=== PATIENT | female | born 1935 | race Caucasian/White ===

== ENCOUNTER → 2016-11-28 | Outpatient (CLI) | payer OTHER ==
[~2016-11-28] MED LIST: AMOX875T PO; ASCO10003 PO; ATOR10TA82 PO; CARB25TA16 PO; CHOL100027 PO; LETR2TAB PO; LEVO88TA PO; LORA-741 PO; LOSA50TA6 PO; MULTCAP42; OXYC1TAB3 PO; OYST500T47 PO; SERT25TA PO; calcium
[2016-11-28 14:03] LABS: BLOOD UREA NITROGEN 16 mg/dl (7-18); BUN/CREATININE RATIO 22.2 (10-20); CARBON DIOXIDE 28 mmol/L (21-32); CHLORIDE 104 mmol/L (98-107); CREATININE 0.71 mg/dl (0.60-1.20); GLUCOSE 88 mg/dl (70-99); SODIUM 139 mmol/L (136-145)
[2016-11-28 14:14] LABS: THYROID STIMULATING HORMONE 0.841 uIu/ml (0.300-4.500)
== END | disposition home or self-care (01) ==
LOC: C.LABPBG 10:04
PROVIDERS: ATTEND Internal Medicine Geriatric Medicine
DX: E05.00 Thyrotoxicosis with diffuse goiter without thyrotoxic crisis or storm (principal); E89.0 Postprocedural hypothyroidism; I10 Essential (primary) hypertension

== ENCOUNTER → 2016-12-01 | Outpatient (CLI) | payer OTHER ==
--- NOTE | 2016-12-01 10:32 | DIAGNOSTIC IMAGING REPORT ---
ULTRASOUND OF THE ABDOMINAL AORTA CLINICAL HISTORY: Abdominal aneurysm. COMPARISON STUDY: Ultrasound of the abdominal aorta dated 05/05/2016. TECHNIQUE: Multiple gonsalves scale, color Doppler, and spectral Doppler sonograms of the abdominal aorta and iliac arteries are performed. Images are reviewed in the transverse and longitudinal planes. FINDINGS: There is moderate to advanced atherosclerotic calcification and irregularity noted throughout the abdominal aorta. The proximal abdominal aorta measures 2.2 x 2.5 cm (AP times transverse) and the mid abdominal aorta measures 2.2 x 2.3 cm. 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 This measures 3.9 cm in AP diameter and 4.5 cm in transverse diameter. Abdominal aorta is widely patent. The right common iliac artery measures up to 1.4 cm and the left common iliac artery measures up to 1.5 cm. 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 Electronically signed by: Daren Arellano M.D. 12/01/2016 10:30 AM Dictated Date/Time: 12/01/2016 10:20 AM
== END | disposition home or self-care (01) ==
LOC: C.ULTR 10:01
PROVIDERS: ATTEND Internal Medicine Geriatric Medicine
DX: I71.4 Abdominal aortic aneurysm, without rupture (principal)

== ENCOUNTER 2017-02-17 13:54 | Observation (INO) | payer OTHER ==
[~2017-02-17] VITALS: Ht 160 cm; Wt 91.1 kg
[~2017-02-17 13:54] MED LIST changes: -AMOX875T PO; -ATOR10TA82 PO; -CARB25TA16 PO; -LOSA50TA6 PO; -OXYC1TAB3 PO; -OYST500T47 PO; -SERT25TA PO
[2017-02-17] MEDS ORDERED: MoRPHine SULFATE 4 MG/ML 1 ML CARP\\VIAL IM STA (14:10)
[2017-02-17] MEDS ORDERED: OYST500T47 PO (14:58)
--- NOTE | 2017-02-17 15:01 | DIAGNOSTIC IMAGING REPORT ---
PELVIS 1 OR 2 VIEW ROUTINE CLINICAL HISTORY: Left leg pain following fall. COMPARISON STUDY: PET/CT April 01, 2014. FINDINGS: No acute fracture within the pelvis or hips is identified. The sacroiliac joints and symphysis pubis are intact. Calcific density along the greater trochanter of the left femur is chronic and due to muscular insertion. IMPRESSION: No acute fracture within the pelvis or hips. Electronically signed by: Josh Figueroa M.D. 02/17/2017 2:59 PM Dictated Date/Time: 02/17/2017 2:58 PM
--- NOTE | 2017-02-17 15:04 | DIAGNOSTIC IMAGING REPORT ---
LEFT FEMUR 2 VIEWS ROUTINE CLINICAL HISTORY: Distal left femoral pain following fall. COMPARISON: None FINDINGS: No acute fracture of the left femur is identified. Mild smooth cortical thickening of the mid to distal shaft of the left femur is chronic and of doubtful significance. Note is made of a large left knee joint effusion with lipohemarthrosis. There is an acute vertical nondisplaced fracture through the tibial spines. IMPRESSION: 1. No acute fracture of the left femur. 2. Acute vertical nondisplaced fracture of the proximal tibia extending through the tibial spines with large left knee joint effusion and lipohemarthrosis. Electronically signed by: Josh Figueroa M.D. 02/17/2017 3:02 PM Dictated Date/Time: 02/17/2017 2:59 PM
--- NOTE | 2017-02-17 15:06 | DIAGNOSTIC IMAGING REPORT ---
LEFT TIBIA/FIBULA 2 VIEWS ROUTINE CLINICAL HISTORY: Left knee and proximal tibial pain. Fall. COMPARISON: None FINDINGS: There is an acute vertical nondisplaced fracture of the proximal left tibia that extends through the tibial spines. No acute fracture of the left fibula is identified. There is moderate plantar calcaneal spurring. A left knee joint effusion is better depicted on the left femur radiographs. IMPRESSION: 1. Acute nondisplaced vertical fracture of the proximal left tibia that extends through the tibial spines. 2. Large left knee joint effusion with lipohemarthrosis which is better depicted on the left femur radiographs. Electronically signed by: Josh Figueroa M.D. 02/17/2017 3:04 PM Dictated Date/Time: 02/17/2017 3:02 PM
--- NOTE | 2017-02-17 15:13 | DIAGNOSTIC IMAGING REPORT ---
CT OF THE HEAD WITHOUT CONTRAST CLINICAL HISTORY: Fall with head injury. COMPARISON STUDY: MRI of the brain January 27, 2016. TECHNIQUE: Helical axial images of the head were obtained without IV contrast. Automated exposure control was utilized for the study. A dose lowering technique was utilized adhering to the principles of ALARA. FINDINGS: No acute intracranial hemorrhage, midline shift or mass effect is present. Ventricular system is normal for age. Basilar cisterns are patent. There are no extra-axial collections. White matter hypodensities suggest moderate small vessel disease. There is no calvarial fracture. There is a small amount of hemorrhage within the right maxillary sinus with an air-fluid level. The right ethmoid air cells are partially opacified. There is a comminuted, displaced fracture of the right lamina papyracea. Right orbital floor fracture is also noted. IMPRESSION: 1. No acute intracranial findings. 2. No calvarial fracture. 3. Fractures of the right orbital floor and right lamina papyracea which are better depicted on the maxillofacial CT. Electronically signed by: Josh Figueroa M.D. 02/17/2017 3:11 PM Dictated Date/Time: 02/17/2017 3:04 PM
--- NOTE | 2017-02-17 15:17 | DIAGNOSTIC IMAGING REPORT ---
MAXILLOFACIAL CT WITHOUT CONTRAST CLINICAL HISTORY: Fall with facial injury. COMPARISON STUDY: Sinus CT April 17, 2014. TECHNIQUE: A maxillofacial CT was performed without IV contrast. Coronal and sagittal reformats were viewed. A dose lowering technique was utilized adhering to the principles of ALARA. FINDINGS: There is a small air-fluid level within the right maxillary sinus which contains hemorrhage. The globes are intact. There is no retrobulbar hematoma. Note is made of an acute displaced right orbital floor fracture. A small amount of orbital fat extends through the defect. This fracture involves the majority of the right orbital floor which is depressed 4 mm. In addition, there is an acute displaced fracture of the right lamina papyracea. There is an age indeterminate anterior right nasal bone fracture. Alignment of the temporomandibular joints is anatomic. IMPRESSION: 1. Acute depressed mildly displaced right orbital floor fracture. Small amount of orbital fat extends through the defect. Trace gas within the right orbit due to the fracture. 2. Acute displaced fracture of the right lamina papyracea. 3. Age indeterminate nondisplaced right nasal bone fracture. Electronically signed by: Josh Figueroa M.D. 02/17/2017 3:16 PM Dictated Date/Time: 02/17/2017 3:11 PM
[2017-02-17] MEDS ORDERED: ATOR10TA88 PO (15:18)
[2017-02-17] MEDS ORDERED: SERT25TA PO (15:18)
[2017-02-17] MEDS ORDERED: LOSA50TA6 PO (15:18)
[2017-02-17] MEDS ORDERED: CARB25TA16 PO (15:18)
--- NOTE | 2017-02-17 15:21 | DIAGNOSTIC IMAGING REPORT ---
CT OF THE CERVICAL SPINE WITHOUT CONTRAST CLINICAL HISTORY: Fall. COMPARISON STUDY: No previous studies for comparison. TECHNIQUE: Helical axial images of the cervical spine were obtained without IV contrast. Sagittal and coronal reconstructions were viewed. A dose lowering technique was utilized adhering to the principles of ALARA. FINDINGS: Reversal of the normal cervical lordosis is noted. There is slight anterolisthesis of C3 on C4 which is likely chronic. No acute fracture is identified. Craniocervical junction is intact. There is moderate to marked multilevel degenerative disc disease and facet arthrosis of the cervical spine. There is no prevertebral edema. IMPRESSION: No acute cervical spine fracture or subluxation. Electronically signed by: Josh Figueroa M.D. 02/17/2017 3:20 PM Dictated Date/Time: 02/17/2017 3:16 PM
[2017-02-17] MEDS ORDERED: MoRPHine SULFATE 10 MG/ML CARP/VIAL IM STA (15:28)
[2017-02-17] MEDS ORDERED: OXYC1TAB3 PO (16:33)
[2017-02-17] MEDS ORDERED: AMOX875T PO (16:35)
[2017-02-17 17:28] LABS: BASO % 0.3 %; BASO ABS # 0.04 K/uL (0-0.2); COMPLETE YES; EOS % 1.5 %; HEMATOCRIT 35.8 % (37-47); IG% 0.2 %; LYMPH % 19.1 %; LYMPH ABS # 2.62 K/uL (1.2-3.4); MEAN CELL VOLUME 88.8 fL (80-100); MEAN CORPUSCULAR HEMOGLOBIN 29.3 pg (25-34); MONO % 8.7 %; NEUT % 70.2 %; PLATELET COUNT 266 K/uL (130-400); RED BLOOD COUNT 4.03 M/uL (4.2-5.4); WHITE BLOOD COUNT 13.75 K/uL (4.8-10.8)
[2017-02-17 17:35] LABS: BLOOD UREA NITROGEN 15 mg/dl (7-18); CALCIUM 9.4 mg/dl (8.5-10.1); CARBON DIOXIDE 28 mmol/L (21-32); CHLORIDE 105 mmol/L (98-107); CREATININE 0.67 mg/dl (0.60-1.20); GLUCOSE 105 mg/dl (70-99); POTASSIUM 3.9 mmol/L (3.5-5.1); SODIUM 138 mmol/L (136-145)
[2017-02-17] MEDS ORDERED: AMOXICILLIN/CLAVULANATE TAB 875 MG TAB PO ONE (17:45)
[2017-02-17 18:25] VITALS: O2SAT 92; BMI 35.6
[2017-02-17 18:26] VITALS: Ht 160 cm; Wt 91.1 kg
[2017-02-17] MEDS ORDERED: ONDANSETRON INJ 2 MG/ML 2 ML VIAL IV STA (18:37)
--- NOTE | 2017-02-17 18:50 | EMERGENCY ROOM VISIT NOTE ---
History Report prepared by Andrea: Ibis Tejada Under the Supervision of: Viktoriya CarrollO. First contact with patient: 14:01 Chief Complaint: FALL Stated Complaint: TRIPPED ON CURB, FELL, HIT HEAD/FACE, LT LEG PAIN History of Present Illness The patient is a 81 year old female who presents to the Emergency Room with complaints of an episode of a fall occurring at 8:30am today. She tripped over the curb and fell on the sidewalk. She was able to get her arms out in front of her to catch herself. The patient landed on her right side. She scraped her face and her right knee on the side walk. She is currently complaining of left knee pain. She rates her pain as an 8/10 in severity. Movement exacerbates her pain. She denies hitting her head, LOC, headache, changes in vision, neck pain, chest pain, and abdominal pain. The patient takes aspirin and denies other blood thinners. Source of History: patient Onset: today Position: other (global) Symptom Intensity: 8/10 Timing: other (episode) Modifying Factors (Worsening): movement Associated Symptoms: No LOC, No headache, No neck pain, No chest pain, No abdominal pain Note: Pt notes left knee pain Review of Systems See HPI for pertinent positives & negatives. A total of 10 systems reviewed and were otherwise negative. Past Medical & Surgical Medical Problems: (1) Breast cancer Family History FH: heart disease Social History Smoking Status: Never Smoker Smokeless Tobacco Use: No Alcohol Use: none Housing Status: lives alone Occupation Status: unemployed Current/Historical Medications Scheduled Amoxicillin & Pot Clavulanate (Augmentin 875-125 mg), 1 TAB PO BID Ascorbic Acid (Vitamin C), 2,000 MG PO DAILY Atorvastatin (Lipitor), 10 MG PO DAILY Cholecalciferol (Vitamin D 1000 Unit), 2,000 INTER.UNIT PO DAILY Letrozole (Femara), 2.5 MG PO DAILY Levodopa/Carbidopa (Carbidopa/Levodopa Sr 25-100 mg), 1 TAB PO TID Levothyroxine Sodium (Synthroid), 88 MCG PO DAILY Lorazepam (Ativan), 0.5 MG PO DAILY Losartan Potassium (Cozaar), 50 MG PO DAILY Multiple Vitamin (Multivitamins), DAILY Oyster Shell (Calcium), 1 TAB PO DAILY Sertraline Hcl (Zoloft), 25 MG PO DAILY Scheduled PRN Oxycodone Ir (Roxicodone Ir), 1 TAB PO Q6H PRN for Pain Allergies Coded Allergies: No Known Allergies (Verified , 02/17/17) Physical Exam Vital Signs Date Time Temp Pulse Resp B/P (MAP) Pulse Ox O2 Delivery O2 Flow Rate FiO2 02/17/17 17:51 75 18 130/73 92 Room Air 02/17/17 15:32 74 18 135/74 94 Room Air 02/17/17 13:58 36.6 93 20 128/80 93 Room Air Physical Exam GENERAL: alert, well appearing, well nourished, no distress, non-toxic HEAD: normal cephalic, abrasion to the right side of the face EYE EXAM: normal conjunctiva, PERRL and EOM's grossly intact OROPHARYNX: no exudate, no erythema, lips, buccal mucosa, and tongue normal and mucous membranes are moist EARS: TMs clear b/l NECK: supple, no nuchal rigidity, no adenopathy, non-tender CHEST: stable to compression anteriorly and posteriorly LUNGS: clear to auscultation. Normal chest wall mechanics HEART: no murmurs, S1 normal and S2 normal ABDOMEN: abdomen soft, non-tender, normo-active bowel sounds, no masses, no rebound or guarding. PELVIS: stable to compression anteriorly and posteriorly BACK: Back is symmetrical on inspection and there is no deformity, no midline tenderness, no CVA tenderness. UPPER EXTREMITIES: full active and passive range of motion of all joints without tenderness to palpation LOWER EXTREMITIES: Abrasions to the right knee, Tenderness to palpation of the left distal femur, knee, proximal tib/fib with bruising. Minimal ROM. NEURO EXAM: Normal sensorium, cranial nerves II-XII grossly intact, normal speech, no gross weakness of arms. GCS: 15. Medical Decision & Procedures ER Provider Diagnostic Interpretation: Radiology results as stated below per my review and the radiologist's interpretation: LEFT TIBIA/FIBULA 2 VIEWS ROUTINE CLINICAL HISTORY: Left knee and proximal tibial pain. Fall. COMPARISON: None FINDINGS: There is an acute vertical nondisplaced fracture of the proximal left tibia that extends through the tibial spines. No acute fracture of the left fibula is identified. There is moderate plantar calcaneal spurring. A left knee joint effusion is better depicted on the left femur radiographs. IMPRESSION: 1. Acute nondisplaced vertical fracture of the proximal left tibia that extends through the tibial spines. 2. Large left knee joint effusion with lipohemarthrosis which is better depicted on the left femur radiographs. Electronically signed by: Josh Figueroa M.D. 02/17/2017 3:04 PM Dictated Date/Time: 02/17/2017 3:02 PM PELVIS 1 OR 2 VIEW ROUTINE CLINICAL HISTORY: Left leg pain following fall. COMPARISON STUDY: PET/CT April 01, 2014. FINDINGS: No acute fracture within the pelvis or hips is identified. The sacroiliac joints and symphysis pubis are intact. Calcific density along the greater trochanter of the left femur is chronic and due to muscular insertion. IMPRESSION: No acute fracture within the pelvis or hips. Electronically signed by: Josh Figueroa M.D. 02/17/2017 2:59 PM Dictated Date/Time: 02/17/2017 2:[address] WITHOUT CONTRAST CLINICAL HISTORY: Fall with facial injury. COMPARISON STUDY: Sinus CT April 17, 2014. TECHNIQUE: A maxillofacial CT was performed without IV contrast. Coronal and sagittal reformats were viewed. A dose lowering technique was utilized adhering to the principles of ALARA. FINDINGS: There is a small air-fluid level within the right maxillary sinus which contains hemorrhage. The globes are intact. There is no retrobulbar hematoma. Note is made of an acute displaced right orbital floor fracture. A small amount of orbital fat extends through the defect. This fracture involves the majority of the right orbital floor which is depressed 4 mm. In addition, there is an acute displaced fracture of the right lamina papyracea. There is an age indeterminate anterior right nasal bone fracture. Alignment of the temporomandibular joints is anatomic. IMPRESSION: 1. Acute depressed mildly displaced right orbital floor fracture. Small amount of orbital fat extends through the defect. Trace gas within the right orbit due to the fracture. 2. Acute displaced fracture of the right lamina papyracea. 3. Age indeterminate nondisplaced right nasal bone fracture. Electronically signed by: Josh Figueroa M.D. 02/17/2017 3:16 PM Dictated Date/Time: 02/17/2017 3:[address] OF THE HEAD WITHOUT CONTRAST CLINICAL HISTORY: Fall with head injury. COMPARISON STUDY: MRI of the brain January 27, 2016. TECHNIQUE: Helical axial images of the head were obtained without IV contrast. Automated exposure control was utilized for the study. A dose lowering technique was utilized adhering to the principles of ALARA. FINDINGS: No acute intracranial hemorrhage, midline shift or mass effect is present. Ventricular system is normal for age. Basilar cisterns are patent. There are no extra-axial collections. White matter hypodensities suggest moderate small vessel disease. There is no calvarial fracture. There is a small amount of hemorrhage within the right maxillary sinus with an air-fluid level. The right ethmoid air cells are partially opacified. There is a comminuted, displaced fracture of the right lamina papyracea. Right orbital floor fracture is also noted. IMPRESSION: 1. No acute intracranial findings. 2. No calvarial fracture. 3. Fractures of the right orbital floor and right lamina papyracea which are better depicted on the maxillofacial CT. Electronically signed by: Josh Figueroa M.D. 02/17/2017 3:11 PM Dictated Date/Time: 02/17/2017 3:04 PM LEFT FEMUR 2 VIEWS ROUTINE CLINICAL HISTORY: Distal left femoral pain following fall. COMPARISON: None FINDINGS: No acute fracture of the left femur is identified. Mild smooth cortical thickening of the mid to distal shaft of the left femur is chronic and of doubtful significance. Note is made of a large left knee joint effusion with lipohemarthrosis. There is an acute vertical nondisplaced fracture through the tibial spines. IMPRESSION: 1. No acute fracture of the left femur. 2. Acute vertical nondisplaced fracture of the proximal tibia extending through the tibial spines with large left knee joint effusion and lipohemarthrosis. Electronically signed by: Josh Figueroa M.D. 02/17/2017 3:02 PM Dictated Date/Time: 02/17/2017 2:[address] OF THE CERVICAL SPINE WITHOUT CONTRAST CLINICAL HISTORY: Fall. COMPARISON STUDY: No previous studies for comparison. TECHNIQUE: Helical axial images of the cervical spine were obtained without IV contrast. Sagittal and coronal reconstructions were viewed. A dose lowering technique was utilized adhering to the principles of ALARA. FINDINGS: Reversal of the normal cervical lordosis is noted. There is slight anterolisthesis of C3 on C4 which is likely chronic. No acute fracture is identified. Craniocervical junction is intact. There is moderate to marked multilevel degenerative disc disease and facet arthrosis of the cervical spine. There is no prevertebral edema. IMPRESSION: No acute cervical spine fracture or subluxation. Electronically signed by: Josh Figueroa M.D. 02/17/2017 3:20 PM Dictated Date/Time: 02/17/2017 3:16 PM Laboratory Results 02/17/17 17:10 Red Blood Count 4.03, Mean Corpuscular Volume 88.8, Mean Corpuscular Hemoglobin 29.3, Mean Corpuscular Hemoglobin Concent 33.0, Mean Platelet Volume 10.0, Neutrophils (%) (Auto) 70.2, Lymphocytes (%) (Auto) 19.1, Monocytes (%) (Auto) 8.7, Eosinophils (%) (Auto) 1.5, Basophils (%) (Auto) 0.3, Neutrophils # (Auto) 9.66, Lymphocytes # (Auto) 2.62, Monocytes # (Auto) 1.20, Eosinophils # (Auto) 0.20, Basophils # (Auto) 0.04 02/17/17 17:10 Test 02/17/17 17:10 White Blood Count 13.75 K/uL (4.8-10.8) Red Blood Count 4.03 M/uL (4.2-5.4) Hemoglobin 11.8 g/dL (12.0-16.0) Hematocrit 35.8 % (37-47) Mean Corpuscular Volume 88.8 fL (80-100) Mean Corpuscular Hemoglobin 29.3 pg (25-34) Mean Corpuscular Hemoglobin Concent 33.0 g/dl (32-36) Platelet Count 266 K/uL (130-400) Mean Platelet Volume 10.0 fL (7.4-10.4) Neutrophils (%) (Auto) 70.2 % Lymphocytes (%) (Auto) 19.1 % Monocytes (%) (Auto) 8.7 % Eosinophils (%) (Auto) 1.5 % Basophils (%) (Auto) 0.3 % Neutrophils # (Auto) 9.66 K/uL (1.4-6.5) Lymphocytes # (Auto) 2.62 K/uL (1.2-3.4) Monocytes # (Auto) 1.20 K/uL (0.11-0.59) Eosinophils # (Auto) 0.20 K/uL (0-0.5) Basophils # (Auto) 0.04 K/uL (0-0.2) RDW Standard Deviation 44.0 fL (36.4-46.3) RDW Coefficient of Variation 13.5 % (11.5-14.5) Immature Granulocyte % (Auto) 0.2 % Immature Granulocyte # (Auto) 0.03 K/uL (0.00-0.02) Anion Gap 5.0 mmol/L (3-11) Estimated GFR () 94.2 Estimated GFR (Non- 81.3 BUN/Creatinine Ratio 23.0 (10-20) Calcium Level 9.4 mg/dl (8.5-10.1) Laboratory results per my review. Medications Administered Medications (Trade) Dose Ordered Sig/Susan Route Start Time Stop Time Status Last Admin Dose Admin Morphine Sulfate (MoRPHine SULFATE INJ) 4 mg NOW STAT IM 02/17/17 14:10 02/17/17 14:11 DC 02/17/17 14:16 4 MG Morphine Sulfate (MoRPHine SULFATE INJ) 6 mg NOW STAT IM 02/17/17 15:28 02/17/17 15:31 DC 02/17/17 15:51 6 MG Amoxicillin/ Clavulanate Potassium (Augmentin Tab) 875 mg ONE ONCE PO 02/17/17 17:45 02/17/17 17:46 DC 02/17/17 17:50 875 MG ED Course ED COURSE: Vital signs were reviewed and showed hypertensive. The patients medical record was reviewed The above diagnostic studies were performed and reviewed. ED treatments and interventions as stated above. 1401: The patient was evaluated in room C4. A complete history and physical examination was performed. 1410: Morphine sulfate 4 mg IM 1527: I updated the patient and her family. The patient is complaining of pain. 1528: Morphine sulfate 6 mg IM 1530: I spoke with Dr. Campos of orthopedics. We discussed the patient's case. He recommended a knee immobilizer and crutches. 1616: I discussed the patient's case with Dr. [facility]. He states that her fracture typically heals on its own. He recommended antibiotics and will follow-up with the patient in the office. 1621: I had a long conversation with the patient regarding her treatment plan. She would prefer to go home and would like to try crutches. 1646: The patient has been unsuccessful with crutches. 1659: Upon reevaluation, the patient is resting comfortably. I discussed my findings with the patient and she understands and agrees with the treatment plan. Based on the patients age, coexisting illnesses, exam and lab findings the decision to treat as an inpatient was made. The patient remained stable while under my care. The patient will be evaluated for further management. 1714: I spoke with Dr. Walton at this time. We discussed the patient's case. The patient will be evaluated by the [facility] for further management. 1745: Augmentin 875 mg PO Medical Decision Differential diagnoses include major intracranial, cervical, spinal, thoracic, abdominal, pelvic and neurologic injury. Fracture, contusion, sprain, strain, laceration, abrasions included as well. Patient is an 81-year-old female who presents the ER following a mechanical fall. She is abrasions on the right side of her face and severe left knee pain. X-rays show proximal tibial fracture along with right orbital floor fracture. She has full active range of motion of her eyes. No double vision. No pain with range of motion. Discussed with Dr. Brooks who recommended antibiotics and not blowing nose. He will see in office. Discussed case with orthopedics as well. Patient was updated but was unable to and weight with crutches. Care management and evaluated her. Unsuccessful placing. Patient was discussed with internal medicine for observation overnight prior to placement. Medication Reconcilliation Current Medication List: was personally reviewed by me Blood Pressure Screening Patient's blood pressure: Elevated blood pressure Blood pressure disposition: Elevated BP felt to be situational Consults Time Called: 1528 Consulting Physician: Dr. Campos Returned Call: [address] Campos of orthopedics. We discussed the patient's case. He recommended a knee immobilizer and crutches. Additional Consults: Time Called: 1610 Consulted Physician: Dr. Brooks Returned Call: [phone] Additional Comments: I discussed the patient's case with Dr. [facility] of [facility]. He states that her fracture typically heals on its own. He recommended antibiotics and will follow-up with the patient in the office. Time Called: 1709 Consulted Physician: Dr. Walton Returned Call: [phone] Additional Comments: I spoke with Dr. Walton at this time. We discussed the patient's case. The patient will be evaluated by the [facility] for further management. Impression Primary Impression: Orbital floor fracture Additional Impressions: Tibia fracture Ambulatory dysfunction Scribe Attestation The scribe's documentation has been prepared under my direction and personally reviewed by me in its entirety. I confirm that the note above accurately reflects all work, treatment, procedures, and medical decision making performed by me. Departure Information Dispostion Being Evaluated By Hospitalist Prescriptions Amoxicillin & Pot Clavulanate (Augmentin 875-125 mg) 1 Tab Tab 1 TAB PO BID, #20 TAB Prov: Carlitos Ag, DO 02/17/17 Oxycodone Ir (Roxicodone Ir) 5 Mg Tab 1 TAB PO Q6H Y for Pain, #20 TAB Prov: Carlitos Ag, DO 02/17/17 Referrals Roberto Henderson M.D. (PCP) Patient Instructions My [facility] Problem Qualifiers Primary Impression: Orbital floor fracture Encounter type: initial encounter Fracture type: closed Laterality: right Qualified Codes: S02.31XA - Fracture of orbital floor, right side, initial encounter for closed fracture Additional Impressions: Tibia fracture Encounter type: initial encounter Tibia location: spine Fracture type: closed Fracture alignment: nondisplaced Laterality: left Qualified Codes: S82.115A - Nondisplaced fracture of left tibial spine, initial encounter for closed fracture
[2017-02-17] MEDS ORDERED: ACETAMINOPHEN 325 MG TAB PO PRN (19:15)
[2017-02-17] MEDS ORDERED: ONDANSETRON INJ 2 MG/ML 2 ML VIAL IV PRN (19:15)
[2017-02-17] MEDS ORDERED: IV FLUIDS COMPLETED PRN (20:00)
[2017-02-17] MEDS: HYDROmorphone INJ 0.5 MG/0.5 ML SYR IV PRN ×2 (20:03→22:07)
[2017-02-17 20:15] VITALS: BP 145/81; PULSE 66; TEMP 36.8; O2SAT 96
[2017-02-17 21:20] LABS: PARTIAL THROMBOPLASTIN RATIO 0.9; PROTHROMBIN TIME (PATIENT) 10.7 SECONDS (9.0-12.0)
[2017-02-17] MEDS: HEPARIN SOD 5000 UNIT/0.5 ML CARP SQ SCH (22:03)
[2017-02-17] MEDS: CARBIDOPA/LEVODOPA 25/100MG EXT REL TAB PO SCH (22:04)
--- NOTE | 2017-02-17 22:29 | History and Physical ---
History & Physical Date & Time of Service: Feb 17, 2017 at 19:31 Chief Complaint: Tripped On Curb, Fell, Hit Head/Face, Lt Leg Pain Primary Care Physician: Roberto Henderson M.D. History of Present Illness Source: patient, family This patient is an 81-year-old female with history of Parkinson's disease, hypertension, hyperlipidemia, hypothyroidism, breast cancer, anxiety disorder, and AAA, who presents with a mechanical fall resulting in a left tibial plateau fracture as well as right orbital floor fracture. She reports she walked out of the [employer]on and was walking to the parking lot when she tripped on a curb and fell onto the right side of her face with hands outstretched and somehow also on to her left knee. In the ER, she had multiple x-rays and CT scans with the above findings. [facility] [place] by the ER physician who recommended Augmentin for prophylaxis for the orbital fracture with maxillary sinus hemorrhage and outpatient follow-up if needed. Orthopedics was consulted also who recommended nonweightbearing and outpatient follow-up, however the patient was unable to ambulate with crutches. She will be admitted on an observation status in order to get physical therapy and occupational therapy evaluations with goal to get her to a rehabilitation facility on Sunday. Past Medical/Surgical History PMH: History of Breast cancer Parkinson's disease Hypertension Hyperlipidemia Hypothyroidism AAA Anxiety disorder PSH: Bilateral mastectomy Family History FH: heart disease Mother with diabetes, breast cancer, hypertension, AAA Father with hypertension and CAD Social History Smoking Status: Former Smoker (smoked a 5-10 year pack year history and quit in 1998) Smokeless Tobacco Use: No Alcohol Use: none Drug Use: none Immunizations History of Influenza Vaccine: Yes History of Tetanus Vaccine?: Yes History of Pneumococcal: No History of Hepatitis B Vaccine: No Multi-Drug Resistant Organisms History of MDRO: No Allergies Coded Allergies: No Known Allergies (Verified , 02/17/17) Home Medications Scheduled Amoxicillin & Pot Clavulanate (Augmentin 875-125 mg), 1 TAB PO BID Ascorbic Acid (Vitamin C), 2,000 MG PO DAILY Atorvastatin (Lipitor), 10 MG PO DAILY Cholecalciferol (Vitamin D 1000 Unit), 2,000 INTER.UNIT PO DAILY Letrozole (Femara), 2.5 MG PO DAILY Levodopa/Carbidopa (Carbidopa/Levodopa Sr 25-100 mg), 1 TAB PO TID Levothyroxine Sodium (Synthroid), 88 MCG PO DAILY Lorazepam (Ativan), 0.5 MG PO DAILY Losartan Potassium (Cozaar), 50 MG PO DAILY Multiple Vitamin (Multivitamins), DAILY Oyster Shell (Calcium), 1 TAB PO DAILY Sertraline Hcl (Zoloft), 25 MG PO DAILY Scheduled PRN Oxycodone Ir (Roxicodone Ir), 1 TAB PO Q6H PRN for Pain Review of Systems Constitutional: No fever, No chills Eyes: No worsening of vision, No eye pain ENT: No problem reported Respiratory: No shortness of breath Cardiovascular: No chest pain Abdomen: + nausea, + vomiting (after receiving morphine), No pain Musculoskeletal: + joint pain (left knee) Genitourinary - Female: No problem reported Neurologic: No problem reported Psychiatric: No problem reported Endocrine: No problem reported Hematologic / Lymphatic: No problem reported Integumentary: No problem reported Allergic / Immunologic: No problem reported Physical Exam Vital Signs Date Time Temp Pulse Resp B/P (MAP) Pulse Ox O2 Delivery O2 Flow Rate FiO2 02/17/17 18:25 92 Room Air 02/17/17 17:51 75 18 130/73 92 Room Air 02/17/17 15:32 74 18 135/74 94 Room Air 02/17/17 13:58 36.6 93 20 128/80 93 Room Air General Appearance: WD/WN, no apparent distress Head: normocephalic, + pertinent finding (right periorbital area with edema and a few superficial abrasions with significant ecchymosis) Eyes: normal inspection, PERRL, EOMI (without pain in any direction), sclerae normal ENT: normal ENT inspection, hearing grossly normal, TMs normal, pharynx normal Neck: supple, no adenopathy, thyroid normal, no JVD, trachea midline Respiratory/Chest: lungs clear, normal breath sounds, no respiratory distress, no accessory muscle use Cardiovascular: regular rate, rhythm, no edema, no gallop, no murmur, normal peripheral pulses Abdomen/GI: normal bowel sounds, non tender, soft, no organomegaly Back: normal inspection, no muscle spasm Extremities/Musculoskelatal: no pedal edema, + pertinent finding (left knee with mild effusion and tenderness to palpation anteriorly) Neurologic/Psych: no motor/sensory deficits, alert, normal mood/affect, oriented x 3 Skin: normal color, warm/dry, no rash, + pertinent finding (some ecchymoses and superficial abrasions on the palms of the hands bilaterally) Diagnostics Laboratory Results Results Past 24 Hours Test 02/17/17 17:10 Range/Units White Blood Count 13.75 4.8-10.8 K/uL Red Blood Count 4.03 4.2-5.4 M/uL Hemoglobin 11.8 12.0-16.0 g/dL Hematocrit 35.8 37-47 % Mean Corpuscular Volume 88.8 80-100 fL Mean Corpuscular Hemoglobin 29.3 25-34 pg Mean Corpuscular Hemoglobin Concent 33.0 32-36 g/dl Platelet Count 266 130-400 K/uL Mean Platelet Volume 10.0 7.4-10.4 fL Neutrophils (%) (Auto) 70.2 % Lymphocytes (%) (Auto) 19.1 % Monocytes (%) (Auto) 8.7 % Eosinophils (%) (Auto) 1.5 % Basophils (%) (Auto) 0.3 % Neutrophils # (Auto) 9.66 1.4-6.5 K/uL Lymphocytes # (Auto) 2.62 1.2-3.4 K/uL Monocytes # (Auto) 1.20 0.11-0.59 K/uL Eosinophils # (Auto) 0.20 0-0.5 K/uL Basophils # (Auto) 0.04 0-0.2 K/uL RDW Standard Deviation 44.0 36.4-46.3 fL RDW Coefficient of Variation 13.5 11.5-14.5 % Immature Granulocyte % (Auto) 0.2 % Immature Granulocyte # (Auto) 0.03 0.00-0.02 K/uL Sodium Level 138 136-145 mmol/L Potassium Level 3.9 3.5-5.1 mmol/L Chloride Level 105 98-107 mmol/L Carbon Dioxide Level 28 21-32 mmol/L Anion Gap 5.0 3-11 mmol/L Blood Urea Nitrogen 15 7-18 mg/dl Creatinine 0.67 0.60-1.20 mg/dl Estimated GFR () 94.2 Estimated GFR (Non- 81.3 BUN/Creatinine Ratio 23.0 10-20 Random Glucose 105 70-99 mg/dl Calcium Level 9.4 8.5-10.1 mg/dl Diagnostic Radiology Left tibia/fibula x-ray: 1. Acute nondisplaced vertical fracture of the proximal left tibia that extends through the tibial spines. 2. Large left knee joint effusion with lipohemarthrosis which is better depicted on the left femur radiographs. Maxillofacial CT: 1. Acute depressed mildly displaced right orbital floor fracture. Small amount of orbital fat extends through the defect. Trace gas within the right orbit due to the fracture. 2. Acute displaced fracture of the right lamina papyracea. 3. Age indeterminate nondisplaced right nasal bone fracture. Head CT: 1. No acute intracranial findings. 2. No calvarial fracture. 3. Fractures of the right orbital floor and right lamina papyracea which are better depicted on the maxillofacial CT. Cervical spine CT: No acute changes Impression Assessment and Plan This patient is an 81-year-old female with history of Parkinson's disease, hypertension, hyperlipidemia, hypothyroidism, breast cancer, anxiety disorder, and AAA, who presents with a mechanical fall resulting in a left tibial plateau fracture as well as right orbital floor fracture. She reports she walked out of the [employer] salon and was walking to the parking lot when she tripped on a curb and fell onto the right side of her face with hands outstretched and somehow also on to her left knee. In the ER, she had multiple x-rays and CT scans with the above findings. [facility] [place] by the ER physician who recommended Augmentin for prophylaxis for the orbital fracture with maxillary sinus hemorrhage and outpatient follow-up if needed. Orthopedics was consulted also who recommended nonweightbearing and outpatient follow-up, however the patient was unable to ambulate with crutches. She will be admitted on an observation status in order to get physical therapy and occupational therapy evaluations with goal to get her to a rehabilitation facility on Sunday. Left tibia fracture/right orbital floor fracture-status post mechanical fall -Consult orthopedic surgery for management of tibia fracture -Keep left knee in immobilizer for now -Pain control with Dilaudid when necessary as well as by mouth oxycodone when necessary -Consult OM for management of right orbital floor fracture -Continue Augmentin 1 tab twice a day for 10 days for prophylaxis -Antiemetics Hypertension/hyperlipidemia/AAA-all stable -Continue home meds of atorvastatin and losartan -Continue routine surveillance of AAA Parkinson's disease-sees Dr. Hinojosa of neurology routinely and was recently started on Sinemet -Continue Sinemet Hypothyroidism-clinically stable -Continue home dose of levothyroxine History of breast cancer-stable -Continue home Femara Anxiety disorder-stable -Continue home lorazepam and sertraline Prophylaxis-heparin SQ The scope-full code PT/OT evaluations and hopeful for discharge to [facility] on Sunday after authorization approved Level of Care Med/Surg Advanced Directives Existing Living Will: Yes Existing Power of Instant Print Operator: Yes Resuscitation Status FULL RESUSCITATION VTE Prophylaxis VTE Risk Assessment Done? Y/N: Yes Risk Level: Moderate Given or contraindicated: Unfractionated heparin SQ Additional Copies To Roberto Henderson M.D.
[2017-02-17 23:01] VITALS: BP 120/70; PULSE 62; TEMP 36.7; O2SAT 98
[2017-02-17] MEDS: OXYCODONE HCL IR 5 MG TAB (IMMEDIATE RELEASE) PO PRN (23:50)
[2017-02-18] MEDS: LEVOTHYROXINE 88 MCG TAB PO SCH (05:38)
[2017-02-18 06:34] LABS: BASO % 0.3 %; BASO ABS # 0.02 K/uL (0-0.2); COMPLETE YES; EOS % 2.5 %; HEMATOCRIT 33.4 % (37-47); IG% 0.3 %; LYMPH % 22.9 %; LYMPH ABS # 1.72 K/uL (1.2-3.4); MEAN CELL VOLUME 89.8 fL (80-100); MEAN CORPUSCULAR HEMOGLOBIN 29.3 pg (25-34); MEAN CORPUSCULAR HGB CONC 32.6 g/dl (32-36); MONO % 12.9 %; NEUT % 61.1 %; PLATELET COUNT 220 K/uL (130-400); RED BLOOD COUNT 3.72 M/uL (4.2-5.4); WHITE BLOOD COUNT 7.52 K/uL (4.8-10.8)
[2017-02-18 07:05] LABS: BUN/CREATININE RATIO 26.4 (10-20); CREATININE 0.51 mg/dl (0.60-1.20); MAGNESIUM 1.9 mg/dl (1.8-2.4)
[2017-02-18] MEDS: OXYCODONE HCL IR 5 MG TAB (IMMEDIATE RELEASE) PO PRN ×3 (07:18→21:08)
[2017-02-18 07:19] VITALS: BP 139/80; PULSE 71; TEMP 36.7; O2SAT 96
--- NOTE | 2017-02-18 09:41 | Consultant Recommendations ---
Business Administrator Recommendations Date of Service Feb 18, 2017. Business Administrator Recommendations NWRodney L LE x 6 weeks. Ice to left knee May remove knee immobilizer while in bed. F/U with Dr Campos for reassessment and X-rays in 6 weeks.
[2017-02-18] MEDS: ATORVASTATIN 10 MG TAB PO SCH (10:06)
[2017-02-18] MEDS: SERTRALINE HCL 50 MG TAB PO SCH (10:06)
[2017-02-18] MEDS: LORAZEPAM 0.5 MG TAB PO SCH (10:07)
[2017-02-18] MEDS: CHOLECALCIFEROL 1000 INTER.UNIT TAB PO SCH (10:07)
[2017-02-18] MEDS: CALCIUM CARBONATE 1250MG TAB PO SCH (10:07)
[2017-02-18] MEDS: CARBIDOPA/LEVODOPA 25/100MG EXT REL TAB PO SCH ×3 (10:08→21:09)
[2017-02-18] MEDS: AMOXICILLIN/CLAVULANATE TAB 875 MG TAB PO SCH ×2 (10:08→18:04)
[2017-02-18] MEDS: LOSARTAN POTASSIUM 50 MG TAB PO SCH (10:08)
[2017-02-18] MEDS: LETROZOLE 2.5 MG TAB PO SCH (10:08)
[2017-02-18] MEDS: HYDROmorphone INJ 0.5 MG/0.5 ML SYR IV PRN (10:10)
[2017-02-18] MEDS: HEPARIN SOD 5000 UNIT/0.5 ML CARP SQ SCH ×2 (10:12→21:11)
--- NOTE | 2017-02-18 12:45 | ORTHOPEDIC CONSULTATION ---
DATE OF CONSULTATION: 02/18/2017 HISTORY OF PRESENT ILLNESS: This is an 81-year-old female who was walking from the [employer] yesterday in [place], she tripped over the curb and she struck her left knee on the pavement as well as the right side of her face. She had difficulty ambulating. She presented to [facility] where she was triaged and evaluated. She had radiographs of the left knee noting a nondisplaced proximal tibia fracture extending into the proximal tibial spine with a consideration for lipohemarthrosis on the plain films. The patient also sustained a right orbital floor fracture. She was planning on being discharged home; however, she was unable to ambulate and she was admitted to the hospital for further care and management. Orthopedics was consulted. PAST MEDICAL HISTORY: Parkinson disease, hypertension, hyperlipidemia, hypothyroidism, breast cancer, anxiety disorder, and AAA. PAST SURGICAL HISTORY: Bilateral mastectomy. ALLERGIES: No known drug allergies. MEDICATIONS: Augmentin 875/125 mg 1 tab p.o. b.i.d., vitamin C 2000 mg daily, Lipitor 10 mg daily, vitamin D 1000 units 2 p.o. daily, letrozole 2.5 mg p.o. daily, carbidopa/levodopa SR 25/100 mg 1 tab p.o. b.i.d., Synthroid 88 mcg p.o. daily, Ativan 0.5 mg p.o. daily, Cozaar 50 mg p.o. daily, multivitamin daily, oyster shell calcium 1 tab p.o. daily, Zoloft 25 mg p.o. daily, Roxicodone IR 1 tab p.o. q. 6 p.r.n. pain. SOCIAL HISTORY: Former smoker with a 5- to 24-[id number] history, quit in 1998. Denies alcohol or drug use. 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 PHYSICAL EXAMINATION: GENERAL: This is an 81-year-old female who is lying supine in her hospital room bed. HEENT: She has obvious facial trauma with bruising and ecchymosis and bilateral echinus eyes. She has [id number] swelling on the right side of her face and cheek. She has no difficulty with speech. Trachea is midline. No JVD. She has dentures upper and lower. EXTREMITIES: Examination of the left knee demonstrates a knee immobilizer which was then removed for examination. Skin is warm, dry and intact. No abrasions, rashes or ulcers. There is slight ecchymosis, proximal medial aspect of the left knee with moderate effusion, tenderness to palpation is diffuse, limited range of motion due to pain and guarding. She has point tenderness over the proximal tibia and medial joint line of the knee. Limited active and passive range of motion due to pain and guarding. Dorsalis pedis and posterior pulses 2/4, bilateral lower extremities. The knee immobilizer was then replaced after examination. IMAGING DATA: Radiographs demonstrate a nondisplaced fracture of the proximal tibia with extension into the tibial spine. Osteopenia is evident. Overall, gross alignment is anatomic. IMPRESSION: 1. Left nondisplaced tibial plateau fracture with extension into the tibial spine. 2. Effusion secondary to above. 3. Local swelling secondary to above. RECOMMENDATIONS: Knee immobilizer for comfort, may remove while in bed. Nonweightbearing, left lower extremity for a period of approximately 6 weeks, ice to the left knee and follow up with Dr. Campos in clinic for reassessment and further evaluation with radiographs. Thank you for the opportunity to consult in care of this patient. TED
[2017-02-18 15:20] VITALS: BP 126/75; PULSE 76; TEMP 37; O2SAT 94
--- NOTE | 2017-02-18 18:48 | Hospitalist Progress Note ---
Hospitalist Progress Note Date of Service Feb 18, 2017. Subjective Patient in immobilizer moving around without assistance discussed the importance of informing nursing staff for help discussed in front of the patient 's daughter and grandson. All Other Systems: Reviewed and Negative Medications Medications (Trade) Dose Ordered Sig/Susan Route Start Time Stop Time Status Last Admin Dose Admin Heparin Sodium (Porcine) (Heparin Sq 5000 Unit/0.5ml) 5,000 unit Q12 SQ 02/17/17 21:00 03/19/17 20:59 02/18/17 10:12 5,000 UNIT Amoxicillin/ Clavulanate Potassium (Augmentin Tab) 875 mg BIDM PO 02/18/17 08:30 02/28/17 08:29 02/18/17 18:04 875 MG Atorvastatin Calcium (Lipitor Tab) 10 mg DAILY PO 02/18/17 09:00 03/20/17 08:59 02/18/17 10:06 10 MG Cholecalciferol (Vitamin D Tab) 2,000 inter.unit DAILY PO 02/18/17 09:00 03/20/17 08:59 02/18/17 10:07 2,000 INTER.UNIT Carbidopa/Levodopa (Sinemet Cr 25/ 100MG Tab) 1 tab TID PO 02/17/17 21:00 03/19/17 20:59 02/18/17 13:45 1 TAB Levothyroxine Sodium (Synthroid Tab) 88 mcg DAILYBB PO 02/18/17 06:00 03/20/17 05:59 02/18/17 05:38 88 MCG Lorazepam (Ativan Tab) 0.5 mg DAILY PO 02/18/17 09:00 03/20/17 08:59 02/18/17 10:07 0.5 MG Losartan Potassium (coZAAR TAB) 50 mg DAILY PO 02/18/17 09:00 03/20/17 08:59 02/18/17 10:08 50 MG Oxycodone HCl (Roxicodone Immediate Rel Tab) 5 mg Q6H PRN PO 02/17/17 19:15 03/03/17 19:14 02/18/17 13:45 5 MG Calcium Carbonate (oS-Victor Manuel 500 TAB) 1,250 mg DAILY PO 02/18/17 09:00 03/20/17 08:59 02/18/17 10:07 1,250 MG Sertraline HCl (Zoloft Tab) 25 mg DAILY PO 02/18/17 09:00 03/20/17 08:59 02/18/17 10:06 25 MG Letrozole (Femara Tab) 2.5 mg DAILY PO 02/18/17 09:00 03/20/17 08:59 02/18/17 10:08 2.5 MG Hydromorphone HCl (Dilaudid Inj) 0.5 mg Q2H PRN IV 02/17/17 19:30 03/03/17 19:29 02/18/17 10:10 0.5 MG Objective Vital Signs Date Time Temp Pulse Resp B/P (MAP) Pulse Ox O2 Delivery O2 Flow Rate FiO2 02/18/17 15:30 Nasal Cannula 2.0 02/18/17 15:20 37.0 76 18 126/75 (92) 94 Room Air 02/18/17 07:19 36.7 71 16 139/80 (99) 96 Nasal Cannula 2.0 02/18/17 07:15 Room Air 02/17/17 23:45 Nasal Cannula 2.0 02/17/17 23:01 36.7 62 18 120/70 (87) 98 Nasal Cannula 2.0 02/17/17 20:15 36.8 66 20 145/81 (102) 96 Nasal Cannula 2.0 02/17/17 20:15 Nasal Cannula 2.0 02/17/17 20:07 62 20 106/59 94 02/17/17 19:50 94 Nasal Cannula 2.0 02/17/17 19:48 62 20 106/59 89 Room Air Physical Exam General Appearance: no apparent distress Eyes: normal inspection Neck: supple, trachea midline Respiratory/Chest: lungs clear Cardiovascular: regular rate, rhythm Abdomen: normal bowel sounds Extremities: + pertinent finding (leg in immobilizer) Neurologic/Psychiatric: alert Laboratory Results Last 24 Hours Test 02/17/17 20:52 02/18/17 05:37 Prothrombin Time 10.7 SECONDS Prothromb Time International Ratio 1.0 Activated Partial Thromboplast Time 24.5 SECONDS Partial Thromboplastin Ratio 0.9 White Blood Count 7.52 K/uL Red Blood Count 3.72 M/uL Hemoglobin 10.9 g/dL Hematocrit 33.4 % Mean Corpuscular Volume 89.8 fL Mean Corpuscular Hemoglobin 29.3 pg Mean Corpuscular Hemoglobin Concent 32.6 g/dl Platelet Count 220 K/uL Mean Platelet Volume 10.0 fL Neutrophils (%) (Auto) 61.1 % Lymphocytes (%) (Auto) 22.9 % Monocytes (%) (Auto) 12.9 % Eosinophils (%) (Auto) 2.5 % Basophils (%) (Auto) 0.3 % Neutrophils # (Auto) 4.60 K/uL Lymphocytes # (Auto) 1.72 K/uL Monocytes # (Auto) 0.97 K/uL Eosinophils # (Auto) 0.19 K/uL Basophils # (Auto) 0.02 K/uL RDW Standard Deviation 44.6 fL RDW Coefficient of Variation 13.6 % Immature Granulocyte % (Auto) 0.3 % Immature Granulocyte # (Auto) 0.02 K/uL Sodium Level 140 mmol/L Potassium Level 4.0 mmol/L Chloride Level 106 mmol/L Carbon Dioxide Level 28 mmol/L Anion Gap 6.0 mmol/L Blood Urea Nitrogen 13 mg/dl Creatinine 0.51 mg/dl Est Creatinine Clear Calc Drug Dose 89.5 ml/min Estimated GFR () 103.1 Estimated GFR (Non- 88.9 BUN/Creatinine Ratio 26.4 Random Glucose 91 mg/dl Calcium Level 9.0 mg/dl Magnesium Level 1.9 mg/dl Assessment and Plan This patient is an 81-year-old female with history of Parkinson's disease, hypertension, hyperlipidemia, hypothyroidism, breast cancer, anxiety disorder, and AAA, who presents with a mechanical fall resulting in a left tibial plateau fracture as well as right orbital floor fracture. She reports she walked out of the [employer] salon and was walking to the parking lot when she tripped on a curb and fell onto the right side of her face with hands outstretched and somehow also on to her left knee. In the ER, she had multiple x-rays and CT scans with the above findings. [facility] was contacted by the ER physician who recommended Augmentin for prophylaxis for the orbital fracture with maxillary sinus hemorrhage and outpatient follow-up if needed. Orthopedics was consulted also who recommended nonweightbearing and outpatient follow-up, however the patient was unable to ambulate with crutches. She will be admitted on an observation status in order to get physical therapy and occupational therapy evaluations with goal to get her to a rehabilitation facility on Sunday. 1. Left tibia fracture/right orbital floor fracture-status post mechanical fall -Case discussed with orthopedic surgeon input appreciated -Keep left knee in immobilizer for now -Pain control with Dilaudid when necessary as well as by mouth oxycodone when necessary -Consult OMFS for management of right orbital floor fracture -Continue Augmentin 1 tab twice a day for 10 days for prophylaxis -Antiemetics 2. Hypertension/hyperlipidemia/AAA-all stable -Continue home meds of atorvastatin and losartan -Continue routine surveillance of AAA 3. Parkinson's disease-sees Dr. Hinojosa of neurology routinely and was recently started on Sinemet -Continue Sinemet 4. Hypothyroidism-clinically stable -Continue home dose of levothyroxine 5. History of breast cancer-stable -Continue home Femara 6. Anxiety disorder-stable -Continue home lorazepam and sertraline 7. Prophylaxis-heparin SQ 8. The scope-full code PT/OT evaluations and hopeful for discharge to [facility] on Sunday after authorization approved Level of Care Med/Surg Advanced Directives Existing Living Will: Yes Existing Power of Regional Education Coordinator: Yes Resuscitation Status FULL RESUSCITATION VTE Prophylaxis VTE Risk Assessment Done? Y/N: Yes Risk Level: Moderate Given or contraindicated: Unfractionated heparin SQ Additional Copies To Roberto Henderson M.D.
[2017-02-18 22:51] VITALS: BP 117/71; PULSE 72; TEMP 37.1; O2SAT 97
[2017-02-19] MEDS: LEVOTHYROXINE 88 MCG TAB PO SCH (06:08)
[2017-02-19 07:27] VITALS: BP 122/77; PULSE 66; TEMP 36.8; O2SAT 99
[2017-02-19] MEDS: OXYCODONE HCL IR 5 MG TAB (IMMEDIATE RELEASE) PO PRN ×2 (07:51→17:39)
[2017-02-19] MEDS: LOSARTAN POTASSIUM 50 MG TAB PO SCH (09:19)
[2017-02-19] MEDS: LETROZOLE 2.5 MG TAB PO SCH (09:19)
[2017-02-19] MEDS: AMOXICILLIN/CLAVULANATE TAB 875 MG TAB PO SCH ×2 (09:19→17:40)
[2017-02-19] MEDS: CHOLECALCIFEROL 1000 INTER.UNIT TAB PO SCH (09:20)
[2017-02-19] MEDS: CALCIUM CARBONATE 1250MG TAB PO SCH (09:20)
[2017-02-19] MEDS: CARBIDOPA/LEVODOPA 25/100MG EXT REL TAB PO SCH ×3 (09:20→20:41)
[2017-02-19] MEDS: ATORVASTATIN 10 MG TAB PO SCH (09:20)
[2017-02-19] MEDS: SERTRALINE HCL 50 MG TAB PO SCH (09:21)
[2017-02-19] MEDS: LORAZEPAM 0.5 MG TAB PO SCH (09:24)
[2017-02-19] MEDS: HEPARIN SOD 5000 UNIT/0.5 ML CARP SQ SCH ×2 (09:29→20:44)
--- NOTE | 2017-02-19 14:17 | Progress Note ---
Subjective Date of Service: Feb 19, 2017. Subjective Pt evaluation today including: conversation w/ patient, physical exam, chart review, lab review, review of studies, review of inpatient medication list No concerns or complaints at this time Pain controlled No acute events overnight Problem List Medical Problems: (1) Ambulatory dysfunction Status: Acute (2) Knee fracture, right Status: Acute (3) Orbital floor fracture Status: Acute (4) Tibia fracture Status: Acute Review of Systems Constitutional: No fever, No chills, No sweats, No weakness ENT: No hearing loss, No unusual epistaxis, No nasal symptoms, No sore throat Respiratory: No cough, No sputum, No wheezing, No shortness of breath Cardiac: No chest pain, No orthopnea, No PND, No edema Abdomen: No pain, No nausea, No vomiting, No diarrhea Musculoskeletal: No joint pain, No muscle pain, No swelling, No calf pain Female : No dysuria, No urinary frequency, No hematuria, No incontinence Neurologic: No memory loss, No paralysis, No weakness, No numbness/tingling Psychiatric: No depression symptoms, No anhedonism, No anxiety, No insomnia Endo: No fatigue, No excessive thirst Skin: No rash, No itch, No new/changing skin lesions, No color change Objective Vital Signs Date Time Temp Pulse Resp B/P (MAP) Pulse Ox O2 Delivery O2 Flow Rate FiO2 02/19/17 07:40 Nasal Cannula 2.0 02/19/17 07:27 36.8 66 16 122/77 (92) 99 Nasal Cannula 2.0 02/18/17 23:45 Room Air 02/18/17 22:51 37.1 72 16 117/71 (86) 97 Nasal Cannula 2.0 02/18/17 15:30 Nasal Cannula 2.0 02/18/17 15:20 37.0 76 18 126/75 (92) 94 Room Air Physical Exam General Appearance: WD/WN, no apparent distress Eyes: normal inspection, PERRL, EOMI, sclerae normal Neck: supple, no adenopathy, thyroid normal, no JVD Respiratory/Chest: chest non-tender, lungs clear, normal breath sounds, no respiratory distress Cardiovascular: regular rate, rhythm, no edema, no gallop, no JVD Abdomen: normal bowel sounds, non tender, soft, no organomegaly Extremities: normal range of motion, non-tender, normal inspection, no pedal edema Neurologic/Psychiatric: no motor/sensory deficits, alert, normal mood/affect, oriented x 3 Skin: normal color, warm/dry Lymphatic: no adenopathy Assessment and Plan This patient is an 81 yo female with hx of Parkinson's disease, hypertension, hyperlipidemia, hypothyroidism, breast cancer, anxiety disorder, and AAA, who presents with a mechanical fall resulting in a left tibial plateau fracture as well as right orbital floor fracture. She reports she walked out of the [employer] salon and was walking to the parking lot when she tripped on a curb and fell onto the right side of her face with hands outstretched and somehow also on to her left knee. In the ER, she had multiple x-rays and CT scans with the above findings. [facility] was contacted by the ER physician who recommended Augmentin for prophylaxis for the orbital fracture with maxillary sinus hemorrhage and outpatient follow-up if needed. Orthopedics was consulted also who recommended nonweightbearing and outpatient follow-up, however the patient was unable to ambulate with crutches. She will be admitted on an observation status in order to get physical therapy and occupational therapy evaluations with goal to get her to a rehabilitation facility on Sunday. Left tibia fracture/right orbital floor fracture-status post mechanical fall -Case discussed with orthopedic surgeon input appreciated, no surgical intervention at this time -Cont left knee in immobilizer -Pain controlled with Dilaudid when necessary as well as by mouth oxycodone when necessary -Continue Augmentin 1 tab twice a day for 10 days for prophylaxis Hypertension/hyperlipidemia/AAA-all stable -Continue home meds of atorvastatin and losartan -Continue routine surveillance of AAA Parkinson's disease-sees Dr. Hinojosa of neurology routinely and was recently started on Sinemet -Continue Sinemet Hypothyroidism-clinically stable -Continue home dose of levothyroxine History of breast cancer-stable -Continue home Femara Anxiety disorder-stable -Continue home lorazepam and sertraline Prophylaxis-heparin SQ Dispo likely [place] pending PT eval
[2017-02-19 15:17] VITALS: BP 115/72; PULSE 66; TEMP 36.5; O2SAT 99
[2017-02-19 22:50] VITALS: BP 119/70; PULSE 83; TEMP 36.7; O2SAT 94
[2017-02-19] MEDS: HYDROmorphone INJ 0.5 MG/0.5 ML SYR IV PRN (23:49)
[2017-02-20] MEDS: LEVOTHYROXINE 88 MCG TAB PO SCH (05:30)
[2017-02-20 07:03] LABS: HEMATOCRIT 33.7 % (37-47); MEAN CELL VOLUME 89.2 fL (80-100); MEAN CORPUSCULAR HEMOGLOBIN 29.4 pg (25-34); MEAN CORPUSCULAR HGB CONC 32.9 g/dl (32-36); MEAN PLATELET VOLUME 9.9 fL (7.4-10.4); PLATELET COUNT 226 K/uL (130-400); RED BLOOD COUNT 3.78 M/uL (4.2-5.4); WHITE BLOOD COUNT 7.01 K/uL (4.8-10.8)
[2017-02-20 08:00] VITALS: O2SAT 94
[2017-02-20 08:08] VITALS: BP 138/88; PULSE 72; TEMP 36.7; O2SAT 94
[2017-02-20] MEDS: LOSARTAN POTASSIUM 50 MG TAB PO SCH (08:50)
[2017-02-20] MEDS: SERTRALINE HCL 50 MG TAB PO SCH (08:50)
[2017-02-20] MEDS: OXYCODONE HCL IR 5 MG TAB (IMMEDIATE RELEASE) PO PRN (08:50)
[2017-02-20] MEDS: ATORVASTATIN 10 MG TAB PO SCH (08:51)
[2017-02-20] MEDS: CARBIDOPA/LEVODOPA 25/100MG EXT REL TAB PO SCH ×2 (08:51→13:44)
[2017-02-20] MEDS: AMOXICILLIN/CLAVULANATE TAB 875 MG TAB PO SCH (08:52)
[2017-02-20] MEDS: CALCIUM CARBONATE 1250MG TAB PO SCH (08:52)
[2017-02-20] MEDS: LETROZOLE 2.5 MG TAB PO SCH (08:52)
[2017-02-20] MEDS: CHOLECALCIFEROL 1000 INTER.UNIT TAB PO SCH (08:52)
[2017-02-20 08:54] VITALS: O2SAT 94
[2017-02-20] MEDS: HEPARIN SOD 5000 UNIT/0.5 ML CARP SQ SCH (08:55)
[2017-02-20] MEDS: LORAZEPAM 0.5 MG TAB PO SCH (08:55)
[2017-02-20] MEDS ORDERED: OXYC1TAB3 PO (12:28)
[2017-02-20] MEDS ORDERED: LORA-741 PO (12:28)
--- NOTE | 2017-02-20 12:33 | Discharge Instructions ---
Discharge Instructions Date of Service Feb 20, 2017. Admission Reason for Admission: Orbital Floor Fx, Tibia Fx Discharge Discharge Diagnosis / Problem: tibia fracture, orbital floor fracture Discharge Goals Goal(s): Decrease discomfort, Improve function, Learn about illness, Diagnostic testing, Therapeutic intervention, Prevent Disease Progression Activity Recommendations Activity Limitations: per Instructions/Follow-up section . Instructions / Follow-Up Instructions / Follow-Up Patient to be discharged to [facility] Please continue knee immobilizer for comfort, may remove while in bed. Nonweightbearing, left lower extremity for a period of approximately 6 weeks, Ice to the left knee and follow up with Dr. Campos in clinic for reassessment in 1-2 weeks Please continue antibiotic augmentin twice a day for orbital floor fracture If worsening pain, numbness, fevers, chills, please report to ER Current Hospital Diet Patient's current hospital diet: Regular Diet Discharge Diet Recommended Diet: Regular Diet Pending Studies Studies pending at discharge: no Medical Emergencies . Who to Call and When: Medical Emergencies: If at any time you feel your situation is an emergency, please call 911 immediately. . Non-Emergent Contact Non-Emergency issues call your: Primary Care Provider Call Non-Emergent contact if: you have a fever, your pain is worsening . . "Provider Documentation" section prepared by Maxime Jones. . [employer] Recommendations [employer] Recommendations: NWB L LE x 6 weeks. Ice to left knee May remove knee immobilizer while in bed. F/U with Dr Campos for reassessment and X-rays in 6 weeks. VTE Core Measure Inpt VTE Proph given/why not?: Unfractionated heparin SQ
[2017-02-20 13:25] VITALS: BP 138/88; PULSE 72; TEMP 36.7; O2SAT 94
--- NOTE | 2017-02-20 16:40 | Discharge Summary ---
Discharge Summary Date of Service Feb 20, 2017. Discharge Summary Admission Date: Feb 17, 2017 at 19:14 Discharge Date: Feb 20, 2017 Discharge Disposition: [facility] facility ([facility]) Principal Diagnosis: Tibia fracture Immunizations: Have You Had Influenza Vaccine: Yes History of Tetanus Vaccine?: Yes History of Pneumococcal: No History of Hepatitis B Vaccine: No Consultations: Orthopedic surgery Discharge Exam Review of Systems: Constitutional: No fever, No chills ENT: No hearing loss, No unusual epistaxis, No nasal symptoms Respiratory: No cough, No sputum, No wheezing, No shortness of breath, No dyspnea on exertion Cardiovascular: No chest pain, No orthopnea, No PND, No edema Abdomen: No pain, No nausea, No vomiting, No diarrhea Musculoskeletal: + joint pain, No muscle pain, No swelling, No calf pain Genitourinary - Female: No dysuria, No urinary frequency, No urinary urgency , No urinary incontinence Neurologic: No memory loss, No paralysis, No weakness, No numbness/tingling Psychiatric: No depression symptoms, No anhedonism, No anxiety, No insomnia Hematologic / Lymphatic: No abnormal bleeding/bruising, No clotting problems Integumentary: No rash, No itch Physical Exam: General Appearance: WD/WN, + mild distress Eyes: normal inspection, PERRL, EOMI, sclerae normal ENT: normal ENT inspection, hearing grossly normal, TMs normal Neck: supple, no adenopathy, thyroid normal, no JVD Respiratory/Chest: chest non-tender, lungs clear, normal breath sounds, no respiratory distress Cardiovascular: regular rate, rhythm, no edema, no gallop, no JVD Abdomen / GI: normal bowel sounds, non tender, soft, no organomegaly Neurologic/Psychiatric: alert, normal mood/affect, normal reflexes, oriented x 3 Skin: normal color, warm/dry, no rash Lymphatic: no adenopathy Hospital Course This patient is an 81 yo female with hx of Parkinson's disease, hypertension, hyperlipidemia, hypothyroidism, breast cancer, anxiety disorder, and AAA, who presents with a mechanical fall resulting in a left tibial plateau fracture as well as right orbital floor fracture. She reports she walked out of the [employer] and was walking to the parking lot when she tripped on a curb and fell onto the right side of her face with hands outstretched and somehow also on to her left knee. In the ER, she had multiple x-rays and CT scans with the above findings. OMFS was contacted by the ER physician who recommended Augmentin for prophylaxis for the orbital fracture with maxillary sinus hemorrhage and outpatient follow-up if needed. Orthopedics was consulted also who recommended nonweightbearing and outpatient follow-up, however the patient was unable to ambulate with crutches. She will be admitted on an observation status in order to get physical therapy and occupational therapy evaluations with goal to get her to a rehabilitation facility on Sunday. Left tibia fracture/right orbital floor fracture-status post mechanical fall -Case discussed with orthopedic surgeon input appreciated, no surgical intervention at this time -Cont left knee in immobilizer, NWB L LE x 6 weeks, Ice to left knee, may remove knee immobilizer while in bed. - F/U with Dr Campos for reassessment and X-rays in 6 weeks -Continue Augmentin 1 tab twice a day for 10 days for prophylaxis for right orbital floor fx Hypertension/hyperlipidemia/AAA-all stable -Continue home meds of atorvastatin and losartan -Continue routine surveillance of AAA Parkinson's disease-sees Dr. Hinojosa of neurology routinely and was recently started on Sinemet -Continue Sinemet Hypothyroidism-clinically stable -Continue home dose of levothyroxine History of breast cancer-stable -Continue home Femara Anxiety disorder-stable -Continue home lorazepam and sertraline Prophylaxis-heparin SQ Dispo [facility] Total Time Spent: Greater than 30 minutes This includes examination of the patient, discharge planning, medication reconciliation, and communication with other providers. Discharge Instructions Please refer to the electronic Patient Visit Report (Discharge Instructions) for additional information. Additional Copies To Roberto Henderson M.D.
== END 2017-02-20 14:03 ==
LOC: C.EDB 13:55 → C.MSW 19:14 → ENRESERV 19:51
PROVIDERS: ADMIT Family Medicine; ATTEND Hospitalist
DX: S82.102A Unspecified fracture of upper end of left tibia, initial encounter for closed fracture (principal); S82.115A Nondisplaced fracture of left tibial spine, initial encounter for closed fracture; S02.31XA Fracture of orbital floor, right side, initial encounter for closed fracture; W01.0XXA Fall on same level from slipping, tripping and stumbling without subsequent striking against object, initial encounter; Z85.3 Personal history of malignant neoplasm of breast; Z82.49 Family history of ischemic heart disease and other diseases of the circulatory system; G20 Parkinson's disease; I10 Essential (primary) hypertension; E78.5 Hyperlipidemia, unspecified; E03.9 Hypothyroidism, unspecified; F41.9 Anxiety disorder, unspecified; Z90.13 Acquired absence of bilateral breasts and nipples; Z83.3 Family history of diabetes mellitus; Z80.3 Family history of malignant neoplasm of breast; I25.10 Atherosclerotic heart disease of native coronary artery without angina pectoris; I71.4 Abdominal aortic aneurysm, without rupture; M85.861 Other specified disorders of bone density and structure, right lower leg

== ENCOUNTER → 2017-06-04 | Outpatient (CLI) | payer OTHER ==
[~2017-06-04] MED LIST changes: +ATOR10TA82 PO; +CARB25TA16 PO; +LOSA50TA6 PO; +OXYC1TAB3 PO; +OYST500T47 PO; +SERT25TA PO; -calcium
--- NOTE | 2017-06-04 11:08 | DIAGNOSTIC IMAGING REPORT ---
AORTIC ANEURYSM RETROPERI CLINICAL HISTORY: 82 years-old Female presenting with ANEURSYM OF ABDOMINAL AORTA. TECHNIQUE: Real-time grayscale and color and spectral Doppler ultrasound imaging of the abdominal aorta and iliac arteries was performed. COMPARISON: 12/01/2016. FINDINGS: Proximal aorta: Patent. Transverse dimension 1.8 x 1.8 cm, previously 2.2 x 2.5 cm. Mid aorta: Patent. Transverse dimension 1.7 x 1.7 cm, previously 2.2 x 2.3 cm. Distal aorta: Atherosclerosis with aneurysmal dilatation. Transverse dimension 3.8 x 3.9 cm, previously 3.9 x 4.5 cm. Right iliac artery: Patent. Transverse dimension 1.2 cm. Left iliac artery: Patent. Transverse dimension 1.2 cm. IMPRESSION: 1. Aneurysmal dilatation of the distal abdominal aorta measuring 3.8 x 3.9 cm, previously 3.9 x 4.5 cm. If there is clinical concern, this could be further evaluated with CTA. Electronically signed by: Dudley Harper M.D. 06/04/2017 11:07 AM Dictated Date/Time: 06/04/2017 10:34 AM
== END | disposition home or self-care (01) ==
LOC: C.ULTR 09:23
PROVIDERS: ATTEND Internal Medicine Geriatric Medicine
DX: I71.4 Abdominal aortic aneurysm, without rupture (principal)

== ENCOUNTER → 2017-07-17 | Outpatient (CLI) | payer OTHER | END | disposition home or self-care (01) | LOC: C.MAMM 10:25 | PROVIDERS: ATTEND Internal Medicine Geriatric Medicine | DX: Z00.00 Encounter for general adult medical examination without abnormal findings (principal); M85.851 Other specified disorders of bone density and structure, right thigh; M85.852 Other specified disorders of bone density and structure, left thigh; M85.88 Other specified disorders of bone density and structure, other site ==

== ENCOUNTER → 2017-12-04 | Outpatient (CLI) | payer OTHER ==
[2017-12-04 17:15] LABS: BASO % 0.6 %; BASO ABS # 0.04 K/uL (0-0.2); EOS % 3.9 %; EOS ABS # 0.27 K/uL (0-0.5); HEMATOCRIT 36.4 % (37-47); HEMOGLOBIN 11.7 g/dL (12.0-16.0); LYMPH % 29.2 %; LYMPH ABS # 2.02 K/uL (1.2-3.4); MEAN CELL VOLUME 87.1 fL (80-100); MEAN CORPUSCULAR HGB CONC 32.1 g/dl (32-36); MONO % 9.8 %; MONO ABS # 0.68 K/uL (0.11-0.59); NEUT % 56.5 %; PLATELET COUNT 289 K/uL (130-400); RED CELL DISTRIBUTION WIDTH CV 13.7 % (11.5-14.5); RED CELL DISTRIBUTION WIDTH SD 43.8 fL (36.4-46.3); WHITE BLOOD COUNT 6.91 K/uL (4.8-10.8)
[2017-12-04 17:24] LABS: ALBUMIN 3.8 gm/dl (3.4-5.0); ALT/SGPT 27 U/L (12-78); AST/SGOT 21 U/L (15-37); BLOOD UREA NITROGEN 10 mg/dl (7-18); CALCIUM 9.5 mg/dl (8.5-10.1); CARBON DIOXIDE 29 mmol/L (21-32); CHOLESTEROL 134 mg/dl (0-200); CREATININE 0.63 mg/dl (0.60-1.20); GLUCOSE 84 mg/dl (70-99); POTASSIUM 4.1 mmol/L (3.5-5.1); SODIUM 139 mmol/L (136-145)
[2017-12-04 17:34] LABS: ALKALINE PHOSPHATASE 101 U/L (45-117); LDL CHOLESTEROL CALCULATED 50 mg/dl; TOTAL PROTEIN 7.7 gm/dl (6.4-8.2)
== END | disposition home or self-care (01) ==
LOC: C.LABPBG 14:38
PROVIDERS: ATTEND Internal Medicine Geriatric Medicine
DX: E89.0 Postprocedural hypothyroidism (principal); K50.90 Crohn's disease, unspecified, without complications; E78.5 Hyperlipidemia, unspecified; F41.9 Anxiety disorder, unspecified; I10 Essential (primary) hypertension; G20 Parkinson's disease

== ENCOUNTER 2020-06-11 12:14 | Inpatient (IN) ==
--- NOTE | 2020-06-11 12:53 | Emergency Department Note ---
History of Present Illness General Chief complaint: Urinary Symptoms Stated complaint: blood in urine, cath replacement Time Seen by Provider: 06/11/20 12:41 Source: patient and family History of Present Illness Provider complaint: Unable to urinate Location: genitals Severity: severe Pain Consistency: + constant Quality: + other (No urinary output) Relieved By: + none Associated symptoms: + other (Blood and clots in her urine for the past 3 days); no chest pain, no cough, no fever/chills, no headaches, no nausea/vomiting and no shortness of breath This is an 85-year-old female who presents with inability urinate since 5 PM yesterday. The patient states she has never had a problem like this before. She states for approximately 3 days she has had some blood-tinged urine as well as small blood clots in her urine. She had some slight burning as well. She states that since 5 PM yesterday she has had no urinary output. She denies having any abdominal pain. She does not feel like her bladder is full or have any urge to urinate. She denies abdominal distention. She denies fever, nausea or vomiting, chest pain, shortness of breath, cough or cold symptoms, known e xposure to COVID-19 or decreasing p.o. intake. She does state that she has a history of sciatica and has had chronic pain in her right lower back down to her right ankle. This is unchanged from previous and she denies any injury. She normally walks with a cane. Home Medications Home Medications Medication Instructions Recorded Confirmed Type multivitamin 1 tab PO DAILY 03/24/19 06/11/20 History acetaminophen 500 mg tablet 1,000 mg PO TID PRN #90 tab 06/15/19 06/11/20 History ascorbic acid (vitamin C) 1,000 mg 1 gm PO DAILY tab 06/15/19 06/11/20 History tablet aspirin 81 mg tablet,delayed 81 mg PO DAILY #30 tab 06/15/19 06/11/20 History release cholecalciferol (vitamin D3) 25 2,000 units PO DAILY cap 06/15/19 06/11/20 History mcg (1,000 unit) capsule levothyroxine 88 mcg tablet 88 mcg PO DAILY #90 tab 12/23/19 06/11/20 Rx atorvastatin 10 mg tablet 10 mg PO DAILY #90 tab 05/10/20 06/11/20 Rx sertraline 25 mg tablet 25 mg PO DAILY #90 tab 05/10/20 06/11/20 Rx calcium carbonate [Calcium 600] 600 mg PO DAILY 06/11/20 06/11/20 History Allergies Allergy/AdvReac Type Severity Reaction Status Date / Time Asacol TBEC AdvReac Unknown Unknown Uncoded 06/11/20 13:44 Lisinopril TABS AdvReac Unknown Cough Uncoded 06/11/20 13:44 sulfaSALAzine TABS AdvReac Unknown Unknown Uncoded 06/11/20 13:44 Past Med/Surg History Medical History (Updated 06/11/20 @ 17:14 by Casa Fox MD) History of breast cancer Surgical History History of mastectomy Family History Father Myocardial infarction acute Brother Lung cancer Mother Aorta aneurysm Social History Smoking Status: Former smoker Hx Alcohol Use: No Hx Substance Use: No Current Living Situation: Alone 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 and A total of 10 systems reviewed and were otherwise negative Physical Exam Vital Signs Vital Signs - 24 hr 06/11/20 12:23 06/11/20 13:43 06/11/20 14:14 Temperature 36.7 C Temperature Source Oral Pulse Rate 93 H 73 Pulse Rate [Left] 69 Respiratory Rate 18 18 18 Respiratory Effort / Characteristics Non-Labored Non-Labored Spontaneous Respiratory Depth Normal Blood Pressure 105/67 Blood Pressure [Left Arm] 130/70 Blood Pressure Mean 79 Blood Pressure Mean [Left Arm] 90 Blood Pressure Position [Left Arm] Lying Pulse Oximetry 99 95 94 Oxygen Delivery Method Room Air Room Air Room Air Sepsis Recent Fever Within 48 Hours No Sepsis New/Unexplained Change in Mental Status No Sepsis Action Taken by Nursing No Action Required 06/11/20 15:13 06/11/20 17:16 06/11/20 18:19 Temperature Temperature Source Pulse Rate Pulse Rate [Left] 65 63 66 Respiratory Rate 18 20 22 Respiratory Effort / Characteristics Non-Labored Spontaneous Non-Labored Spontaneous Respiratory Depth Blood Pressure Blood Pressure [Left Arm] 133/76 126/69 130/76 Blood Pressure Mean Blood Pressure Mean [Left Arm] 95 88 94 Blood Pressure Position [Left Arm] Lying Lying Lying Pulse Oximetry 92 93 94 Oxygen Delivery Method Room Air Room Air Room Air Sepsis Recent Fever Within 48 Hours Sepsis New/Unexplained Change in Mental Status Sepsis Action Taken by Nursing 06/11/20 19:01 06/11/20 19:19 Temperature Temperature Source Pulse Rate Pulse Rate [Left] 61 61 Respiratory Rate 24 22 Respiratory Effort / Characteristics Non-Labored Spontaneous Respiratory Depth Blood Pressure Blood Pressure [Left Arm] 117/70 104/61 Blood Pressure Mean Blood Pressure Mean [Left Arm] 85 75 Blood Pressure Position [Left Arm] Lying Pulse Oximetry 94 93 Oxygen Delivery Method Room Air Room Air Sepsis Recent Fever Within 48 Hours Sepsis New/Unexplained Change in Mental Status Sepsis Action Taken by Nursing Constitutional: Vital signs reviewed. Eyes: Pupils are equal round reactive to light. Conjunctiva are noninjected. ENT: Pharynx is clear without erythema or exudate. Mucous membranes are moist. Neck supple without meningeal signs. Respiratory: Clear to auscultation bilaterally. Breath sounds are equal bilaterally. Cardiovascular: Regular rate and rhythm. No rubs or gallops. GI: Soft, nondistended and nontender. Bowel sounds are present. Musculoskeletal: No peripheral edema. No lower extremity tenderness. Integumentary: No cyanosis. or jaundice. Neurological: The patient is awake and alert. No focal deficits. Motor and sensation are intact throughout the lower extremities. Psychiatric: Normal affect. Not anxious appearing. Course Administered Medications Discontinued Medications Ceftriaxone Sodium (Rocephin) 2,000 mg in 70 mls @ 140 mls/hr IV NOW STA Stop: 06/11/20 17:10 Last Infusion: 06/11/20 18:23 Dose: 0 mls/hr Documented by: [id number] Admin: 06/11/20 17:18 Dose: 140 mls/hr Documented by: [id number] Ioversol (Optiray 320 125ml) 120 ml IV ONCE ONE Stop: 06/11/20 13:59 Last Admin: 06/11/20 14:02 Dose: 120 ml Documented by: [id number] Medical Decision Making Differential Diagnosis Urinary retention, bladder mass, UTI, obstructive uropathy, YING Medical Records Attestation: I reviewed the patient's medical records. I did perform a limited focused review of portions of the patient's old chart on the electronic medical record. The patient has had no recent pertinent visits to this hospital. She was seen for a wellness visit a few months ago and had a abdominal aortic ultrasound which showed a stable AAA in December of this year Home Medications Current Medication List: was personally reviewed by me Laboratory Data Attestation: I reviewed the patient's lab results. Result diagrams: 06/11/20 13:15 06/11/20 13:15 Lab Results 06/11/20 06/11/20 06/11/20 Range/Units 13:15 13:15 13:15 WBC 8.70 (4.8-10.8) K/uL RBC 2.50 L (4.2-5.4) M/uL Hgb 7.6 L (12.0-16.0) g/dL Hct 23.7 L (37-47) % MCV 94.8 (80-100) fL MCH 30.4 (25-34) pg MCHC 32.1 (32-36) g/dL RDW Std Deviation 57.8 H (36.4-46.3) fL RDW Coeff of Janel 16.7 H (11.5-14.5) % Plt Count 215 (130-400) K/uL MPV 9.9 (7.4-10.4) fL Immature Gran % (Auto) 0.3 % Neut % (Auto) 70.3 % Lymph % (Auto) 20.5 % Bonner % (Auto) 7.8 % Eos % (Auto) 0.6 % Baso % (Auto) 0.5 % Neut # (Auto) 6.12 (1.4-6.5) K/uL Lymph # (Auto) 1.78 (1.2-3.4) K/uL Bonner # (Auto) 0.68 H (0.11-0.59) K/uL Eos # (Auto) 0.05 (0-0.5) K/uL Baso # (Auto) 0.04 (0-0.2) K/uL Immature Gran # (Auto) 0.03 H (0.00-0.02) K/uL Schistocytes 1+ PT 11.4 (9.0-12.0) Seconds INR 1.1 (0.9-1.1) APTT 22.8 (21.0-31.0) Seconds PTT Ratio 0.8 Sodium 140 (136-145) mmol/L Potassium 3.6 (3.5-5.1) mmol/L Chloride 107 (98-107) mmol/L Carbon Dioxide 29 (21-32) mmol/L Anion Gap 4.0 (3-11) BUN 20 H (7-18) mg/dl Creatinine 1.16 (0.6-1.2) mg/dl Est Cr Clr Drug Dosing 35.6 ml/min Est GFR ( Amer) 49.0 Est GFR (Non-Af Amer) 42.3 BUN/Creatinine Ratio 17.4 (10-20) Glucose 73 (70-99) mg/dl Calcium 9.5 (8.5-10.1) mg/dl Total Bilirubin 0.8 (0.2-1) mg/dl AST 47 H (15-37) U/L ALT 43 (12-78) U/L Alkaline Phosphatase 76 (45-117) U/L Total Protein 7.0 (6.4-8.2) gm/dl Albumin 3.8 (3.4-5.0) gm/dl Globulin 3.2 (2.5-4.0) gm/dl Albumin/Globulin Ratio 1.2 (0.9-2) Urine Color Urine Appearance (Clear) Urine pH (4.5-7.5) Ur Specific Ranson (1.000-1.030) Urine Protein (Negative) Urine Glucose (UA) (Negative) Urine Ketones (Negative) Urine Blood (Negative) Urine Nitrite (Negative) Urine Bilirubin (Negative) Urine Urobilinogen (Negative) Ur Leukocyte Esterase (Negative) Urine RBC (0-4) /hpf Urine WBC (0-5) /hpf Ur Epithelial Cells (0-5) /lpf Urine Bacteria (Negative) COVID-19 Eval Order SARS-CoV-2, RNA, NAAT (NEGATIVE) Blood Type Antibody Screen 06/11/20 06/11/20 06/11/20 Range/Units 13:47 14:10 18:50 WBC (4.8-10.8) K/uL RBC (4.2-5.4) M/uL Hgb (12.0-16.0) g/dL Hct (37-47) % MCV (80-100) fL MCH (25-34) pg MCHC (32-36) g/dL RDW Std Deviation (36.4-46.3) fL RDW Coeff of Janel (11.5-14.5) % Plt Count (130-400) K/uL MPV (7.4-10.4) fL Immature Gran % (Auto) % Neut % (Auto) % Lymph % (Auto) % Bonner % (Auto) % Eos % (Auto) % Baso % (Auto) % Neut # (Auto) (1.4-6.5) K/uL Lymph # (Auto) (1.2-3.4) K/uL Bonner # (Auto) (0.11-0.59) K/uL Eos # (Auto) (0-0.5) K/uL Baso # (Auto) (0-0.2) K/uL Immature Gran # (Auto) (0.00-0.02) K/uL Schistocytes PT (9.0-12.0) Seconds INR (0.9-1.1) APTT (21.0-31.0) Seconds PTT Ratio Sodium (136-145) mmol/L Potassium (3.5-5.1) mmol/L Chloride (98-107) mmol/L Carbon Dioxide (21-32) mmol/L Anion Gap (3-11) BUN (7-18) mg/dl Creatinine (0.6-1.2) mg/dl Est Cr Clr Drug Dosing ml/min Est GFR ( Amer) Est GFR (Non-Af Amer) BUN/Creatinine Ratio (10-20) Glucose (70-99) mg/dl Calcium (8.5-10.1) mg/dl Total Bilirubin (0.2-1) mg/dl AST (15-37) U/L ALT (12-78) U/L Alkaline Phosphatase (45-117) U/L Total Protein (6.4-8.2) gm/dl Albumin (3.4-5.0) gm/dl Globulin (2.5-4.0) gm/dl Albumin/Globulin Ratio (0.9-2) Urine Color Brown Urine Appearance Cloudy A (Clear) Urine pH (4.5-7.5) Ur Specific Ranson 1.026 (1.000-1.030) Urine Protein (Negative) Urine Glucose (UA) (Negative) Urine Ketones (Negative) Urine Blood (Negative) Urine Nitrite (Negative) Urine Bilirubin (Negative) Urine Urobilinogen (Negative) Ur Leukocyte Esterase (Negative) Urine RBC >30 H (0-4) /hpf Urine WBC >30 H (0-5) /hpf Ur Epithelial Cells 10-20 H (0-5) /lpf Urine Bacteria 4+ H (Negative) COVID-19 Eval Order Covid19 [facility]Now [facility] SARS-CoV-2, RNA, NAAT (NEGATIVE) Blood Type A Positive Antibody Screen NEGATIVE 06/11/20 Range/Units 18:50 WBC (4.8-10.8) K/uL RBC (4.2-5.4) M/uL Hgb (12.0-16.0) g/dL Hct (37-47) % MCV (80-100) fL MCH (25-34) pg MCHC (32-36) g/dL RDW Std Deviation (36.4-46.3) fL RDW Coeff of Janel (11.5-14.5) % Plt Count (130-400) K/uL MPV (7.4-10.4) fL Immature Gran % (Auto) % Neut % (Auto) % Lymph % (Auto) % Bonner % (Auto) % Eos % (Auto) % Baso % (Auto) % Neut # (Auto) (1.4-6.5) K/uL Lymph # (Auto) (1.2-3.4) K/uL Bonner # (Auto) (0.11-0.59) K/uL Eos # (Auto) (0-0.5) K/uL Baso # (Auto) (0-0.2) K/uL Immature Gran # (Auto) (0.00-0.02) K/uL Schistocytes PT (9.0-12.0) Seconds INR (0.9-1.1) APTT (21.0-31.0) Seconds PTT Ratio Sodium (136-145) mmol/L Potassium (3.5-5.1) mmol/L Chloride (98-107) mmol/L Carbon Dioxide (21-32) mmol/L Anion Gap (3-11) BUN (7-18) mg/dl Creatinine (0.6-1.2) mg/dl Est Cr Clr Drug Dosing ml/min Est GFR ( Amer) Est GFR (Non-Af Amer) BUN/Creatinine Ratio (10-20) Glucose (70-99) mg/dl Calcium (8.5-10.1) mg/dl Total Bilirubin (0.2-1) mg/dl AST (15-37) U/L ALT (12-78) U/L Alkaline Phosphatase (45-117) U/L Total Protein (6.4-8.2) gm/dl Albumin (3.4-5.0) gm/dl Globulin (2.5-4.0) gm/dl Albumin/Globulin Ratio (0.9-2) Urine Color Urine Appearance (Clear) Urine pH (4.5-7.5) Ur Specific Ranson (1.000-1.030) Urine Protein (Negative) Urine Glucose (UA) (Negative) Urine Ketones (Negative) Urine Blood (Negative) Urine Nitrite (Negative) Urine Bilirubin (Negative) Urine Urobilinogen (Negative) Ur Leukocyte Esterase (Negative) Urine RBC (0-4) /hpf Urine WBC (0-5) /hpf Ur Epithelial Cells (0-5) /lpf Urine Bacteria (Negative) COVID-19 Eval Order SARS-CoV-2, RNA, NAAT NEGATIVE (NEGATIVE) Blood Type Antibody Screen Imaging Data Radiologist's Impression: CT ANGIO ABDOMEN PELVIS W CON CLINICAL HISTORY: 85-year-old Female with AAA, hematuria/retention eval for dissection/fistula, follow up study in a patient with abdominal aortic aneurysm. COMPARISON STUDY: Abdominal ultrasound 01/16/2020, PET CT 04/01/2014 TECHNIQUE: Following the IV administration of 120 cc of Optiray 320, CT angiogram of the abdomen and pelvis was performed from the lung bases the proximal femora. Images are reviewed in the axial, sagittal, and coronal planes. 3-D MIPS images are created and assessed. All measurements were obtained according to NASCET criteria. IV contrast was administered without complication. A dose lowering technique was utilized adhering to the principles of ALARA. CT DOSE: 998.33 mGycm FINDINGS: CTA: Mild cardiomegaly. Mild tortuosity of the descending thoracic aorta. Moderate to extensive mixed plaque of the abdominal aorta and branch vessels. There is fusiform aneurysmal dilation of the infrarenal abdominal aorta which measures 5.3 x 4.4 cm, on 04/01/2014 measured approximately 3.9 x 3.7 cm. There is no evidence of aneurysm rupture or dissection. No retroperitoneal hematoma. The common, internal and external iliac arteries, common femoral and imaged superficial and profunda femoris arteries appear patent. The celiac trunk, supe rior and inferior mesenteric arteries are also patent. Duplicated right renal arteries. There is mixed plaque at the origin of the bilateral renal arteries resulting in less than 50% luminal narrowing. No dissection, high-grade stenosis or proximal branch occlusion. CT ABDOMEN/PELVIS: There is mild dependent subsegmental bibasilar atelectasis. There is no pneumatosis or pneumoperitoneum. The spleen, pancreas and gallbladder are unremarkable. Mild thickening of the adrenal glands suggests hyperplasia. Hepatic cysts with additional indeterminate scattered hepatic hypodensities are redemonstrated which are incompletely characterized on this exam. There are a few bilateral renal cysts measuring up to 1.4 cm on the left. Mild nonspecific bilateral perinephric stranding. No ureteral calculi or obstructive uropathy. Nonspecific mild urinary bladder wall thickening. Hysterectomy. Pelvic floor relaxation. No adenopathy. Tiny hiatal hernia. There is no bowel obstruction or bowel wall thickening. Colonic diverticulosis without acute diverticulitis. Normal appendix. There is no ascites or mesenteric inflammation. 1.2 cm subcutaneous nodule at the left paracentral lower chest is indeterminate and may reflect a sebaceous cyst. Soft tissues are otherwise unremarkable. Degenerative changes of the spine, pelvis and hips. Dextroscoliosis of the thoracolumbar junction. There is no acute fracture or suspicious bone lesion identified. IMPRESSION: 1. 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 No dissection or aneurysm rupture. 2. Moderate to extensive atherosclerotic vascular disease without high-grade stenosis or proximal branch occlusion. 3. No bowel obstruction or bowel wall thickening. 4. Colonic diverticulosis without acute diverticulitis. 5. Additional findings as above. ACT 112: Positive. There are findings on this exam that require communication between the performing entity and the patient following Patient Test Result Information Act ([place] Act 112) guidelines. The above report was generated using voice recognition software. It may contain grammatical, syntax or spelling errors. Dictated: 06/11/2020 2:05 PM Transcribed: 06/11/2020 2:49 PM Kay [id number] [facility] Electronically signed by: Shady Coronado M.D. 06/11/2020 3:41 PM MDM Narrative I did evaluate the patient as noted above. She is presenting with urinary retention since 5 PM yesterday but denies any bladder distention or the urge to urinate. I did order a bladder scan. She had nearly 400 cc of urine in her bladder. IV access was established. I did order and review the patient's blood work as noted in the electronic medical record. Her hemoglobin is 7.6 down from 11.3 several months ago. Creatinine is nearly doubled at 1.1 from 0.6. Elec trolytes are unremarkable. I did attempt to do a bedside ultrasound to evaluate for aortic dissection but the scan was nondiagnostic due to bowel gas interference. After discussion of the risks and benefits with the patient and her daughter, I did order a stat CT angiogram of the abdomen and pelvis. I did review the images myself as well as the radiology report as described above. There is no evidence of fistula or aneurysm dissection. I did place an order for continuous cardiac monitoring. The monitor showed normal sinus rhythm at a rate of 66 bpm. I did order a urine analysis. She does have significant hematuria. Velásquez catheter has drained about 500 cc of bloody urine. She will be hospitalized for further evaluation. She remains hemodynamically intact. A type and screen was sent. I did discuss the case with the hospitalist and case making machine operator. Impression & Plan Acute blood loss anemia, Hematuria, Acute urinary retention, YING (acute kidney injury) Discharge Plan Visit Data Chief Complaint: Urinary Symptoms Stated Complaint: blood in urine, cath replacement ED Provider: [place] Discharge Problem: Acute blood loss anemia, Hematuria, Acute urinary retention, YING (acute kidney injury) Forms Stand Alone Forms: My [facility] Prescriptions Prescriptions: No Action levothyroxine 88 mcg tablet 88 mcg PO DAILY Qty: 90 RF: 1 sertraline 25 mg tablet 25 mg PO DAILY Qty: 90 RF: 1 atorvastatin 10 mg tablet 10 mg PO DAILY Qty: 90 RF: 1 multivitamin [Multiple Vitamins] tablet 1 tab PO DAILY RF: 0 aspirin 81 mg tablet,delayed release (DR/EC) 81 mg PO DAILY Qty: 30 RF: 0 cholecalciferol (vitamin D3) 1,000 unit capsule 2,000 units PO DAILY RF: 0 ascorbic acid (vitamin C) 1,000 mg tablet 1 gm PO DAILY RF: 0 acetaminophen 500 mg tablet 1,000 mg PO TID PRN (Reason: fever or pain) Qty: 90 RF: 0 calcium carbonate [Calcium 600] 600 mg calcium (1,500 mg) Tablet 600 mg PO DAILY RF: 0 Referrals Referrals: Мария Gomes DO [Primary Care Provider] - Discharge Problem: Hematuria Qualifiers: Hematuria type: gross Qualified Code(s): R31.0 - Gross hematuria
[2020-06-11 13:29] LABS: Basophils # (auto) 0.04 K/uL (0-0.2); Basophils % (auto) 0.5 %; Eosinophils # (auto) 0.05 K/uL (0-0.5); Eosinophils % (auto) 0.6 %; Hematocrit (blood only) 23.7 % (37-47); Hemoglobin 7.6 g/dL (12.0-16.0); Immature Granulocytes # (auto) 0.03 K/uL (0.00-0.02); Immature Granulocytes % (auto) 0.3 %; Lymphocytes # (auto) 1.78 K/uL (1.2-3.4); Lymphocytes % (auto) 20.5 %; Mean Corpuscular Hemoglobin 30.4 pg (25-34); Mean Corpuscular Hgb Conc 32.1 g/dL (32-36); Mean Corpuscular Volume 94.8 fL (80-100); Mean Platelet Volume 9.9 fL (7.4-10.4); Monocytes # (auto) 0.68 K/uL (0.11-0.59); Monocytes % (auto) 7.8 %; Neutrophils # (auto) 6.12 K/uL (1.4-6.5); Neutrophils % (auto) 70.3 %; Platelet Count 215 K/uL (130-400); RDW Coefficient of Variation 16.7 % (11.5-14.5); RDW Standard Deviation 57.8 fL (36.4-46.3)
[2020-06-11 13:41] LABS: INR 1.1 (0.9-1.1); Partial Thromboplastin Ratio 0.8; Partial Thromboplastin Time 22.8 Seconds (21.0-31.0); Prothrombin Time 11.4 Seconds (9.0-12.0)
[2020-06-11 13:44] LABS: Albumin Level 3.8 gm/dl (3.4-5.0); BUN Creatinine Ratio 17.4 (10-20); Calcium 9.5 mg/dl (8.5-10.1); Creatinine Clr Calc Pharmacy 35.6 ml/min; Est GFR (Non-African American) 42.3; Potassium 3.6 mmol/L (3.5-5.1)
[2020-06-11 13:46] LABS: Albumin Globulin Ratio 1.2 (0.9-2); Bilirubin,Total 0.8 mg/dl (0.2-1); Globulin 3.2 gm/dl (2.5-4.0)
[2020-06-11 13:58] LABS: Schistocytes 1+
[2020-06-11] MEDS ORDERED: OPTIRAY 320 125ml IV ONE (13:58)
[2020-06-11 15:15] LABS: Appearance Urine Cloudy (Clear); Color Urine Brown; Specific Gravity Urine 1.026 (1.000-1.030); Sulfosalicylic Acid Urine Positive (Negative)
[2020-06-11 15:18] LABS: RBC Urine >30 /hpf (0-4)
[2020-06-11 15:19] LABS: Bacteria Urine 4+ (Negative); WBC Urine >30 /hpf (0-5)
--- NOTE | 2020-06-11 15:43 | CT Scan Report ---
CT ANGIO ABDOMEN PELVIS W CON CLINICAL HISTORY: 85-year-old Female with AAA, hematuria/retention eval for dissection/fistula, fol low up study in a patient with abdominal aortic aneurysm. COMPARISON STUDY: Abdominal ultrasound 01/16/2020, PET CT 04/01/2014 TECHNIQUE: Following the IV administration of 120 cc of Optiray 320, CT angiogram of the abdomen and pelvis was performed from the lung bases the proximal femora. Images are reviewed in the axial, sagit renita, and coronal planes. 3-D MIPS images are created and assessed. All measurements were obtained acc ording to NASCET criteria. IV contrast was administered without complication. A dose lowering techni que was utilized adhering to the principles of ALARA. CT DOSE: 998.33 mGycm FINDINGS: CTA: Mild cardiomegaly. Mild tortuosity of the descending thoracic aorta. Moderate to extensive mixed plaq ue of the abdominal aorta and branch vessels. There is fusiform aneurysmal dilation of the infrarenal abdominal aorta which measures 5.3 x 4.4 cm, on 04/01/2014 measured approximately 3.9 x 3.7 cm. There is no evidence of aneurysm rupture or dissection. No retroperitoneal hematoma. The common, internal a nd external iliac arteries, common femoral and imaged superficial and profunda femoris arteries appea r patent. The celiac trunk, superior and inferior mesenteric arteries are also patent. Duplicated rig ht renal arteries. There is mixed plaque at the origin of the bilateral renal arteries resulting in l ess than 50% luminal narrowing. No dissection, high-grade stenosis or proximal branch occlusion. CT ABDOMEN/PELVIS: There is mild dependent subsegmental bibasilar atelectasis. There is no pneumatosis or pneumoperitone um. The spleen, pancreas and gallbladder are unremarkable. Mild thickening of the adrenal glands sugg ests hyperplasia. Hepatic cysts with additional indeterminate scattered hepatic hypodensities are red emonstrated which are incompletely characterized on this exam. There are a few bilateral renal cysts measuring up to 1.4 cm on the left. Mild nonspecific bilateral perinephric stranding. No ureteral calculi or obstructive uropathy. Nonspecific mild urinary bladder wall thickening. Hysterectomy. Pelvic floor relaxation. No adenopathy. Tiny hiatal hernia. There is n o bowel obstruction or bowel wall thickening. Colonic diverticulosis without acute diverticulitis. No rmal appendix. There is no ascites or mesenteric inflammation. 1.2 cm subcutaneous nodule at the left paracentral lower chest is indeterminate and may reflect a sebaceous cyst. Soft tissues are otherwis e unremarkable. Degenerative changes of the spine, pelvis and hips. Dextroscoliosis of the thoracolum bar junction. There is no acute fracture or suspicious bone lesion identified. IMPRESSION: 1. Fusiform aneurysm dilation of the inferior abdominal aorta measures 5.3 x 4.4 cm, previously measu red at 3.9 x 3.7 cm on 04/01/2014. No dissection or aneurysm rupture. 2. Moderate to extensive atherosclerotic vascular disease without high-grade stenosis or proximal bra nch occlusion. 3. No bowel obstruction or bowel wall thickening. 4. Colonic diverticulosis without acute diverticulitis. 5. Additional findings as above. ACT 112: Positive. There are findings on this exam that require communication between the performing entity and the patient following Patient Test Result Information Act ([place] Act 112) guidelines. The above report was generated using voice recognition software. It may contain grammatical, syntax o r spelling errors. Dictated: 06/11/2020 2:05 PM Transcribed: 06/11/2020 2:49 PM Kay [id number] [facility] Electronically signed by: Shady Coronado M.D. 06/11/2020 3:41 PM
[2020-06-11] MEDS ORDERED: cefTRIAXone SODIUM 2,000 MG/70 ML BAG IV STA (16:41)
--- NOTE | 2020-06-11 17:16 | History & Physical Report ---
Date of Service June 11, 2020 Assessment & Plan (1) Acute blood loss anemia: Hemoglobin 7.6. Previously 11.8. Serial H&H. Transfuse if Hgb < 7 or symptomatic. Source from urine causing urine retention as below. Consult urology (2) Macroscopic hematuria: Consult urology (3) Acute urinary retention: Relieved with salgado catheter. Consult urology (4) YING (acute kidney injury): Increase in Cr > 1.5x. Suspected obstructive and should improve with salgado catheter insertion. Monitor with AM labs. (5) UTI (urinary tract infection): Bacteria noted on UA. Suprapubic pain on exam. Dysuria Ceftriaxone 2g IV daily Follow up urine culture. 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 Continue levothyroxine 88 mcg OP daily (7) DVT prophylaxis: SCDs Admission and Anticipated Discharge Date Admission Date: 06/11/2020 History of Present Illness Chief Complaint: Macroscopic hematuria, urinary retention Primary Care Provider: Мария Gomes DO Natali Zazueta is an 85-year-old female who presents to the ER with inability to urinate. Initial symptoms 3 days ago with dysuria and blood streaking in her urine. She denies recurrent urine tract infections or blood in her urine previously. She went to She last passed urine yesterday at 5pm, prior to this she reports passing clots of blood. She went to an outpatient urgent care clinic today and they recommended she comes to the ER for evaluation. No fever, chills or flank or suprapubic pain. She has chronic sciatica on her right side down to her ankle but not related to her current issues. No family history of bladder or renal cancers. She has not had a hysterectomy. In the ER patient was noted to be in urine retention and Salgado catheter inserted. CT showed mild urinary bladder wall thickening. Allergies Allergy/AdvReac Type Severity Reaction Status Date / Time Asacol TBEC AdvReac Unknown Unknown Uncoded 06/11/20 13:44 Lisinopril TABS AdvReac Unknown Cough Uncoded 06/11/20 13:44 sulfaSALAzine TABS AdvReac Unknown Unknown Uncoded 06/11/20 13:44 Home Medications Home Medications Medication Instructions Recorded Confirmed Type multivitamin 1 tab PO DAILY 03/24/19 06/11/20 History acetaminophen 500 mg tablet 1,000 mg PO TID PRN #90 tab 06/15/19 06/11/20 History ascorbic acid (vitamin C) 1,000 mg 1 gm PO DAILY tab 06/15/19 06/11/20 History tablet aspirin 81 mg tablet,delayed 81 mg PO DAILY #30 tab 06/15/19 06/11/20 History release cholecalciferol (vitamin D3) 25 2,000 units PO DAILY cap 06/15/19 06/11/20 History mcg (1,000 unit) capsule levothyroxine 88 mcg tablet 88 mcg PO DAILY #90 tab 12/23/19 06/11/20 Rx atorvastatin 10 mg tablet 10 mg PO DAILY #90 tab 05/10/20 06/11/20 Rx sertraline 25 mg tablet 25 mg PO DAILY #90 tab 05/10/20 06/11/20 Rx calcium carbonate [Calcium 600] 600 mg PO DAILY 06/11/20 06/11/20 History Past Med/Surg History Medical History (Updated 06/12/20 @ 10:15 by Nathaly Cardona MD) History of breast cancer Surgical History History of mastectomy Family History Father Myocardial infarction acute Brother Lung cancer Mother Aorta aneurysm Social History Smoking Status: Former smoker Second Hand Exposure: No; Do You Dip or Chew Tobacco: No; Tobacco Cessation Education Requested by Patient: No Hx Alcohol Use: No Hx Substance Use: No Preferred Language: Bulgarian Communication Ability: Effective 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 Required: No Beliefs That Will Affect Care: Mandaen Current Living Situation: Alone current occupational status: retired Other Information That Helps Us Care for You: No Feels Safe at Home: Yes Safety Concerns: Feels Safe At This Time Dental Care, Regularly: No Physical Activity Frequency: Daily Physical Activity Frequency Comment: chores Seatbelt Use: always Sunscreen Use: No Assistive Devices: Denture - Upper and Denture - Lower Review of Systems Review of Systems: All systems reviewed & are unremarkable except as noted in HPI & below Physical Exam Constitutional: well developed; + not well nourished and no acute distress Eyes: + anicteric sclerae; normal pupil size Respiratory: normal respiratory effort, lungs clear to auscultation Cardiovascular: Rate/Rhythm: regular rate and regular rhythm Heart Sounds: no murmur Extremities: normal capillary refill and + pedal edema (trace ankle equal bilaterally); no calf tenderness Gastrointestinal (Abdomen): Percussion/Palpation: + abdomen tender (Mild suprapubic tenderness) Skin: no rashes, warm and dry Neurologic: moves all extremities and awake; not confused Psychiatric: Orientation: alert, oriented to person and oriented to place; + not oriented to time Genitourinary: Speculum/Bimanual Exam: + abnormal bimanual exam (Rectal prolapse noted. No blood from the vagina vault. Suprapubic tendern) Results & Data Results & Data ([facility]) Vital Signs (Past 12 Hours) Vital Signs Temp Pulse Pulse Resp BP BP Pulse Ox 06/11/20 15:13 65 18 133/76 92 06/11/20 14:14 69 18 130/70 94 06/11/20 13:43 73 18 95 06/11/20 12:23 36.7 C 93 H 18 105/[address] ANGIO ABDOMEN PELVIS W CON IMPRESSION: 1. 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 No dissection or aneurysm rupture. 2. Moderate to extensive atherosclerotic vascular disease without high-grade stenosis or proximal branch occlusion. 3. No bowel obstruction or bowel wall thickening. 4. Colonic diverticulosis without acute diverticulitis. 5. Additional findings as above. Code Status & VTE Plan Code Status Full as discussed with the patient VTE Prophylaxis Plan VTE Prophylaxis will be ordered: Yes PG Care Time/CCT Total # of Minutes Spent Total Time Spent with Patient: Total time spent is greater than 50% in coordination of care (as documented) at patient's floor/unit and/or counseling patient: Coding Level of Care Code 13231 Initial Inpt Care Lvl 2 Diagnoses Acute blood loss anemia D62 Macroscopic hematuria R31.0 Acute urinary retention R33.8 YING (acute kidney injury) N17.9 UTI (urinary tract infection) N39.0 Hypothyroidism, postablative E89.0 DVT prophylaxis Z29.9
[2020-06-11 21:15] LABS: Hematocrit (blood only) 21.9 % (37-47)
[2020-06-11] MEDS ORDERED: SODIUM CHLORIDE 0.9% 250 ML IV PRN (22:09)
[2020-06-12] MEDS: ACETAMINOPHEN 500 MG TAB PO PRN ×2 (00:14→14:37)
[2020-06-12 04:31] LABS: Basophils # (auto) 0.05 K/uL (0-0.2); Basophils % (auto) 0.9 %; Eosinophils # (auto) 0.23 K/uL (0-0.5); Hemoglobin 7.9 g/dL (12.0-16.0); Immature Granulocytes # (auto) 0.03 K/uL (0.00-0.02); Immature Granulocytes % (auto) 0.5 %; Lymphocytes # (auto) 2.16 K/uL (1.2-3.4); Lymphocytes % (auto) 37.1 %; Mean Corpuscular Hemoglobin 29.8 pg (25-34); Mean Corpuscular Hgb Conc 31.6 g/dL (32-36); Mean Corpuscular Volume 94.3 fL (80-100); Mean Platelet Volume 10.4 fL (7.4-10.4); Monocytes # (auto) 0.32 K/uL (0.11-0.59); Monocytes % (auto) 5.5 %; Neutrophils # (auto) 3.03 K/uL (1.4-6.5); Platelet Count 192 K/uL (130-400); RDW Coefficient of Variation 16.4 % (11.5-14.5); RDW Standard Deviation 55.9 fL (36.4-46.3); Red Blood Count 2.65 M/uL (4.2-5.4); White Blood Count 5.82 K/uL (4.8-10.8)
[2020-06-12 04:56] LABS: Calcium 8.5 mg/dl (8.5-10.1); Creatinine Clr Calc Pharmacy 52.5 ml/min; Est GFR (African American) 73.5; Est GFR (Non-African American) 63.4; Potassium 3.7 mmol/L (3.5-5.1)
[2020-06-12] MEDS: LEVOTHYROXINE SODIUM 88 MCG TABLET PO SCH (05:32)
[2020-06-12 05:37] LABS: Polychromasia 1+
[2020-06-12] MEDS: MULTIVITAMIN TAB PO SCH (08:57)
[2020-06-12] MEDS: SERTRALINE HCL 50 MG TABLET PO SCH (08:58)
[2020-06-12] MEDS: ASCORBIC ACID 500 MG TAB PO SCH (08:58)
[2020-06-12] MEDS: ATORVASTATIN 10 MG TAB PO SCH (08:59)
[2020-06-12] MEDS: CALCIUM 600MG + VIT D 400 IU TAB PO SCH (08:59)
[2020-06-12] MEDS: CHOLECALCIFEROL 1,000 UNITS 25 MCG TAB PO SCH (08:59)
[2020-06-12] MEDS: DICLOFENAC SOD 1% GEL 100 GM TUBE EXT SCH ×4 (09:00→20:33)
--- NOTE | 2020-06-12 09:30 | Hospitalist Progress Note ---
Date of Service June 12, 2020 Assessment & Plan (1) Acute blood loss anemia: Etiology of blood loss is hematuria 6-15-20 baseline Hg 11.8 06-11 Hg 7.6 --> 7 06-12 received 1 unit PRBC, repeat Hg 7.9 I will give a second unit PRBC Continue serial CBC (2) Macroscopic hematuria: CT with bilateral renal cysts, bilateral perinephric stranding, no ureteral calculi. Nonspecific bladder wall thickening. Diff would include bleeding from renal cyst vs bladder hemorrhage Consulted urology Nathaly Aleman who will do outpatient cystoscopy (3) Acute urinary retention: Relieved with salgado catheter. Urology Dr. Cardona says discharge patient with salgado She will see patient in clinic in 7-10 days for voiding trial (4) YING (acute kidney injury): Increase in Cr > 1.5x. Suspected obstructive and should improve with salgado catheter insertion. 06-11 Cr 1.16 06-12 Cr 0.83 (5) Complicated UTI (urinary tract infection): Bacteria noted on UA. Suprapubic pain on exam. 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 Continue levothyroxine 88 mcg OP daily (7) Abdominal aortic aneurysm: 04-01-2014 measuring 3.9 x 3.7 cm 06-12-2020 has increased to 5.3 x 4.4 cm described as fusiform follow up with PCP as outpatient for vascular referral (8) DVT prophylaxis: SCDs, no lovenox 2' to active bleeding NPO for cystoscopy CODE full Admission and Anticipated Discharge Date Admission Date: June 11, 2020 Subjective 85yo lady presented 06-11 to ER with urinary retention in setting of hematuria and passing blood clots. Salgado was placed in ER. Urology saw patient, requested the salgado to stay in place for 7-10 days. Patient tells me she tolerated lunch, but is not feeling well. States that she is nauseated. Complaining of right leg sciatica pain, for which she uses voltaren gel prn. Feeling fatigued and generalized weakness. Denies SOB. Agreeable to another unit of blood. Patients daughter will pick her up tomorrow to transport her back home. Review of Systems Constitutional: no fever, no chills, no fatigue, no weakness, no anorexia, no weight loss and no weight gain Ear, Nose, Mouth, Throat: no nasal congestion, no sore throat and no dysphagia Respiratory: no cough and no dyspnea Cardiovascular: no chest pain, no dyspnea on exertion, no orthopnea and no palpitations Gastrointestinal: + nausea; no abdominal pain, no vomiting, no hematemesis, no dysphagia, no constipation, no diarrhea/loose stools, no blood in stools and no melena Genitourinary: no dysuria, no urinary frequency, no hematuria and no flank pain Musculoskeletal: no back pain, no joint pain, no myalgia and no muscle weakness Integumentary: no rash, no lesions, no skin ulcer, no erythema, no dry skin and no pruritus Neurologic: no falls, no localized weakness, no generalized weakness, no numbness, no paresthesia, no tremor(s) and no headache(s) Psychiatric: no depression, no suicidal ideation, no homicidal ideation and no anxiety Endocrine: no cold intolerance and no heat intolerance Hematologic / Lymphatic: no easy bleeding and no easy bruising Physical Exam Constitutional: well developed and well nourished; no acute distress Eyes: PERRL, conjunctivae normal, anicteric sclerae ENMT: Mouth: + dentures; oral mucous membranes not dry Respiratory: normal respiratory effort; no respiratory distress and no labored breathing Auscultation: lungs clear to auscultation bilaterally; no crackles, no rales, no rhonchi and no wheezes Cardiovascular: Rate/Rhythm: regular rate and regular rhythm Heart Sounds: no murmur and no cardiac rub Vessels: normal peripheral pulses and radial pulses present; no JVD Extremities: no edema Gastrointestinal (Abdomen): Inspection/Auscultation: abdomen normal to inspection and normal bowel sounds; abdomen not distended Percussion/Palpation: abdomen soft; abdomen nontender, no guarding, abdomen not rigid and no hepatosplenomegaly Musculoskeletal: Head/Neck/Chest: normocephalic and head atraumatic Spine: no cervical spinal tenderness, no cervical muscular tenderness, no thoracic spinal tenderness and no lumbar spinal tenderness Skin: no rashes, warm and dry Neurologic: CN's II-XI intact bilaterally and moves all extremities Motor/Sensory: no tremor and no sensory deficit Psychiatric: Orientation: alert, oriented to person, oriented to place and oriented to time Apperance: appropriately groomed; not disheveled Affect: euthymic affect; no anxious affect and no tearful affect Genitourinary: no CVA tenderness Salgado catheter with yellow urine Results & Data Results & Data ([facility]) Vital Signs (Past 12 Hours) Vital Signs Temp Pulse Pulse Resp BP BP Pulse Ox 06/12/20 08:01 36.7 C 61 19 142/75 H 95 06/12/20 07:20 60 06/12/20 04:00 36.6 C 67 18 136/76 96 06/12/20 01:00 36.8 C 58 L 18 131/78 97 06/12/20 00:30 36.5 C 58 L 16 126/82 96 06/12/20 00:24 68 06/12/20 00:15 36.4 C L 59 L 16 125/80 96 06/11/20 23:54 37.3 C 60 16 125/80 96 06/11/20 23:31 36.5 C 68 18 117/74 93 Laboratory Results Abnormal lab results 06/11/20 06/11/20 06/11/20 Range/Units 13:15 13:15 13:47 RBC 2.50 L (4.2-5.4) M/uL Hgb 7.6 L (12.0-16.0) g/dL Hct 23.7 L (37-47) % MCHC (32-36) g/dL RDW Std Deviation 57.8 H (36.4-46.3) fL RDW Coeff of Janel 16.7 H (11.5-14.5) % [place] # (Auto) 0.68 H (0.11-0.59) K/uL Immature Gran # (Auto) 0.03 H (0.00-0.02) K/uL BUN 20 H (7-18) mg/dl AST 47 H (15-37) U/L Urine Appearance (Clear) Urine RBC (0-4) /hpf Urine WBC (0-5) /hpf Ur Epithelial Cells (0-5) /lpf Urine Bacteria (Negative) Crossmatch See Detail 06/11/20 06/11/20 06/12/20 Range/Units 14:10 20:30 04:04 RBC 2.65 L (4.2-5.4) M/uL Hgb 7.0 L 7.9 L (12.0-16.0) g/dL Hct 21.9 L 25.0 L (37-47) % MCHC 31.6 L (32-36) g/dL RDW Std Deviation 55.9 H (36.4-46.3) fL RDW Coeff of Janel 16.4 H (11.5-14.5) % [place] # (Auto) (0.11-0.59) K/uL Immature Gran # (Auto) 0.03 H (0.00-0.02) K/uL BUN (7-18) mg/dl AST (15-37) U/L Urine Appearance Cloudy A (Clear) Urine RBC >30 H (0-4) /hpf Urine WBC >30 H (0-5) /hpf Ur Epithelial Cells 10-20 H (0-5) /lpf Urine Bacteria 4+ H (Negative) Crossmatch Medications Administered Current Inpatient Medications Acetaminophen (Acetaminophen 500 Mg Tab) 1,000 mg PO Q8 PRN PRN Reason: As Needed for Fever or Pain Stop: 07/11/20 22:38 Last Admin: 06/12/20 00:14 Dose: 1,000 mg Documented by: Ascorbic Acid (Ascorbic Acid 500 Mg Tab) 1,000 mg PO DAILY [place] Stop: 07/12/20 08:59 Last Admin: 06/12/20 08:58 Dose: 1,000 mg Documented by: Atorvastatin Calcium (Atorvastatin 10 Mg Tab) 10 mg PO DAILY [facility] Stop: 07/12/20 08:59 Last Admin: 06/12/20 08:59 Dose: 10 mg Documented by: Diclofenac Sodium (Diclofenac Sod 1% Gel 100 Gm Tube) 2 gm EXT QID [facility] Stop: 07/12/20 08:59 Last Admin: 06/12/20 09:00 Dose: Not Given Documented by: Ceftriaxone Sodium 2,000 mg/ (Dextrose) 70 mls @ 100 mls/hr IV Q24H [facility]; Protocol Stop: 06/20/20 17:41 Levothyroxine Sodium (Levothyroxine Sodium 88 Mcg Tablet) 88 mcg PO DAILYBB [facility] Stop: 07/12/20 06:29 Last Admin: 06/12/20 05:32 Dose: 88 mcg Documented by: Multivitamins (Multivitamin Tab) 1 tab PO DAILY [facility] Stop: 07/12/20 08:59 Last Admin: 06/12/20 08:57 Dose: 1 tab Documented by: Multivitamins/Minerals (Calcium 600mg + Vit D 400 Iu Tab) 1 tab PO DAILY [place] Stop: 07/12/20 08:59 Last Admin: 06/12/20 08:59 Dose: 1 tab Documented by: Sertraline HCl (Sertraline Hcl 50 Mg Tablet) 25 mg PO DAILY [place] Stop: 07/12/20 08:59 Last Admin: 06/12/20 08:58 Dose: 25 mg Documented by: Vitamin D (Cholecalciferol 1,000 Units 25 Mcg Tab) 2,000 units PO DAILY [place] Stop: 07/12/20 08:59 Last Admin: 06/12/20 08:59 Dose: 2,000 units Documented by: PG Care Time/CCT Total # of Minutes Spent Total Time Spent with Patient: Total time spent is greater than 50% in coordination of care (as documented) at patient's floor/unit and/or counseling patient: Coding Level of Care Code 56736 Subseq Hosp Care Lvl 3 Diagnoses Acute blood loss anemia D62 Macroscopic hematuria R31.0 Acute urinary retention R33.8 YING (acute kidney injury) N17.9 Complicated UTI (urinary tract infection) N39.0 Hypothyroidism, postablative E89.0 Abdominal aortic aneurysm I71.4 Presence of rupture: without rupture DVT prophylaxis Z29.9 (1) Abdominal aortic aneurysm Presence of rupture: without rupture Qualified Code(s): I71.4 - Abdominal aortic aneurysm, without rupture
--- NOTE | 2020-06-12 10:18 | Urology Consultation ---
Date of Consultation June 12, 2020 Assessment & Plan (1) Hematuria: At this time, the urine is almost clear. I would observe the urine at this time. She will need an outpatient cystoscopy upon discharge. Follow Hgb which has been stable overnight Present on Admission?: Yes (2) Urinary retention: Patient had a grossly distended bladder at the time of admission. Leave salgado catheter for 7-10 days. Will need to follow up in the urology clinic for a voiding trial. Present on Admission?: Yes History of Present Illness Reason for Consultation: Hematuria Patient presents to the ER with issues with hematuria and retention on 06/11/20. She reports that she hadn't voided at home for at least 12 hours before coming to the hospital. She had 3 days of small clots in the urine and then one episode of very dark urine. She states that she never had this before. She denies recurrent UTIs or bladder issues. No hysterectomy, No POP, No bladder surgeries in the past. + 3 vaginal deliveries. + smoking history - quit 20 years ago. She denies kidney stones in the past. She has never seen a urologist. Of note the patient is complaining of new LUQ pain this AM - no flank pain CT scan in the ER shows a very distended bladder. No hydronephrosis. Not a lot of clot or debris in the bladder. Hgb went from 11 range in December to 7 range. It's been stable since admission last night. Urine with > 30 RBC's. Culture is pending. Attending Physician: Sally Zamora MD Allergies Allergy/AdvReac Type Severity Reaction Status Date / Time Asacol TBEC AdvReac Unknown Unknown Uncoded 06/11/20 13:44 Lisinopril TABS AdvReac Unknown Cough Uncoded 06/11/20 13:44 sulfaSALAzine TABS AdvReac Unknown Unknown Uncoded 06/11/20 13:44 Home Medications Home Medications Medication Instructions Recorded Confirmed Type multivitamin 1 tab PO DAILY 03/24/19 06/11/20 History acetaminophen 500 mg tablet 1,000 mg PO TID PRN #90 tab 06/15/19 06/11/20 History ascorbic acid (vitamin C) 1,000 mg 1 gm PO DAILY tab 06/15/19 06/11/20 History tablet aspirin 81 mg tablet,delayed 81 mg PO DAILY #30 tab 06/15/19 06/11/20 History release cholecalciferol (vitamin D3) 25 2,000 units PO DAILY cap 06/15/19 06/11/20 History mcg (1,000 unit) capsule levothyroxine 88 mcg tablet 88 mcg PO DAILY #90 tab 12/23/19 06/11/20 Rx atorvastatin 10 mg tablet 10 mg PO DAILY #90 tab 05/10/20 06/11/20 Rx sertraline 25 mg tablet 25 mg PO DAILY #90 tab 05/10/20 06/11/20 Rx calcium carbonate [Calcium 600] 600 mg PO DAILY 06/11/20 06/11/20 History Patient History Medical History (Updated 06/12/20 @ 10:15 by Nathaly Cardona MD) History of breast cancer Surgical History History of mastectomy Family History Father Myocardial infarction acute Brother Lung cancer Mother Aorta aneurysm Social History Smoking Status: Former smoker Second Hand Exposure: No; Do You Dip or Chew Tobacco: No; Tobacco Cessation Education Requested by Patient: No Hx Alcohol Use: No Hx Substance Use: No Preferred Language: Polish Communication Ability: Effective Ingredient Handler Required: No Beliefs That Will Affect Care: Evangelical Current Living Situation: Alone current occupational status: retired Other Information That Helps Us Care for You: No Feels Safe at Home: Yes Safety Concerns: Feels Safe At This Time Dental Care, Regularly: No Physical Activity Frequency: Daily Physical Activity Frequency Comment: chores Seatbelt Use: always Sunscreen Use: No Assistive Devices: Denture - Upper and Denture - Lower Review of Systems Review of Systems: All systems reviewed & are unremarkable except as noted in HPI & below Physical Exam Physical Exam: NAD unlabored breathing regular rate soft, ND, + tenderness left UQ No CVA tenderness Urine is yellow with a slight tinge of pink Ext with mild edema Skin warm and dry. Results & Data ([facility]) Vital Signs (Past 12 Hours) Vital Signs Temp Pulse Pulse Resp BP BP Pulse Ox 06/12/20 08:01 36.7 C 61 19 142/75 H 95 06/12/20 07:20 60 06/12/20 04:00 36.6 C 67 18 136/76 96 06/12/20 01:00 36.8 C 58 L 18 131/78 97 06/12/20 00:30 36.5 C 58 L 16 126/82 96 06/12/20 00:24 68 06/12/20 00:15 36.4 C L 59 L 16 125/80 96 06/11/20 23:54 37.3 C 60 16 125/80 96 06/11/20 23:31 36.5 C 68 18 117/74 93 PG Care Time/CCT Total # of Minutes Spent Total Time Spent with Patient: Total time spent is greater than 50% in coordination of care (as documented) at patient's floor/unit and/or counseling patient: [place] [address] Initial Inpt Care Lvl 3 Patient Type New Medical Decision Making Moderate Complexity Diagnoses Hematuria R31.0 Hematuria type: gross Urinary retention R33.9 Time Spent (min) 30 (1) Hematuria Hematuria type: gross Qualified Code(s): R31.0 - Gross hematuria
[2020-06-12] MEDS ORDERED: SODIUM CHLORIDE 0.9% 250 ML IV PRN (15:34)
[2020-06-12] MEDS ORDERED: FUROSEMIDE 20 MG in SYRINGE 0 ML IV ONE (15:45)
[2020-06-12] MEDS ORDERED: cefTRIAXone SODIUM 2,000 MG in DEXTROSE 5% 50 ML IV SCH (17:00)
[2020-06-12] MEDS ORDERED: DICLOFENAC SOD 1% GEL 100 GM TUBE EXT SCH (21:00)
[2020-06-13] MEDS: LEVOTHYROXINE SODIUM 88 MCG TABLET PO SCH (06:06)
[2020-06-13 06:35] LABS: Hematocrit (blood only) 30.7 % (37-47); Hemoglobin 9.9 g/dL (12.0-16.0); Mean Corpuscular Hgb Conc 32.2 g/dL (32-36); Platelet Count 216 K/uL (130-400); RDW Coefficient of Variation 16.9 % (11.5-14.5); RDW Standard Deviation 57.2 fL (36.4-46.3); White Blood Count 5.66 K/uL (4.8-10.8)
[2020-06-13 07:12] LABS: BUN Creatinine Ratio 14.4 (10-20); Calcium 8.5 mg/dl (8.5-10.1); Creatinine Clr Calc Pharmacy 47.7 ml/min; Est GFR (African American) 65.7; Est GFR (Non-African American) 56.7; Magnesium 2.4 mg/dl (1.8-2.4); Potassium 3.6 mmol/L (3.5-5.1)
[2020-06-13 07:13] LABS: Phosphorus 2.9 mg/dl (2.5-4.9)
[2020-06-13] MEDS: CHOLECALCIFEROL 1,000 UNITS 25 MCG TAB PO SCH (07:45)
[2020-06-13] MEDS: MULTIVITAMIN TAB PO SCH (07:46)
[2020-06-13] MEDS: ATORVASTATIN 10 MG TAB PO SCH (07:46)
[2020-06-13] MEDS: SERTRALINE HCL 50 MG TABLET PO SCH (07:46)
[2020-06-13] MEDS: DICLOFENAC SOD 1% GEL 100 GM TUBE EXT SCH ×4 (07:47→20:11)
[2020-06-13] MEDS: ASCORBIC ACID 500 MG TAB PO SCH (07:47)
[2020-06-13] MEDS: CALCIUM 600MG + VIT D 400 IU TAB PO SCH (07:48)
--- NOTE | 2020-06-13 07:57 | Hospitalist Progress Note ---
Date of Service June 13, 2020 Assessment & Plan (1) Acute respiratory failure with hypoxia: 06-12 presumed pulm edema related to PRBC, gave lasix 11-15 requiring 2L oxygen, check CXR, give another lasix 20mg IV once CXR with lung mass, Chest CT confirms lung mass Unclear why she continues to be hypoxic, no pulm edema, no pneumonia. 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 Mariscal to see (3) Acute blood loss anemia: Etiology of blood loss is hematuria 6-15-20 baseline Hg 11.8 - Hg 7.6 --> 7 06-12 received 1 unit PRBC, repeat Hg 7.9 give a second unit PRBC - Hg 9.9, stable (4) Complicated UTI (urinary tract infection): Bacteria noted on UA. Suprapubic pain on exam. Dysuria Ceftriaxone 2g IV daily Follow up urine culture 06-13 urine cx > 100,000 organisms susceptible to cipro stop rocephin. start cipro 500mg PO BID 7 day course (5) Acute urinary retention: Alleviated by salgado catheter. Urology Dr. Cardona says discharge patient with salgado She will see patient in clinic in 7-10 days for voiding trial (6) YING (acute kidney injury): Increase in Cr > 1.5x. Suspected obstructive and should improve with salgado catheter insertion. 06-11 Cr 1.16 06-12 Cr 0.83, resolved (7) Macroscopic hematuria: resolved holding aspirin CT with bilateral renal cysts, bilateral perinephric stranding, no ureteral calculi. Nonspecific bladder wall thickening. Diff would include bleeding from renal cyst vs bladder hemorrhage Consulted urology Nathaly Aleman who will do outpatient cystoscopy (8) Hypothyroidism, postablative: TSH 2.12. Continue levothyroxine 88 mcg OP daily (9) Abdominal aortic aneurysm: 04-01-2014 measuring 3.9 x 3.7 cm 06-12-2020 has increased to 5.3 x 4.4 cm described as fusiform follow up with PCP as outpatient for vascular referral (10) DVT prophylaxis: SCDs, no lovenox 2' to active bleeding NPO for cystoscopy CODE full Admission and Anticipated Discharge Date Admission Date: June 11, 2020 Subjective Received another unit of blood yesterday along with lasix 20mg IV once. Requiring 2L oxygen overnight. CXR this am with lung mass. Discussed with patient and no prior knowledge of the mass. No weight loss, no chest pain, no hemoptysis. She prefers I discuss the mass with her daughter. Patient still has salgado catheter, which is not causing her any pain. She does not have abdominal pain, no nausea, no vomiting. Tolerating diet. Review of Systems Constitutional: no fever, no chills, no fatigue, no weakness, no anorexia, no weight loss and no weight gain Ear, Nose, Mouth, Throat: no nasal congestion, no sore throat and no dysphagia Respiratory: no cough and no dyspnea Cardiovascular: no chest pain, no dyspnea on exertion, no orthopnea and no palpitations Gastrointestinal: no abdominal pain, no nausea, no vomiting, no hematemesis, no dysphagia, no constipation, no diarrhea/loose stools, no blood in stools and no melena Genitourinary: no dysuria, no urinary frequency, no hematuria and no flank pain Musculoskeletal: no back pain, no joint pain, no myalgia and no muscle weakness Integumentary: no rash, no lesions, no skin ulcer, no erythema, no dry skin and no pruritus Neurologic: no falls, no localized weakness, no generalized weakness, no numbness, no paresthesia, no tremor(s) and no headache(s) Psychiatric: no depression, no suicidal ideation, no homicidal ideation and no anxiety Endocrine: no cold intolerance and no heat intolerance Hematologic / Lymphatic: no easy bleeding and no easy bruising Physical Exam Constitutional: well developed and well nourished; no acute distress Eyes: PERRL, conjunctivae normal, anicteric sclerae ENMT: Mouth: + dentures; oral mucous membranes not dry Respiratory: normal respiratory effort; no respiratory distress and no labored breathing Auscultation: lungs clear to auscultation bilaterally; no crackles, no rales, no rhonchi and no wheezes Cardiovascular: Rate/Rhythm: regular rate and regular rhythm Heart Sounds: no murmur and no cardiac rub Vessels: normal peripheral pulses and radial pulses present; no JVD Extremities: no edema Gastrointestinal (Abdomen): Inspection/Auscultation: abdomen normal to inspection and normal bowel sounds; abdomen not distended Percussion/Palpation: abdomen soft; abdomen nontender, no guarding, abdomen not rigid and no hepatosplenomegaly Musculoskeletal: Head/Neck/Chest: normocephalic and head atraumatic Spine: no cervical spinal tenderness, no cervical muscular tenderness, no thoracic spinal tenderness and no lumbar spinal tenderness Skin: no rashes, warm and dry Neurologic: CN's II-XI intact bilaterally and moves all extremities Motor/Sensory: no tremor and no sensory deficit Psychiatric: Orientation: alert, oriented to person, oriented to place and oriented to time Apperance: appropriately groomed; not disheveled Affect: euthymic affect; no anxious affect and no tearful affect Genitourinary: no CVA tenderness (Salgado catheter in place draining yellow urine) Results & Data Results & Data ([facility]) Vital Signs (Past 12 Hours) Vital Signs Temp Pulse Pulse Resp BP BP Pulse Ox 06/13/20 07:06 36.8 C 60 18 156/80 H 96 06/13/20 04:00 36.6 C 64 18 144/79 H 95 06/13/20 01:14 60 06/12/20 23:45 36.8 C 63 16 123/73 90 06/12/20 20:01 36.8 C 60 18 121/73 92 Laboratory Results Abnormal lab results 06/11/20 06/13/20 06/13/20 Range/Units 13:47 06:24 06:24 RBC 3.30 L (4.2-5.4) M/uL Hgb 9.9 L (12.0-16.0) g/dL Hct 30.7 L (37-47) % RDW Std Deviation 57.2 H (36.4-46.3) fL RDW Coeff of Janel 16.9 H (11.5-14.5) % Anion Gap 2.0 L (3-11) Crossmatch See Detail Medications Administered Current Inpatient Medications Acetaminophen (Acetaminophen 500 Mg Tab) 1,000 mg PO Q8 PRN PRN Reason: As Needed for Fever or Pain Stop: 07/11/20 22:38 Last Admin: 06/12/20 14:37 Dose: 1,000 mg Documented by: Ascorbic Acid (Ascorbic Acid 500 Mg Tab) 1,000 mg PO DAILY [facility] Stop: 07/12/20 08:59 Last Admin: 06/13/20 07:47 Dose: 1,000 mg Documented by: Atorvastatin Calcium (Atorvastatin 10 Mg Tab) 10 mg PO DAILY [facility] Stop: 07/12/20 08:59 Last Admin: 06/13/20 07:46 Dose: 10 mg Documented by: Ciprofloxacin (Ciprofloxacin 500 Mg Tab) 500 mg PO BID [facility]; Protocol Stop: 06/20/20 01:00 Last Admin: 06/13/20 08:42 Dose: 500 mg Documented by: Diclofenac Sodium (Diclofenac Sod 1% Gel 100 Gm Tube) 2 gm EXT QID [facility] Stop: 07/12/20 08:59 Last Admin: 06/13/20 12:25 Dose: Not Given Documented by: Levothyroxine Sodium (Levothyroxine Sodium 88 Mcg Tablet) 88 mcg PO DAILYBB [facility] Stop: 07/12/20 06:29 Last Admin: 06/13/20 06:06 Dose: 88 mcg Documented by: Multivitamins (Multivitamin Tab) 1 tab PO DAILY [facility] Stop: 07/12/20 08:59 Last Admin: 06/13/20 07:46 Dose: 1 tab Documented by: Multivitamins/Minerals (Calcium 600mg + Vit D 400 Iu Tab) 1 tab PO DAILY [facility] Stop: 07/12/20 08:59 Last Admin: 06/13/20 07:48 Dose: 1 tab Documented by: Sertraline HCl (Sertraline Hcl 50 Mg Tablet) 25 mg PO DAILY [facility] Stop: 07/12/20 08:59 Last Admin: 06/13/20 07:46 Dose: 25 mg Documented by: Vitamin D (Cholecalciferol 1,000 Units 25 Mcg Tab) 2,000 units PO DAILY [facility] Stop: 07/12/20 08:59 Last Admin: 06/13/20 07:45 Dose: 2,000 units Documented by: PG Care Time/CCT Total # of Minutes Spent Total Time Spent with Patient: Total time spent is greater than 50% in coordination of care (as documented) at patient's floor/unit and/or counseling patient: Coding Level of Care Code 25045 Subseq Hosp Care Lvl 3 Diagnoses Acute respiratory failure with hypoxia J96.01 Mass of upper lobe of right lung R91.8 Acute blood loss anemia D62 Complicated UTI (urinary tract infection) N39.0 Acute urinary retention R33.8 YING (acute kidney injury) N17.9 Macroscopic hematuria R31.0 Hypothyroidism, postablative E89.0 Abdominal aortic aneurysm I71.4 Presence of rupture: without rupture DVT prophylaxis Z29.9 (1) Abdominal aortic aneurysm Presence of rupture: without rupture Qualified Code(s): I71.4 - Abdominal aortic aneurysm, without rupture
[2020-06-13] MEDS ORDERED: FUROSEMIDE 20 MG in SYRINGE 0 ML IV ONE (08:15)
[2020-06-13] MEDS: CIPROFLOXACIN 500 MG TAB PO SCH ×2 (08:42→20:11)
--- NOTE | 2020-06-13 09:03 | XRay Report ---
XR chest 1V portable HISTORY: hypoxia COMPARISON: Chest 01/16/2018. FINDINGS: There is a new 3.5 cm mass within the right upper lobe. There are low lung volumes. Mild in terstitial thickening is likely chronic. The heart is normal in size. No pleural effusions. No pneumo thorax. Stable calcified granuloma within the left infrahilar location. Surgical clips within the lef t axilla. Degenerative changes within the shoulders. Calcified plaque within the aortic knob. IMPRESSION: There is a new 3.5 cm mass within the right upper lobe. Dedicated chest CT recommended for further ev aluation if not already known. These findings were called/faxed to the referring physician following dictation. ACT 112: Negative or not required by law. Electronically signed by: Linwood Silverman M.D. 06/13/2020 9:02 AM
[2020-06-13] MEDS ORDERED: IOVERSOL 100ml IV ONE (10:07)
--- NOTE | 2020-06-13 10:40 | CT Scan Report ---
CHEST CT WITH CONTRAST CT DOSE: 314.06 mGy.cm HISTORY: Right upper lobe mass lung mass TECHNIQUE: Multiaxial CT images of the chest were performed following the IV administration of 94 cc of Optiray 320. A dose lowering technique was utilized adhering to the principles of ALARA. COMPARISON: Chest radiograph 06/13/2020, 01/24/2018 FINDINGS: Thyroid is not imaged. No adenopathy. 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 Heart is normal in size. There is no pericardial effusion. Muscular hypertrophy of the l eft ventricle. Moderate to extensive coronary artery calcifications. Mixed plaque of the thoracic aor ta without aneurysm. The imaged great vessels appear patent. Tortuosity descending thoracic aorta. Th e opacified pulmonary artery is unremarkable. Trace right pleural effusion. Minimal subsegmental dependent bibasilar atelectasis. No pneumothorax. Circumscribed lobular solid soft tissue attenuating mass of the right upper lobe, 3.6 x 2.9 x 3.0 cm. This demonstrates central coursing bronchial vessels with a right upper lobe bronchus. 3 mm solid no dule of the apical segment right upper lobe. There are least 3 groundglass ill-defined nodular opacit ies of the apical segment right upper lobe, largest which measures 1.3 cm. 9 mm semisolid nodule of t he lateral segment right middle lobe with 3 mm solid component, image 117 series 4. 3 mm groundglass nodule of the lateral segment right middle lobe. 5 mm fissural nodule of the left midlung suggests pr obable lymph node. Bilateral subpleural reticulation suggest areas of mild fibrosis. Calcified granul paulino of the basal left lower lobe. Central airways are patent. Mild nonspecific distal esophageal wall thickening. Mild thickening and adrenal glands suggests hyper plasia. There are a few hypodensities noted throughout the liver which again are incompletely charact erized on this study. Probable sebaceous cyst of the inferior left chest wall, 11 mm. Degenerative ch anges of the shoulders and spine. There are no suspicious bone lesions identified. No acute fracture. IMPRESSION: 1. Soft tissue attenuating solid mass of the right upper lobe measures 3.6 x 2.9 x 3.0 cm and demonst rates a central coursing right upper lobe bronchus. Primary bronchogenic carcinoma is the diagnosis o f exclusion. Correlation with bronchoscopy and tissue sampling is recommended 2. No evidence of pathologic adenopathy. 3. Right apical groundglass nodules measuring up to 1.3 cm with semisolid 9 mm right middle lobe nodu le are concerning for adenomatous lesions. Follow-up recommended. 4. Additional findings as above. Please refer to below summary of Fleischner criteria recommendations for follow-up of incidental CT n odules (Dacia Woodard, Guidelines for management of small pulmonary nodules detected on CT scans: A sta tement from the Fleischner Society, Radiology 237: [phone].) Note: newly detected indeterminate nodule in persons 35 years of age or older. * Low risk patients: minimal or absent history of smoking and/or other known risk factors * high risk patients: history of smoking or of other known risk factors (e.g. first degree relative with lung cancer, or exposure to asbestos, radon, uranium) * if a nodule up to 8 mm is partly solid or is ground glass further follow-up is required after 24 m onths to exclude possible slow growing adenocarcinoma ([place]) SUBSOLID NODULES Solitary pure ground-glass nodule * nodule size <6 mm - no CT follow-up required * nodule size >=6 mm - follow-up CT at 6-12 months, then every 2 years until 5 years Solitary part-solid nodule * nodule size <6 mm - no CT follow-up required * nodule size >=6 mm - follow-up CT at 3-6 months. If unchanged, and solid component remains <6 mm, then annual follow-up for 5 years Multiple subsolid nodules * nodule size <6 mm - follow-up CT at 3-6 months, consider further follow-up at 2 and 4 years if sta ble * nodule size >=6 mm - follow-up CT at 3-6 months, subsequent management based on the most suspiciou s nodule(s) The above report was generated using voice recognition software. It may contain grammatical, syntax o r spelling errors. ACT 112: Negative or not required by law. Electronically signed by: Shady Coronado M.D. 06/13/2020 10:38 AM
--- NOTE | 2020-06-13 12:08 | Urology Progress Note ---
Date of Service June 13, 2020 Assessment & Plan (1) Hematuria: At this time, the urine is clear. Bleeding was likely secondary to infectious hemorrhagic cystitis but with her smoking history she still needs an outpatient cystoscopy upon discharge. (2) Urinary retention: Patient had a grossly distended bladder at the time of admission. Leave salgado catheter for 7-10 days. Will need to follow up in the urology clinic for a voiding trial. Admission and Anticipated Discharge Date Admission Date: June 11, 2020 Subjective Patient is doing well. She was transfused 2 units of pRBCs - responded appropriately Her urine is completely clear. Urine came back positive to E Coli - pansensitive. She has no complaints of pain today. Catheter is in place. Review of Systems Review of Systems: All systems reviewed & are unremarkable except as noted in HPI & below Physical Exam Physical Exam: NAD unlabored breathing, NC in place regular rate soft, ND No CVA tenderness Urine is yellow Ext with mild edema Skin warm and dry. Results & Data ([facility]) Vital Signs (Past 12 Hours) Vital Signs Temp Pulse Pulse Resp BP Pulse Ox 06/13/20 11:31 36.8 C 75 18 119/71 93 06/13/20 07:06 36.8 C 60 18 156/80 H 96 06/13/20 04:00 36.6 C 64 18 144/79 H 95 06/13/20 01:14 60 PG Care Time/CCT Total # of Minutes Spent Total Time Spent with Patient: Total time spent is greater than 50% in coordination of care (as documented) at patient's floor/unit and/or counseling patient: Coding [place] [address] Subseq Hosp Care Lvl 2 Patient Type Established History Expanded Problem Focused Exam Expanded Problem Focused Medical Decision Making Moderate Complexity Diagnoses Hematuria R31.0 Hematuria type: gross Urinary retention R33.9 Time Spent (min) 25 (1) Hematuria Hematuria type: gross Qualified Code(s): R31.0 - Gross hematuria
--- NOTE | 2020-06-13 14:30 | Pulmonary Consultation ---
Date of Consultation June 13, 2020 Assessment & Plan (1) Mass of upper lobe of right lung: Patient will need a biopsy of the right upper lobe lung lesion. She also appears to have satellite lesions which may be metastatic disease. This lesion is amenable to navigational bronchoscopy which will need to be completed in the OR. Staging will also be crucial which will include a PET scan and MRI of the brain. This can be done as an outpatient. Dr. Bowen is on for tomorrow and can discuss with the patient and decide whether he would like to do the procedure bronchoscopy as an inpatient versus outpatient. She may have underlying interstitial lung disease as she has some subpleural re ticular findings on CT chest. She does have Parkinson's disease. She is at risk for chronic aspiration. Maintain oxygenation above 88%. Albuterol inhaler can be used as needed. PFTs may be helpful as an outpatient. (2) Acute respiratory failure with hypoxia: (3) Parkinsons disease: History of Present Illness Reason for Consultation: Right lung mass Requesting Physician: Hospitalist service Attending Physician: Sally Zamora MD History of Present Illness 85-year-old female with a past medical history of Parkinson's disease, abdominal aortic aneurysm and hypothyroidism who recently presented to the hospital on 06/11/2020 due to the inability to urinate. She is found to have a likely urinary tract infection and started on Rocephin. Urology consultation was placed for hematuria. The recommendation was a cystoscopy as an outpatient. She received 3 units of blood during the hospitalization. She also had a mild YING. She was apparently hypoxemic earlier today and a chest x-ray was obtained. Chest x-ray demonstrated new mass in the right upper lobe and a CT was recommended. CT of the chest demonstrated trace right pleural effusion and a circumscribed lobulated solid soft tissue attenuating mass in the right upper lobe measuring 3.6 x 2.9 x 3 cm. There is also a 3 mm solid nodule in the apical segment in the right upper lobe noted and 3 groundglass densities in the apical segment of the right upper lobe measuring 1.3 cm. Several other nodules were noted as well. Bilateral subpleural reticulation was noted. No significant mediastinal adenopathy seen. Patient notes some mild chronic shortness of breath and cough. She denies any hemoptysis. Weight has been stable. She does note decreased appetite. She smoked roughly 20 years ago roughly half a pack a day. She denies any chest pain currently. She does not have any pets. She is pretty independent and able to drive a car on her own. She lives in [place]. She does note a history of breast cancer roughly 30 years ago and received bilateral mastectomy with chemotherapy. Allergies Allergy/AdvReac Type Severity Reaction Status Date / Time Asacol TBEC AdvReac Unknown Unknown Uncoded 06/11/20 13:44 Lisinopril TABS AdvReac Unknown Cough Uncoded 06/11/20 13:44 sulfaSALAzine TABS AdvReac Unknown Unknown Uncoded 06/11/20 13:44 Home Medications Home Medications Medication Instructions Recorded Confirmed Type multivitamin 1 tab PO DAILY 03/24/19 06/11/20 History acetaminophen 500 mg tablet 1,000 mg PO TID PRN #90 tab 06/15/19 06/11/20 History ascorbic acid (vitamin C) 1,000 mg 1 gm PO DAILY tab 06/15/19 06/11/20 History tablet aspirin 81 mg tablet,delayed 81 mg PO DAILY #30 tab 06/15/19 06/11/20 History release cholecalciferol (vitamin D3) 25 2,000 units PO DAILY cap 06/15/19 06/11/20 History mcg (1,000 unit) capsule levothyroxine 88 mcg tablet 88 mcg PO DAILY #90 tab 12/23/19 06/11/20 Rx atorvastatin 10 mg tablet 10 mg PO DAILY #90 tab 05/10/20 06/11/20 Rx sertraline 25 mg tablet 25 mg PO DAILY #90 tab 05/10/20 06/11/20 Rx calcium carbonate [Calcium 600] 600 mg PO DAILY 06/11/20 06/11/20 History diclofenac sodium [Voltaren] 2 g EXT QID #100 g 06/12/20 Rx Patient History Medical History History of breast cancer Surgical History History of mastectomy Family History Father Myocardial infarction acute Brother Lung cancer Mother Aorta aneurysm Social History Smoking Status: Former smoker Second Hand Exposure: No; Do You Dip or Chew Tobacco: No; Tobacco Cessation Education Requested by Patient: No Hx Alcohol Use: No Hx Substance Use: No Preferred Language: Iranian Communication Ability: Effective Alloy Weigher Required: No Beliefs That Will Affect Care: Restorationist Current Living Situation: Alone current occupational status: retired Other Information That Helps Us Care for You: No Feels Safe at Home: Yes Safety Concerns: Feels Safe At This Time Dental Care, Regularly: No Physical Activity Frequency: Daily Physical Activity Frequency Comment: chores Seatbelt Use: always Sunscreen Use: No Assistive Devices: Cane Review of Systems Review of Systems: All systems reviewed & are unremarkable except as noted in HPI & below Results & Data Results & Data ([facility]) Vital Signs (Past 12 Hours) Vital Signs Temp Pulse Resp BP Pulse Ox 06/13/20 11:31 98.2 F 75 18 119/71 93 06/13/20 07:06 98.2 F 60 18 156/80 H 96 06/13/20 04:00 97.9 F 64 18 144/79 H 95 I reviewed the vital signs, labs and imaging PG Care Time/CCT Total # of Minutes Spent Total Time Spent with Patient: Total time spent is greater than 50% in coordination of care (as documented) at patient's floor/unit and/or counseling patient: Coding Level of Care Code 10641 Inpt Consult Level 4 Diagnoses Mass of upper lobe of right lung R91.8 Acute respiratory failure with hypoxia J96.01 Parkinsons disease G20
[2020-06-14] MEDS: LEVOTHYROXINE SODIUM 88 MCG TABLET PO SCH (05:12)
[2020-06-14 07:16] LABS: Hematocrit (blood only) 31.7 % (37-47); Hemoglobin 10.2 g/dL (12.0-16.0); Mean Corpuscular Hemoglobin 30.2 pg (25-34); Mean Corpuscular Hgb Conc 32.2 g/dL (32-36); Mean Corpuscular Volume 93.8 fL (80-100); Platelet Count 232 K/uL (130-400); RDW Coefficient of Variation 16.9 % (11.5-14.5); RDW Standard Deviation 57.2 fL (36.4-46.3); Red Blood Count 3.38 M/uL (4.2-5.4); White Blood Count 7.68 K/uL (4.8-10.8)
[2020-06-14 07:52] LABS: BUN Creatinine Ratio 13.3 (10-20); Calcium 8.9 mg/dl (8.5-10.1); Creatinine Clr Calc Pharmacy 44.8 ml/min; Est GFR (African American) 61.6; Est GFR (Non-African American) 53.2; Magnesium 2.1 mg/dl (1.8-2.4); Phosphorus 3.3 mg/dl (2.5-4.9); Potassium 3.5 mmol/L (3.5-5.1)
[2020-06-14] MEDS: CHOLECALCIFEROL 1,000 UNITS 25 MCG TAB PO SCH (08:04)
[2020-06-14] MEDS: ATORVASTATIN 10 MG TAB PO SCH (08:04)
[2020-06-14] MEDS: ASCORBIC ACID 500 MG TAB PO SCH (08:04)
[2020-06-14] MEDS: SERTRALINE HCL 50 MG TABLET PO SCH (08:04)
[2020-06-14] MEDS: CALCIUM 600MG + VIT D 400 IU TAB PO SCH (08:05)
[2020-06-14] MEDS: CIPROFLOXACIN 500 MG TAB PO SCH ×2 (08:05→19:59)
[2020-06-14] MEDS: MULTIVITAMIN TAB PO SCH (08:05)
[2020-06-14] MEDS: DICLOFENAC SOD 1% GEL 100 GM TUBE EXT SCH ×4 (08:06→19:59)
--- NOTE | 2020-06-14 08:32 | Hospitalist Progress Note ---
Date of Service June 14, 2020 Assessment & Plan (1) Acute respiratory failure with hypoxia: 06-12 presumed pulm edema related to PRBC, ZNEA, gave lasix 11-15 requiring 2L oxygen, check CXR, give another lasix 20mg IV once CXR with lung mass, Chest CT confirms lung mass Unclear why she continues to be hypoxic, no pulm edema, no pneumonia. 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 Suprapubic pain on exam. Dysuria Ceftriaxone 2g IV daily Follow up urine culture 06-13 urine cx > 100,000 E coli mcgill sensitibve susceptible to cipro( also alpha strep not enterococcus) cipro 500mg PO BID 7 day course (5) Acute urinary retention: Alleviated by salgado catheter. Urology Dr. Cardona says discharge patient with salgado She will see patient in clinic in 7-10 days for voiding trial (6) YING (acute kidney injury): resolved, secondary to obstructive uropathy, will see urology as outpt (7) Macroscopic hematuria: resolved holding aspirin CT with bilateral renal cysts, bilateral perinephric stranding, no ureteral calculi. Nonspecific bladder wall thickening. Diff would include bleeding from renal cyst vs bladder hemorrhage Consulted urology will plan on outpatient cystoscopy (8) Hypothyroidism, postablative: TSH 2.12. Continue levothyroxine 88 mcg OP daily (9) Abdominal aortic aneurysm: 04-01-2014 measuring 3.9 x 3.7 cm 06-12-2020 has increased to 5.3 x 4.4 cm described as fusiform follow up with PCP as outpatient for vascular referral (10) DVT prophylaxis: SCDs, no lovenox 2' to active bleeding NPO for cystoscopy CODE full Admission and Anticipated Discharge Date Admission Date: June 11, 2020 Subjective this pt is doing well, awaiting navagational bronchoscopy for lung mass on 06/15. she has not been able to ambulate significantly while inpt will ask PT/OT to see as she plans on returning home she has occasional cough that is non productive Review of Systems Review of Systems: Mild distress and fatigue no headache, blurry or double vision no speech or swallowing issues no chest pain, pressure or palpitations no shortness of breath, mild nonproductive cough no abdominal pain, nausea or vomiting, diarrhea or constipation no dysuria, hematuria or frequency no focal joint pain or swelling no back pain, CVA tenderness or radicular pain no bruising, bleeding or rashes no focal signs of weakness or numbness or altered sensation no complaints of anxiety or depression. Physical Exam Physical Exam: The patient appeared well nourished and normally developed. Vital signs as documented. Head exam is normocephalic atraumatic no scleral icterus Neck is without JVD, thyromegaly, or carotid bruits. Lungs are clear to auscultation, no focal loss of breath sounds Cardiac exam, Rhythm is regular.. No murmurs, rubs or gallops. Abdominal exam reveals normal bowel sounds, soft non tender, no masses no abdominal bruits are heard Salgado catheter is in place Extremities are nonedematous and both pedal pulses are present Neurologic exam is alert and oriented, no focal loss of strength or sensation Skin is without bruises or rashes Psychologically is without concerns for anxiety or depression. Results & Data Results & Data ([facility]) Vital Signs (Past 12 Hours) Vital Signs Temp Pulse Pulse Resp BP Pulse Ox 06/14/20 07:22 97.5 F L 63 16 144/70 H 93 06/14/20 03:13 97.9 F 62 16 127/68 91 06/14/20 00:08 69 06/13/20 23:23 98.1 F 68 18 129/71 90 PG Care Time/CCT Total # of Minutes Spent Total Time Spent with Patient: Total time spent is greater than 50% in coordination of care (as documented) at patient's floor/unit and/or counseling patient: Coding Level of Care Code 40450 Subseq Hosp Care Lvl 2 Diagnoses Acute respiratory failure with hypoxia J96.01 Mass of upper lobe of right lung R91.8 Acute blood loss anemia D62 Complicated UTI (urinary tract infection) N39.0 Acute urinary retention R33.8 YING (acute kidney injury) N17.9 Macroscopic hematuria R31.0 Hypothyroidism, postablative E89.0 Abdominal aortic aneurysm I71.4 Presence of rupture: without rupture DVT prophylaxis Z29.9 (1) Abdominal aortic aneurysm Presence of rupture: without rupture Qualified Code(s): I71.4 - Abdominal aortic aneurysm, without rupture
--- NOTE | 2020-06-14 08:53 | Urology Progress Note ---
Date of Service June 14, 2020 Assessment & Plan (1) Urinary retention: (2) Hematuria: 85yo F admitted with acute urinary retention and gross hematuria -Reviewed plan of care with Dr. Barrett -Patient remains afebrile -Labs reviewed, wbc and creatinine are stable -Urine has cleared -Continue antibiotics for E.coli UTI -Recommend keeping Velásquez catheter for 7-10 days -Discussed hematuria work-up in detail with patient. -Will plan for outpatient follow-up with urology for voiding trial and cystoscopy -She is agreeable to above plan, all questions were answered. Thank you for allowing us to participate in the acute care of Mrs. Zazueta. Please reconsult us with additional questions, concerns or changes in patient status. Admission and Anticipated Discharge Date Admission Date: June 11, 2020 Subjective Patient examined at bedside this AM Awake, resting in bed on arrival Velásquez catheter intact/patent, draining clear, yellow urine Denies any pain/discomfort Denies dysuria Denies fevers or chills Tolerating diet, no nausea or vomiting Chart review: Afebrile Wbc 7.68 Hgb 10.2 Cr 0.96 No additional concerns today Review of Systems Constitutional: as per Subjective / HPI Gastrointestinal: as per Subjective / HPI Genitourinary: as per Subjective / HPI Physical Exam Constitutional: no acute distress and not ill appearing Respiratory: normal respiratory effort and able to speak in complete sentences Cardiovascular: Extremities: no calf tenderness Gastrointestinal (Abdomen): Percussion/Palpation: abdomen soft; abdomen nontender and no guarding Musculoskeletal: Head/Neck/Chest: normocephalic Skin: Warm and dry Neurologic: moves all extremities and awake Psychiatric: Orientation: alert and oriented x 3 Genitourinary: Velásquez catheter intact/patent, draining clear, yellow urine Results & Data ([facility]) Vital Signs (Past 12 Hours) Vital Signs Temp Pulse Pulse Resp BP Pulse Ox 06/14/20 07:22 36.4 C L 63 16 144/70 H 93 06/14/20 03:13 36.6 C 62 16 127/68 91 06/14/20 00:08 69 06/13/20 23:23 36.7 C 68 18 129/71 90 PG Care Time/CCT Total # of Minutes Spent Total Time Spent with Patient: Total time spent is greater than 50% in coordination of care (as documented) at patient's floor/unit and/or counseling patient: Coding Level of Care Code 29292 Subseq Hosp Care Lvl 2 Diagnoses Urinary retention R33.9 Hematuria R31.0 Hematuria type: gross (1) Hematuria Hematuria type: gross Qualified Code(s): R31.0 - Gross hematuria
--- NOTE | 2020-06-14 15:41 | Pulmonology Progress Note ---
Date of Service June 14, 2020 Assessment & Plan (1) Mass of upper lobe of right lung: CT chest 06/13/2020 personally reviewed: Multiple groundglass pulmonary opacity appreciated especially in the right upper lobe (seems to be apical segment), there is right upper lobe mass 3.6 x 2.9 cm with an area going through it. No significant mediastinal lymphadenopathy. --Right upper lobe mass Was not appreciated on the chest x-ray done in 2018 In a patient who has history of bilateral breast cancer as well as hematuria Likelihood of cancer is high. Plan would be to have a navigational bronchoscopy along with EBUS. Risk and benefits of the procedure explained to the patient in depth. Patient agrees and wants to go ahead with the procedure. Consent signed, witnessed and put in the chart. --Multiple groundglass opacities Affecting mostly the right upper lobe Could be satellite lesions of cancer --Ex-smoker Approximately [id number] smoking history Quit more than 30 years ago --History of breast cancer S/p bilateral mastectomy in the S/p chemo denies any radiation Plan: Navigational bronchoscopy with EBUS tomorrow Consent in the chart. Daughter was called and voice message was left. All questions inquiries of the patient as well as the daughter were answered in depth Please note the above document was generated using voice recognition software. It may contain grammatical, syntax or spelling errors.Any formal questions or concerns about the content, text or information contained within the body of this dictation should be directly addressed to the provider for clarification. (2) Acute respiratory failure with hypoxia: (3) Multiple pulmonary nodules: Admission and Anticipated Discharge Date Admission Date: June 11, 2020 Subjective Patient seen and examined at bedside. No acute distress, no adverse events ov ernight. Denies any chest pain, no shortness of breath, no headache, no blurry vision. Good appetite. Afebrile. Denies any cough. Review of Systems Review of Systems: All systems reviewed & are unremarkable except as noted in Subjective Physical Exam Physical Exam: Constitutional: No acute distress HEENT: EOMI, PERRLA Respiratory system: Decreased air entry bilaterally, no wheeze, no rhonchi, no crackles CVS: S1-S2 positive, no murmurs or gallops Abdomen: Soft, nontender, nondistended, positive bowel sounds x4 Extremities: +2 pulses bilaterally radialis/ dorsalis pedis, no cyanosis, +1 edema Neuro: Awake alert oriented x3 Psych: Normal mood and affect G/U: Positive Velásquez Skin: no rashes, warm and dry Lymphatic: no cervical or axillary lymphadenopathy Results & Data Results & Data ([facility]) Vital Signs (Past 12 Hours) Vital Signs Temp Pulse Resp BP Pulse Ox 06/14/20 11:07 36.7 C 57 L 18 124/72 95 06/14/20 07:22 36.4 C L 63 16 144/70 H 93 06/14/20 03:13 36.6 C 62 16 127/68 91 06/14/20 06:49 06/14/20 06:49 PG Care Time/CCT Total # of Minutes Spent Total Time Spent with Patient: Total time spent is greater than 50% in coordination of care (as documented) at patient's floor/unit and/or counseling patient: Coding Level of Care Code 06517 Subseq Hosp Care Lvl 3 Diagnoses Mass of upper lobe of right lung R91.8 Acute respiratory failure with hypoxia J96.01 Multiple pulmonary nodules R91.8
[2020-06-14] MEDS: ACETAMINOPHEN 500 MG TAB PO PRN (19:59)
[2020-06-15] MEDS: LEVOTHYROXINE SODIUM 88 MCG TABLET PO SCH (06:09)
[2020-06-15] MEDS: SERTRALINE HCL 50 MG TABLET PO SCH (08:33)
[2020-06-15] MEDS: CALCIUM 600MG + VIT D 400 IU TAB PO SCH (08:33)
[2020-06-15] MEDS: MULTIVITAMIN TAB PO SCH (08:34)
[2020-06-15] MEDS: CHOLECALCIFEROL 1,000 UNITS 25 MCG TAB PO SCH (08:34)
[2020-06-15] MEDS: ATORVASTATIN 10 MG TAB PO SCH (08:34)
[2020-06-15] MEDS: ASCORBIC ACID 500 MG TAB PO SCH (08:34)
[2020-06-15] MEDS: CIPROFLOXACIN 500 MG TAB PO SCH ×2 (08:35→20:28)
[2020-06-15] MEDS: DICLOFENAC SOD 1% GEL 100 GM TUBE EXT SCH ×2 (08:35→12:23)
[2020-06-15] MEDS ORDERED: ONDANSETRON INJ 2 MG/ML 2 ML VIAL ONE (09:48)
[2020-06-15] MEDS ORDERED: ROCURONIUM BROMIDE 10 MG/ML 5 ML VIAL IV ONE (09:48)
[2020-06-15] MEDS ORDERED: PROPOFOL IV EMULSION 10 MG/ML 20 ML VIAL IV ONE (09:48)
[2020-06-15] MEDS ORDERED: LIDOCAINE HCL 2% 2 ML VIAL/AMP(20MG/ML) INFIL ONE (09:48)
[2020-06-15] MEDS ORDERED: fentaNYL citrate 100 MCG/2 ML VIAL ONE (09:48)
--- NOTE | 2020-06-15 10:35 | Anesthesiology Consultation ---
Date of Service June 15, 2020 Assessment & Plan Chart Review Chart Review: Acceptable Risk for Surgery and Patient NOT seen in Pre Admission Testing Consults Requested none ASA ASA4 Proposed Anesthesia Anesthesia Type: General History Surgery Operation Date: 06/15/20 10:30 Proposed Procedures p Bronchoscopy Navigational w/CT Scan Pre, - Maru Bowen MD s Endobronchial Ultrasound - Maru Bowen MD Height/Weight Height: 5 ft 4 in Weight: 91.8 kg Allergies Allergy/AdvReac Type Severity Reaction Status Date / Time Asacol TBEC AdvReac Unknown Unknown Uncoded 06/11/20 13:44 Lisinopril TABS AdvReac Unknown Cough Uncoded 06/11/20 13:44 sulfaSALAzine TABS AdvReac Unknown Unknown Uncoded 06/11/20 13:44 Medications Home Medications Medication Instructions Recorded Confirmed Last Taken multivitamin 1 tab PO DAILY 03/24/19 06/11/20 06/11/20 acetaminophen 500 mg tablet 1,000 mg PO TID PRN #90 tab 06/15/19 06/11/20 06/11/20 ascorbic acid (vitamin C) 1,000 mg 1 gm PO DAILY tab 06/15/19 06/11/20 06/11/20 tablet aspirin 81 mg tablet,delayed 81 mg PO DAILY #30 tab 06/15/19 06/11/20 06/11/20 release cholecalciferol (vitamin D3) 25 2,000 units PO DAILY cap 06/15/19 06/11/20 06/11/20 mcg (1,000 unit) capsule levothyroxine 88 mcg tablet 88 mcg PO DAILY #90 tab 12/23/19 06/11/20 06/11/20 atorvastatin 10 mg tablet 10 mg PO DAILY #90 tab 05/10/20 06/11/20 06/11/20 sertraline 25 mg tablet 25 mg PO DAILY #90 tab 05/10/20 06/11/20 06/11/20 calcium carbonate [Calcium 600] 600 mg PO DAILY 06/11/20 06/11/20 06/11/20 diclofenac sodium [Voltaren] 2 g EXT QID #100 g 06/12/20 Unknown Active Medications Generic Name Dose Route Start Last Admin Trade Name Freq PRN Reason Stop Dose Admin Acetaminophen 1,000 mg 06/11/20 22:39 06/14/20 19:59 Acetaminophen 500 Mg Tab PO 07/11/20 22:38 1,000 mg Q8 PRN Administration As Needed for Fever or Pain Ascorbic Acid 1,000 mg 06/12/20 09:00 06/15/20 08:34 Ascorbic Acid 500 Mg Tab PO 07/12/20 08:59 1,000 mg DAILY AUSTEN Administration Atorvastatin Calcium 10 mg 06/12/20 09:00 06/15/20 08:34 Atorvastatin 10 Mg Tab PO 07/12/20 08:59 10 mg DAILY AUSTEN Administration Ciprofloxacin 500 mg 06/13/20 09:00 06/15/20 08:35 Ciprofloxacin 500 Mg Tab PO 06/20/20 01:00 500 mg BID AUSTEN Administration Protocol Diclofenac Sodium 2 gm 06/12/20 09:00 06/15/20 08:35 Diclofenac Sod 1% Gel 100 Gm Tube EXT 07/12/20 08:59 Not Given QID AUSTEN Levothyroxine Sodium 88 mcg 06/12/20 06:30 06/15/20 06:09 Levothyroxine Sodium 88 Mcg Tablet PO 07/12/20 06:29 88 mcg DAILYBB AUSTEN Administration Multivitamins 1 tab 06/12/20 09:00 06/15/20 08:34 Multivitamin Tab PO 07/12/20 08:59 1 tab DAILY AUSTEN Administration Multivitamins/Minerals 1 tab 06/12/20 09:00 06/15/20 08:33 Calcium 600mg + Vit D 400 Iu Tab PO 07/12/20 08:59 1 tab DAILY AUSTEN Administration Sertraline HCl 25 mg 06/12/20 09:00 06/15/20 08:33 Sertraline Hcl 50 Mg Tablet PO 07/12/20 08:59 25 mg DAILY AUSTEN Administration Vitamin D 2,000 units 06/12/20 09:00 06/15/20 08:34 Cholecalciferol 1,000 Units 25 Mcg Tab PO 07/12/20 08:59 2,000 units DAILY AUSTEN Administration NPO Date Last Intake of Fluids: 06/15/20 Time Last Intake of Fluids: 06:00 Last Intake of Fluids Comment: sip Date Last Intake of Solids: 06/14/20 Time Last Intake of Solids: 18:00 Past Medical History Medical History History of breast cancer Exercise / Class Metabolic Activity III < 4 Walking/Shop/Light housework Past Family History Family History Father Myocardial infarction acute Brother Lung cancer Mother Aorta aneurysm Past Surgical History Surgical History History of mastectomy Past Anesthesia History No Hx of Anesthesia Complications and No Family Hx of Anesthesia Complications History of PONV No Hx of PONV and No Hx of Motion Sickness Social History Smoking Status: Former smoker Do You Dip or Chew Tobacco: No Hx Alcohol Use: No Hx Substance Use: No Physical Exam Vital Signs Last Vital Signs Temp 37 C 06/15/20 10:18 Pulse 61 06/15/20 10:18 Resp 18 06/15/20 10:18 BP 149/76 H 06/15/20 10:18 Pulse Ox 99 06/15/20 10:18 Testing Laboratory Results 06/14/20 06:49 06/14/20 06:49 PT 11.4 Seconds (9.0-12.0) 06/11/20 13:15 INR 1.1 (0.9-1.1) 06/11/20 13:15 APTT 22.8 Seconds (21.0-31.0) 06/11/20 13:15 Urine Color Brown 06/11/20 14:10 Urine Appearance Cloudy (Clear) A 06/11/20 14:10 Urine pH (4.5-7.5) 06/11/20 14:10 Ur Specific Kinta 1.026 (1.000-1.030) 06/11/20 14:10 Urine Protein (Negative) 06/11/20 14:10 Urine Glucose (UA) (Negative) 06/11/20 14:10 Urine Ketones (Negative) 06/11/20 14:10 Urine Nitrite (Negative) 06/11/20 14:10 Ur Leukocyte Esterase (Negative) 06/11/20 14:10 Urine RBC >30 /hpf (0-4) H 06/11/20 14:10 Urine WBC >30 /hpf (0-5) H 06/11/20 14:10 Ur Epithelial Cells 10-20 /lpf (0-5) H 06/11/20 14:10 Blood Type A Positive 06/11/20 13:47 Antibody Screen NEGATIVE 06/11/20 13:47 06/11/20 14:10 Urine Culture - Final Urine,Straight Cath Escherichia coli Alpha strep. not enterococcus Chest X-Ray Date: 06/13/20 Findings: + mass (right upper lobe) and + atherosclerosis of thoracic aorta Echocardiogram Date: 01/25/18 EF: 55% LV Function: normal RWMA: + none Other Findings: + LVH and + diastolic dysfunction (grade 1) Valvular Disease: + MR (mild)
--- NOTE | 2020-06-15 10:52 | Communication Note ---
Date of Service: June 15, 2020 06/15/2020: EKG-NSR @ 60;NS intraventricular block
--- NOTE | 2020-06-15 10:56 | Pulmonology Progress Note ---
Date of Service June 15, 2020 Assessment & Plan (1) Mass of upper lobe of right lung: CT chest 06/13/2020 personally reviewed: Multiple groundglass pulmonary opacity appreciated especially in the right upper lobe (seems to be apical segment), there is right upper lobe mass 3.6 x 2.9 cm with an area going through it. No significant mediastinal lymphadenopathy. --Right upper lobe mass Was not appreciated on the chest x-ray done in 2018 In a patient who has history of bilateral breast cancer as well as hematuria Likelihood of cancer is high. Plan is to have a navigational bronchoscopy along with EBUS. Risk and benefits of the procedure explained to the patient in depth. Patient agrees and wants to go ahead with the procedure. Consent signed, witnessed and put in the chart. --Multiple groundglass opacities Affecting mostly the right upper lobe Could be satellite lesions of cancer --Ex-smoker Approximately [id number] smoking history Quit more than 30 years ago --History of breast cancer S/p bilateral mastectomy in the S/p chemo denies any radiation Plan: Navigational bronchoscopy with EBUS today Consent in the chart. Patient daughter will call yesterday and also updated regarding the procedure. Please note the above document was generated using voice recognition software. It may contain grammatical, syntax or spelling errors.Any formal questions or concerns about the content, text or information contained within the body of this dictation should be directly addressed to the provider for clarification. (2) Acute respiratory failure with hypoxia: (3) Multiple pulmonary nodules: Admission and Anticipated Discharge Date Admission Date: June 11, 2020 Subjective Patient seen and examined in ASU. No acute distress, no adverse events overnight. Patient denies any chest pain, no shortness of breath, no headache, no nausea, no vomiting. Has been afebrile. Review of Systems Review of Systems: All systems reviewed & are unremarkable except as noted in Subjective Physical Exam Physical Exam: Constitutional: No acute distress HEENT: EOMI, PERRLA Respiratory system: Decreased air entry bilaterally, no wheeze, no rhonchi, no crackles CVS: S1-S2 positive, no murmurs or gallops Abdomen: Soft, nontender, nondistended, positive bowel sounds x4 Extremities: +2 pulses bilaterally radialis/ dorsalis pedis, no cyanosis, +1 edema Neuro: Awake alert oriented x3 Psych: Normal mood and affect G/U: Positive Velásquez Skin: no rashes, warm and dry Lymphatic: no cervical or axillary lymphadenopathy Results & Data Results & Data ([facility]) Vital Signs (Past 12 Hours) Vital Signs Temp Pulse Pulse Pulse Resp BP Pulse Ox 06/15/20 10:18 37 C 61 18 149/76 H 99 06/15/20 07:56 36.5 C 68 18 124/75 93 06/15/20 07:30 61 06/15/20 03:25 36.5 C 56 L 20 138/79 95 06/15/20 01:23 56 L 06/14/20 23:59 36.6 C 59 L 20 145/90 H 96 06/14/20 06:49 06/14/20 06:49 PG Care Time/CCT Total # of Minutes Spent Total Time Spent with Patient: Total time spent is greater than 50% in coordination of care (as documented) at patient's floor/unit and/or counseling patient: Coding Level of Care Code 62814 Subseq Hosp Care Lvl 3 Diagnoses Mass of upper lobe of right lung R91.8 Acute respiratory failure with hypoxia J96.01 Multiple pulmonary nodules R91.8
[2020-06-15] MEDS ORDERED: ePHEDrine sulfate 50 MG/ML AMP IV PRN (11:38)
[2020-06-15] MEDS ORDERED: ATROPINE SULFATE 0.1 MG/ML 10ML SYR IV PRN (11:38)
[2020-06-15] MEDS ORDERED: ONDANSETRON INJ 2 MG/ML 2 ML VIAL IV PRN (11:38)
[2020-06-15] MEDS ORDERED: fentaNYL citrate 100 MCG/2 ML VIAL IV PRN (11:38)
[2020-06-15] MEDS ORDERED: LABETALOL HCL IV 5 MG/ML 20ML IV PRN (11:38)
[2020-06-15] MEDS ORDERED: NALOXONE HCL 0.4 MG/1 ML VIAL/CARP IV PRN (11:38)
[2020-06-15] MEDS ORDERED: FLUMAZENIL 0.1 MG/1 ML 10 ML VIAL IV PRN (11:38)
[2020-06-15] MEDS ORDERED: PROMETHAZINE HCL 12.5 MG in SODIUM CHLORIDE 0.9% 50 ML IV PRN (11:38)
[2020-06-15] MEDS ORDERED: SUGAMMADEX SODIUM 200 MG/2 ML VIAL IV ONE (12:11)
--- NOTE | 2020-06-15 12:48 | XRay Report ---
XR chest 1V portable CLINICAL HISTORY: Post bronch COMPARISON STUDY: Chest CT June 15, 2020. FINDINGS: The right upper lobe mass shown on prior chest CT is obscured by adjacent airspace opacity. There is no pneumothorax or pleural effusion. Cardiomegaly is unchanged. There is no evidence for pu lmonary edema. Left chest/axillary surgical clips are noted. IMPRESSION: 1. No pneumothorax. 2. Right upper lobe mass shown on prior chest CT obscured by adjacent airspace opacity. ACT 112: Negative or not required by law. Electronically signed by: Josh Figueroa M.D. 06/15/2020 12:46 PM
--- NOTE | 2020-06-15 13:03 | Anesthesiology Progress Note ---
Date of Service June 15, 2020 Anesthesia Post Procedure Vital Signs Vital Signs: Temp Pulse Pulse Pulse Resp BP BP 06/15/20 12:55 36.4 C L 72 17 103/64 06/15/20 12:45 70 12 121/69 06/15/20 12:35 68 21 132/73 06/15/20 12:26 36.3 C L 74 16 169/80 H 06/15/20 12:05 36.6 C 92 H 18 155/75 H 06/15/20 10:18 37 C 61 18 149/76 H 06/15/20 07:56 36.5 C 68 18 124/75 06/15/20 07:30 61 06/15/20 03:25 36.5 C 56 L 20 138/79 06/15/20 01:23 56 L 06/14/20 23:59 36.6 C 59 L 20 145/90 H 06/14/20 19:43 36.8 C 65 20 126/75 06/14/20 15:15 36.6 C 66 18 125/70 06/14/20 15:11 64 Pulse Ox 06/15/20 12:55 100 06/15/20 12:45 98 06/15/20 12:35 98 06/15/20 12:26 96 06/15/20 12:05 95 06/15/20 10:18 99 06/15/20 07:56 93 06/15/20 07:30 06/15/20 03:25 95 06/15/20 01:23 06/14/20 23:59 96 06/14/20 19:43 96 06/14/20 15:15 93 06/14/20 15:11 Transfer of Care Handoff Completed per policy Notes Mental Status: alert / awake / arousable Patient Amnestic to Procedure: Yes Nausea / Vomiting: adequately controlled Pain: adequately controlled Airway Patency, RR, SpO2: stable & adequate BP & HR: stable & adequate Hydration State: stable & adequate Anesthetic Complications: no major complications apparent
--- NOTE | 2020-06-15 13:04 | Procedure Note ---
Procedure Note: Bronchoscopy Procedure PREOPERATIVE DIAGNOSIS: Right upper lobe mass POSTOPERATIVE DIAGNOSIS: Right upper lobe mass PROCEDURE PERFORMED: Navigational bronchoscopy with flexible fiberoptic bronchoscopy and bronchoalveolar lavage, transbronchial biopsies, brushings along with EBUS. COMPLICATIONS: None. INDICATION: Rule out malignancy PROCEDURE: After obtaining an informed consent, the patient was brought to the Bronchoscopy Suite. The patient had appropriate oxygen, blood pressure, heart rate, and respiratory rate monitoring applied and monitored continuously throughout the procedure. Sedation was managed by anesthesia Flexible bronchoscope was introduced through the ETT. The trachea appeared normal.The bronchoscope was then advanced through the miranda, which was sharp. The scope was then advanced into the right main stem and each segment, subsegement in the right upper lobe, right middle lobe and right lower lobe were visualized. There was minimal amount of clear white secretion which were suctioned out.. There were no other findings including evidence of mass, anatomic distortions, or hemorrhage. The bronchoscope was subsequently withdrawn and advanced into the left mainstem. Again, each segment and subsegment was well visualized. No specific masses or other lesions were identified throughout the tracheobronchial tree on the left. There was minimal amount of clear secretion which is suctioned out. Navigational bronchoscopy with Veran was initiated. After mapping, we went into the right upper lobe anterior segment. As per the navigational software I was at the correct position. 1 forceps biopsy was taken. Patient did have bleeding following that after which cold saline was used. There was still bleeding appreciated even after 100 mL of cold saline. Final epi was first to stop the bleeding. Because of the high propensity of bleeding from the forceps biopsy. Number forceps biopsy was done. [place] was introduced into the same segment and multiple brushings were done. Minimal bleeding was appreciated post brushing which stopped with cold saline. The bronchoscope was then wedged in the right upper lobe anterior segment and bronchoalveolar lavage samples were obtained. 120 ml of saline was instilled and 50 ml of fluid was aspirated back.The bronchoscope was withdrawn and the area was suctioned clear. Flexible bronchoscope was withdrawn and EBUS was introduced. Station 7 and station 4R were visualized. Station 7, 4 passes were made with multiple sweeps and all were adequate. Station 4R, 2 passes were made which were not adequate. It was very difficult to visualize station 4R especially with the needle in. EBUS was withdrawn and flexible bronchoscope was reintroduced. No evidence of bleeding was appreciated from the right upper lobe. The bronchoscope was then withdrawn to the mainstem. The area was suctioned clear. The bronchoscope was then withdrawn. The patient tolerated the procedure well without evidence of desaturation or complications. Bronchoalveolar lavage samples were sent for cell count, Gram stain and bacterial culture, AFB culture and smear, fungal culture and smear and cytology. Transbronchial biopsies were sent for pathology. Recommendations: MAYI showed atypical tumor-like cells inclining towards non-small cell lung can cer. Follow-up chest x-ray. Follow-up cytology and pathology.
[2020-06-15] MEDS ORDERED: ACETAMINOPHEN 500 MG TAB PO PRN (13:18)
[2020-06-15 14:13] LABS: Eosinophil Body Fluid Man 0 %; Fluid Mono/Macrophage 34 %; Lymphocyte Body Fluid Man 10 %; Neutrophil Body Fluid Man 56 %
--- NOTE | 2020-06-15 15:54 | Hospitalist Progress Note ---
Date of Service June 15, 2020 Assessment & Plan (1) Acute respiratory failure with hypoxia: 06-12 presumed pulm edema related to PRBC, ZENA, gave lasix 11-15 requiring 2L oxygen, check CXR, give another lasix 20mg IV once CXR with lung mass, Chest CT confirms lung mass Unclear why she continues to be hypoxic, no pulm edema, no pneumonia. She will need to go home on oxygen -- will have two step oxygen testing prior to discharge (2) Mass of upper lobe of right lung: Chest CT with 3.6cm x 3cm solid mass in right upper lobe from bronchus, likely primary bronchogenic carcinoma possible satelite lesions pulmonary medicine now S/p navigational bronchoscopy, inital concoern for cancer probably non small cell, will eventually need outpt PET and Brain MRI (3) Acute blood loss anemia: Etiology of blood loss is hematuria 01-11- baseline Hg 11.8 11-13 Hg 7.6 --> 7 -14 received 1 unit PRBC, repeat Hg 7.9 give a second unit PRBC -15 Hg 9.9, stable (4) Complicated UTI (urinary tract infection): Bacteria noted on UA. Suprapubic pain on exam. Dysuria Ceftriaxone 2g IV daily Follow up urine culture 06-13 urine cx > 100,000 E coli mcgill sensitibve susceptible to cipro( also alpha strep not enterococcus) cipro 500mg PO BID 7 day course (5) Acute urinary retention: Alleviated by salgado catheter. Urology Dr. Cardona says discharge patient with salgado She will see patient in clinic in 7-10 days for voiding trial (6) YING (acute kidney injury): resolved, secondary to obstructive uropathy, will see urology as outpt (7) Macroscopic hematuria: resolved holding aspirin CT with bilateral renal cysts, bilateral perinephric stranding, no ureteral calculi. Nonspecific bladder wall thickening. Diff would include bleeding from renal cyst vs bladder hemorrhage Consulted urology will plan on outpatient cystoscopy (8) Hypothyroidism, postablative: TSH 2.12. Continue levothyroxine 88 mcg OP daily (9) Abdominal aortic aneurysm: 04-01-2014 measuring 3.9 x 3.7 cm 06-12-2020 has increased to 5.3 x 4.4 cm described as fusiform follow up with PCP as outpatient for vascular referral (10) DVT prophylaxis: SCDs, no lovenox 2' to active bleeding NPO for cystoscopy CODE full Admission and Anticipated Discharge Date Admission Date: June 11, 2020 Subjective this pt is doing well, now status posts navagational bronchoscopy for lung mass on 06/15. PT/OT to see as she plans on returning home post procedure cxr only with expected changes Review of Systems Review of Systems: Mild distress and fatigue no headache, blurry or double vision no speech or swallowing issues no chest pain, pressure or palpitations no shortness of breath, mild nonproductive cough no abdominal pain, nausea or vomiting, diarrhea or constipation no dysuria, hematuria or frequency no focal joint pain or swelling no back pain, CVA tenderness or radicular pain no bruising, bleeding or rashes no focal signs of weakness or numbness or altered sensation no complaints of anxiety or depression. Physical Exam Physical Exam: The patient appeared well nourished and normally developed. Vital signs as documented. Head exam is normocephalic atraumatic no scleral icterus Neck is without JVD, thyromegaly, or carotid bruits. Lungs are clear to auscultation, no focal loss of breath sounds Cardiac exam, Rhythm is regular.. No murmurs, rubs or gallops. Abdominal exam reveals normal bowel sounds, soft non tender, no masses no abdominal bruits are heard Salgado catheter is in place Extremities are nonedematous and both pedal pulses are present Neurologic exam is alert and oriented, no focal loss of strength or sensation Skin is without bruises or rashes Psychologically is without concerns for anxiety or depression. Results & Data Results & Data ([facility]) Vital Signs (Past 12 Hours) Vital Signs Temp Pulse Pulse Resp BP BP Pulse Ox 06/15/20 15:44 77 06/15/20 15:38 98.2 F 68 18 116/73 91 06/15/20 14:25 97.5 F L 66 18 118/64 91 06/15/20 13:50 98.2 F 79 18 114/78 91 06/15/20 13:22 97.9 F 67 18 109/67 92 06/15/20 13:05 97.5 F L 68 15 112/64 97 06/15/20 12:55 97.5 F L 72 17 103/64 100 06/15/20 12:45 70 12 121/69 98 06/15/20 12:35 68 21 132/73 98 06/15/20 12:26 97.3 F L 74 16 169/80 H 96 06/15/20 12:05 97.9 F 92 H 18 155/75 H 95 06/15/20 10:18 98.6 F 61 18 149/76 H 99 06/15/20 07:56 97.7 F 68 18 124/75 93 06/15/20 07:30 61 PG Care Time/CCT Total # of Minutes Spent Total Time Spent with Patient: Total time spent is greater than 50% in coordination of care (as documented) at patient's floor/unit and/or counseling patient: Coding Level of Care Code 53346 Subseq Hosp Care Lvl 3 Diagnoses Acute respiratory failure with hypoxia J96.01 Mass of upper lobe of right lung R91.8 Acute blood loss anemia D62 Complicated UTI (urinary tract infection) N39.0 Acute urinary retention R33.8 YING (acute kidney injury) N17.9 Macroscopic hematuria R31.0 Hypothyroidism, postablative E89.0 Abdominal aortic aneurysm I71.4 Presence of rupture: without rupture DVT prophylaxis Z29.9 (1) Abdominal aortic aneurysm Presence of rupture: without rupture Qualified Code(s): I71.4 - Abdominal aortic aneurysm, without rupture
--- NOTE | 2020-06-15 16:56 | Electrocardiogram Report ---
Test Reason : Blood Pressure : / mmHG Vent. Rate : 060 BPM Atrial Rate : 060 BPM P-R Int : 150 ms QRS Dur : 144 ms QT Int : 480 ms P-R-T Axes : 048 009 009 degrees QTc Int : 480 ms Normal sinus rhythm Right bundle branch block Abnormal ECG When compared with ECG of 25-JAN-2018 07:26, No significant change Confirmed by Jonathan Smith ([id number]) on 06/15/2020 4:56:38 PM Referred By: REFERRED SELF Confirmed By:Jonathan Smith
[2020-06-16] MEDS: LEVOTHYROXINE SODIUM 88 MCG TABLET PO SCH (05:23)
[2020-06-16] MEDS: CHOLECALCIFEROL 1,000 UNITS 25 MCG TAB PO SCH (07:52)
[2020-06-16] MEDS: ATORVASTATIN 10 MG TAB PO SCH (07:52)
[2020-06-16] MEDS: SERTRALINE HCL 50 MG TABLET PO SCH (07:53)
[2020-06-16] MEDS: ASPIRIN 81 MG ECTAB PO SCH (07:54)
[2020-06-16] MEDS: CIPROFLOXACIN 500 MG TAB PO SCH ×2 (07:54→20:46)
[2020-06-16] MEDS: CALCIUM 600MG + VIT D 400 IU TAB PO SCH (07:54)
[2020-06-16] MEDS: ASCORBIC ACID 500 MG TAB PO SCH (07:54)
[2020-06-16] MEDS: MULTIVITAMIN TAB PO SCH (07:55)
--- NOTE | 2020-06-16 08:38 | XRay Report ---
XR chest 1V portable HISTORY: 85 years-old Female f/u follow-up study in a patient with right upper lobe consolidation COMPARISON: Chest radiograph 06/15/2020, chest CT 06/13/2020 TECHNIQUE: AP view of the chest FINDINGS: Right upper lobe mass redemonstrated, 3.6 cm. There is improved aeration of the right upper lung with near complete resolution of the previously noted airspace opacities. No pneumothorax, pleural effusi on or overt pulmonary edema. Cardiomediastinal and hilar silhouettes are within normal limits. Degene rative changes of the shoulders and spine. Surgical clips project over the left axilla. IMPRESSION: 1. Moderately improved aeration of the right upper lobe. 2. 3.6 cm right upper lobe mass redemonstrated. ACT 112: Negative or not required by law. The above report was generated using voice recognition software. It may contain grammatical, syntax o r spelling errors. Electronically signed by: Shady Coronado M.D. 06/16/2020 8:37 AM
--- NOTE | 2020-06-16 16:27 | Pulmonology Progress Note ---
Date of Service June 16, 2020 Assessment & Plan (1) Mass of upper lobe of right lung: CT chest 06/13/2020 personally reviewed: Multiple groundglass pulmonary opacity appreciated especially in the right upper lobe (seems to be apical segment), there is right upper lobe mass 3.6 x 2.9 cm with an area going through it. No significant mediastinal lymphadenopathy. --Right upper lobe mass Was not appreciated on the chest x-ray done in 2018 In a patient who has history of bilateral breast cancer as well as hematuria Likelihood of cancer is high. Patient had navigational bronchoscopy with EBUS 06/15/2020, unfortunately only one forceps biopsy was able to be taken from the mass as there was bleeding appreciated which needed epi to stop. The forceps biopsy is negative for malignancy. Station 7 TBNA is negative for malignancy Bronchial brush pathology is still pending Given the possibility of cancer is high. On discharge the next up would be to do a PET/CT and pulmonary function test. --Multiple groundglass opacities Affecting mostly the right upper lobe Could be satellite lesions of cancer --Ex-smoker Approximately [id number] smoking history Quit more than 30 years ago --History of breast cancer S/p bilateral mastectomy in the S/p chemo denies any radiation Plan: Follow-up bronchial brush pathology. Follow-up bronchial culture. Patient will need PET CT as well as pulmonary function test as an outpatient as soon as possible. No further recommendations from pulmonary perspective. Please note the above document was generated using voice recognition software. It may contain grammatical, syntax or spelling errors.Any formal questions or concerns about the content, text or information contained within the body of this dictation should be directly addressed to the provider for clarification. (2) Acute respiratory failure with hypoxia: (3) Multiple pulmonary nodules: Admission and Anticipated Discharge Date Admission Date: June 11, 2020 Subjective Patient seen and examined at bedside. No acute distress, no adverse events overnight. Patient had navigational bronchoscopy with EBUS done 06/15/2020 Patient denies any chest pain, no shortness of breath, no hemoptysis. Good appetite. No diarrhea. Review of Systems Review of Systems: All systems reviewed & are unremarkable except as noted in Subjective Physical Exam Physical Exam: Constitutional: No acute distress HEENT: EOMI, PERRLA Respiratory system: Decreased air entry bilaterally, no wheeze, no rhonchi, no crackles CVS: S1-S2 positive, no murmurs or gallops Abdomen: Soft, nontender, nondistended, positive bowel sounds x4 Extremities: +2 pulses bilaterally radialis/ dorsalis pedis, no cyanosis, +1 edema Neuro: Awake alert oriented x3 Psych: Normal mood and affect G/U: Positive Velásquez Skin: no rashes, warm and dry Lymphatic: no cervical or axillary lymphadenopathy Results & Data Results & Data ([facility]) Vital Signs (Past 12 Hours) Vital Signs Temp Pulse Pulse Resp BP Pulse Ox 06/16/20 15:29 36.7 C 73 18 117/67 97 06/16/20 11:47 36.5 C 88 22 97/65 L 97 06/16/20 07:30 64 06/16/20 07:27 36.5 C 68 20 114/71 97 06/16/20 05:36 70 06/16/20 05:00 112/68 06/14/20 06:49 06/14/20 06:49 PG Care Time/CCT Total # of Minutes Spent Total Time Spent with Patient: Total time spent is greater than 50% in coordination of care (as documented) at patient's floor/unit and/or counseling patient: Coding Level of Care Code 57252 Subseq Hosp Care Lvl 3 Diagnoses Mass of upper lobe of right lung R91.8 Acute respiratory failure with hypoxia J96.01 Multiple pulmonary nodules R91.8
--- NOTE | 2020-06-16 17:26 | Hospitalist Progress Note ---
Date of Service June 16, 2020 Assessment & Plan (1) Acute respiratory failure with hypoxia: 06-12 presumed pulm edema related to PRBC, ZENA, gave lasix 11-15 requiring 2L oxygen, check CXR, give another lasix 20mg IV once CXR with lung mass, Chest CT confirms lung mass She may need to go home on oxygen -- will have two step oxygen testing prior to discharge (2) Mass of upper lobe of right lung: Chest CT with 3.6cm x 3cm solid mass in right upper lobe from bronchus, likely primary bronchogenic carcinoma possible satelite lesions pulmonary medicine now S/p navigational bronchoscopy, inital concern for cancer probably non small cell, will eventually need outpt PET and Brain MRI, initial biospy results are not revealing (3) Acute blood loss anemia: Etiology of blood loss is hematuria 01-11- baseline Hg 11.8 11-13 Hg 7.6 --> 7 06-12 received 1 unit PRBC, repeat Hg 7.9 give a second unit PRBC - Hg 9.9, stable (4) Complicated UTI (urinary tract infection): Bacteria noted on UA. Suprapubic pain on exam. Dysuria Ceftriaxone 2g IV daily Follow up urine culture 06-13 urine cx > 100,000 E coli mcgill sensitibve susceptible to cipro( also alpha strep not enterococcus) cipro 500mg PO BID 7 day course (5) Acute urinary retention: Alleviated by salgado catheter. Urology Dr. Cardona says discharge patient with salgado She will see patient in clinic in 7-10 days for voiding trial (6) YING (acute kidney injury): resolved, secondary to obstructive uropathy, will see urology as outpt (7) Macroscopic hematuria: resolved holding aspirin CT with bilateral renal cysts, bilateral perinephric stranding, no ureteral c alculi. Nonspecific bladder wall thickening. Diff would include bleeding from renal cyst vs bladder hemorrhage Consulted urology will plan on outpatient cystoscopy (8) Hypothyroidism, postablative: TSH 2.12. Continue levothyroxine 88 mcg OP daily (9) Abdominal aortic aneurysm: 04-01-2014 measuring 3.9 x 3.7 cm 06-12-2020 has increased to 5.3 x 4.4 cm described as fusiform follow up with PCP as outpatient for vascular referral (10) DVT prophylaxis: SCDs, no lovenox 2' to active bleeding NPO for cystoscopy CODE full Admission and Anticipated Discharge Date Admission Date: June 11, 2020 Subjective this pt is doing well, now status posts navagational bronchoscopy for lung mass on 06/15. , pt has not had additional shortness of breath of cough or hemoptysis post procedure cxr only with persistent mass Review of Systems Review of Systems: Mild distress and fatigue no headache, blurry or double vision no speech or swallowing issues no chest pain, pressure or palpitations no shortness of breath, mild nonproductive cough no abdominal pain, nausea or vomiting, diarrhea or constipation no dysuria, hematuria or frequency no focal joint pain or swelling no back pain, CVA tenderness or radicular pain no bruising, bleeding or rashes no focal signs of weakness or numbness or altered sensation no complaints of anxiety or depression. Physical Exam Physical Exam: The patient appeared well nourished and normally developed. Vital signs as documented. Head exam is normocephalic atraumatic no scleral icterus Neck is without JVD, thyromegaly, or carotid bruits. Lungs are clear to auscultation, no focal loss of breath sounds Cardiac exam, Rhythm is regular.. No murmurs, rubs or gallops. Abdominal exam reveals normal bowel sounds, soft non tender, no masses no abdominal bruits are heard Salgado catheter is in place Extremities are nonedematous and both pedal pulses are present Neurologic exam is alert and oriented, no focal loss of strength or sensation Skin is without bruises or rashes Psychologically is without concerns for anxiety or depression. Results & Data Results & Data ([facility]) Vital Signs (Past 12 Hours) Vital Signs Temp Pulse Pulse Resp BP Pulse Ox 06/16/20 16:34 79 06/16/20 15:29 98.1 F 73 18 117/67 97 06/16/20 11:47 97.7 F 88 22 97/65 L 97 06/16/20 07:30 64 06/16/20 07:27 97.7 F 68 20 114/71 97 06/16/20 05:36 70 PG Care Time/CCT Total # of Minutes Spent Total Time Spent with Patient: Total time spent is greater than 50% in coordination of care (as documented) at patient's floor/unit and/or counseling patient: Coding Level of Care Code 39456 Subseq Hosp Care Lvl 2 Diagnoses Acute respiratory failure with hypoxia J96.01 Mass of upper lobe of right lung R91.8 Acute blood loss anemia D62 Complicated UTI (urinary tract infection) N39.0 Acute urinary retention R33.8 YING (acute kidney injury) N17.9 Macroscopic hematuria R31.0 Hypothyroidism, postablative E89.0 Abdominal aortic aneurysm I71.4 Presence of rupture: without rupture DVT prophylaxis Z29.9 (1) Abdominal aortic aneurysm Presence of rupture: without rupture Qualified Code(s): I71.4 - Abdominal aortic aneurysm, without rupture
[2020-06-17] MEDS: LEVOTHYROXINE SODIUM 88 MCG TABLET PO SCH (06:08)
[2020-06-17 08:35] LABS: Basophils # (auto) 0.05 K/uL (0-0.2); Basophils % (auto) 0.6 %; Eosinophils # (auto) 0.37 K/uL (0-0.5); Eosinophils % (auto) 4.1 %; Hemoglobin 9.8 g/dL (12.0-16.0); Immature Granulocytes # (auto) 0.06 K/uL (0.00-0.02); Immature Granulocytes % (auto) 0.7 %; Lymphocytes # (auto) 1.77 K/uL (1.2-3.4); Lymphocytes % (auto) 19.8 %; Mean Corpuscular Hemoglobin 30.9 pg (25-34); Mean Corpuscular Hgb Conc 31.6 g/dL (32-36); Mean Corpuscular Volume 97.8 fL (80-100); Mean Platelet Volume 9.8 fL (7.4-10.4); Monocytes # (auto) 0.87 K/uL (0.11-0.59); Monocytes % (auto) 9.7 %; Neutrophils # (auto) 5.84 K/uL (1.4-6.5); Neutrophils % (auto) 65.1 %; Platelet Count 246 K/uL (130-400); RDW Coefficient of Variation 16.5 % (11.5-14.5); RDW Standard Deviation 58.8 fL (36.4-46.3); Red Blood Count 3.17 M/uL (4.2-5.4); White Blood Count 8.96 K/uL (4.8-10.8)
[2020-06-17] MEDS: CHOLECALCIFEROL 1,000 UNITS 25 MCG TAB PO SCH (08:56)
[2020-06-17] MEDS: CIPROFLOXACIN 500 MG TAB PO SCH (08:56)
[2020-06-17] MEDS: CALCIUM 600MG + VIT D 400 IU TAB PO SCH (08:56)
[2020-06-17] MEDS: SERTRALINE HCL 50 MG TABLET PO SCH (08:56)
[2020-06-17] MEDS: ASCORBIC ACID 500 MG TAB PO SCH (08:57)
[2020-06-17] MEDS: MULTIVITAMIN TAB PO SCH (08:57)
[2020-06-17] MEDS: ATORVASTATIN 10 MG TAB PO SCH (08:57)
[2020-06-17] MEDS: ASPIRIN 81 MG ECTAB PO SCH (08:57)
--- NOTE | 2020-06-17 10:26 | Pulmonology Progress Note ---
Date of Service June 17, 2020 Assessment & Plan (1) Mass of upper lobe of right lung: CT chest 06/13/2020 personally reviewed: Multiple groundglass pulmonary opacity appreciated especially in the right upper lobe (seems to be apical segment), there is right upper lobe mass 3.6 x 2.9 cm with an area going through it. No significant mediastinal lymphadenopathy. --Right upper lobe mass --> adenocarcinoma Was not appreciated on the chest x-ray done in 2018 In a patient who has history of bilateral breast cancer as well as hematuria Likelihood of cancer is high. Patient had navigational bronchoscopy with EBUS 06/15/2020, unfortunately only one forceps biopsy was able to be taken from the mass as there was bleeding appreciated which needed epi to stop. The forceps biopsy is negative for malignancy. Station 7 TBNA is negative for malignancy Bronchial brush pathology: Adenocarcinoma, TTF-1 positive, lung primary MRI brain 06/17/2020 - for any metastatic disease. Recommend PET/CT as an outpatient --Multiple groundglass opacities Affecting mostly the right upper lobe Could be satellite lesions of cancer --Ex-smoker Approximately [id number] smoking history Quit more than 30 years ago --History of breast cancer S/p bilateral mastectomy in the S/p chemo denies any radiation Plan: Adenocarcinoma of the right upper lobe. Patient needs pulmonary follow-up as an outpatient to have pulmonary function test done. He needs oncology follow-up. PET/CT to be done as soon as possible. Please note the above document was generated using voice recognition software. It may contain grammatical, syntax or spelling errors.Any formal questions or concerns about the content, text or information contained within the body of this dictation should be directly addressed to the provider for clarification. (2) Acute respiratory failure with hypoxia: (3) Multiple pulmonary nodules: (4) Adenocarcinoma: Admission and Anticipated Discharge Date Admission Date: June 11, 2020 Subjective Patient seen and examined at bedside. No acute distress, no adverse events overnight. Denies any chest pain, no shortness of breath, no headache, no nausea, no vomiting. No hemoptysis. Saturating well. Sitting comfortably on the chair. Review of Systems Review of Systems: All systems reviewed & are unremarkable except as noted in Subjective Physical Exam Physical Exam: Constitutional: No acute distress HEENT: EOMI, PERRLA Respiratory system: Decreased air entry bilaterally, no wheeze, no rhonchi, no crackles CVS: S1-S2 positive, no murmurs or gallops Abdomen: Soft, nontender, nondistended, positive bowel sounds x4 Extremities: +2 pulses bilaterally radialis/ dorsalis pedis, no cyanosis, +1 edema Neuro: Awake alert oriented x3 Psych: Normal mood and affect G/U: Positive Velásquez Skin: no rashes, warm and dry Lymphatic: no cervical or axillary lymphadenopathy Results & Data Results & Data ([facility]) Vital Signs (Past 12 Hours) Vital Signs Temp Pulse Pulse Resp BP BP Pulse Ox 06/17/20 09:00 69 06/17/20 07:22 36.9 C 61 18 115/64 96 06/17/20 03:08 36.9 C 68 18 114/65 94 06/16/20 23:54 72 06/16/20 23:29 36.8 C 72 19 108/64 93 06/17/20 08:11 06/14/20 06:49 PG Care Time/CCT Total # of Minutes Spent Total Time Spent with Patient: Total time spent is greater than 50% in coordination of care (as documented) at patient's floor/unit and/or counseling patient: Coding Level of Care Code 81122 Subseq Hosp Care Lvl 3 Diagnoses Mass of upper lobe of right lung R91.8 Acute respiratory failure with hypoxia J96.01 Multiple pulmonary nodules R91.8 Adenocarcinoma C80.1
[2020-06-17] MEDS ORDERED: GADOBUTROL 65ML VIAL IV ONE (13:08)
--- NOTE | 2020-06-17 13:27 | Magnetic Resonance Report ---
MRI OF THE BRAIN WITHOUT AND WITH IV CONTRAST CLINICAL HISTORY: Evaluate for metastatic disease. COMPARISON STUDY: MRI of the brain January 27, 2016. Head CT February 17, 2017. TECHNIQUE: Utilizing a 1.5 Radha magnet and dedicated coil, multiplanar, multiecho imaging of the br ain was performed pre and postcontrast administration. IV administration of 9.5 mL of Gadavist contr ast was uneventful. Thin cut T1 post contrast imaging was performed with multiplanar reformats. FINDINGS: There are no foci of restricted diffusion to suggest acute infarct. Exam is mildly compromi sed by susceptibility artifact from dental hardware. Ventricular system is stable. Basal cisterns are patent. There are no extra axial collections. Flow-voids for the major intracranial vessels are pres ent. There is a possible tiny 4 mm aneurysm arising from the right supraclinoid ICA CCA shown on axia l image 48 of 132 of the thin cut postcontrast images. Note is made of a 4 mm enhancing extra-axial f ocus overlying the right frontal lobe. This favors a tiny meningioma. Less likely, this could reflect a vessel. No suspicious intracranial masses are present. White matter T2 hyperintense foci reflect s mall vessel disease. There is moderate atrophy. Right frontal sinus is opacified. There is an old def ect of the medial wall of the right orbit. No suspicious calvarial lesions are identified. IMPRESSION: 1. No evidence of metastatic disease. 2. Moderate atrophy and white matter T2 hyperintense foci consistent with small vessel disease. 3. 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 4. Opacified right frontal sinus. ACT 112: Negative or not required by law. Electronically signed by: Josh Figueroa M.D. 06/17/2020 1:25 PM
--- NOTE | 2020-06-17 19:09 | Discharge Summary ---
Date of Service June 17, 2020 Admission HPI Per Admitting Provider Natali Zazueta is an 85-year-old female who presents to the ER with inability to urinate. Initial symptoms 3 days ago with dysuria and blood streaking in her urine. She denies recurrent urine tract infections or blood in her urine previously. She went to She last passed urine yesterday at 5pm, prior to this she reports passing clots of blood. She went to an outpatient urgent care clinic today and they recommended she comes to the ER for evaluation. No fever, chills or flank or suprapubic pain. She has chronic sciatica on her right side down to her ankle but not related to her current issues. No family history of bladder or renal cancers. She has not had a hysterectomy. In the ER patient was noted to be in urine retention and Salgado catheter inserted. CT showed mild urinary bladder wall thickening. Discharge Data Consultations 06/11/20 15:51 ED Decision to Admit Stat 06/11/20 16:46 Consult Urology Routine 06/13/20 13:44 Consult Pulmonology Routine Procedures Performed Operation Date: 06/15/20 10:30 Actual Procedures p Bronchoscopy Navigational w/CT Scan Pre-Op(Not Applicable) - Maru Bowen MD s Endobronchial Ultrasound(Not Applicable) - Maru Bowen MD Hospital Course (1) Acute respiratory failure with hypoxia: 06-12 presumed pulm edema related to PRBC, TROLI, gave lasix 11-15 requiring 2L oxygen, check CXR, give another lasix 20mg IV once CXR with lung mass, Chest CT confirms lung mass, bronchial washing did diagnose adenocarcinoma, family and pt aware MRi of brain without metastasis, will need outpt follow up with oncology She may need to go home on oxygen -- will have two step oxygen testing prior to discharge (2) Mass of upper lobe of right lung: Chest CT with 3.6cm x 3cm solid mass in right upper lobe from bronchus, likely primary bronchogenic carcinoma possible satelite lesions pulmonary medicine now S/p navigational bronchoscopy, cells resembling adenocarcinoma seen on bronchial brushing, need outpt PET and Brain MRI done here is negative for metastatic disease. (3) Acute blood loss anemia: Etiology of blood loss is hematuria 6-15-20 baseline Hg 11.8 11-13 Hg 7.6 --> 7 11-14 received 1 unit PRBC, repeat Hg 7.9 give a second unit PRBC 06-13 Hg 9.9, stable (4) Complicated UTI (urinary tract infection): Bacteria noted on UA. Suprapubic pain on exam. Dysuria Ceftriaxone 2g IV daily Follow up urine culture 06-13 urine cx > 100,000 E coli mcgill sensitibve susceptible to cipro( also alpha strep not enterococcus) cipro 500mg PO BID 7 day course (5) Acute urinary retention: Alleviated by salgado catheter. Urology Dr. Cardona says discharge patient with salgado She will see patient in clinic in 7-10 days for voiding trial (6) YING (acute kidney injury): resolved, secondary to obstructive uropathy, will see urology as outpt (7) Macroscopic hematuria: resolved holding aspirin CT with bilateral renal cysts, bilateral perinephric stranding, no ureteral calculi. Nonspecific bladder wall thickening. Diff would include bleeding from renal cyst vs bladder hemorrhage Consulted urology will plan on outpatient cystoscopy (8) Hypothyroidism, postablative: TSH 2.12. Continue levothyroxine 88 mcg OP daily (9) Abdominal aortic aneurysm: 04-01-2014 measuring 3.9 x 3.7 cm 06-12-2020 has increased to 5.3 x 4.4 cm described as fusiform follow up with PCP as outpatient for vascular referral Coding Level of Care Code D/C Day Management >30 mins Diagnoses Acute respiratory failure with hypoxia J96.01 Mass of upper lobe of right lung R91.8 Acute blood loss anemia D62 Complicated UTI (urinary tract infection) N39.0 Acute urinary retention R33.8 YING (acute kidney injury) N17.9 Macroscopic hematuria R31.0 Hypothyroidism, postablative E89.0 Abdominal aortic aneurysm I71.4 Presence of rupture: without rupture
== END 2020-06-17 15:56 | disposition home or self-care (01) | DRG 166 ==
LOC: ED 12:14 → 2N 18:20 → SUATTDRO 18:20 → 2N 19:41

== ENCOUNTER 2021-04-18 05:24 | Inpatient (IN) ==
--- NOTE | 2021-04-07 12:31 | PAT Medication Instructions ---
Medication Instructions Date of Service April 07, 2021 Home Medications Medication Instructions Recorded sertraline 50 mg tablet 50 mg PO DAILY #90 tab 12/09/20 multivitamin (Multiple Vitamins) 1 tab PO QAM acetaminophen 500 mg tablet 1,000 mg PO TID PRN ascorbic acid (vitamin C) 1,000 mg tablet 1 gm PO QAM cholecalciferol (vitamin D3) 25 mcg (1,000 unit) capsule 2,000 units PO QAM calcium carbonate 600 mg calcium (1,500 mg) tablet (Calcium) 600 mg PO QAM diclofenac sodium 1 % topical gel (Voltaren) 2 g EXT QID PRN sertraline 50 mg tablet 50 mg PO DAILY atorvastatin 10 mg tablet 10 mg PO QAM levothyroxine 88 mcg tablet 88 mcg PO QAM STOP taking 24 hours before surgery diclofenac sodium 1 % topical gel (Voltaren) 2 g EXT QID PRN DO NOT take the morning of surgery multivitamin (Multiple Vitamins) 1 tab PO QAM ascorbic acid (vitamin C) 1,000 mg tablet 1 gm PO QAM cholecalciferol (vitamin D3) 25 mcg (1,000 unit) capsule 2,000 units PO QAM calcium carbonate 600 mg calcium (1,500 mg) tablet (Calcium) 600 mg PO QAM Take morning of surgery With a small sip of water, OTHERWISE NOTHING TO EAT OR DRINK AFTER MIDNIGHT: acetaminophen 500 mg tablet 1,000 mg PO TID PRN (okay to take up to 4 hours prior to surgery if needed) sertraline 50 mg tablet 50 mg PO DAILY atorvastatin 10 mg tablet 10 mg PO QAM levothyroxine 88 mcg tablet 88 mcg PO QAM Take evening before surgery acetaminophen 500 mg tablet 1,000 mg PO TID PRN (if needed) Other Notes If you have any questions please call us at [phone] or [phone] or [phone] or [phone]
--- NOTE | 2021-04-14 12:06 | Anesthesiology Consultation ---
Date of Service April 14, 2021 Assessment & Plan (1) Encounter for pre-operative examination: Chart Review Chart Review: Acceptable Risk for Surgery and Patient seen in Pre Admission Testing Patient poor historian Per [facility] appt on 04/14/21, patient denies any recent travel or large group activities. No known Covid positive contacts or Covid related symptoms. No known Covid infection in the past 90 days. Pt is vaccinated for Covid.. Preop Covid testing done at [facility] appt on 04/14/21 = negative. Educated on importance of self quarantining, social distancing and wearing mask in public for the patient one week prior to surgery and after Covid testing done Patient seen by pulmonology 12/15/2020 = adenocarcinoma right upper lobenavigational bronchoscopy with EBUS done 06/15/2020. Continue with radiation as per radiation oncology. Navigational bronchoscopy\\endobronchial ultrasound 06/15/2020 = done under [place]. No anesthesia issues noted per anesthesia record. Consults Requested none Pre-Anesthesia Teaching/Discussion Notes: Instructed NPO after midnight before surgery,except medications with 15 cc of water. Medication instructions provided according to the [facility] guidelines. ASA ASA4 Proposed Anesthesia Anesthesia Type: General Anesthesia Line Insertion: Arterial line Risk / Benefits Reviewed With: PT / POA / Parent / Guardian, Accepts Plan and Informed Consent Obtained Additional Comments: covid test neg. History Surgery Operation Date: 04/12/21 08:00 Proposed Procedures p Percutaneous Endovascular Aneurysm Repair - Felipe Alva MD Operation Date: 04/18/21 07:30 Proposed Procedures p Percutaneous Endovascular Aneurysm Repair - Felipe Alva MD Height/Weight Height: 5 ft 4 in Weight: 83.1 kg Allergies Allergy/AdvReac Type Severity Reaction Status Date / Time Asacol TBEC AdvReac Unknown Unknown Uncoded 04/18/21 05:50 Lisinopril TABS AdvReac Unknown Cough Uncoded 04/18/21 05:50 sulfaSALAzine TABS AdvReac Unknown Unknown Uncoded 04/18/21 05:50 Medications Home Medications Medication Instructions Recorded Confirmed Last Taken multivitamin (Multiple Vitamins) 1 tab PO QAM 03/24/19 04/18/21 04/17/21 08:30 acetaminophen 500 mg tablet 1,000 mg PO TID PRN #90 tab 06/15/19 04/18/21 04/17/21 19:15 ascorbic acid (vitamin C) 1,000 mg 1 gm PO QAM tab 06/15/19 04/18/21 04/17/21 08:30 tablet cholecalciferol (vitamin D3) 25 2,000 units PO QAM cap 06/15/19 04/18/21 04/17/21 08:30 mcg (1,000 unit) capsule calcium carbonate 600 mg calcium 600 mg PO QAM 06/11/20 04/18/21 04/17/21 08:30 (1,500 mg) tablet (Calcium) diclofenac sodium 1 % topical gel 2 g EXT QID PRN g 07/27/20 04/18/21 04/17/21 08:30 (Voltaren) sertraline 50 mg tablet 50 mg PO DAILY #90 tab 12/09/20 04/18/21 04/18/21 04:30 atorvastatin 10 mg tablet 10 mg PO QAM 04/07/21 04/18/21 04/17/21 08:30 levothyroxine 88 mcg tablet 88 mcg PO QAM 04/07/21 04/18/21 04/18/21 04:30 Active Medications Generic Name Dose Route Start Last Admin Trade Name Freq PRN Reason Stop Dose Admin Lactated Ringer's 1,000 mls @ 80 mls/hr 04/18/21 06:00 04/18/21 06:15 Lr IV 04/18/21 18:29 80 mls/hr .[id number] AUSTEN Administration NPO Date Last Intake of Fluids: 04/17/21 Time Last Intake of Fluids: 19:00 Date Last Intake of Solids: 04/17/21 Time Last Intake of Solids: 13:00 Past Medical History Medical History Abdominal aortic aneurysm (~10/29/13) 5.5cm saccular aneurysm of infrarenal abdominal aorta pe rvascular records Anxiety Crohn's disease Stable per patient Depression Dyslipidemia History of breast cancer Age 61 s/p Left Mastectomy, Radiation & Chemo Age 78 s/p Right Mastectomy - s/p chemo/XRT No known arm restriction History of Graves' disease Hypertension Hypothyroidism, postablative Lung cancer Dx 05/2020 (Adenocarcinoma) s/p radiation Osteoarthritis Osteopenia Parkinsons disease Stable per patient Per PCP note 06/20/19= "Parkinson's disease: Variable control. She is currently off medication, is not established with Neurology. She will notify office if symptoms worsen, consider neurology " Parkinson stable at 12/24/19 PCP office visit - follows with neurology PRN Poor historian Small vessel disease, cerebrovascular Exercise / Class Metabolic Activity III < 4 Walking/Shop/Light housework (one flight of stairs - no chest pain, mild SOB) Past Family History Family History Father , Passed unknown age of [place] Myocardial infarction acute Mother , Passed in 80's of heart failure Aorta aneurysm Breast cancer Brother , Passed in 70's of Lung Cancer (Smoker) No problems noted. Brother , Passed in 60's of Lung Cancer (Smoker) No problems noted. Brother , Passed in late 70's of Lung Cancer (Smoker) No problems noted. Sister , Passed in 80's of natural causes/unknown No problems noted. Daughter Breast cancer Son No problems noted. Past Surgical History Surgical History History of breast biopsy History of bronchoscopy Navigational bronch, EBUS (06/15/20) History of cataract extraction R/L History of colonoscopy History of cystoscopy History of mastectomy x2 (Age 61 and Age 78) History of tooth extraction History of wisdom tooth extraction Past Anesthesia History No Hx of Anesthesia Complications and No Family Hx of Anesthesia Complications History of PONV No Hx of PONV and No Hx of Motion Sickness Social History Smoking Status: Former smoker Smoking cigarettes per day: 1 pack cigs every 4-5days Do You Dip or Chew Tobacco: No Smoking End Date: 20 years ago Hx Alcohol Use: No Hx Substance Use: No substance use type: does not use Review of Systems Chronic mild nonproductive cough- stable per patient Patient denies chest pain, shortness of breath at rest, reflux, wheezing, palpitations. No hx of seizures, stroke, [place], apnea/snoring. No hx of blood clots or blood transfusions Pt with mild leg pain- intermittent to left and right side the past several days Physical Exam Vital Signs Last Vital Signs Temp 36.5 C 04/18/21 05:55 Pulse 89 04/18/21 05:55 Resp 20 04/18/21 05:55 BP 143/91 H 04/18/21 05:55 Pulse Ox 92 04/18/21 05:55 VITALS BP 119/76 P 88 TEMP 97.9 SP02 94% RESP 16 Constitutional + obese; no acute distress ENMT Mouth: + dentures and + edentulous; no TMJ clicking Thyromental Distance: < 3.5 Finger Breadths (3.5) Mallampati Class: II Full dentures on top and bottom Neck normal visual inspection and trachea midline; neck extension not limited (minimal) Respiratory no respiratory distress Auscultation: lungs clear to auscultation bilaterally and + diminished lung sounds; no wheezes Cardiovascular Rate/Rhythm: regular rate and regular rhythm Heart Sounds: no murmur Vessels: no carotid bruit Musculoskeletal Spine: normal cervical ROM Extremities: extremities normal to inspection No significant edema, redness or warmth noted to bilateral LEs. Negative homans sign- no significant pain with calf squeeze (Pt educated on signs and symptoms of DVT - instructed to go to ER if DVT signs occurs or pain gets worse) Neurologic moves all extremities Motor/Sensory: no sensory deficit Psychiatric Orientation: alert and oriented x 3 Lab Results Anesthesia Preop Results Results Anesthesia Widget: WBC 7.20 K/uL (4.8-10.8) 04/14/21 Hgb 12.8 g/dL (12.0-16.0) 04/14/21 Hct 40.0 % (37-47) 04/14/21 Plt 302 K/uL (130-400) 04/14/21 Na 141 mmol/L (136-145) 04/14/21 K 4.3 mmol/L (3.5-5.1) 04/14/21 Cl 108 mmol/L (98-107) H 04/14/21 CO2 29 mmol/L (21-32) 04/14/21 BUN 17 mg/dl (7-18) 04/14/21 Creat 0.95 mg/dl (0.6-1.2) 04/14/21 Glucose Level 100 mg/dl (70-99) H 04/14/21 PT 10.4 Seconds (9.0-12.0) 04/14/21 PTT 23.5 Seconds (21.0-31.0) 04/14/21 INR 1.0 (0.9-1.1) 04/14/21 SARS-CoV-2, RNA, NAAT NEGATIVE (NEGATIVE) 04/18/21 Blood Type A Positive 04/14/21 Antibody Screen NEGATIVE 04/14/21 Testing Electrocardiogram Date: 04/14/21 Findings: + NSR @ (71bpm) and + no change from (June 15, 2020 per cardio ) RBBB. Chest X-Ray Date: 04/14/21 Findings: + NAD Dominant nodule of the right upper lobe redemonstrated. Additional bilateral pulmonary nodules are better characterized on the chest CT from 03/24/2021. Echocardiogram Date: 01/25/18 EF: 55% LV Function: normal RWMA: + none Other Findings: + LVH and + diastolic dysfunction (grade 1) Valvular Disease: + MR (mild) Other Testing Chest CT 03/24/21= No significant change in the dominant right upper lobe spiculated mass measuring 2.5 x 2.2 cm. Additional scattered groundglass lesions are also stable. These likely represent multifocal low-grade adenocarcinomas. Mild emphysema. No lymphadenopathy. Healing right lateral eighth and ninth rib fractures. No pneumothorax. Brain MRI 06/17/20= No evidence of metastatic disease. Moderate atrophy and white matter T2 hyperintense foci consistent with small vessel disease. 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 Opacified right frontal sinus.
[2021-04-18] MEDS ORDERED: ceFAZolin 2000MG 2,000 MG/15 ML SYR IV SCH (06:00)
[2021-04-18] MEDS ORDERED: LACTATED RINGER'S 1,000 ML IV SCH (06:00)
--- NOTE | 2021-04-18 07:37 | History & Physical Report ---
Date of Service April 18, 2021 Assessment & Plan (1) Abdominal aortic aneurysm: Plan: Patient admitted for PEVAR of her AAA. I have discussed the risks options and benefits of the procedure with the patient. The patient understands the risks options and benefits and agrees to the procedure. Presence of rupture: without rupture Qualified Code(s): I71.4 - Abdominal aortic aneurysm, without rupture History of Present Illness Chief Complaint: AAA Primary Care Provider: Мария Gomes DO Ms Zazueta is an 85-year-old female who was found to have a 5-1/2 cm saccular aneurysm of her infrarenal abdominal aorta. She was also diagnosed with lung cancer and has undergone radiation treatments. Repair of the AAA was recommended. She denies any claudicaiton or symptoms of cerebrovascular disease. Allergies Allergy/AdvReac Type Severity Reaction Status Date / Time Asacol TBEC AdvReac Unknown Unknown Uncoded 04/18/21 05:50 Lisinopril TABS AdvReac Unknown Cough Uncoded 04/18/21 05:50 sulfaSALAzine TABS AdvReac Unknown Unknown Uncoded 04/18/21 05:50 Home Medications Medication Instructions Recorded Confirmed Type multivitamin (Multiple Vitamins) 1 tab PO QAM 03/24/19 04/18/21 History acetaminophen 500 mg tablet 1,000 mg PO TID PRN #90 tab 06/15/19 04/18/21 History ascorbic acid (vitamin C) 1,000 mg 1 gm PO QAM tab 06/15/19 04/18/21 History tablet cholecalciferol (vitamin D3) 25 2,000 units PO QAM cap 06/15/19 04/18/21 History mcg (1,000 unit) capsule calcium carbonate 600 mg calcium 600 mg PO QAM 06/11/20 04/18/21 History (1,500 mg) tablet (Calcium) diclofenac sodium 1 % topical gel 2 g EXT QID PRN g 07/27/20 04/18/21 History (Voltaren) sertraline 50 mg tablet 50 mg PO DAILY #90 tab 12/09/20 04/18/21 Rx atorvastatin 10 mg tablet 10 mg PO QAM 04/07/21 04/18/21 History levothyroxine 88 mcg tablet 88 mcg PO QAM 04/07/21 04/18/21 History Past Med/Surg History Medical History Abdominal aortic aneurysm (~10/29/13) 5.5cm saccular aneurysm of infrarenal abdominal aorta pe rvascular records Anxiety Crohn's disease Stable per patient Depression Dyslipidemia History of breast cancer Age 61 s/p Left Mastectomy, Radiation & Chemo Age 78 s/p Right Mastectomy - s/p chemo/XRT No known arm restriction History of Graves' disease Hypertension Hypothyroidism, postablative Lung cancer Dx 05/2020 (Adenocarcinoma) s/p radiation Osteoarthritis Osteopenia Parkinsons disease Stable per patient Per PCP note 06/20/19= "Parkinson's disease: Variable control. She is currently off medication, is not established with Neurology. She will notify office if symptoms worsen, consider neurology " Parkinson stable at 12/24/19 PCP office visit - follows with neurology PRN Poor historian Small vessel disease, cerebrovascular Surgical History History of breast biopsy History of bronchoscopy Navigational bronch, EBUS (06/15/20) History of cataract extraction R/L History of colonoscopy History of cystoscopy History of mastectomy x2 (Age 61 and Age 78) History of tooth extraction History of wisdom tooth extraction Family History Father , Passed unknown age of [place] Myocardial infarction acute Mother , Passed in 80's of heart failure Aorta aneurysm Breast cancer Brother , Passed in 70's of Lung Cancer (Smoker) No problems noted. Brother , Passed in 60's of Lung Cancer (Smoker) No problems noted. Brother , Passed in late 70's of Lung Cancer (Smoker) No problems noted. Sister , Passed in 80's of natural causes/unknown No problems noted. Daughter Breast cancer Son No problems noted. Social History Smoking Status: Former smoker Tobacco Type: Cigarettes Years Smoked: 40; Cigarettes Per Day: 1 pack cigs every 4-5days; Smoking End Date: 20 years ago; Second Hand Exposure: No; Do You Dip or Chew Tobacco: No; Tobacco Cessation Education Requested by Patient: No Hx Alcohol Use: No Hx Substance Use: No Preferred Language: Sudanese Communication Ability: Effective Visual Impairment: Limited Hearing Ability: Normal Residential Direct Support Professional Required: No Beliefs That Will Affect Care: None Current Living Situation: Alone current occupational status: retired current occupation: Retired from [employer] Feels Safe at Home: Yes Safety Concerns: Feels Safe At This Time Childhood Exposure to Second-Hand Smoke: Yes caffeine: Yes ("once in a while") during the past year weight has: remained stable Dental Care, Regularly: No Physical Activity Frequency: Daily Physical Activity Frequency Comment: chores Seatbelt Use: always Sunscreen Use: No Assistive Devices: Cane, Denture - Upper, Denture - Lower and Glasses Review of Systems All systems reviewed & are unremarkable except as noted in HPI & below Physical Exam Constitutional: WD/WN, vitals as above Respiratory: normal respiratory effort, lungs clear to auscultation Cardiovascular: RRR, no murmur, no edema Vessels: femoral pulses present Extremities: normal capillary refill Gastrointestinal (Abdomen): normal bowel sounds, soft, nontender, no hepatosplenomegaly Percussion/Palpation: + pulsatile mass; abdomen nontender Musculoskeletal: no cyanosis or clubbing, extremities motor strength 5/5 Neurologic: CN's II-XI intact bilaterally and moves all extremities Psychiatric: Orientation: alert and oriented x 3 Results & Data ([facility]) Vital Signs (Past 12 Hours) Vital Signs Temp Pulse Resp BP BP Pulse Ox 04/18/21 05:55 36.5 C 89 20 143/91 H 144/79 H 92
[2021-04-18] MEDS ORDERED: VISIPAQUE IV PRN (09:44)
[2021-04-18] MEDS ORDERED: ARISTA ABSORBABLE HEMOSTAT 3GM TOP ONE (09:56)
--- NOTE | 2021-04-18 10:08 | Post Operative Brief Note ---
Immediate Post Op Note v1 Date of Surgery April 18, 2021 Pre & Post Diagnosis Operation Date: 04/12/21 08:00 <No data on this case meets the specified criteria> Operation Date: 04/18/21 07:30 Pre-Op Diagnosis: Abdominal Aortic Aneurysm Post-Op Diagnosis: Abdominal Aortic Aneurysm I identified the patient and participated in the time-out.: Yes Procedure Operation Date: 04/12/21 08:00 <No data on this case meets the specified criteria> Operation Date: 04/18/21 07:30 Actual Procedures p Percutaneous Endovascular Aortic Aneurysm Repair, Ultrasound Localization of Bilateral Femoral Arteries, Mechanical Closure of Bilateral Femoral Arteries(Bilateral) - Felipe Alva MD Surgeon Felipe Alva MD Medical Accounts Receivable Specialist MD Jessica Estimated Blood Loss 60 Findings Consistent with Post-Op Diagnosis Drains Velásquez Catheter Anesthesia Type General Complications none Disposition Accompanied Patient To Recovery: No Disposition: Recovery Room
[2021-04-18] MEDS ORDERED: ePHEDrine sulfate 50 MG/ML AMP IV PRN (10:14)
[2021-04-18] MEDS ORDERED: PROMETHAZINE HCL 12.5 MG in SODIUM CHLORIDE 0.9% 50 ML IV PRN (10:14)
[2021-04-18] MEDS ORDERED: ONDANSETRON INJ 2 MG/ML 2 ML VIAL IV PRN (10:14)
[2021-04-18] MEDS ORDERED: NALOXONE HCL 0.4 MG/1 ML VIAL/CARP IV PRN (10:14)
[2021-04-18] MEDS ORDERED: ATROPINE SULFATE 0.1 MG/ML 10ML SYR IV PRN (10:14)
[2021-04-18] MEDS ORDERED: fentaNYL citrate 100 MCG/2 ML VIAL IV PRN (10:14)
[2021-04-18] MEDS ORDERED: FLUMAZENIL 0.1 MG/1 ML 10 ML VIAL IV PRN (10:14)
--- NOTE | 2021-04-18 10:25 | Operative Report ---
Post Operative Report Pre & Post Diagnosis Operation Date: 04/12/21 08:00 <No data on this case meets the specified criteria> Operation Date: 04/18/21 07:30 Pre-Op Diagnosis: Abdominal Aortic Aneurysm Post-Op Diagnosis: Abdominal Aortic Aneurysm I identified the patient and participated in the time-out.: Yes Procedure Operation Date: 04/12/21 08:00 <No data on this case meets the specified criteria> Operation Date: 04/18/21 07:30 Actual Procedures p Percutaneous Endovascular Aortic Aneurysm Repair, Ultrasound Localization of Bilateral Femoral Arteries, Mechanical Closure of Bilateral Femoral Arteries(Bilateral) - Felipe Alva MD Surgeon Felipe Alva MD Pigment And Lacquer Mixer Ekta Han DO Estimated Blood Loss 60 Findings Consistent with Post-Op Diagnosis Specimens none Anesthesia Type General Disposition Accompanied Patient To Recovery: No Disposition: Recovery Room Indications This is an 86 year old female with a saccular infrarenal abdominal aortic aneurysm. Description of Procedure Patient was brought to the operating room placed supine on operating room table. General anesthesia was induced. A surgical timeout was performed confirming the correct patient and procedure. The abdomen and bilateral groins were prepped and draped in a sterile fashion. Ultrasound was used to identify the right common femoral artery, which was patent, and the needle was inserted under direct visualization with pulsatile blood return. A guidewire was introduced through the needle and a 5 Mexican sheath was placed. Angiography was performed and confirmed placement, however the more proximal entry point was desired. Therefore a second, more proximal location was selected and using the same technique, a 5 Mexican sheath was placed. Attention was then turned to the contralateral side where again the needle was placed into the common femoral artery under ultrasound guidance. Again the guidewire was introduced through the needle followed by a 5 Mexican sheath and angiogram confirmed appropriate placement. A proglide was utilized with sutures placed at 10:00 and 2:00 on the left and on the right. The right side was selected for placement of the main body endoprosthesis. A 0.035 inch guidewire was then placed through the sheath which was exchanged through a Kumpe to a Hutton wire. A 12 Mexican dilator was used prior to upsizing the sheath to 16 Mexican 33cm Dryseal sheath to allow entry of the device. On the left, again the Kumpe catheter and Howard wire was used and a 12 Mexican 33cm Dryseal sheath was then placed over the Howard wire. A Gilberts excluder 26 x 14.5 x 12 cm endoprosthesis was then inserted through the 16 Mexican sheath on the right side under fluoroscopic guidance, taking care that the proximal portion did not cover the renal arteries. A pigtail was inserted throught the left sheath. Aortography was performed that showed the location of the renal arteries. The main body was deployed. Digital subtraction angiography demonstrated appropriate placement. We turned our attention to the contralateral limb, and with use of a Kumpe wire, cannulated the gate. A pigtail was reinserted and arteriography was done after pulilng the sheath into the external iliac. It was then decided to use a [id number] cm contralateral limb. The pigtail was removed and using the dilator the sheath was advanced into the gate. We then inserted the contalateral limb and it was then deployed without difficulty. We then did an angio of the right iliac and decided to extend the ipsilateral limb. In the ipsilateral limb, a 14.5 x 10 administrative support associate was deployed. A Q 50 balloon dilator was used at the proximal gate followed by the left, then right limbs. A pigtail catheter was placed proximal to the graft and an angiog david was performed to assess for endoleak. A type two endoleak was observed. No type I endoleaks werer seen. Finally, attention was turned to vascular closure. The proglide was used to close the 16Fr and 12Fr cannulation sites on the left and right, respectively. The additional 5Fr site on the right was closed with a Star close device. Windy was applied to the bilateral sites and Steri-Strips were used for dressing. Additional direct pressure was held for several minutes. Patient was allowed to awaken from general anesthesia having tolerated the procedure well without any apparent complications. Dr. Alva was present and scrubbed for the entire procedure. I attest to the content of the Intraoperative Record and any orders documented therein. Any exceptions are noted below.
[2021-04-18 10:30] LABS: Hematocrit (blood only) 35.5 % (37-47); Hemoglobin 11.3 g/dL (12.0-16.0)
--- NOTE | 2021-04-18 11:13 | Anesthesiology Progress Note ---
Date of Service April 18, 2021 Anesthesia Post Procedure Vital Signs Vital Signs: Temp Pulse Pulse Resp BP BP Pulse Ox 04/18/21 10:55 73 22 114/58 L 98 04/18/21 10:45 68 22 129/67 95 04/18/21 10:35 74 24 115/65 94 04/18/21 10:25 81 81 19 135/60 98 04/18/21 10:17 36.4 C L 75 75 12 141/54 H 96 04/18/21 05:55 36.5 C 89 20 143/91 H 144/79 H 92 Pain Intensity Right Calf: Pain Intensity: 10 Transfer of Care Handoff Completed per policy Notes Mental Status: alert / awake / arousable Patient Amnestic to Procedure: Yes Nausea / Vomiting: adequately controlled Pain: adequately controlled Airway Patency, RR, SpO2: stable & adequate BP & HR: stable & adequate Hydration State: stable & adequate Anesthetic Complications: no major complications apparent
[2021-04-18] MEDS ORDERED: MoRPHine SULFATE 4 MG/ML 1 ML CARP\\VIAL IV PRN (11:51)
[2021-04-18] MEDS ORDERED: oxyCODONE/ACETAMINOPHEN 5mg/325mg TAB PO PRN (11:51)
[2021-04-18] MEDS ORDERED: DICLOFENAC SOD 1% GEL 100 GM TUBE EXT PRN (11:51)
[2021-04-18] MEDS ORDERED: ACETAMINOPHEN 500 MG TAB PO PRN (12:11)
[2021-04-18] MEDS: LACTATED RINGER'S 1,000 ML IV SCH ×2 (12:25→21:33)
--- NOTE | 2021-04-18 14:40 | Critical Care Consultation ---
Date of Consultation April 18, 2021 Assessment & Plan (1) Abdominal aortic aneurysm: Continue home medications (2) Acute blood loss anemia: Routine monitoring (3) Headache: Normally takes Tylenol -1000 mg Tylenol p.o. x1 History of Present Illness Reason for Consultation: Postprocedural management Requesting Physician: Felipe Alva MD Attending Physician: Felipe Alva MD Allergies Allergy/AdvReac Type Severity Reaction Status Date / Time Asacol TBEC AdvReac Unknown Unknown Uncoded 04/18/21 05:50 Lisinopril TABS AdvReac Unknown Cough Uncoded 04/18/21 05:50 sulfaSALAzine TABS AdvReac Unknown Unknown Uncoded 04/18/21 05:50 Home Medications Medication Instructions Recorded Confirmed Type multivitamin (Multiple Vitamins) 1 tab PO QAM 03/24/19 04/18/21 History acetaminophen 500 mg tablet 1,000 mg PO TID PRN #90 tab 06/15/19 04/18/21 History ascorbic acid (vitamin C) 1,000 mg 1 gm PO QAM tab 06/15/19 04/18/21 History tablet cholecalciferol (vitamin D3) 25 2,000 units PO QAM cap 06/15/19 04/18/21 History mcg (1,000 unit) capsule calcium carbonate 600 mg calcium 600 mg PO QAM 06/11/20 04/18/21 History (1,500 mg) tablet (Calcium) diclofenac sodium 1 % topical gel 2 g EXT QID PRN g 07/27/20 04/18/21 History (Voltaren) sertraline 50 mg tablet 50 mg PO DAILY #90 tab 12/09/20 04/18/21 Rx atorvastatin 10 mg tablet 10 mg PO QAM 04/07/21 04/18/21 History levothyroxine 88 mcg tablet 88 mcg PO QAM 04/07/21 04/18/21 History Patient History Medical History Abdominal aortic aneurysm (~10/29/13) 5.5cm saccular aneurysm of infrarenal abdominal aorta pe rvascular records Anxiety Crohn's disease Stable per patient Depression Dyslipidemia History of breast cancer Age 61 s/p Left Mastectomy, Radiation & Chemo Age 78 s/p Right Mastectomy - s/p chemo/XRT No known arm restriction History of Graves' disease Hypertension Hypothyroidism, postablative Lung cancer Dx 05/2020 (Adenocarcinoma) s/p radiation Osteoarthritis Osteopenia Parkinsons disease Stable per patient Per PCP note 06/20/19= "Parkinson's disease: Variable control. She is currently off medication, is not established with Neurology. She will notify office if symptoms worsen, consider neurology " Parkinson stable at 12/24/19 PCP office visit - follows with neurology PRN Poor historian Small vessel disease, cerebrovascular Surgical History History of breast biopsy History of bronchoscopy Navigational bronch, EBUS (06/15/20) History of cataract extraction R/L History of colonoscopy History of cystoscopy History of mastectomy x2 (Age 61 and Age 78) History of tooth extraction History of wisdom tooth extraction Family History Father , Passed unknown age of [place] Myocardial infarction acute Mother , Passed in 80's of heart failure Aorta aneurysm Breast cancer Brother , Passed in 70's of Lung Cancer (Smoker) No problems noted. Brother , Passed in 60's of Lung Cancer (Smoker) No problems noted. Brother , Passed in late 70's of Lung Cancer (Smoker) No problems noted. Sister , Passed in 80's of natural causes/unknown No problems noted. Daughter Breast cancer Son No problems noted. 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: No Beliefs That Will Affect Care: None Current Living Situation: Alone current occupational status: retired current occupation: Retired from [employer] Feels Safe at Home: Yes Safety Concerns: Feels Safe At This Time Childhood Exposure to Second-Hand Smoke: Yes caffeine: Yes ("once in a while") during the past year weight has: remained stable Dental Care, Regularly: No Physical Activity Frequency: Daily Physical Activity Frequency Comment: chores Seatbelt Use: always Sunscreen Use: No Assistive Devices: Cane, Denture - Upper, Denture - Lower and Glasses Review of Systems Review of Systems: Mild headache, no chest pain or shortness of breath Physical Exam Physical Exam: General: Alert. nontoxic. Skin: Warm, dry, Head: Atraumatic Ears, nose, mouth and throat: airway patent Cardiovascular: Normal peripheral perfusion Respiratory: no respiratory distress Gastrointestinal: Non distended Musculoskeletal: No deformity left wrist has dressing which is clean dry and intact Results & Data Results & Data ([facility]) Vital Signs (Past 12 Hours) Vital Signs Temp Pulse Pulse Pulse Resp BP BP 04/18/21 12:30 68 24 04/18/21 12:22 69 14 04/18/21 12:06 75 12 148/91 H 04/18/21 12:02 36.6 C 60 16 04/18/21 11:52 63 12 145/74 H 04/18/21 11:41 61 12 04/18/21 11:15 67 16 04/18/21 11:05 36.6 C 74 14 04/18/21 10:55 73 22 04/18/21 10:45 68 22 04/18/21 10:35 74 24 04/18/21 10:25 81 81 19 04/18/21 10:17 36.4 C L 75 75 12 04/18/21 05:55 36.5 C 89 20 143/91 H BP Pulse Ox 04/18/21 12:30 94 04/18/21 12:22 94 04/18/21 12:06 93 04/18/21 12:02 145/74 H 93 04/18/21 11:52 90 04/18/21 11:41 90 04/18/21 11:15 126/66 96 04/18/21 11:05 108/61 98 04/18/21 10:55 114/58 L 98 04/18/21 10:45 129/67 95 04/18/21 10:35 115/65 94 04/18/21 10:25 135/60 98 04/18/21 10:17 141/54 H 96 04/18/21 05:55 144/79 H 92 Laboratory Results 04/18/21 04/18/21 04/18/21 Range/Units 13:04 12:20 10:21 Hgb 11.3 L (12.0-16.0) g/dL Hct 35.5 L (37-47) % POC Glucose 84 (70-99) mg/dl Nasal Screen MRSA (PCR) Negative (Negative) COVID-19 Eval Order SARS-CoV-2, RNA, NAAT (NEGATIVE) Blood Type Antibody Screen Crossmatch 04/18/21 04/18/21 04/18/21 Range/Units 06:26 06:05 06:05 Hgb (12.0-16.0) g/dL Hct (37-47) % POC Glucose (70-99) mg/dl Nasal Screen MRSA (PCR) (Negative) COVID-19 Eval Order Covid19 IDNow atMWAC SARS-CoV-2, RNA, NAAT NEGATIVE (NEGATIVE) Blood Type A Positive Antibody Screen NEGATIVE Crossmatch See Detail Coding Level of Care Code 63383 Inpt Consult Level 3 Diagnoses Acute blood loss anemia D62 Abdominal aortic aneurysm I71.4 Presence of rupture: without rupture Headache R51.9 (1) Abdominal aortic aneurysm Presence of rupture: without rupture Qualified Code(s): I71.4 - Abdominal aortic aneurysm, without rupture
[2021-04-18] MEDS: ceFAZolin 2000MG 2,000 MG/15 ML SYR IV SCH ×2 (16:08→23:03)
[2021-04-19 05:25] LABS: Basophils # (auto) 0.02 K/uL (0-0.2); Basophils % (auto) 0.3 %; Eosinophils # (auto) 0.25 K/uL (0-0.5); Eosinophils % (auto) 3.4 %; Hematocrit (blood only) 33.4 % (37-47); Hemoglobin 10.5 g/dL (12.0-16.0); Immature Granulocytes # (auto) 0.02 K/uL (0.00-0.02); Immature Granulocytes % (auto) 0.3 %; Lymphocytes # (auto) 0.98 K/uL (1.2-3.4); Lymphocytes % (auto) 13.2 %; Mean Corpuscular Hgb Conc 31.4 g/dL (32-36); Mean Corpuscular Volume 95.4 fL (80-100); Mean Platelet Volume 9.8 fL (7.4-10.4); Monocytes # (auto) 0.89 K/uL (0.11-0.59); Neutrophils # (auto) 5.27 K/uL (1.4-6.5); Neutrophils % (auto) 70.8 %; Platelet Count 197 K/uL (130-400); RDW Coefficient of Variation 14.5 % (11.5-14.5); RDW Standard Deviation 50.7 fL (36.4-46.3); White Blood Count 7.43 K/uL (4.8-10.8)
[2021-04-19 05:53] LABS: BUN Creatinine Ratio 21.4 (10-20); Calcium 8.6 mg/dl (8.5-10.1); Creatinine Clr Calc Pharmacy 64.1 ml/min; Est GFR (African American) 92.8 ml/min; Est GFR (Non-African American) 80.1 ml/min; Magnesium 1.9 mg/dl (1.8-2.4); Phosphorus 3.1 mg/dl (2.5-4.9); Potassium 4.5 mmol/L (3.5-5.1)
[2021-04-19] MEDS ORDERED: LEVOTHYROXINE SODIUM 88 MCG TABLET PO SCH (06:30)
--- NOTE | 2021-04-19 08:34 | Surgery Progress Note ---
Date of Service April 19, 2021 Assessment & Plan (1) S/P percutaneous abdominal aortic aneurysm repair: Plan: Pt is doing well s/p PEVAR. Will d/c home today, but pt unable to have a ride home until this afternoon. Transfer to floor in the meantime. (2) Abdominal aortic aneurysm: Plan: See above Admission and Anticipated Discharge Date Admission Date: April 18, 2021 Subjective 86 yo f POD #1 after PEVAR, seen in f/u today. ADmits mild nausea, but states was able to eat breakfast. Pt admits discomfort in Bl groins, but states no other complaints. Denies MALCOLM, chest pain, SOB, abd pain, V, rest pain. Review of Systems Review of Systems: negative aside from HPI Physical Exam Constitutional: WD/WN, vitals as above Respiratory: Auscultation: lungs clear to auscultation bilaterally and + diminished lung sounds Gastrointestinal (Abdomen): Inspection/Auscultation: abdomen normal to inspection and normal bowel sounds Percussion/Palpation: abdomen soft; abdomen nontender Musculoskeletal: no cyanosis or clubbing, extremities motor strength 5/5 Neurologic: moves all extremities and awake; no focal motor deficits and not confused Psychiatric: A+Ox3, euthymic affect Results & Data ([facility]) Vital Signs (Past 12 Hours) Vital Signs Temp Pulse Resp BP Pulse Ox 04/19/21 06:07 66 23 158/91 H 94 04/19/21 05:37 64 23 161/78 H 93 04/19/21 05:07 70 20 147/69 H 93 04/19/21 04:37 61 22 153/66 H 96 04/19/21 04:07 36.9 C 65 23 143/74 H 97 04/19/21 03:37 70 23 115/75 96 04/19/21 03:07 59 L 20 121/63 99 04/19/21 02:37 59 L 21 114/60 98 04/19/21 02:07 58 L 20 130/59 L 97 04/19/21 01:37 68 22 127/62 95 04/19/21 01:07 67 24 144/69 H 96 04/19/21 00:37 70 22 126/70 95 04/19/21 00:07 37 C 67 22 128/67 96 04/18/21 23:37 59 L 21 135/61 96 04/18/21 23:07 74 22 151/76 H 96 04/18/21 22:37 62 21 143/67 H 99 04/18/21 22:07 62 20 134/62 99 04/18/21 21:37 70 19 144/70 H 99 04/18/21 21:07 70 21 133/63 98 04/18/21 20:37 72 22 119/70 98 (1) Abdominal aortic aneurysm Presence of rupture: without rupture Qualified Code(s): I71.4 - Abdominal aortic aneurysm, without rupture
--- NOTE | 2021-04-19 08:35 | Discharge Summary ---
Date of Service April 19, 2021 Admission HPI Per Admitting Provider Ms Zazueta is an 85-year-old female who was found to have a 5-1/2 cm saccular aneurysm of her infrarenal abdominal aorta. She was also diagnosed with lung cancer and has undergone radiation treatments. Repair of the AAA was recommended. She denies any claudicaiton or symptoms of cerebrovascular disease. Admission Exam Per Admitting Provider Constitutional: WD/WN, vitals as above Respiratory: normal respiratory effort, lungs clear to auscultation Cardiovascular: RRR, no murmur, no edema Vessels: femoral pulses present Extremities: normal capillary refill Gastrointestinal (Abdomen): normal bowel sounds, soft, nontender, no hepatosplenomegaly Percussion/Palpation: + pulsatile mass; abdomen nontender Musculoskeletal: no cyanosis or clubbing, extremities motor strength 5/5 Neurologic: CN's II-XI intact bilaterally and moves all extremities Psychiatric: Orientation: alert and oriented x 3 Principal Diagnosis 1. s/p PEVAR 2. AAA Discharge Exam Constitutional WD/WN, vitals as above Respiratory Auscultation: lungs clear to auscultation bilaterally and + diminished lung sounds Gastrointestinal (Abdomen) Inspection/Auscultation: abdomen normal to inspection and normal bowel sounds Percussion/Palpation: abdomen soft; abdomen nontender Musculoskeletal no cyanosis or clubbing, extremities motor strength 5/5 Neurologic moves all extremities and awake; no focal motor deficits and not confused Psychiatric A+Ox3, euthymic affect Discharge Data Allergies Allergy/AdvReac Type Severity Reaction Status Date / Time Asacol TBEC AdvReac Unknown Unknown Uncoded 04/18/21 05:50 Lisinopril TABS AdvReac Unknown Cough Uncoded 04/18/21 05:50 sulfaSALAzine TABS AdvReac Unknown Unknown Uncoded 04/18/21 05:50 Consultations 04/18/21 07:37 Consult Pickling Operator Routine Procedures Performed Operation Date: 04/12/21 08:00 <No data on this case meets the specified criteria> Operation Date: 04/18/21 07:30 Actual Procedures p Percutaneous Endovascular Aortic Aneurysm Repair, Ultrasound Localization of Bilateral Femoral Arteries, Mechanical Closure of Bilateral Femoral Arteries(Bilateral) - Felipe Alva MD Ordered Studies 04/18/21 07:20 EV AAA repair aorta only Routine US EV guide vascular access Routine Hospital Course (1) S/P percutaneous abdominal aortic aneurysm repair: Pt is doing well s/p PEVAR. Will d/c home today, but pt unable to have a ride home until this afternoon. Transfer to floor in the meantime. (2) Abdominal aortic aneurysm: See above Total Time Total Time Spent Total Time Spent (In Minutes): 0 Discharge Plan Discharge Items Patient Disposition: Home - Self-Care Reason For Visit: AAA Discharge Diagnosis: Abdominal aortic aneurysm. Endovascular repair of abdominal aortic aneurysm Activity: Per Instructions section Bathing Comment: May shower starting tomorrow Non-emergency contact: Surgeon Call non-emergency contact if: your temperature is above 101.5, your wound has increased redness, your wound has increased drainage and your wound pain has increased Follow-up/Referrals: Мария Gomes DO [Primary Care Provider] - Diet: Heart Healthy Addtl Attending Provider Instructions: SPECIAL CARE INSTRUCTIONS: Medications: * Continue to take your medications as directed. Incision/Puncture Site Care: * You will have an incision or puncture in each of your groins. Liquid glue will be used to seal your incisions/puncture site. This will lift off as the incisions/puncture sites heal. * If Liquid glue is not used, there will be small dressings covering your incisions. After you get home, you may remove the dressings and shower - allowing the warm soapy water to run over it. * Be sure to dry the sites well and keep them dry. * DO NOT SOAK IN A TUB/POOL/etc. UNTIL ALL SURGICAL SITES ARE HEALED. DO NOT REMOVE THE GLUE UNTIL THE INCISIONS HEAL. Restrictions: * Limit yourself to traveling operator activity for the first week. * You may walk and go up and down steps. * Avoid excessive bending or movement at the level of the incisions or punctures. Risks and Possible Complications: * Infection/Drainage/Bleeding - Drainage or bleeding from the incisions/puncture site should be minimal. If you have excessive bleeding or drainage, call our office ([phone]) right away. * Pain/Numbness - You may experience some mild pain or soreness at your incision sites. You may also have some numbness around the incisions or into the insides of your thighs. Bruising is normal and should resolve within 2 weeks. * Changes in Appetite or Bowel Habits - Mostly related to anesthesia and pain medication, some patients have reported decreased appetite and/or problems with constipation. These symptoms usually improve over a few weeks. Remembering to take an [id number] stool softener, as directed, will help you to avoid constipation. Call our office and seek emergent treatment if you develop: * Fever or chills * Have a temperature greater than 101 degrees F * Any redness or purulent drainage from your incisions or punctures * Severe abdominal, chest or back pain SKIN IRRITATION: * You may experience some redness and/or swelling in the area where radiation was administered. If any skin irritation occurs, please contact your family physician. You will be receiving a call from the Vascular Surgery Nurse after you are discharged. FOLLOW UP VISIT: It is important for you to keep your follow up appointments with your medical provider. Keep any scheduled doctor appointments. Call [phone] to schedule a follow up appointment if one not already scheduled. Pending Studies at Discharge: No Stand-Alone Forms: [facility], Smoking Cessation Medications and DC Order Prescriptions: New oxycodone-acetaminophen [Percocet] 5-325 mg tablet 1 tab PO Q8H PRN (Reason: pain) Qty: 7 RF: 0 Continued diclofenac sodium [Voltaren] 1 % gel 2 g EXT QID PRN (Reason: Pain) RF: 0 sertraline 50 mg tablet 50 mg PO DAILY Qty: 90 RF: 1 multivitamin [Multiple Vitamins] tablet 1 tab PO QAM RF: 0 cholecalciferol (vitamin D3) 1,000 unit capsule 2,000 units PO QAM RF: 0 ascorbic acid (vitamin C) 1,000 mg tablet 1 gm PO QAM RF: 0 acetaminophen 500 mg tablet 1,000 mg PO TID PRN (Reason: fever or pain) Qty: 90 RF: 0 calcium carbonate [Calcium 600] 600 mg calcium (1,500 mg) Tablet 600 mg PO QAM RF: 0 atorvastatin 10 mg tablet 10 mg PO QAM RF: 0 levothyroxine 88 mcg tablet 88 mcg PO QAM RF: 0 Discharge Orders: Discharge Order (Routine); Ordered 04/19/21 Ordered By: Felipe Alva Admission Data Admit Date/Time: 04/18/21 07:37 Attending Provider: Felipe Alva Admit Provider: Felipe Alva Primary Care Provider: Мария Gomes Other Providers: Daren Khan ; Javier Navarro ; Melvin Green ; Casey Mariscal ; Jonas Abbott ; Caleb Gustafson ; Maru Bowen
[2021-04-19] MEDS ORDERED: CHOLECALCIFEROL 1,000 UNITS 25 MCG TAB PO SCH (09:00)
[2021-04-19] MEDS ORDERED: MULTIVITAMIN TAB PO SCH (09:00)
[2021-04-19] MEDS ORDERED: ATORVASTATIN 10 MG TAB PO SCH (09:00)
[2021-04-19] MEDS ORDERED: CALCIUM CARBONATE 1250MG TAB PO SCH (09:00)
[2021-04-19] MEDS ORDERED: SERTRALINE HCL 50 MG TABLET PO SCH (09:00)
[2021-04-19] MEDS ORDERED: ASCORBIC ACID 500 MG TAB PO SCH (09:00)
[2021-04-19 15:06] VITALS: BP 136/60; TEMP 98.6; O2SAT 92
[2021-04-19 15:29] VITALS: PULSE 70
== END 2021-04-19 18:24 | disposition home health service (06) | DRG 269 ==
LOC: ASU 05:24 → 1E 07:37 → 3N 04-19 08:25

== ENCOUNTER 2022-05-31 13:33 | Observation (INO) ==
--- NOTE | 2022-05-31 14:24 | XRay Report ---
XR chest 2V PA/lateral HISTORY: 87 years-old Female hypotension acute hypotension COMPARISON: Chest CT 03/17/2022 TECHNIQUE: PA and lateral views of the chest FINDINGS: Cardiomediastinal and hilar silhouettes are unchanged. Large area of linear consolidation within the right upper lobe redemonstrated measuring approximately 9 cm in transverse dimension, previously wilfredo uring up to 12 cm in AP dimension. No pneumothorax, pleural effusion, new airspace consolidation or o vert pulmonary edema. Degenerative changes of the shoulders and spine. Dextroscoliosis of the lumbar spine with aortobiiliac stent graft. Surgical clips of the left axilla. IMPRESSION: 1. No acute processes of the chest. 2. Right perihilar/right upper lobe large area of linear consolidation appears stable from the [address] ACT 112: Negative or not required by law. The above report was generated using voice recognition software. It may contain grammatical, syntax o r spelling errors. Electronically signed by: Eliseo Coronado M.D. 05/31/2022 2:23 PM
[2022-05-31 15:03] LABS: Basophils # (auto) 0.07 K/uL (0-0.2); Basophils % (auto) 0.7 %; Eosinophils # (auto) 0.38 K/uL (0-0.50); Eosinophils % (auto) 3.6 %; Hematocrit (blood only) 37.1 % (34.1-44.9); Hemoglobin 11.7 g/dl (12.0-16.0); Immature Granulocytes # (auto) 0.05 K/uL (0.00-0.02); Immature Granulocytes % (auto) 0.5 %; Lymphocytes # (auto) 2.01 K/uL (1.2-3.4); Lymphocytes % (auto) 18.9 %; Mean Corpuscular Hemoglobin 27.2 pg (25.0-34.0); Mean Corpuscular Hgb Conc 31.5 g/dL (32.0-36.0); Mean Corpuscular Volume 86.3 fL (80.0-100.0); Mean Platelet Volume 9.8 fL (9.4-12.3); Monocytes # (auto) 0.75 K/uL (0.24-0.82); Monocytes % (auto) 7.1 %; Neutrophils # (auto) 7.35 K/uL (1.4-6.5); Neutrophils % (auto) 69.2 %; Platelet Count 276 K/uL (130-400); RDW Coefficient of Variation 16.7 % (11.5-14.5); RDW Standard Deviation 52.3 fL (36.4-46.3); White Blood Count 10.61 K/ul (4.8-10.8)
[2022-05-31 15:39] LABS: Alanine Aminotransferase 32 U/L (7-52); Albumin Globulin Ratio 1.2 (0.9-2); Albumin Level 3.8 gm/dl (3.4-5.0); Alkaline Phosphatase 93 U/L (34-104); Anion Gap 6 (3-11); Aspartate Aminotransferase 40 U/L (13-39); BUN Creatinine Ratio 17.5 (10-20); Bilirubin,Total 0.7 mg/dl (0.2-1.0); Blood Urea Nitrogen 14 mg/dl (6-23); Calcium 9.9 mg/dl (8.5-10.1); Carbon Dioxide 30 mmol/L (21-32); Chloride 103 mmol/L (98-107); Est GFR (African American) 75.8 ml/min; Est GFR (Non-African American) 65.4 ml/min; Globulin 3.2 gm/dl (2.5-4.0); Glucose 81 mg/dl (70-99(Fasting)); Potassium 3.5 mmol/L (3.5-5.1); Sodium 139 mmol/L (136-145)
[2022-05-31] MEDS ORDERED: SODIUM CHLORIDE 0.9% 500 ML IV ONE (16:50)
--- NOTE | 2022-05-31 17:20 | Electrocardiogram Report ---
Test Reason : Blood Pressure : / mmHG Vent. Rate : 072 BPM Atrial Rate : 072 BPM P-R Int : 124 ms QRS Dur : 132 ms QT Int : 456 ms P-R-T Axes : 028 052 021 degrees QTc Int : 499 ms Sinus rhythm with occasional Premature ventricular complexes Right bundle branch block Abnormal ECG When compared with ECG of 14-APR-2021 11:50, Premature ventricular complexes are now Present T wave inversion now evident in Anterior leads Confirmed by Jay Colindres ([id number]) on 05/31/2022 5:20:14 PM Referred By: Confirmed By:Franklin Colindres
[2022-05-31] MEDS ORDERED: OPTIRAY 350 100ml IV ONE (17:48)
--- NOTE | 2022-05-31 18:00 | CT Scan Report ---
CT head/brain wo con CLINICAL HISTORY: 87 years-old Female with weakness, uti, fall, confusion. Acute head trauma status post fall. Acutely altered mental status TECHNIQUE: Multiple axial CT images of the head were obtained without contrast. A dose lowering tech nique was utilized adhering to the principles of ALARA. COMPARISON: PET CT March 19, 2020, brain MRI 06/17/2020 FINDINGS: No acute intracranial hemorrhage, midline shift, intracranial mass, hydrocephalus, territorial ischem ia or abnormal extra-axial collection. Involutional changes with extensive chronic microvascular isch emic disease redemonstrated. Cerebral vascular calcifications. The calvarium is intact. Mastoid air cells and middle ear cavities are clear. Complete opacification of the right frontal sinus redemonstrated along with mucosal thickening of the anterior right ethmoi d air cells. Prior bilateral lens repair. Unremarkable soft tissues. IMPRESSION: No acute intracranial abnormality or calvarial fracture. ACT 112: Negative or not required by law. The above report was generated using voice recognition software. It may contain grammatical, syntax o r spelling errors. Electronically signed by: Eliseo Coronado M.D. 05/31/2022 5:59 PM
--- NOTE | 2022-05-31 18:25 | CT Scan Report ---
CHEST CT WITH CONTRAST; CT ABDOMEN AND PELVIS WITH IV CONTRAST ONLY CT DOSE: 1557.64 mGy.cm HISTORY: Acute chest and abdominal pain with urinary tract infection. weakness, uti, fall TECHNIQUE: Multiaxial CT images of the chest were performed following the IV administration of 85 cc of Optiray. A dose lowering technique was utilized adhering to the principles of ALARA. COMPARISON: Chest radiograph of same day, CTA abdomen and pelvis 04/24/2022, chest CT 03/17/2022, 09/15. FINDINGS: CT CHEST: No thyroid nodule or new lymphadenopathy. Prior left axillary brittani dissection. Mild cardiomegaly wit h extensive coronary artery calcifications. Atherosclerosis of the thoracic aorta with mild approxima tely 50% stenosis involving the proximal left subclavian artery. Additional 50% luminal narrowing of the distal left subclavian artery on image 30 series 8. No central pulmonary emboli are identified. T here is a subsegmental pulmonary embolus within the right lower lobe, image 182 series 8. No pneumothorax, pleural effusion or overt pulmonary edema. There is a large linear area of consolida tion measuring 1.5 cm within the right midlung obscuring the spiculated nodule seen on the 09/15/2021 exam suggestive of post treatment-related change. Numerous subsolid nodules of the right lung are red emonstrated which include a stable 1.5 cm groundglass nodule of the right lung apex, image 52. 1.2 cm groundglass nodule of the right lung apex on image 58 previously measured 10 mm. There is an adjacen t 3 mm solid nodule. 1.9 cm groundglass nodule of the super segment right lower lobe on image 100 pre viously measured 1.6 cm. 10 mm nodule with 4 mm solid component within the right lung on image 95 pre viously measured 9 mm. There is overall improved aeration of the right lung compared to the prior laurie dy. 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 Additional smaller groundglass nodular densities of the lungs appear stable. Central airways are patent. Unremarkable soft tissues. Degenerative changes of the shoulders and spine. No acute displaced rib fr acture identified. CT ABDOMEN/PELVIS: No pneumatosis or pneumoperitoneum. The spleen, pancreas and adrenal glands are unremarkable. Gallbla dder is within normal limits. Mild hepatic steatosis. Unchanged hepatic cysts. Ill-defined decreased attenuation of the inferior right hepatic lobe similar to prior. Patency of the hepatic and portal ve ins. Left-sided renal cysts are redemonstrated. Mild nonspecific bilateral perinephric stranding. There is mild right greater than left urothelial thickening of the collecting systems. Moderate wall thickeni ng of the urinary bladder with mucosal hyperemia and perivesicular stranding. Partial distention of t he bladder. No adnexal mass lesions. Extensive atherosclerotic plaque of the abdominal aorta with pat ent aortobiiliac stent graft. Chronic large type II endoleak. Fusiform dilation of the [place] infrare nal abdominal aorta redemonstrated measuring 6.6 x 6.8 cm, stable from prior. No aneurysm rupture. No lymphadenopathy. Tiny hiatal hernia. No bowel obstruction or bowel wall thickening. Colonic diverticulosis without acu te diverticulitis. Normal appendix. Unremarkable soft tissues. Degenerative changes of the spine, pel vis and hips. Surgical clips within the right retroperitoneum again noted. No acute fracture identifi ed. IMPRESSION: 1. Subsegmental pulmonary embolus of the right lower lobe. 2. Large area of linear consolidation within the right midlung redemonstrated, likely posttreatment r elated. 3. 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 Some of the nodules have slightly increased in size from 03/17/2022. 4. Findings suggestive of cystitis. Enhancement of the collecting systems suggests associated ascendi ng infection. Correlate with urinalysis. 5. Patent aortobiiliac stent graft with stable size of the large infrarenal abdominal aortic aneurysm with associated endoleak. 6. Additional findings as above. ACT 112: Negative or not required by law. Electronically signed by: Eliseo Coronado M.D. 05/31/2022 6:22 PM
[2022-05-31 18:36] LABS: Thyroid Stimulating Hormone 14.206 uIu/ml (0.300-4.500)
[2022-05-31 19:10] LABS: T4 Free Thyroxine 0.68 ng/dl (0.61-1.60)
[2022-05-31 19:18] LABS: Magnesium 1.8 mg/dl (1.7-2.4); Phosphorus 2.9 mg/dl (2.5-4.9)
[2022-05-31 19:25] LABS: Troponin I High Sensitivity 15.4 pg/ml (0-14)
[2022-05-31] MEDS ORDERED: cefTRIAXone SODIUM 2,000 MG/70 ML BAG IV STA (20:02)
--- NOTE | 2022-05-31 20:03 | Emergency Department Note ---
Impression & Plan Urinary tract infection, Elevated troponin, Confusion ED Provider Note NAME: CHELLY BOYKIN AGE: 87 SEX: F ARRIVES VIA: Walk-In INFORMANT: Patient, Daughter ED PROVIDER(S): Srinivasan Puckett MD CHIEF COMPLAINT: Confusion, referred. PLAN: Disposition: Admit MEDICAL DECISION MAKING: The patient is a pleasant 87-year-old woman with a past medical history of hypertension, hyperlipidemia, hypothyroidism, small vessel cerebrovascular disease, osteopenia, history of AAA repair with chronic endoleak who presents to the emergency department referred from her PCPs office for evaluation of confusion and suspected UTI in setting of developing confusion over the past several days. Additionally, the patient had been found stuck between her wall and the bed on Sunday where it was unclear how long she may have been stuck there. She denied hitting her head or losing consciousness. She has some recollection of this but is unclear of any details. She presented to her PCP office today for evaluation and was noted to be a poor historian and additional history was obtained via phone to the daughter. She denies any fevers, chills, cough, congestion, vomiting or diarrhea. On arrival the patient is in no distress, afebrile, blood pressure 90-170/60-80s and vital signs otherwise stable. She appears clinically dry. She has no focal neurologic deficits. She does exhibit some confusion to situation but is alert to self, place. EKG without overt acute ischemia. CXR negative for acute cardiopulmonary process. WBC and platelets within normal limits. H/H approximate 2 prior values. Chemistry without metabolic acidosis. LFTs without significant abnormality. High-sensitivity troponin 15.4, nonspecific. TSH 14 however free T4 within normal limits. UA had been sent but sample appears to have been misplaced. Repeat sample is being obtained. COVID-19 RNA, NEHAL test was negative. CT head negative. CT of the chest and abdomen pelvis were performed. Incidental note is made of a subsegmental pulmonary embolus of the right lower lobe. Additional note is made of large area of linear consolidation in the right midlung that is redemonstrated suspected to be posttreatment related. Additional incidental note is made of lung nodules that have increased in size since February 2022. There is evidence of cystitis with enhancement of collecting system suggesting ascending infection. The patient's AAA repair with chronic endoleak is stable and again seen. Patient's daughter did arrive to the bedside and findings were reviewed. Given the patient's confusion from her baseline with her ascending urinary infection they did agree with plan for admission. Of note, the daughter does report that she had been told that the patient had a blood clot in her lung within the past year and had completed 6 months of Eliquis and was taken off of this. Thus unclear if what is seen today reflects this previously identified PE. Patient has no shortness of breath and her O2 saturation is 95% on room air. Patient's urinalysis did result and is consistent with infection with 4+ bacteria and WBC is greater than 30. Blood cultures were drawn and treatment initiated with ceftriaxone. Case was discussed with PAT Valentin hospitalist, who will evaluate the patient for admission. Triage Nursing notes reviewed and agree them. Prior medical records reviewed Differential diagnosis: Infection, dehydration, metabolic abnormality, hypo/hyperglycemia, electrolyte disturbance, anemia, hypoxia, cardiac sources, intracerebral event, toxicologic, neurologic, as well as other pathologies. ER treatment provided: See below. Diagnostics interpreted by me: ECG: Sinus rhythm with occasional PVCs, 72 bpm, no overt ST elevation or depression, QTC 499, QRS 132. Cardiac Monitoring: An order for continuous cardiac monitoring was placed and demonstrated Sinus rhythm with occasional PVCs, 72 bpm. Laboratory studies: See below Imaging studies: See below Consultation(s): Case was discussed with PAT Valentin hospitalist, who will evaluate the patient for admission. HPI: The patient is a pleasant 87-year-old woman with a past medical history of hypertension, hyperlipidemia, hypothyroidism, small vessel cerebrovascular disease, osteopenia, history of AAA repair with chronic endoleak who presents to the emergency department referred from her PCPs office for evaluation of confusion and suspected UTI in setting of developing confusion over the past several days. Additionally, the patient had been found stuck between her wall and the bed on Sunday where it was unclear how long she may have been stuck there. She denied hitting her head or losing consciousness. She has some recollection of this but is unclear of any details. She presented to her PCP office today for evaluation and was noted to be a poor historian and additional history was obtained via phone to the daughter. She denies any fevers, chills, cough, congestion, vomiting or diarrhea. ROS: See above HPI for pertinent positives & negatives. A total of 10 systems reviewed and were otherwise negative. VITALS:See Below PHYSICAL EXAMINATION: GENERAL: Awake, alert, fatigued-appearing, in no distress HENT: Normocephalic, atraumatic. Oropharynx with dry mucous membranes and otherwise unremarkable. EYES: Normal conjunctiva. Sclera non-icteric. EOMI. No nystamgus. PEARRL. NECK: Supple. No nuchal rigidity. FROM. No JVD. RESPIRATORY: Clear to auscultation. CARDIAC: Regular rate, normal rhythm. Extremities warm and well perfused. Pulses equal. ABDOMEN: Soft, non-distended. No tenderness to palpation. No rebound or guarding. No masses. RECTAL: Deferred. MUSCULOSKELETAL: Chest examination reveals no tenderness. The back is symmetrical on inspection without obvious abnormality. There is no CVA tenderness to palpation. No joint edema. LOWER EXTREMITIES: Calves are equal size bilaterally and non-tender. No edema. No discoloration. NEURO: Mild confusion to situation. No focal sensory or motor deficits noted. Cranial nerves II-XII grossly intact. 5/5 strength and SILT x 4 extremities. Intact finger to nose. SKIN: No rash or jaundice noted. Srinivasan Puckett MD Past Med/Surg History Medical History Anxiety and depression Colovesical fistula Dyslipidemia History of abdominal aortic aneurysm (AAA) (~2013) s/p repair History of breast cancer Age 61 s/p Left Mastectomy, Radiation & Chemo Age 78 s/p Right Mastectomy - s/p chemo/XRT No known arm restriction History of Graves' disease Hypothyroidism, postablative Lymphedema left arm Osteoarthritis Osteopenia Parkinsons disease pt denies having parkinsons Poor historian Small vessel disease, cerebrovascular Surgical History H/O colonoscopy (03/31/22) History of breast biopsy History of bronchoscopy Navigational bronch, EBUS (06/15/20) History of cataract extraction R/L History of colonoscopy History of cystoscopy History of mastectomy x2 (Age 61 and Age 78) History of tooth extraction History of wisdom tooth extraction S/P percutaneous abdominal aortic aneurysm repair (03/2021) 04/18/21- Dr. Felipe Alva at [facility] S/P skin biopsy (04/21/22) Left hand lesion shave biopsy Juliann Rubin/Dr. Crowley Family History Father , Passed unknown age of CA Myocardial infarction acute Heart disease Hypertension Mother , Passed in 80's of heart failure Aorta aneurysm Breast cancer Cancer Diabetes Hypertension Brother , Passed in 70's of Lung Cancer (Smoker) No problems noted. Brother , Passed in 60's of Lung Cancer (Smoker) No problems noted. Brother , Passed in late 70's of Lung Cancer (Smoker) No problems noted. Sister , Passed in 80's of natural causes/unknown No problems noted. Daughter Breast cancer Son No problems noted. Other No family history of adverse response to anesthesia Social History Smoking Status: Former smoker Tobacco Type: Cigarettes Age Started Using Tobacco: 13; Age Quit Using Tobacco: 38; packs per day: 0.5; Years Smoked: 40; Cigarettes Per Day: 1 pack cigs every 4-5days; Second Hand Exposure: Yes (IN THE PAST); Hx Alcohol Use: No Hx Substance Use: No Preferred Language: [place] Communication Ability: Effective Visual Impairment: No Limitations Hearing Ability: Normal Naturalist Required: No Beliefs That Will Affect Care: None marital status: / Current Living Situation: Alone current occupational status: retired current occupation: Retired from [employer] How many Children do You have: 2 How many Children do You have Comment: 1 Feels Safe at Home: Yes Childhood Exposure to Second-Hand Smoke: Yes Diet Comment: regular caffeine: Yes ("once in a while") during the past year weight has: decreased > 10 lbs Dental Care, Regularly: No Physical Activity Frequency: Daily Physical Activity Frequency Comment: chores Seatbelt Use: always Sunscreen Use: No Assistive Devices: Cane, Denture - Upper, Denture - Lower, Glasses and Walker Allergies Allergies Allergy/AdvReac Type Severity Reaction Status Date / Time lisinopril AdvReac Intermediate Cough Verified 05/31/22 17:49 mesalamine [From Asacol] AdvReac Unknown CAN'T Verified 05/31/22 17:49 REMEMBER sulfasalazine AdvReac Unknown CAN'T Verified 05/31/22 17:49 REMEMBER Home Meds Home Medications Medication Instructions Recorded Confirmed multivitamin (Multiple Vitamins 1 tab PO QAM 03/24/19 05/31/22 tablet) acetaminophen 500 mg tablet 1,000 mg PO TID PRN fever or pain 06/15/19 05/31/22 #90 tabs ascorbic acid (vitamin C) 1,000 mg 1 gm PO QAM 06/15/19 05/31/22 tablet cholecalciferol (vitamin D3) 25 2,000 units PO QAM 06/15/19 05/31/22 mcg (1,000 unit) capsule calcium carbonate 600 mg calcium 600 mg PO QAM 06/11/20 05/31/22 (1,500 mg) tablet (Calcium) mupirocin 2 % topical ointment 1 applic topical TID PRN Skin 05/31/22 05/31/22 Irritation Previous Rx's Medication Instructions Recorded Bedside Commode #1 ea 04/26/21 albuterol sulfate 90 mcg/actuation 2 puff inhalation Q6H PRN 03/16/22 aerosol inhaler Shortness Of Breath Or Wheezing #18 grams ferrous sulfate 325 mg (65 mg 325 mg PO DAILY #30 tabs 03/24/22 iron) tablet atorvastatin 10 mg tablet 10 mg PO QAM #90 tabs 05/23/22 sertraline 50 mg tablet (Zoloft) 50 mg PO DAILY #90 tabs 05/23/22 levothyroxine 112 mcg tablet 112 mcg PO DAILY #30 tabs 05/29/22 Results & Data (ED) Vital Signs Vital Signs - 24 hr 05/31/22 13:52 05/31/22 16:44 05/31/22 18:25 Temperature 36.6 C Temperature Source Temporal Artery Scan Pulse Rate 77 Pulse Rate [Right Finger] 64 65 Pulse Rhythm [Right Finger] Pulse Strength [Right Finger] Respiratory Rate 18 16 16 Respiratory Effort / Characteristics Non-Labored Respiratory Depth Normal Respiratory Pattern Regular Blood Pressure 131/80 Blood Pressure [Right Arm] 153/80 H 176/64 H Blood Pressure Mean 97 Blood Pressure Mean [Right Arm] 104 101 Blood Pressure Position Sitting Blood Pressure Position [Right Arm] Pulse Oximetry 92 99 97 Oxygen Delivery Method Room Air Room Air Sepsis Recent Fever Within 48 Hours No Sepsis New/Unexplained Change in Mental Status No Sepsis Action Taken by Nursing No Action Required 05/31/22 19:15 05/31/22 20:29 05/31/22 20:57 Temperature Temperature Source Pulse Rate Pulse Rate [Right Finger] 76 56 L Pulse Rhythm [Right Finger] Regular Regular Pulse Strength [Right Finger] Normal Normal Respiratory Rate 18 18 Respiratory Effort / Characteristics Non-Labored Non-Labored Respiratory Depth Normal Normal Respiratory Pattern Regular Regular Blood Pressure Blood Pressure [Right Arm] 130/76 171/99 H Blood Pressure Mean Blood Pressure Mean [Right Arm] 94 123 Blood Pressure Position Blood Pressure Position [Right Arm] Lying Lying Pulse Oximetry 97 98 95 Oxygen Delivery Method Room Air Room Air Room Air Sepsis Recent Fever Within 48 Hours Sepsis New/Unexplained Change in Mental Status Sepsis Action Taken by Nursing 05/31/22 22:00 Temperature Temperature Source Pulse Rate Pulse Rate [Right Finger] 78 Pulse Rhythm [Right Finger] Regular Pulse Strength [Right Finger] Normal Respiratory Rate 18 Respiratory Effort / Characteristics Non-Labored Respiratory Depth Normal Respiratory Pattern Regular Blood Pressure Blood Pressure [Right Arm] 172/82 H Blood Pressure Mean Blood Pressure Mean [Right Arm] 112 Blood Pressure Position Blood Pressure Position [Right Arm] Lying Pulse Oximetry 93 Oxygen Delivery Method Room Air Sepsis Recent Fever Within 48 Hours Sepsis New/Unexplained Change in Mental Status Sepsis Action Taken by Nursing Laboratory Data Attestation: I reviewed the patient's lab results. Result diagrams: 05/31/22 14:44 05/31/22 14:44 Lab Results 05/31/22 05/31/22 05/31/22 Range/Units 14:44 14:44 14:44 WBC 10.61 (4.8-10.8) K/ul RBC 4.30 (3.93-5.22) M/uL Hgb 11.7 L (12.0-16.0) g/dl Hct 37.1 (34.1-44.9) % MCV 86.3 (80.0-100.0) fL MCH 27.2 (25.0-34.0) pg MCHC 31.5 L (32.0-36.0) g/dL RDW Std Deviation 52.3 H (36.4-46.3) fL RDW Coeff of Janel 16.7 H (11.5-14.5) % Plt Count 276 (130-400) K/uL MPV 9.8 (9.4-12.3) fL Immature Gran % (Auto) 0.5 % Neut % (Auto) 69.2 % Lymph % (Auto) 18.9 % Miner % (Auto) 7.1 % Eos % (Auto) 3.6 % Baso % (Auto) 0.7 % Neut # (Auto) 7.35 H (1.4-6.5) K/uL Lymph # (Auto) 2.01 (1.2-3.4) K/uL Miner # (Auto) 0.75 (0.24-0.82) K/uL Eos # (Auto) 0.38 (0-0.50) K/uL Baso # (Auto) 0.07 (0-0.2) K/uL Immature Gran # (Auto) 0.05 H (0.00-0.02) K/uL Sodium 139 (136-145) mmol/L Potassium 3.5 (3.5-5.1) mmol/L Chloride 103 (98-107) mmol/L Carbon Dioxide 30 (21-32) mmol/L Anion Gap 6 (3-11) BUN 14 (6-23) mg/dl Creatinine 0.80 (0.6-1.2) mg/dl Est Cr Clr Drug Dosing Not Reportable Est GFR ( Amer) 75.8 ml/min Est GFR (Non-Af Amer) 65.4 ml/min BUN/Creatinine Ratio 17.5 (10-20) Glucose 81 (70-99(Fasting)) mg/dl Calcium 9.9 (8.5-10.1) mg/dl Phosphorus 2.9 (2.5-4.9) mg/dl Magnesium 1.8 (1.7-2.4) mg/dl Total Bilirubin 0.7 (0.2-1.0) mg/dl AST 40 H (13-39) U/L ALT 32 (7-52) U/L Alkaline Phosphatase 93 (34-104) U/L Troponin I High Sens 15.4 H (0-14) pg/ml Total Protein 7.0 (6.0-8.3) gm/dl Albumin 3.8 (3.4-5.0) gm/dl Globulin 3.2 (2.5-4.0) gm/dl Albumin/Globulin Ratio 1.2 (0.9-2) TSH (0.300-4.500) uIu/ml Free T4 (0.61-1.60) ng/dl Urine Color Urine Appearance (Clear) Urine pH (4.5-7.5) Ur Specific [place] (1.000-1.030) Urine Protein (Negative) Urine Glucose (UA) (Negative) Urine Ketones (Negative) Urine Blood (Negative) Urine Nitrite (Negative) Urine Bilirubin (Negative) Urine Urobilinogen (Negative) Ur Leukocyte Esterase (Negative) Urine WBC (Auto) (0-5) /hpf Urine RBC (Auto) (0-4) /hpf U Hyaline Cast (Auto) U Epithel Cells (Auto) (0-5) /lpf Urine Bacteria (Auto) (Negative) Urine Crystals SARS-CoV-2, RNA, NAAT (NEGATIVE) 05/31/22 05/31/22 05/31/22 Range/Units 14:44 17:38 19:59 WBC (4.8-10.8) K/ul RBC (3.93-5.22) M/uL Hgb (12.0-16.0) g/dl Hct (34.1-44.9) % MCV (80.0-100.0) fL MCH (25.0-34.0) pg MCHC (32.0-36.0) g/dL RDW Std Deviation (36.4-46.3) fL RDW Coeff of Janel (11.5-14.5) % Plt Count (130-400) K/uL MPV (9.4-12.3) fL Immature Gran % (Auto) % Neut % (Auto) % Lymph % (Auto) % Miner % (Auto) % Eos % (Auto) % Baso % (Auto) % Neut # (Auto) (1.4-6.5) K/uL Lymph # (Auto) (1.2-3.4) K/uL Miner # (Auto) (0.24-0.82) K/uL Eos # (Auto) (0-0.50) K/uL Baso # (Auto) (0-0.2) K/uL Immature Gran # (Auto) (0.00-0.02) K/uL Sodium (136-145) mmol/L Potassium (3.5-5.1) mmol/L Chloride (98-107) mmol/L Carbon Dioxide (21-32) mmol/L Anion Gap (3-11) BUN (6-23) mg/dl Creatinine (0.6-1.2) mg/dl Est Cr Clr Drug Dosing Est GFR ( Amer) ml/min Est GFR (Non-Af Amer) ml/min BUN/Creatinine Ratio (10-20) Glucose (70-99(Fasting)) mg/dl Calcium (8.5-10.1) mg/dl Phosphorus (2.5-4.9) mg/dl Magnesium (1.7-2.4) mg/dl Total Bilirubin (0.2-1.0) mg/dl AST (13-39) U/L ALT (7-52) U/L Alkaline Phosphatase (34-104) U/L Troponin I High Sens (0-14) pg/ml Total Protein (6.0-8.3) gm/dl Albumin (3.4-5.0) gm/dl Globulin (2.5-4.0) gm/dl Albumin/Globulin Ratio (0.9-2) TSH 14.206 H (0.300-4.500) uIu/ml Free T4 0.68 (0.61-1.60) ng/dl Urine Color Yellow Urine Appearance Cloudy A (Clear) Urine pH 7.5 (4.5-7.5) Ur Specific [place] > 1.045 H (1.000-1.030) Urine Protein Trace H (Negative) Urine Glucose (UA) Negative (Negative) Urine Ketones Negative (Negative) Urine Blood Negative (Negative) Urine Nitrite Negative (Negative) Urine Bilirubin Negative (Negative) Urine Urobilinogen Negative (Negative) Ur Leukocyte Esterase 2+ H (Negative) Urine WBC (Auto) >30 H (0-5) /hpf Urine RBC (Auto) 5-10 H (0-4) /hpf U Hyaline Cast (Auto) Not Reportable U Epithel Cells (Auto) >30 H (0-5) /lpf Urine Bacteria (Auto) 4+ H (Negative) Urine Crystals Not Reportable SARS-CoV-2, RNA, NAAT NEGATIVE (NEGATIVE) Administered Medications Discontinued Medications Sodium Chloride (Nss) 500 mls @ 999 mls/hr IV .Q31M ONE Stop: 05/31/22 17:20 Last Infusion: 05/31/22 18:12 Dose: 0 mls/hr Documented By: Admin: 05/31/22 17:40 Dose: 999 mls/hr Documented By: RICCARDO Ceftriaxone Sodium (Rocephin) 2,000 mg in 70 mls @ 140 mls/hr IV NOW STA Stop: 05/31/22 20:31 Last Infusion: 05/31/22 21:28 Dose: 0 mls/hr Documented By: Admin: 05/31/22 20:46 Dose: 140 mls/hr Documented By: LAURA Ioversol (Optiray 350 100ml) 85 ml IV ONCE ONE Stop: 05/31/22 17:49 Last Admin: 05/31/22 17:50 Dose: 85 ml Documented By: CATHLEEN Imaging Data Radiologist's Impression: Chest X-Ray 05/31/22 13:55 XR chest 2V PA/lateral HISTORY: 87 years-old Female hypotension acute hypotension COMPARISON: Chest CT 03/17/2022 TECHNIQUE: PA and lateral views of the chest FINDINGS: Cardiomediastinal and hilar silhouettes are unchanged. Large area of linear consolidation within the right upper lobe redemonstrated measuring approximately 9 cm in transverse dimension, previously measuring up to 12 cm in AP dimension. No pneumothorax, pleural effusion, new airspace consolidation or overt pulmonary edema. Degenerative changes of the shoulders and spine. Dextroscoliosis of the lumbar spine with aortobiiliac stent graft. Surgical clips of the left axilla. IMPRESSION: 1. No acute processes of the chest. 2. Right perihilar/right upper lobe large area of linear consolidation appears stable from the 03/17/[address] ACT 112: Negative or not required by law. The above report was generated using voice recognition software. It may contain grammatical, syntax or spelling errors. Electronically signed by: Eliseo Coronado M.D. 05/31/2022 2:23 PM Abdomen/Pelvis CT 05/31/22 17:[address] WITH CONTRAST; CT ABDOMEN AND PELVIS WITH IV CONTRAST ONLY CT DOSE: 1557.64 mGy.cm HISTORY: Acute chest and abdominal pain with urinary tract infection. weakness, uti, fall TECHNIQUE: Multiaxial CT images of the chest were performed following the IV administration of 85 cc of Optiray. A dose lowering technique was utilized adhering to the principles of ALARA. COMPARISON: Chest radiograph of same day, CTA abdomen and pelvis 04/24/2022, chest CT 03/17/2022, 09/15/2021. FINDINGS: CT CHEST: No thyroid nodule or new lymphadenopathy. Prior left axillary brittani dissection. Mild cardiomegaly with extensive coronary artery calcifications. Atherosclerosis of the thoracic aorta with mild approximately 50% stenosis involving the proximal left subclavian artery. Additional 50% luminal narrowing of the distal left subclavian artery on image 30 series 8. No central pulmonary emboli are identified. There is a subsegmental pulmonary embolus within the right lower lobe, image 182 series 8. No pneumothorax, pleural effusion or overt pulmonary edema. There is a large linear area of consolidation measuring 1.5 cm within the right midlung obscuring the spiculated nodule seen on the 09/15/2021 exam suggestive of post treatment- related change. Numerous subsolid nodules of the right lung are redemonstrated which include a stable 1.5 cm groundglass nodule of the right lung apex, image 52. 1.2 cm groundglass nodule of the right lung apex on image 58 previously measured 10 mm. There is an adjacent 3 mm solid nodule. 1.9 cm groundglass nodule of the super segment right lower lobe on image 100 previously measured 1.6 cm. 10 mm nodule with 4 mm solid component within the right lung on image 95 previously measured 9 mm. There is overall improved aeration of the right lung compared to the prior study. 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 Additional smaller groundglass nodular densities of the lungs appear stable. Central airways are patent. Unremarkable soft tissues. Degenerative changes of the shoulders and spine. No acute displaced rib fracture identified. CT ABDOMEN/PELVIS: No pneumatosis or pneumoperitoneum. The spleen, pancreas and adrenal glands are unremarkable. Gallbladder is within normal limits. Mild hepatic steatosis. Unchanged hepatic cysts. Ill-defined decreased attenuation of the inferior right hepatic lobe similar to prior. Patency of the hepatic and portal veins. Left-sided renal cysts are redemonstrated. Mild nonspecific bilateral perinephri c stranding. There is mild right greater than left urothelial thickening of the collecting systems. Moderate wall thickening of the urinary bladder with mucosal hyperemia and perivesicular stranding. Partial distention of the bladder. No adnexal mass lesions. Extensive atherosclerotic plaque of the abdominal aorta with patent aortobiiliac stent graft. Chronic large type II endoleak. Fusiform dilation of the igiugig infrarenal abdominal aorta redemonstrated measuring 6.6 x 6.8 cm, stable from prior. No aneurysm rupture. No lymphadenopathy. Tiny hiatal hernia. No bowel obstruction or bowel wall thickening. Colonic diverticulosis without acute diverticulitis. Normal appendix. Unremarkable soft tissues. Degenerative changes of the spine, pelvis and hips. Surgical clips within the right retroperitoneum again noted. No acute fracture identified. IMPRESSION: 1. Subsegmental pulmonary embolus of the right lower lobe. 2. Large area of linear consolidation within the right midlung redemonstrated, likely posttreatment related. 3. Subsolid right lung predominant nodules are again noted as detailed above, likely along the adenocarcinoma spectrum. Some of the nodules have slightly increased in size from 03/17/2022. 4. Findings suggestive of cystitis. Enhancement of the collecting systems suggests associated ascending infection. Correlate with urinalysis. 5. Patent aortobiiliac stent graft with stable size of the large infrarenal abdominal aortic aneurysm with associated endoleak. 6. Additional findings as above. ACT 112: Negative or not required by law. Electronically signed by: Eliseo Coronado M.D. 05/31/2022 6:[address] 05/31/22 17:[address] WITH CONTRAST; CT ABDOMEN AND PELVIS WITH IV CONTRAST ONLY CT DOSE: 1557.64 mGy.cm HISTORY: Acute chest and abdominal pain with urinary tract infection. weakness, uti, fall TECHNIQUE: Multiaxial CT images of the chest were performed following the IV administration of 85 cc of Optiray. A dose lowering technique was utilized adhering to the principles of ALARA. COMPARISON: Chest radiograph of same day, CTA abdomen and pelvis 04/24/2022, chest CT 03/17/2022, 09/15/2021. FINDINGS: CT CHEST: No thyroid nodule or new lymphadenopathy. Prior left axillary brittani dissection. Mild cardiomegaly with extensive coronary artery calcifications. Atherosclerosis of the thoracic aorta with mild approximately 50% stenosis involving the proximal left subclavian artery. Additional 50% luminal narrowing of the distal left subclavian artery on image 30 series 8. No central pulmonary emboli are identified. There is a subsegmental pulmonary embolus within the right lower lobe, image 182 series 8. No pneumothorax, pleural effusion or overt pulmonary edema. There is a large linear area of consolidation measuring 1.5 cm within the right midlung obscuring the spiculated nodule seen on the 09/15/2021 exam suggestive of post treatment- related change. Numerous subsolid nodules of the right lung are redemonstrated which include a stable 1.5 cm groundglass nodule of the right lung apex, image 52. 1.2 cm groundglass nodule of the right lung apex on image 58 previously measured 10 mm. There is an adjacent 3 mm solid nodule. 1.9 cm groundglass nodule of the super segment right lower lobe on image 100 previously measured 1.6 cm. 10 mm nodule with 4 mm solid component within the right lung on image 95 previously measured 9 mm. There is overall improved aeration of the right lung compared to the prior study. 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 Additional smaller groundglass nodular densities of the lungs appear stable. Central airways are patent. Unremarkable soft tissues. Degenerative changes of the shoulders and spine. No acute displaced rib fracture identified. CT ABDOMEN/PELVIS: No pneumatosis or pneumoperitoneum. The spleen, pancreas and adrenal glands are unremarkable. Gallbladder is within normal limits. Mild hepatic steatosis. Unchanged hepatic cysts. Ill-defined decreased attenuation of the inferior right hepatic lobe similar to prior. Patency of the hepatic and portal veins. Left-sided renal cysts are redemonstrated. Mild nonspecific bilateral perinephric stranding. There is mild right greater than left urothelial thickening of the collecting systems. Moderate wall thickening of the urinary bladder with mucosal hyperemia and perivesicular stranding. Partial distention of the bladder. No adnexal mass lesions. Extensive atherosclerotic plaque of the abdominal aorta with patent aortobiiliac stent graft. Chronic large type II endoleak. Fusiform dilation of the igiugig infrarenal abdominal aorta redemonstrated measuring 6.6 x 6.8 cm, stable from prior. No aneurysm rupture. No lymphadenopathy. Tiny hiatal hernia. No bowel obstruction or bowel wall thickening. Colonic diverticulosis without acute diverticulitis. Normal appendix. Unremarkable soft tissues. Degenerative changes of the spine, pelvis and hips. Surgical clips within the right retroperitoneum again noted. No acute fracture identified. IMPRESSION: 1. Subsegmental pulmonary embolus of the right lower lobe. 2. Large area of linear consolidation within the right midlung redemonstrated, likely posttreatment related. 3. Subsolid right lung predominant nodules are again noted as detailed above, likely along the adenocarcinoma spectrum. Some of the nodules have slightly increased in size from 03/17/2022. 4. Findings suggestive of cystitis. Enhancement of the collecting systems suggests associated ascending infection. Correlate with urinalysis. 5. Patent aortobiiliac stent graft with stable size of the large infrarenal abdominal aortic aneurysm with associated endoleak. 6. Additional findings as above. ACT 112: Negative or not required by law. Electronically signed by: Eliseo Coronado M.D. 05/31/2022 6:[address] 05/31/22 17:34 CT head/brain wo con CLINICAL HISTORY: 87 years-old Female with weakness, uti, fall, confusion. Acute head trauma status post fall. Acutely altered mental status TECHNIQUE: Multiple axial CT images of the head were obtained without contrast. A dose lowering technique was utilized adhering to the principles of ALARA. COMPARISON: PET CT March 19, 2020, brain MRI 06/17/2020 FINDINGS: No acute intracranial hemorrhage, midline shift, intracranial mass, hydrocephalus, territorial ischemia or abnormal extra-axial collection. Involutional changes with extensive chronic microvascular ischemic disease redemonstrated. Cerebral vascular calcifications. The calvarium is intact. Mastoid air cells and middle ear cavities are clear. Complete opacification of the right frontal sinus redemonstrated along with mucosal thickening of the anterior right ethmoid air cells. Prior bilateral lens repair. Unremarkable soft tissues. IMPRESSION: No acute intracranial abnormality or calvarial fracture. ACT 112: Negative or not required by law. The above report was generated using voice recognition software. It may contain grammatical, syntax or spelling errors. Electronically signed by: Eliseo Coronado M.D. 05/31/2022 5:59 PM Discharge Plan Visit Data Chief Complaint: Hypotension Stated Complaint: HYPOTENSION, FALL ED Provider: Srinivasan Puckett Discharge Problem: Urinary tract infection, Elevated troponin, Confusion Patient Disposition: Admitted As Inpatient Forms Stand Alone Forms: [facility] Prescriptions Prescriptions: No Action ferrous sulfate 325 mg (65 mg iron) tablet 325 mg PO DAILY Qty: 30 3RF atorvastatin 10 mg tablet 10 mg PO QAM Qty: 90 1RF sertraline [Zoloft] 50 mg tablet 50 mg PO DAILY Qty: 90 1RF levothyroxine 112 mcg tablet 112 mcg PO DAILY Qty: 30 2RF Label Comments: qam multivitamin [Multiple Vitamins] tablet 1 tab PO QAM cholecalciferol (vitamin D3) 1,000 unit capsule 2,000 units PO QAM ascorbic acid (vitamin C) 1,000 mg tablet 1 gm PO QAM acetaminophen 500 mg tablet 1,000 mg PO TID PRN (Reason: fever or pain) Qty: 90 (DME) Bedside Commode Misc See Rx Instructions .Route Qty: 1 0RF Rx Instructions: As directed albuterol sulfate 90 mcg/actuation HFA aerosol inhaler 2 puff inhalation Q6H PRN (Reason: Shortness Of Breath Or Wheezing) Qty: 18 3RF calcium carbonate [Calcium 600] 600 mg calcium (1,500 mg) Tablet 600 mg PO QAM mupirocin 2 % ointment 1 applic topical TID PRN (Reason: Skin Irritation) Referrals Referrals: Мария Gomes DO [Primary Care Provider] -
[2022-05-31 20:23] LABS: Appearance Urine Cloudy (Clear); Bacteria Urine Automated 4+ (Negative); Bilirubin Urine Negative (Negative); Blood Urine Negative (Negative); Color Urine Yellow; Epithelial Cell Urine Auto >30 /lpf (0-5); Glucose Urine UA Negative (Negative); Ketones Urine Negative (Negative); Leukocyte Esterase Urine 2+ (Negative); Nitrite Urine Negative (Negative); Specific Gravity Urine > 1.045 (1.000-1.030); Urobilinogen Urine Negative (Negative); WBC Urine Automated >30 /hpf (0-5); pH Urine 7.5 (4.5-7.5)
[2022-05-31 21:07] LABS: Protein Urine Trace (Negative)
--- NOTE | 2022-05-31 21:10 | History & Physical Report ---
Date of Service May 31, 2022 Assessment & Plan (1) UTI (urinary tract infection): Plan: -[place]ton-sensitive E.Coli on 03/20/22 -Patient has been having dysuria and UA suggestive of UTI. Urine and blood cultures ordered. -Questionable state of confusion. -Patient lives alone and struggles with her medical history at baseline. Patient has also had a recent fall and was unable to move for a long period of time. -Patient also has a colovesical fistula. -PT/OT ordered. Patient may benefit with some time of home healthcare. Can be discussed on this admission or at f/u with her PCP. -Continue on Ceftriaxone (2) History of pulmonary embolism: Plan: -No longer on AC. PE seen on CT most likely residual from previous PE. -VS stable. Continue to monitor s/s of PE. -Start Lovenox 40mg Q24H. (3) Right hip pain: Plan: -Patient fell on Sunday and declined treatment -Tenderness to palpation on PE -Will order R Hip xray. -Tylenol prn for pain. (4) Hypothyroidism, postablative: Plan: -TSH 14.2 -Continue home dose of levothyroxine and f/u with PCP. (5) Hypertension: Plan: -Continue at home meds. 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 Stable at this time. (7) Colovesical fistula: Plan: -Has f/u appointment to discuss surgery later this month. -Encouraged to keep f/u appointment or patient may continue to get UTI's in the future. (8) Anxiety and depression: Plan: -Continue at home sertraline. (9) Exertional shortness of breath: Plan: -at baseline. Continue albuterol prn (10) HLD (hyperlipidemia): Plan: -Continue at home atorvastatin (11) Elevated troponin: Plan: -Elevated troponin at 15.4 in the ED. -Patient is having not having CP or SOB. -EKG showed RBBB, PVC and T wave inversion no evident in anterior leads. -Will hold off on trending troponin at this time. Plan Fluids: NSS Nutrition: hearth healthy Code status: full code DVT ppx: Lovenox Consults: none PT/OT: on Case management: none Dispo: med/surg Thank you for allowing me to participate in the care of your patient. -Dr. Daren Harrison PGY1 History of Present Illness Chief Complaint: UTI Primary Care Provider: Мария Gomes DO Patient is a 87 y/o female with PMHx of HTN,HLD, hypothymism, small vessel cerebrovascular disease, PE (no longer on AC), AAA repair with chronic endoleak who presents to hospital at the request of her PCP for hypotension, confusion, and possible UTI. Patient was unable to provide any urine at her PCP office. Patient also had a fall on Sunday where she was stuck for 8-10 hours. She was evaluated by EMS at that time and denied any treatment at that time. She lives alone and uses a walker normally to ambulate. In the ED: patient was hypotensive 92/55 which improved with IV fluids. CT head negative CT chest and CT ab/pelvis showed cystitis, pulmonary embolus of the right lower lobe, R lung nodules slightly increased since 03/17/2022, and patent aortobiiliac stent graft with stable size of the large infrarenal abdominal aortic aneurysm with associated endoleak. UA suggestive of UTI, cultures pending. CBC and CMP unremarkable, TSH 14.2, trop 15.4 Patient was seen beside at time of admission with her daughter, who states that the patient is more or less at her baseline at this time. The daughter states that the patient asked for her "radio" that she uses at home and asked for a ride to her appointment today (drives on her own) but is mostly her baseline. Daughter states that she usually accompanies the patient to her outpatient appointments but she was unable to today. States that normally at the appointments the patient does not pay attention and relies on her daughter to take care of her medical needs and treatment. Patient is AnOx3 and states that she has been having some dysuria over the past couple of days. States that her R Allergies Allergy/AdvReac Type Severity Reaction Status Date / Time lisinopril AdvReac Intermediate Cough Verified 05/31/22 17:49 mesalamine [From Asacol] AdvReac Unknown CAN'T Verified 05/31/22 17:49 REMEMBER sulfasalazine AdvReac Unknown CAN'T Verified 05/31/22 17:49 REMEMBER Home Medications Medication Instructions Recorded Confirmed Type multivitamin (Multiple Vitamins 1 tab PO QAM 03/24/19 05/31/22 History tablet) acetaminophen 500 mg tablet 1,000 mg PO TID PRN fever or pain 06/15/19 05/31/22 History #90 tabs ascorbic acid (vitamin C) 1,000 mg 1 gm PO QAM 06/15/19 05/31/22 History tablet cholecalciferol (vitamin D3) 25 2,000 units PO QAM 06/15/19 05/31/22 History mcg (1,000 unit) capsule calcium carbonate 600 mg calcium 600 mg PO QAM 06/11/20 05/31/22 History (1,500 mg) tablet (Calcium) Bedside Commode #1 ea 04/26/21 05/31/22 Rx albuterol sulfate 90 mcg/actuation 2 puff inhalation Q6H PRN 03/16/22 05/31/22 Rx aerosol inhaler Shortness Of Breath Or Wheezing #18 grams ferrous sulfate 325 mg (65 mg 325 mg PO DAILY #30 tabs 03/24/22 05/31/22 Rx iron) tablet atorvastatin 10 mg tablet 10 mg PO QAM #90 tabs 05/23/22 05/31/22 Rx sertraline 50 mg tablet (Zoloft) 50 mg PO DAILY #90 tabs 05/23/22 05/31/22 Rx levothyroxine 112 mcg tablet 112 mcg PO DAILY #30 tabs 05/29/22 05/31/22 Rx mupirocin 2 % topical ointment 1 applic topical TID PRN Skin 05/31/22 05/31/22 History Irritation Past Med/Surg History Medical History Anxiety and depression Colovesical fistula Dyslipidemia History of abdominal aortic aneurysm (AAA) (~2013) s/p repair History of breast cancer Age 61 s/p Left Mastectomy, Radiation & Chemo Age 78 s/p Right Mastectomy - s/p chemo/XRT No known arm restriction History of Graves' disease Hypothyroidism, postablative Lymphedema left arm Osteoarthritis Osteopenia Parkinsons disease pt denies having parkinsons Poor historian Small vessel disease, cerebrovascular Surgical History H/O colonoscopy (03/31/22) History of breast biopsy History of bronchoscopy Navigational bronch, EBUS (06/15/20) History of cataract extraction R/L History of colonoscopy History of cystoscopy History of mastectomy x2 (Age 61 and Age 78) History of tooth extraction History of wisdom tooth extraction S/P percutaneous abdominal aortic aneurysm repair (03/2021) 04/18/21- Dr. Felipe Alva at [facility] S/P skin biopsy (04/21/22) Left hand lesion shave biopsy Juliann Rubin/Dr. Crowley Family History Father , Passed unknown age of [place] Myocardial infarction acute Heart disease Hypertension Mother , Passed in 80's of heart failure Aorta aneurysm Breast cancer Cancer Diabetes Hypertension Brother , Passed in 70's of Lung Cancer (Smoker) No problems noted. Brother , Passed in 60's of Lung Cancer (Smoker) No problems noted. Brother , Passed in late 70's of Lung Cancer (Smoker) No problems noted. Sister , Passed in 80's of natural causes/unknown No problems noted. Daughter Breast cancer Son No problems noted. Other No family history of adverse response to anesthesia Social History Smoking Status: Former smoker Tobacco Type: Cigarettes Age Started Using Tobacco: 13; Age Quit Using Tobacco: 38; packs per day: 0.5; Years Smoked: 40; Cigarettes Per Day: 1 pack cigs every 4-5days; Second Hand Exposure: Yes (IN THE PAST); Hx Alcohol Use: No Hx Substance Use: No Preferred Language: Irish Communication Ability: Effective Visual Impairment: No Limitations Hearing Ability: Normal Drug Abuse Resistance Education Officer Required: No Beliefs That Will Affect Care: Hinduism Hinduism Beliefs: restoration marital status: / Current Living Situation: Alone Current Living Situation Comment: Daughter checks in via phone daily, lives 10 min away current occupational status: retired current occupation: Retired from [employer] How many Children do You have: 2 How many Children do You have Comment: 1 Other Information That Helps Us Care for You: No Feels Safe at Home: Yes Childhood Exposure to Second-Hand Smoke: Yes Diet Comment: regular caffeine: Yes ("once in a while") during the past year weight has: decreased > 10 lbs Dental Care, Regularly: No Physical Activity Frequency: Daily Physical Activity Frequency Comment: chores Seatbelt Use: always Sunscreen Use: No Assistive Devices: Cane Review of Systems Review of Systems: Constitutional: denies fever, chills, fatigue HEENT: denies congestion, sore throat CV: denies chest pain, palpitations Resp: denies shortness of breath, cough GI: denies abdominal pain, nausea, vomiting, constipation, diarrhea : denies change in urinary frequency +dysuria Neuro: denies new numbness, tingling, weakness Physical Exam Constitutional: WD/WN, vitals as above Eyes: PERRL, conjunctivae normal, anicteric sclerae Respiratory: normal respiratory effort, lungs clear to auscultation Cardiovascular: RRR, no murmur, no edema Gastrointestinal (Abdomen): normal bowel sounds, soft, nontender, no hepatosplenomegaly Musculoskeletal: R greater trochanter tenderness to palpation with overlying Ecchymosis Skin: no rashes, warm and dry Psychiatric: A+Ox3, euthymic affect Results & Data Results & Data ([facility]) Vital Signs (Past 12 Hours) Vital Signs Temp Pulse Pulse Resp BP BP Pulse Ox 05/31/22 20:57 56 L 18 171/99 H 95 05/31/22 20:29 76 18 130/76 98 05/31/22 19:15 97 05/31/22 18:25 65 16 176/64 H 97 05/31/22 16:44 64 16 153/80 H 99 05/31/22 13:52 36.6 C 77 18 131/80 92 O2 Del Method 05/31/22 20:57 Room Air 05/31/22 20:29 Room Air 05/31/22 19:15 Room Air 05/31/22 18:25 Room Air 05/31/22 16:44 05/31/22 13:52 Room Air Supervising Physician Co-Signing Physician Notes Patient seen and examined, chart reviewed, case discussed with Dr. Harrison and I agree with the assessment and plan as above Resident Activity Tracking Resident Involvement: Resident Care Provided Care Provided: Adult Hospital Medicine
[2022-06-01] MEDS ORDERED: ONDANSETRON INJ 2 MG/ML 2 ML VIAL IV PRN (01:46)
[2022-06-01] MEDS ORDERED: ALBUTEROL HFA 8 GM INHALER INH PRN (01:46)
[2022-06-01] MEDS: SODIUM CHLORIDE 0.9% 1000ML 1,000 ML IV SCH ×2 (06:00→18:17)
[2022-06-01] MEDS: LEVOTHYROXINE SODIUM 112 MCG TABLET PO SCH (06:00)
--- NOTE | 2022-06-01 07:50 | XRay Report ---
XR hip RT 2V w pelvis CLINICAL HISTORY: Right hip injury. COMPARISON: CTA of the abdomen and pelvis April 24, [address] of the abdomen and pelvis perform ed earlier today FINDINGS: Incidental note is made of a aortoiliac stent graft with endovascular coils as well as con trast within the bladder from recent contrast-enhanced CT. Sacroiliac joints and symphysis pubis are intact. There is no acute fracture within the pelvis or hips. There is mild bilateral hip osteoarthri tis. IMPRESSION: No acute fracture within the pelvis or hips. ACT 112: Negative or not required by law. Electronically signed by: Josh Figueroa M.D. 06/01/2022 7:49 AM
[2022-06-01] MEDS: MULTIVITAMIN TAB PO SCH (08:25)
[2022-06-01] MEDS: ATORVASTATIN 10 MG TAB PO SCH (08:25)
[2022-06-01] MEDS: ASCORBIC ACID 500 MG TAB PO SCH (08:26)
[2022-06-01] MEDS: SERTRALINE HCL 50 MG TABLET PO SCH (08:26)
[2022-06-01] MEDS: CHOLECALCIFEROL 1,000 UNITS 25 MCG TAB PO SCH (08:27)
[2022-06-01] MEDS: FERROUS SULFATE 325 MG TAB PO SCH (08:28)
[2022-06-01] MEDS: CALCIUM CARBONATE 500 MG CHEWABLE TAB PO SCH (08:29)
[2022-06-01] MEDS: ENOXAPARIN INJ 40 MG/0.4 ML SYR SQ SCH (08:29)
[2022-06-01] MEDS: MUPIROCIN 2% OINT 22 GM TUBE TOP PRN (08:31)
--- NOTE | 2022-06-01 16:30 | Hospitalist Progress Note ---
Date of Service June 01, 2022 Assessment & Plan (1) UTI (urinary tract infection): Plan: -Presents to the hospital with dysuria, malaise -Urinalysis suggests UTI -Urine cultures showing gram negative bacilli -Continue empiric ceftriaxone until full characterization (2) History of pulmonary embolism: Plan: -No longer on AC. chronic PE seen on CT most likely residual from previous PE. -VS stable. Continue to monitor s/s of PE. -Start Lovenox 40mg Q24H. (3) Parkinsons disease: Plan: patient denies a diagnosis of parkinsosns disease however, has fallen a few times in the past also has tremors at rest, pill rolling will consult neurology (4) Colovesical fistula: Plan: -probably responsible for her frequent UTI's -Has f/u appointment to discuss surgery later this month. -Encouraged to keep f/u appointment or patient may continue to get UTI's in the future. (5) Right hip pain: Plan: -Patient fell on Sunday and declined treatment -Will order R Hip xray. -Tylenol prn for pain. (6) Hypothyroidism, postablative: Plan: -TSH 14.2 -Continue home dose of levothyroxine and f/u with PCP. (7) Hypertension: Plan: -Continue at home meds. 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 Stable at this time. (9) Anxiety and depression: Plan: -Continue at home sertraline. (10) Exertional shortness of breath: Plan: -at baseline. Continue albuterol prn (11) HLD (hyperlipidemia): Plan: -Continue at home atorvastatin (12) Elevated troponin: Plan: -Elevated troponin at 15.4 in the ED. -Patient is having not having CP or SOB. -EKG showed RBBB, PVC and T wave inversion no evident in anterior leads. -Will hold off on trending troponin at this time. Plan patient lives alone and has fallen a few times, will benefit from rehab or SNF Admission and Anticipated Discharge Date Admission Date: May 31, 2022 Subjective patient seen and examined, feels weak Review of Systems Review of Systems: All systems reviewed are negative, apart from the ones con tained in the history. Physical Exam Physical Exam: The patient is awake, alert and oriented 3, well developed and well nourished, normocephalic and atraumatic, lying in bed and in no acute distress. HEENT--PERRL, EOMI, mucous membranes and oropharynx mildly dry Neck--supple. No JVD. No bruits. Thyroid normal, trachea midline, no adenopathy. Heart--normal S1 and S2. No murmurs, rubs or gallops. Lungs--clear bilaterally, no respiratory distress, no accessory muscle use. Abdomen--normal bowel sounds and soft. Mild epigastric and left sided abdominal pain Extremities--no cyanosis or clubbing. No edema. Dermatologic--normal skin turgor, normal color, no abnormal lymph nodes, no rash. Neurologic--tremors at rest, pill rolling Rheumatologic--normal range of motion. Psychiatric--normal affect. Results & Data Results & Data ([facility]) Vital Signs (Past 12 Hours) Vital Signs Temp Pulse Resp BP Pulse Ox Pulse Ox Pulse Ox 06/01/22 14:42 99.1 F 80 16 177/83 H 93 06/01/22 14:10 95 95 06/01/22 12:08 84 16 153/94 H 97 06/01/22 08:36 82 18 186/93 H 94 06/01/22 06:00 63 18 162/68 H 94 Pulse Ox O2 Del Method O2 Flow Rate O2 Flow Rate O2 Flow Rate 06/01/22 14:42 Room Air 06/01/22 14:10 92 0 0 0 06/01/22 12:08 Room Air 06/01/22 08:36 Room Air 06/01/22 06:00 Room Air PG Care Time/CCT Total # of Minutes Spent Total Time Spent with Patient: Total time spent is greater than 50% in coordination of care (as documented) at patient's floor/unit and/or counseling patient: Coding Level of Care Code 30244 Subseq Hosp Care Lvl 2 Diagnoses UTI (urinary tract infection) N39.0 History of pulmonary embolism Z86.711 Parkinsons disease G20 Colovesical fistula N32.1 Right hip pain M25.551 Hypothyroidism, postablative E89.0 Hypertension I10 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
[2022-06-01] MEDS: ACETAMINOPHEN 325 MG TAB PO PRN (19:34)
[2022-06-01] MEDS: cefTRIAXone SODIUM 2,000 MG in DEXTROSE 5% 50 ML IV SCH (23:40)
[2022-06-02] MEDS: LEVOTHYROXINE SODIUM 112 MCG TABLET PO SCH (06:02)
[2022-06-02] MEDS: ATORVASTATIN 10 MG TAB PO SCH (08:22)
[2022-06-02] MEDS: FERROUS SULFATE 325 MG TAB PO SCH (08:22)
[2022-06-02] MEDS: SODIUM CHLORIDE 0.9% 1000ML 1,000 ML IV SCH (08:22)
[2022-06-02] MEDS: ASCORBIC ACID 500 MG TAB PO SCH (08:23)
[2022-06-02] MEDS: SERTRALINE HCL 50 MG TABLET PO SCH (08:23)
[2022-06-02] MEDS: CALCIUM CARBONATE 500 MG CHEWABLE TAB PO SCH (08:23)
[2022-06-02] MEDS: CHOLECALCIFEROL 1,000 UNITS 25 MCG TAB PO SCH (08:23)
[2022-06-02] MEDS: MULTIVITAMIN TAB PO SCH (08:23)
[2022-06-02] MEDS: ENOXAPARIN INJ 40 MG/0.4 ML SYR SQ SCH (08:23)
--- NOTE | 2022-06-02 08:49 | Neurology Consultation ---
Date of Consultation June 02, 2022 Assessment & Plan (1) Parkinsonism: (2) Mixed action and resting tremor: Plan 87-year-old female with mixed action and resting tremor, parkinsonism versus mild to moderate idiopathic Parkinson's disease. In addition to admixed tremor, she is mildly bradykinetic. She is not rigid, however. She does have some gait and postural instability, flexed posture, short steps. Does endorse some mild orthostatic dizziness. Otherwise, does not endorse anosmia or RLS symptoms. 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 Does not endorse hallucinations. Was given a trial of carbidopa levodopa several years ago while under the care of Dr. Joanna Parham. This medication may have initially been helpful although was eventually discontinued due to lack of perceived continual benefit. At this point, I would recommend another trial of carbidopa levodopa. Would start with 25/100 mg, 1/2 tablet taken 3 times per day, increase to 1 tablet 3 times per day after 1 week. Monitor for side effects such as worsening orthostatic dizziness, nausea, agitation or hallucinations. May follow-up with me or an RANDELL in neurology clinic in 3 to 4 weeks. History of Present Illness Reason for Consultation: PD? Requesting Physician: Dr. Covington Attending Physician: Rosa Covington MD History of Present Illness The patient is an 87-year-old right-handed female who presented to the emergency department in the evening on May 31 for further assessment of confusion, suspected UTI, fall earlier this week, Sunday, found stuck between her wall and the bed. Patient is a poor historian, poor recollection of events pertaining to present illness. Neurology has been consulted regarding concern for possible Parkinson's disease, she does have a mixed resting and postural tremor and was seen by [facility] neurology in 2016, Dr. Joanna Parham, for this issue. Her tremor may have initially affected the right hand and was present at rest. Over time, her tremor has spread to the left upper limb as well. She does admit that the tremor interferes with eating, but otherwise did not seem very bothered by her tremor. She has developed progressive difficulty with gait and balance over the past few years, taking short cautious steps. She endorses mild dizziness with standing, but otherwise denies experiencing symptoms suggestive of restless leg syndrome or anosmia. He denies a family history of tremor or Parkinson's disease in any immediate family member, although again, she is not really a very reliable historian. She had been given a trial of Sinemet for her Parkinson's tremor in with Dr. Parham although this medication was not very effective at that time and was subsequently discontinued. She did have a brain MRI completed in May 2020 that revealed generalized atrophy and c hronic microvascular ischemic disease. I did independently review these images. Imaging not suggestive of normal pressure hydrocephalus. No focal cerebellar or midbrain atrophy. No blooming artifact on susceptibility weighted sequences suggestive of cerebral amyloid angiopathy. I independently reviewed these images as well as a CT of the head completed May 31, 2 days ago, which was negative for hemorrhage or acute process. The study did reveal chronic cerebrovascular disease, again, no hydrocephalus or changes suggestive of NPH. No subdural collections. She has several medical issues at this time including a urinary tract infection, history of pulmonary embolism, no longer on anticoagulation, colovesical fistula, hypertension, history of endovascular aneurysm repair, anxiety, depression, hyperlipidemia. Allergies Allergy/AdvReac Type Severity Reaction Status Date / Time lisinopril AdvReac Intermediate Cough Verified 05/31/22 17:49 mesalamine [From Asacol] AdvReac Unknown CAN'T Verified 05/31/22 17:49 REMEMBER sulfasalazine AdvReac Unknown CAN'T Verified 05/31/22 17:49 REMEMBER Home Medications Medication Instructions Recorded Confirmed Type multivitamin (Multiple Vitamins 1 tab PO QAM 03/24/19 05/31/22 History tablet) acetaminophen 500 mg tablet 1,000 mg PO TID PRN fever or pain 06/15/19 05/31/22 History #90 tabs ascorbic acid (vitamin C) 1,000 mg 1 gm PO QAM 06/15/19 05/31/22 History tablet cholecalciferol (vitamin D3) 25 2,000 units PO QAM 06/15/19 05/31/22 History mcg (1,000 unit) capsule calcium carbonate 600 mg calcium 600 mg PO QAM 06/11/20 05/31/22 History (1,500 mg) tablet (Calcium) Bedside Commode #1 ea 04/26/21 05/31/22 Rx albuterol sulfate 90 mcg/actuation 2 puff inhalation Q6H PRN 03/16/22 05/31/22 Rx aerosol inhaler Shortness Of Breath Or Wheezing #18 grams ferrous sulfate 325 mg (65 mg 325 mg PO DAILY #30 tabs 03/24/22 05/31/22 Rx iron) tablet atorvastatin 10 mg tablet 10 mg PO QAM #90 tabs 05/23/22 05/31/22 Rx sertraline 50 mg tablet (Zoloft) 50 mg PO DAILY #90 tabs 05/23/22 05/31/22 Rx levothyroxine 112 mcg tablet 112 mcg PO DAILY #30 tabs 05/29/22 05/31/22 Rx mupirocin 2 % topical ointment 1 applic topical TID PRN Skin 05/31/22 05/31/22 History Irritation Patient History Medical History Anxiety and depression Colovesical fistula Dyslipidemia History of abdominal aortic aneurysm (AAA) (~2013) s/p repair History of breast cancer Age 61 s/p Left Mastectomy, Radiation & Chemo Age 78 s/p Right Mastectomy - s/p chemo/XRT No known arm restriction History of Graves' disease Hypothyroidism, postablative Lymphedema left arm Osteoarthritis Osteopenia Parkinsons disease pt denies having parkinsons Poor historian Small vessel disease, cerebrovascular Surgical History H/O colonoscopy (03/31/22) History of breast biopsy History of bronchoscopy Navigational bronch, EBUS (06/15/20) History of cataract extraction R/L History of colonoscopy History of cystoscopy History of mastectomy x2 (Age 61 and Age 78) History of tooth extraction History of wisdom tooth extraction S/P percutaneous abdominal aortic aneurysm repair (03/2021) 04/18/21- Dr. Felipe Alva at [facility] S/P skin biopsy (04/21/22) Left hand lesion shave biopsy Juliann Rubin/Dr. Crowley Family History Father , Passed unknown age of [place] Myocardial infarction acute Heart disease Hypertension Mother , Passed in 80's of heart failure Aorta aneurysm Breast cancer Cancer Diabetes Hypertension Brother , Passed in 70's of Lung Cancer (Smoker) No problems noted. Brother , Passed in 60's of Lung Cancer (Smoker) No problems noted. Brother , Passed in late 70's of Lung Cancer (Smoker) No problems noted. Sister , Passed in 80's of natural causes/unknown No problems noted. Daughter Breast cancer Son No problems noted. 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 Beliefs That Will Affect Care: Alevism Alevism Beliefs: methodist marital status: / Current Living Situation: Alone Current Living Situation Comment: Daughter checks in via phone daily, lives 10 min away current occupational status: retired current occupation: Retired from [employer] How many Children do You have: 2 How many Children do You have Comment: 1 Other Information That Helps Us Care for You: No Feels Safe at Home: Yes Childhood Exposure to Second-Hand Smoke: Yes Diet Comment: regular caffeine: Yes ("once in a while") during the past year weight has: decreased > 10 lbs Dental Care, Regularly: No Physical Activity Frequency: Daily Physical Activity Frequency Comment: chores Seatbelt Use: always Sunscreen Use: No Assistive Devices: Cane Review of Systems Constitutional: no fever Eyes: no blind spots and no diplopia Ear, Nose, Mouth, Throat: no hearing loss Respiratory: no dyspnea Cardiovascular: no chest pain Gastrointestinal: no nausea and no vomiting Genitourinary: + dysuria Musculoskeletal: no back pain and no myalgia Integumentary: no rash and no lesions Neurologic: as per Subjective / HPI Psychiatric: no depression and no anxiety Hematologic / Lymphatic: no easy bleeding and no easy bruising Exam (Neuro) Constitutional: well developed and well nourished; no acute distress Eyes: normal visual best by confrontation, PERRL, normal accommodation and EOM intact bilaterally; no fundoscopic abnormality, no nystagmus and no p apilledema Cardiovascular: Vessels: normal carotid upstroke; no carotid bruit Neurologic: Oriented to:: Person, Place and Time Memory: Remote Intact; negative Short Term Intact Attention: Span Intact and Concentration Intact Language: Naming Objects and Repeating Phrases Speech Fluency: negative Dysarthria Speech Aphasia: negative Aphasia Fund of Knowledge: Past History and Vocabulary; negative Current Events Cranial Nerves: Normal II (Visual best full to confrontation, visual acuity normal), III, IV, (Pupils equal round reactive to light and accommodation, eye movements normal), V (Facial sensation intact), VII (There is no facial droop or weakness), VIII (Hearing intact), IX, X (Palate elevates to midline), XI (Shoulder shrug intact) and XII (Tongue protrudes to midline) Motor Strength: Normal Lower Extremities and Normal Upper Extremities; negative Pronator Drift Motor Tone: Normal Lower Extremities and Normal Upper Extremities Rigidity: None Muscle Bulk/Involuntary Movements: Rest Tremor (Arm) and Action Tremor; negative Muscle Atrophy Sensation: Light Touch Intact, Pain/Temperature Intact, Vibration Intact and Proprioception Intact Coordination: Limited Balance; negative Dysdiadochokinesia, Finger-Nose Abnormal or Heel-Boyer Abnormal Deep Tendon Reflexes: Rt Triceps: 2+, Lt Triceps: 2+, Rt Biceps: 2+, Lt Biceps: 2+, Rt Brachioradialis: 2+, Lt Brachioradialis: 2+, Rt Patellar: 2+, Lt Patellar: 2+, Rt Ankle: 1+ and Lt Ankle: 1+ Special Tests: negative Babinski Present Gait: Stooped and Shuffling Results & Data ([facility]) Vital Signs (Past 12 Hours) Vital Signs Temp Pulse Resp BP Pulse Ox O2 Del Method 06/02/22 08:05 36.5 C 69 18 187/74 H 91 Room Air 06/01/22 21:34 36.4 C L 86 18 174/82 H 91 Laboratory Results WBC 10.61, hemoglobin 11.7, hematocrit 37.1, platelet count 276, sodium 139, potassium 3.5, BUN 14, creatinine 0.80, glucose 81, magnesium 1.8, AST 40, ALT 32, TSH 14.206, free T4 0.68, urinalysis suggestive of infection, SARS-CoV-2 negative. Diagnostic Findings Recent CT of the head including previous brain MRI are as described in the history of present illness. I independently reviewed these images. Electrocardiogram revealed a sinus rhythm with occasional PVCs, right bundle branch block, 72 bpm. Coding Level of Care Code 76770 Initial Inpt Care Lvl 3 Diagnoses Parkinsonism G20 Mixed action and resting tremor R25.9
[2022-06-02 11:38] LABS: Hematocrit (blood only) 37.8 % (34.1-44.9); Hemoglobin 12.2 g/dl (12.0-16.0); Mean Corpuscular Hemoglobin 27.3 pg (25.0-34.0); Mean Corpuscular Hgb Conc 32.3 g/dL (32.0-36.0); Mean Corpuscular Volume 84.6 fL (80.0-100.0); Mean Platelet Volume 10.1 fL (9.4-12.3); Platelet Count 290 K/uL (130-400); RDW Coefficient of Variation 16.7 % (11.5-14.5); RDW Standard Deviation 51.4 fL (36.4-46.3); Red Blood Count 4.47 M/uL (3.93-5.22); White Blood Count 7.34 K/ul (4.8-10.8)
[2022-06-02 11:57] LABS: BUN Creatinine Ratio 12.3 (10-20); Calcium 9.6 mg/dl (8.5-10.1); Est GFR (African American) 95.3 ml/min; Est GFR (Non-African American) 82.2 ml/min; Potassium 3.7 mmol/L (3.5-5.1)
[2022-06-02] MEDS: amLODIPine BESYLATE 5 MG TAB PO SCH (12:14)
--- NOTE | 2022-06-02 14:22 | Hospitalist Progress Note ---
Date of Service June 02, 2022 Assessment & Plan (1) UTI (urinary tract infection): Plan: -Presents to the hospital with dysuria, malaise -Urinalysis suggests UTI -Urine cultures showing gram negative bacilli -Continue empiric ceftriaxone until full characterization (2) History of pulmonary embolism: Plan: -No longer on AC. chronic PE seen on CT most likely residual from previous PE. -VS stable. Continue to monitor s/s of PE. -Start Lovenox 40mg Q24H. (3) Parkinsons disease: Plan: patient denies a diagnosis of parkinsosns disease however, has fallen a few times in the past also has tremors at rest, pill rolling, bradykinesia neurology on board, recommend starting Sinemet will start carbidopa/levodopa 25/100mg, half a tablet TID and increase to 1 tablet TID as tolerated (4) Colovesical fistula: Plan: -probably responsible for her frequent UTI's -Has f/u appointment to discuss surgery later this month. -Encouraged to keep f/u appointment or patient may continue to get UTI's in the future. (5) Right hip pain: Plan: -Patient fell on Sunday and declined treatment -Tylenol prn for pain. (6) Hypothyroidism, postablative: Plan: -TSH 14.2 -Continue home dose of levothyroxine and f/u with PCP. (7) Hypertension: Plan: -Continue at home meds. 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 Stable at this time. (9) Anxiety and depression: Plan: -Continue at home sertraline. (10) Exertional shortness of breath: Plan: -at baseline. Continue albuterol prn (11) HLD (hyperlipidemia): Plan: -Continue at home atorvastatin (12) Elevated troponin: Plan: -Elevated troponin at 15.4 in the ED. -Patient is having not having CP or SOB. -EKG showed RBBB, PVC and T wave inversion no evident in anterior leads. -Will hold off on trending troponin at this time. Plan patient lives alone and has fallen a few times, will benefit from rehab or SNF Admission and Anticipated Discharge Date Admission Date: May 31, 2022 Subjective patient seen and examined, feels weak, but better overall Review of Systems Review of Systems: All systems reviewed are negative, apart from the ones contained in the history. Physical Exam Physical Exam: The patient is awake, alert and oriented 3, well developed and well nourished, normocephalic and atraumatic, lying in bed and in no acute distress. HEENT--PERRL, EOMI, mucous membranes and oropharynx mildly dry Neck--supple. No JVD. No bruits. Thyroid normal, trachea midline, no adenopathy. Heart--normal S1 and S2. No murmurs, rubs or gallops. Lungs--clear bilaterally, no respiratory distress, no accessory muscle use. Abdomen--normal bowel sounds and soft. Mild epigastric and left sided abdominal pain Extremities--no cyanosis or clubbing. No edema. Dermatologic--normal skin turgor, normal color, no abnormal lymph nodes, no rash. Neurologic--tremors at rest, pill rolling Rheumatologic--normal range of motion. Psychiatric--normal affect. Results & Data Results & Data ([facility]) Vital Signs (Past 12 Hours) Vital Signs Temp Pulse Resp BP Pulse Ox O2 Del Method 06/02/22 08:15 Room Air 06/02/22 08:05 97.7 F 69 18 187/74 H 91 Room Air PG Care Time/CCT Total # of Minutes Spent Total Time Spent with Patient: Total time spent is greater than 50% in coordination of care (as documented) at patient's floor/unit and/or counseling patient: Coding Level of Care Code 35869 Subseq Hosp Care Lvl 2 Diagnoses UTI (urinary tract infection) N39.0 History of pulmonary embolism Z86.711 Parkinsons disease G20 Colovesical fistula N32.1 Right hip pain M25.551 Hypothyroidism, postablative E89.0 Hypertension I10 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
[2022-06-02] MEDS: CARBIDOPA/LEVODOPA 25/100MG TAB PO SCH (21:14)
[2022-06-02] MEDS: cefTRIAXone SODIUM 2,000 MG in DEXTROSE 5% 50 ML IV SCH (22:09)
[2022-06-03] MEDS: LEVOTHYROXINE SODIUM 112 MCG TABLET PO SCH (06:12)
[2022-06-03 07:37] LABS: Hematocrit (blood only) 38.9 % (34.1-44.9); Hemoglobin 12.4 g/dl (12.0-16.0); Mean Corpuscular Hemoglobin 27.1 pg (25.0-34.0); Mean Corpuscular Hgb Conc 31.9 g/dL (32.0-36.0); Mean Corpuscular Volume 84.9 fL (80.0-100.0); Mean Platelet Volume 9.9 fL (9.4-12.3); Platelet Count 280 K/uL (130-400); RDW Coefficient of Variation 16.8 % (11.5-14.5); RDW Standard Deviation 51.5 fL (36.4-46.3); Red Blood Count 4.58 M/uL (3.93-5.22); White Blood Count 6.35 K/ul (4.8-10.8)
[2022-06-03 08:32] LABS: BUN Creatinine Ratio 13.3 (10-20); Calcium 9.4 mg/dl (8.5-10.1); Creatinine Clr Calc Pharmacy 86.2 ml/min; Est GFR (Non-African American) 88.8 ml/min; Potassium 3.7 mmol/L (3.5-5.1)
[2022-06-03] MEDS: ATORVASTATIN 10 MG TAB PO SCH (08:52)
[2022-06-03] MEDS: amLODIPine BESYLATE 5 MG TAB PO SCH (08:52)
[2022-06-03] MEDS: SERTRALINE HCL 50 MG TABLET PO SCH (08:52)
[2022-06-03] MEDS: ASCORBIC ACID 500 MG TAB PO SCH (08:52)
[2022-06-03] MEDS: MULTIVITAMIN TAB PO SCH (08:52)
[2022-06-03] MEDS: CHOLECALCIFEROL 1,000 UNITS 25 MCG TAB PO SCH (08:52)
[2022-06-03] MEDS: CARBIDOPA/LEVODOPA 25/100MG TAB PO SCH ×3 (08:52→21:14)
[2022-06-03] MEDS: FERROUS SULFATE 325 MG TAB PO SCH (08:52)
[2022-06-03] MEDS: ENOXAPARIN INJ 40 MG/0.4 ML SYR SQ SCH (08:53)
[2022-06-03] MEDS: CALCIUM CARBONATE 500 MG CHEWABLE TAB PO SCH (08:59)
[2022-06-03] MEDS ORDERED: bisacodyL 10 MG SUPP PR STA (10:53)
[2022-06-03] MEDS: POLYETHYLENE (MIRALAX) 17 GM PACK PO SCH (11:10)
--- NOTE | 2022-06-03 14:00 | Hospitalist Progress Note ---
Date of Service June 03, 2022 Assessment & Plan (1) UTI (urinary tract infection): Plan: -Mcgill-sensitive E.Coli on 03/20/22 -Patient has been having dysuria and UA suggestive of UTI. -Urine cultures growing E coli and Klebsiella, mcgill sensitive -Continue IV ceftriaxone -Patient also has a colovesical fistula. (2) Parkinsonism: Plan: tremor at rest, pill rolling Evaluated by Neurology started on Sinemet 25/100mg half a tablet TID (day 3) will increase to 1 tablet TID after 1 week (3) History of pulmonary embolism: Plan: -No longer on AC. PE seen on CT most likely residual from previous PE. -VS stable. Continue to monitor s/s of PE. -Start Lovenox 40mg Q24H. (4) Right hip pain: Plan: -Patient fell on Sunday and declined treatment -Tenderness to palpation on PE -Hip x ray did not show any dislocation of fracture -Tylenol prn for pain. (5) Hypothyroidism, postablative: Plan: -TSH 14.2 -Continue home dose of levothyroxine and f/u with PCP. (6) Hypertension: Plan: -Continue at home meds. 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 Stable at this time. (8) Colovesical fistula: Plan: -Has f/u appointment to discuss surgery later this month. -Encouraged to keep f/u appointment or patient may continue to get UTI's in the future. (9) Anxiety and depression: Plan: -Continue at home sertraline. (10) Exertional shortness of breath: Plan: -at baseline. Continue albuterol prn (11) HLD (hyperlipidemia): Plan: -Continue at home atorvastatin (12) Elevated troponin: Plan: -Elevated troponin at 15.4 in the ED. -Patient is having not having CP or SOB. -EKG showed RBBB, PVC and T wave inversion no evident in anterior leads. -Will hold off on trending troponin at this time. Plan patient lives at home alone and has fallen in the past. however, she refuses re hab or snf. would like to be discharged home. Admission and Anticipated Discharge Date Admission Date: June 03, 2022 Subjective patient seen and examined, feels weak, but better overall Review of Systems Review of Systems: All systems reviewed are negative, apart from the ones contained in the history. Physical Exam Physical Exam: The patient is awake, alert and oriented 3, well developed and well nourished, normocephalic and atraumatic, lying in bed and in no acute distress. HEENT--PERRL, EOMI, mucous membranes and oropharynx mildly dry Neck--supple. No JVD. No bruits. Thyroid normal, trachea midline, no adenopathy. Heart--normal S1 and S2. No murmurs, rubs or gallops. Lungs--clear bilaterally, no respiratory distress, no accessory muscle use. Abdomen--normal bowel sounds and soft. Mild epigastric and left sided abdominal pain Extremities--no cyanosis or clubbing. No edema. Dermatologic--normal skin turgor, normal color, no abnormal lymph nodes, no rash. Neurologic--tremors at rest, pill rolling Rheumatologic--normal range of motion. Psychiatric--normal affect. Results & Data Results & Data ([facility]) Vital Signs (Past 12 Hours) Vital Signs Temp Pulse Resp BP BP Pulse Ox O2 Del Method 06/03/22 09:37 Room Air 06/03/22 07:48 97.9 F 77 20 179/96 H 177/83 H 96 Room Air PG Care Time/CCT Total # of Minutes Spent Total Time Spent with Patient: Total time spent is greater than 50% in coordination of care (as documented) at patient's floor/unit and/or counseling patient: Coding Level of Care Code 63066 Subseq Hosp Care Lvl 2 Diagnoses UTI (urinary tract infection) N39.0 Parkinsonism G20 History of pulmonary embolism Z86.711 Right hip pain M25.551 Hypothyroidism, postablative E89.0 Hypertension I10 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
[2022-06-03] MEDS: cefTRIAXone SODIUM 2,000 MG in DEXTROSE 5% 50 ML IV SCH (21:14)
[2022-06-04] MEDS: LEVOTHYROXINE SODIUM 112 MCG TABLET PO SCH (05:56)
[2022-06-04 06:55] LABS: Hematocrit (blood only) 38.2 % (34.1-44.9); Hemoglobin 12.5 g/dl (12.0-16.0); Mean Corpuscular Hemoglobin 27.5 pg (25.0-34.0); Mean Corpuscular Hgb Conc 32.7 g/dL (32.0-36.0); Mean Corpuscular Volume 84.1 fL (80.0-100.0); Mean Platelet Volume 9.8 fL (9.4-12.3); Platelet Count 274 K/uL (130-400); RDW Coefficient of Variation 17.2 % (11.5-14.5); RDW Standard Deviation 52.1 fL (36.4-46.3); Red Blood Count 4.54 M/uL (3.93-5.22); White Blood Count 7.15 K/ul (4.8-10.8)
[2022-06-04 07:28] LABS: Calcium 9.7 mg/dl (8.5-10.1); Creatinine Clr Calc Pharmacy 77.6 ml/min; Est GFR (African American) 99.5 ml/min; Est GFR (Non-African American) 85.8 ml/min; Potassium 3.6 mmol/L (3.5-5.1)
[2022-06-04] MEDS: amLODIPine BESYLATE 5 MG TAB PO SCH (08:33)
[2022-06-04] MEDS: ASCORBIC ACID 500 MG TAB PO SCH (08:33)
[2022-06-04] MEDS: ATORVASTATIN 10 MG TAB PO SCH (08:33)
[2022-06-04] MEDS: CARBIDOPA/LEVODOPA 25/100MG TAB PO SCH ×3 (08:33→19:45)
[2022-06-04] MEDS: CALCIUM CARBONATE 500 MG CHEWABLE TAB PO SCH (08:34)
[2022-06-04] MEDS: FERROUS SULFATE 325 MG TAB PO SCH (08:34)
[2022-06-04] MEDS: MULTIVITAMIN TAB PO SCH (08:34)
[2022-06-04] MEDS: ENOXAPARIN INJ 40 MG/0.4 ML SYR SQ SCH (08:34)
[2022-06-04] MEDS: SERTRALINE HCL 50 MG TABLET PO SCH (08:34)
[2022-06-04] MEDS: CHOLECALCIFEROL 1,000 UNITS 25 MCG TAB PO SCH (08:34)
[2022-06-04] MEDS: POLYETHYLENE (MIRALAX) 17 GM PACK PO SCH (08:44)
--- NOTE | 2022-06-04 13:59 | Hospitalist Progress Note ---
Date of Service June 04, 2022 Assessment & Plan (1) UTI (urinary tract infection): Plan: -Mcgill-sensitive E.Coli on 03/20/22 -Patient has been having dysuria and UA suggestive of UTI. -Urine cultures growing E coli and Klebsiella, mcgill sensitive -Continue IV ceftriaxone -Patient also has a colovesical fistula. (2) Parkinsonism: Plan: tremor at rest, pill rolling Evaluated by Neurology started on Sinemet 25/100mg half a tablet TID (day 4) will increase to 1 tablet TID after 1 week per neurology (3) History of pulmonary embolism: Plan: -No longer on AC. PE seen on CT most likely residual from previous PE. -VS stable. Continue to monitor s/s of PE. -Start Lovenox 40mg Q24H. (4) Right hip pain: Plan: -Patient fell on Sunday and declined treatment -Tenderness to palpation on PE -Hip x ray did not show any dislocation of fracture -Tylenol prn for pain. (5) Hypothyroidism, postablative: Plan: -TSH 14.2 -Continue home dose of levothyroxine and f/u with PCP. (6) Hypertension: Plan: -Continue at home meds. 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 Stable at this time. (8) Colovesical fistula: Plan: -Has f/u appointment to discuss surgery later this month. -Encouraged to keep f/u appointment or patient may continue to get UTI's in the future. (9) Anxiety and depression: Plan: -Continue at home sertraline. (10) Exertional shortness of breath: Plan: -at baseline. Continue albuterol prn (11) HLD (hyperlipidemia): Plan: -Continue at home atorvastatin (12) Elevated troponin: Plan: -Elevated troponin at 15.4 in the ED. -Patient is having not having CP or SOB. -EKG showed RBBB, PVC and T wave inversion no evident in anterior leads. -Will hold off on trending troponin at this time. Plan patient lives at home alone and has fallen in the past. Initially refused rehab or SNF, but is now open to the idea. PT and case mgt on board Admission and Anticipated Discharge Date Admission Date: June 03, 2022 Subjective patient seen and examined, feels weak, but better overall Review of Systems Review of Systems: All systems reviewed are negative, apart from the ones contained in the history. Physical Exam Physical Exam: The patient is awake, alert and oriented 3, well developed and well nourished, normocephalic and atraumatic, lying in bed and in no acute distress. HEENT--PERRL, EOMI, mucous membranes and oropharynx mildly dry Neck--supple. No JVD. No bruits. Thyroid normal, trachea midline, no adenopathy. Heart--normal S1 and S2. No murmurs, rubs or gallops. Lungs--clear bilaterally, no respiratory distress, no accessory muscle use. Abdomen--normal bowel sounds and soft. Mild epigastric and left sided abdominal pain Extremities--no cyanosis or clubbing. No edema. Dermatologic--normal skin turgor, normal color, no abnormal lymph nodes, no rash. Neurologic--tremors at rest, pill rolling Rheumatologic--normal range of motion. Psychiatric--normal affect. Results & Data Results & Data ([facility]) Vital Signs (Past 12 Hours) Vital Signs Temp Pulse Resp BP Pulse Ox O2 Del Method 06/04/22 07:15 97.7 F 66 20 132/73 96 Room Air PG Care Time/CCT Total # of Minutes Spent Total Time Spent with Patient: Total time spent is greater than 50% in coordination of care (as documented) at patient's floor/unit and/or counseling patient: Coding Level of Care Code 90737 Subseq Hosp Care Lvl 2 Diagnoses UTI (urinary tract infection) N39.0 Parkinsonism G20 History of pulmonary embolism Z86.711 Right hip pain M25.551 Hypothyroidism, postablative E89.0 Hypertension I10 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
[2022-06-04] MEDS: cefTRIAXone SODIUM 2,000 MG in DEXTROSE 5% 50 ML IV SCH (22:28)
[2022-06-05] MEDS: LEVOTHYROXINE SODIUM 112 MCG TABLET PO SCH (05:39)
[2022-06-05 08:20] LABS: Hematocrit (blood only) 38.9 % (34.1-44.9); Hemoglobin 12.4 g/dl (12.0-16.0); Mean Corpuscular Hemoglobin 27.4 pg (25.0-34.0); Mean Corpuscular Hgb Conc 31.9 g/dL (32.0-36.0); Mean Corpuscular Volume 85.9 fL (80.0-100.0); Mean Platelet Volume 9.9 fL (9.4-12.3); Platelet Count 286 K/uL (130-400); RDW Coefficient of Variation 16.8 % (11.5-14.5); RDW Standard Deviation 52.4 fL (36.4-46.3); Red Blood Count 4.53 M/uL (3.93-5.22); White Blood Count 8.27 K/ul (4.8-10.8)
[2022-06-05] MEDS: ASCORBIC ACID 500 MG TAB PO SCH (08:35)
[2022-06-05] MEDS: amLODIPine BESYLATE 5 MG TAB PO SCH (08:35)
[2022-06-05] MEDS: ATORVASTATIN 10 MG TAB PO SCH (08:35)
[2022-06-05] MEDS: CARBIDOPA/LEVODOPA 25/100MG TAB PO SCH ×3 (08:35→20:31)
[2022-06-05] MEDS: ENOXAPARIN INJ 40 MG/0.4 ML SYR SQ SCH (08:36)
[2022-06-05] MEDS: CHOLECALCIFEROL 1,000 UNITS 25 MCG TAB PO SCH (08:36)
[2022-06-05] MEDS: SERTRALINE HCL 50 MG TABLET PO SCH (08:36)
[2022-06-05] MEDS: FERROUS SULFATE 325 MG TAB PO SCH (08:36)
[2022-06-05] MEDS: MULTIVITAMIN TAB PO SCH (08:36)
[2022-06-05] MEDS: POLYETHYLENE (MIRALAX) 17 GM PACK PO SCH (08:36)
[2022-06-05] MEDS: CALCIUM CARBONATE 500 MG CHEWABLE TAB PO SCH (08:45)
[2022-06-05 08:48] LABS: BUN Creatinine Ratio 17.6 (10-20); Calcium 9.6 mg/dl (8.5-10.1); Creatinine Clr Calc Pharmacy 76.1 ml/min; Est GFR (African American) 98.8 ml/min; Est GFR (Non-African American) 85.3 ml/min; Potassium 3.9 mmol/L (3.5-5.1)
[2022-06-05] MEDS: ACETAMINOPHEN 325 MG TAB PO PRN (20:30)
--- NOTE | 2022-06-05 20:32 | Hospitalist Progress Note ---
Date of Service June 05, 2022 Assessment & Plan (1) UTI (urinary tract infection): Plan: mixed E. coli and Klebsiella in urine culturestopped ceftriaxone now because 5 days antibiotics and off (2) Parkinsonism: Plan: tremor at rest, pin rolling Evaluated by Neurology started on Sinemet 25/100mg half a tablet TID (day 4) will increase to 1 tablet TID after 1 week per neurology (3) History of pulmonary embolism: Plan: -No longer on AC. PE seen on CT most likely residual from previous PE. -VS stable. Continue to monitor s/s of PE. -Start Lovenox 40mg Q24H. (4) Hypothyroidism, postablative: Plan: -TSH 14.2 -Continue home dose of levothyroxine and f/u with PCP. (5) Hypertension: Plan: -Continue at home meds. 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 Stable at this time. (7) Colovesical fistula: Plan: -Has f/u appointment to discuss surgery later this month. -Encouraged to keep f/u appointment or patient may continue to get UTI's in the future. (8) Anxiety and depression: Plan: -Continue at home sertraline. (9) Exertional shortness of breath: Plan: -at baseline. Continue albuterol prn (10) HLD (hyperlipidemia): Plan: -Continue at home atorvastatin (11) Elevated troponin: Plan: -Elevated troponin at 15.4 in the ED. -Patient is having not having CP or SOB. -EKG showed RBBB, PVC and T wave inversion no evident in anterior leads. -Will hold off on trending troponin at this time. Plan patient lives at home alone and has fallen in the past. Initially refused rehab or SNF, but is now open to the idea. Placement being planned PT and case mgt on board Admission and Anticipated Discharge Date Admission Date: June 03, 2022 Subjective Pleasant and comfortable, lying in bed, has no complaints. Had dysuria a week ago. States she is eating fine. Lives at home alone denies chest pain/shortness of breath/fever/chills. Fell about 1 week ago on his side at home. There was only fall she has had. States she is using a walker here and doing okay Physical Exam Physical Exam: Evaluated 1944 h, comfortable obese lady, prominent butterfly rash on the face Chest clear to auscultation CVS S1-S2 Extremities trace edema Oriented to place but unable to tell me why she came to the hospital Results & Data Results & Data ([facility]) Vital Signs (Past 12 Hours) Vital Signs Temp Pulse Resp BP Pulse Ox O2 Del Method 06/05/22 15:23 36.7 C 89 14 107/69 90 Room Air Laboratory Results Abnormal lab results 06/05/22 06/05/22 Range/Units 07:35 07:35 MCHC 31.9 L (32.0-36.0) g/dL RDW Std Deviation 52.4 H (36.4-46.3) fL RDW Coeff of Janel 16.8 H (11.5-14.5) % Creatinine 0.51 L (0.6-1.2) mg/dl Medications Administered Reviewed list PG Care Time/CCT Total # of Minutes Spent Total Time Spent with Patient: Total time spent is greater than 50% in coordination of care (as documented) at patient's floor/unit and/or counseling patient: Coding Level of Care Code 60119 Subseq Hosp Care Lvl 2 Diagnoses UTI (urinary tract infection) N39.0 Parkinsonism G20 History of pulmonary embolism Z86.711 Hypothyroidism, postablative E89.0 Hypertension I10 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
[2022-06-06] MEDS: LEVOTHYROXINE SODIUM 112 MCG TABLET PO SCH (05:37)
[2022-06-06] MEDS: CARBIDOPA/LEVODOPA 25/100MG TAB PO SCH ×3 (07:58→21:25)
[2022-06-06] MEDS: CALCIUM CARBONATE 500 MG CHEWABLE TAB PO SCH (07:58)
[2022-06-06] MEDS: FERROUS SULFATE 325 MG TAB PO SCH (07:58)
[2022-06-06] MEDS: ATORVASTATIN 10 MG TAB PO SCH (07:58)
[2022-06-06] MEDS: ASCORBIC ACID 500 MG TAB PO SCH (07:59)
[2022-06-06] MEDS: amLODIPine BESYLATE 5 MG TAB PO SCH (07:59)
[2022-06-06] MEDS: MULTIVITAMIN TAB PO SCH (07:59)
[2022-06-06] MEDS: SERTRALINE HCL 50 MG TABLET PO SCH (07:59)
[2022-06-06] MEDS: POLYETHYLENE (MIRALAX) 17 GM PACK PO SCH (07:59)
[2022-06-06] MEDS: CHOLECALCIFEROL 1,000 UNITS 25 MCG TAB PO SCH (07:59)
[2022-06-06] MEDS: ENOXAPARIN INJ 40 MG/0.4 ML SYR SQ SCH (08:00)
--- NOTE | 2022-06-06 19:32 | Hospitalist Progress Note ---
Date of Service June 06, 2022 Assessment & Plan (1) UTI (urinary tract infection): Plan: mixed E. coli and Klebsiella in urine culturegot a course of ceftriaxone (2) Parkinsonism: Plan: tremor at rest, pin rolling Evaluated by Neurology started on Sinemet 25/100mg half a tablet TID (day 4) will increase to 1 tablet TID after 1 week per neurology (3) History of pulmonary embolism: Plan: -No longer on AC. PE seen on CT most likely residual from previous PE. -VS stable. Continue to monitor s/s of PE. -Start Lovenox 40mg Q24H. (4) Hypothyroidism, postablative: Plan: -TSH 14.2 -Continue home dose of levothyroxine and f/u with PCP. (5) Hypertension: Plan: -Continue at home meds. 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 Stable at this time. (7) Colovesical fistula: Plan: -Has f/u appointment to discuss surgery later this month. -Encouraged to keep f/u appointment or patient may continue to get UTI's in the future. (8) Anxiety and depression: Plan: -Continue at home sertraline. (9) Exertional shortness of breath: Plan: -at baseline. Continue albuterol prn (10) HLD (hyperlipidemia): Plan: -Continue at home atorvastatin (11) Elevated troponin: Plan: -Elevated troponin at 15.4 in the ED. -Patient is having not having CP or SOB. -EKG showed RBBB, PVC and T wave inversion no evident in anterior leads. -Will hold off on trending troponin at this time. Plan patient lives at home alone and has fallen in the past. Initially refused rehab or SNF, but is now open to the idea. Placement being planned PT and case mgt on board Admission and Anticipated Discharge Date Admission Date: June 03, 2022 Subjective No complaints. Says she has some memory problems. Mild dysuria and review of systems. No slight nausea, vomiting, chest pain or shortness of breath. Appetite is good Physical Exam Physical Exam: Evaluated 1545 h, comfortable obese lady,less prominent butterfly rash on the face today, was on phone with her daughter Chest clear to auscultation CVS S1-S2 Extremities trace edema Oriented to place but unable to tell me why she came to the hospital [employer] left hand pill-rolling movements seen. Results & Data Results & Data ([facility]) Vital Signs (Past 12 Hours) Vital Signs Temp Pulse Resp BP Pulse Ox 06/06/22 15:45 36.5 C 80 18 120/72 92 Laboratory Results none today Medications Administered Home Medications Medication Instructions Recorded Confirmed Last Taken multivitamin (Multiple Vitamins 1 tab PO QAM 03/24/19 05/31/22 05/31/22 tablet) acetaminophen 500 mg tablet 1,000 mg PO TID PRN fever or pain 06/15/19 05/31/22 03/24/22 #90 tabs ascorbic acid (vitamin C) 1,000 mg 1 gm PO QAM 06/15/19 05/31/22 05/31/22 tablet cholecalciferol (vitamin D3) 25 2,000 units PO QAM 06/15/19 05/31/22 05/31/22 mcg (1,000 unit) capsule calcium carbonate 600 mg calcium 600 mg PO QAM 06/11/20 05/31/22 05/31/22 (1,500 mg) tablet (Calcium) Bedside Commode #1 ea 04/26/21 05/31/22 Unknown albuterol sulfate 90 mcg/actuation 2 puff inhalation Q6H PRN 03/16/22 05/31/22 03/30/22 aerosol inhaler Shortness Of Breath Or Wheezing #18 grams ferrous sulfate 325 mg (65 mg 325 mg PO DAILY #30 tabs 03/24/22 05/31/22 05/31/22 iron) tablet atorvastatin 10 mg tablet 10 mg PO QAM #90 tabs 05/23/22 05/31/22 05/31/22 sertraline 50 mg tablet (Zoloft) 50 mg PO DAILY #90 tabs 05/23/22 05/31/22 05/31/22 levothyroxine 112 mcg tablet 112 mcg PO DAILY #30 tabs 05/29/22 05/31/22 05/31/22 mupirocin 2 % topical ointment 1 applic topical TID PRN Skin 05/31/22 05/31/22 Unknown Irritation Active Medications Generic Name Dose Route Start Last Admin Trade Name Freq PRN Reason Stop Dose Admin Acetaminophen 650 mg 06/01/22 01:46 06/05/22 20:30 Acetaminophen 325 Mg Tab PO 07/01/22 01:45 650 mg Q4H PRN Administration pain/fever Amlodipine Besylate 5 mg 06/02/22 09:00 06/06/22 07:59 Amlodipine Besylate 5 Mg Tab PO 07/02/22 08:59 5 mg QAM AUSTEN Administration Ascorbic Acid 1,000 mg 06/01/22 09:00 06/06/22 07:59 Ascorbic Acid 500 Mg Tab PO 07/01/22 08:59 1,000 mg QAM AUSTEN Administration Atorvastatin Calcium 10 mg 06/01/22 09:00 06/06/22 07:58 Atorvastatin 10 Mg Tab PO 07/01/22 08:59 10 mg QAM AUSTEN Administration Calcium Carbonate 1,500 mg 06/01/22 09:00 06/06/22 07:58 Calcium Carbonate 500 Mg Chewable Tab PO 07/01/22 08:59 1,500 mg QAM AUSTEN Administration Carbidopa/Levodopa 0.5 tab 06/02/22 21:00 06/06/22 13:44 Carbidopa/Levodopa 25/100mg Tab PO 07/02/22 20:59 0.5 tab TID AUSTEN Administration Enoxaparin Sodium 40 mg 06/01/22 09:00 06/06/22 08:00 Enoxaparin Inj 40 Mg/0.4 Ml Syr SQ 07/01/22 08:59 40 mg Q24H AUSTEN Administration Ferrous Sulfate 325 mg 06/01/22 09:00 06/06/22 07:58 Ferrous Sulfate 325 Mg Tab PO 07/01/22 08:59 325 mg DAILY AUSTEN Administration Levothyroxine Sodium 112 mcg 06/01/22 06:30 06/06/22 05:37 Levothyroxine Sodium 112 Mcg Tablet PO 07/01/22 06:29 112 mcg DAILYBB AUSTEN Administration Multivitamins 1 tab 06/01/22 09:00 06/06/22 07:59 Multivitamin Tab PO 07/01/22 08:59 1 tab QAM AUSTEN Administration Mupirocin 1 appln 06/01/22 01:46 06/01/22 08:31 Mupirocin 2% Oint 22 Gm Tube TOP 07/01/22 01:45 1 appln TID PRN Administration Skin Irritation Polyethylene Glycol 17 gm 06/03/22 11:00 06/06/22 07:59 Polyethylene (Miralax) 17 Gm Pack PO 07/03/22 10:59 17 gm DAILY AUSTEN Administration Sertraline HCl 50 mg 06/01/22 09:00 06/06/22 07:59 Sertraline Hcl 50 Mg Tablet PO 07/01/22 08:59 50 mg DAILY AUSTEN Administration Vitamin D 2,000 units 06/01/22 09:00 06/06/22 07:59 Cholecalciferol 1,000 Units 25 Mcg Tab PO 07/01/22 08:59 2,000 units QAM AUSTEN Administration PG Care Time/CCT Total # of Minutes Spent Total Time Spent with Patient: Total time spent is greater than 50% in coordination of care (as documented) at patient's floor/unit and/or counseling patient: Coding Level of Care Code 34440 Subseq Hosp Care Lvl 2 Diagnoses UTI (urinary tract infection) N39.0 Parkinsonism G20 History of pulmonary embolism Z86.711 Hypothyroidism, postablative E89.0 Hypertension I10 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
[2022-06-06] MEDS: MUPIROCIN 2% OINT 22 GM TUBE TOP PRN (21:25)
[2022-06-07] MEDS: LEVOTHYROXINE SODIUM 112 MCG TABLET PO SCH (05:45)
[2022-06-07 06:42] LABS: Creatinine Clr Calc Pharmacy 79.2 ml/min; Est GFR (African American) 100.1 ml/min; Est GFR (Non-African American) 86.4 ml/min
[2022-06-07] MEDS: CARBIDOPA/LEVODOPA 25/100MG TAB PO SCH ×2 (07:58→13:06)
[2022-06-07] MEDS: POLYETHYLENE (MIRALAX) 17 GM PACK PO SCH (07:59)
[2022-06-07] MEDS: ASCORBIC ACID 500 MG TAB PO SCH (07:59)
[2022-06-07] MEDS: FERROUS SULFATE 325 MG TAB PO SCH (07:59)
[2022-06-07] MEDS: SERTRALINE HCL 50 MG TABLET PO SCH (07:59)
[2022-06-07] MEDS: amLODIPine BESYLATE 5 MG TAB PO SCH (08:00)
[2022-06-07] MEDS: MULTIVITAMIN TAB PO SCH (08:00)
[2022-06-07] MEDS: CHOLECALCIFEROL 1,000 UNITS 25 MCG TAB PO SCH (08:00)
[2022-06-07] MEDS: ATORVASTATIN 10 MG TAB PO SCH (08:00)
[2022-06-07] MEDS: ENOXAPARIN INJ 40 MG/0.4 ML SYR SQ SCH (08:00)
[2022-06-07] MEDS: CALCIUM CARBONATE 500 MG CHEWABLE TAB PO SCH (08:09)
--- NOTE | 2022-06-07 14:55 | Discharge Summary ---
Date of Service June 07, 2022 Admission HPI Per Admitting Provider Patient is a 87 y/o female with PMHx of HTN,HLD, hypothymism, small vessel cerebrovascular disease, PE (no longer on AC), AAA repair with chronic endoleak who presents to hospital at the request of her PCP for hypotension, confusion, and possible UTI. Patient was unable to provide any urine at her PCP office. Patient also had a fall on Sunday where she was stuck for 8-10 hours. She was evaluated by EMS at that time and denied any treatment at that time. She lives alone and uses a walker normally to ambulate. In the ED: patient was hypotensive 92/55 which improved with IV fluids. CT head negative CT chest and CT ab/pelvis showed cystitis, pulmonary embolus of the right lower lobe, R lung nodules slightly increased since 03/17/2022, and patent aortobiiliac stent graft with stable size of the large infrarenal abdominal aortic aneurysm with associated endoleak. UA suggestive of UTI, cultures pending. CBC and CMP unremarkable, TSH 14.2, trop 15.4 Patient was seen beside at time of admission with her daughter, who states that the patient is more or less at her baseline at this time. The daughter states that the patient asked for her "radio" that she uses at home and asked for a ride to her appointment today (drives on her own) but is mostly her baseline. Daughter states that she usually accompanies the patient to her outpatient appointments but she was unable to today. States that normally at the appointments the patient does not pay attention and relies on her daughter to take care of her medical needs and treatment. Patient is AnOx3 and states that she has been having some dysuria over the past couple of days. States that her R Principal Diagnosis UTI with mental status changes resolved Discharge Exam Was up in a chair, 149/78, 66, 17, 36.4 and 93% on room air Alert and oriented, somewhat flat affect, butterfly rash of her face which has waxed and waned through this last 3 days have had her Head and neck moist tongue, chest clear to station neck CVS S1-S2 Extremities trace edema, gait not checked Discharge Data Allergies Allergy/AdvReac Type Severity Reaction Status Date / Time lisinopril AdvReac Intermediate Cough Verified 05/31/22 17:49 mesalamine [From Asacol] AdvReac Unknown CAN'T Verified 05/31/22 17:49 REMEMBER sulfasalazine AdvReac Unknown CAN'T Verified 05/31/22 17:49 REMEMBER Consultations 05/31/22 19:55 ED Decision to Admit Stat 06/01/22 10:49 Consult Neurology Routine Ordered Studies 05/31/22 17:34 CT abd pelvis IV con only Stat CT chest diagnostic w con Stat CT head/brain wo con Stat Hospital Course (1) UTI (urinary tract infection): E. coli and Klebsiella mixed in the urine culture, afebrile and asymptomatic now (2) Parkinsonism: Evaluated by neurology. Started on Sinemet which was raised to 25/100 3 times daily at the time of discharge. Pin rolling of left hand seen. Has been on Sinemet in the past per neurology note (3) History of pulmonary embolism: Not on anticoagulation (4) Hypothyroidism, postablative: TSH was 14. Recheck in a couple of weeks. Medications were not changed (5) Hypertension: pretty normotensive here by ange frank. 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 Patient was alert and oriented at the time of discharge. She does have memory problems longstanding she says. MMSE was not done. Minimal cognitive impairment if that.Has been sitting in her chair trying crossword puzzles here. Plan [facility]. Total Time Total Time Spent Total Time Spent (In Minutes): 40 Discharge Plan Discharge Items Patient Disposition: Transfer [facility] Reason For Visit: UTI, PARKINSONS Discharge Diagnosis: UTI with mental status changes, Parkinson's disease, ambulatory dysfunction Activity: As commented below Activity Comment: Per physical therapy in the penitentiary facility Non-emergency contact: Primary Care Provider Call non-emergency contact if: you have any medication questions Follow-up/Referrals: Мария Gomes DO [Primary Care Provider] - Diet: Low Sodium (2gm) Addtl Attending Provider Instructions: Advance activity as tolerated. Evaluation by physician within 1 week Pending Studies at Discharge: No Stand-Alone Forms: My [facility] Skilled Items Patient informed of condition?: Yes DNR: No Discharge Level of Care: Skilled Communicable Disease: No Discharge Prognosis: Stable Lines: None Urinary Catheter: No Medications and DC Order Prescriptions: New polyethylene glycol 3350 [Miralax] 17 gram Powder In Packet 17 g PO DAILY Qty: 14 0RF amlodipine [Norvasc] 5 mg Tablet 5 mg PO QAM Qty: 30 0RF carbidopa-levodopa [Sinemet] 25-100 mg tablet 1 tab PO TID Qty: 60 1RF Continued ferrous sulfate 325 mg (65 mg iron) tablet 325 mg PO DAILY Qty: 30 3RF atorvastatin 10 mg tablet 10 mg PO QAM Qty: 90 1RF sertraline [Zoloft] 50 mg tablet 50 mg PO DAILY Qty: 90 1RF levothyroxine 112 mcg tablet 112 mcg PO DAILY Qty: 30 2RF Label Comments: qam multivitamin [Multiple Vitamins] tablet 1 tab PO QAM cholecalciferol (vitamin D3) 1,000 unit capsule 2,000 units PO QAM ascorbic acid (vitamin C) 1,000 mg tablet 1 gm PO QAM acetaminophen 500 mg tablet 1,000 mg PO TID PRN (Reason: fever or pain) Qty: 90 (DME) Bedside Commode Misc See Rx Instructions .Route Qty: 1 0RF Rx Instructions: As directed albuterol sulfate 90 mcg/actuation HFA aerosol inhaler 2 puff inhalation Q6H PRN (Reason: Shortness Of Breath Or Wheezing) Qty: 18 3RF calcium carbonate [Calcium 600] 600 mg calcium (1,500 mg) Tablet 600 mg PO QAM mupirocin 2 % ointment 1 applic topical TID PRN (Reason: Skin Irritation) Discharge Orders: Discharge Order (Routine); Ordered 06/07/22 Ordered By: Sumit Jimenez Admission Data Admit Date/Time: 06/03/22 08:14 Attending Provider: Sumit Jimenez Admit Provider: Rosa Covington Primary Care Provider: Мария Gomes Other Providers: Loree Nagel ; Javier Hackett ; [facility] Coding Level of Care Code D/C DAY MANAGEMENT >30 MINS Diagnoses UTI (urinary tract infection) N39.0 Parkinsonism G20 History of pulmonary embolism Z86.711 Hypothyroidism, postablative E89.0 Hypertension I10 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
[2022-06-07 15:43] VITALS: BP 149/78; PULSE 66; TEMP 97.5; O2SAT 93
== END 2022-06-07 17:05 ==
LOC: EDINP 13:33 → ED 13:33 → SUATTDRO 22:02 → 3N 06-01 01:47 → SUATTDRO 06-03 08:14

== ENCOUNTER 2022-07-12 05:40 | Inpatient (IN) ==
--- NOTE | 2022-06-30 14:27 | Anesthesiology Consultation ---
Date of Service June 30, 2022 Assessment & Plan (1) Encounter for pre-operative examination: Chart Review Chart Review: Pending: Refer to Additional Notes / Consult section (pending PCP response to 06/30/22 workload note ) and Patient NOT seen in Pre Admission Testing Discussed case with Dr. Lloyd- recommends contacting PCP re: EKG and chest CT scan results and if patient is optimized for surgery. Did do workload note- will await PCP response -COVID screening: Per PAT nursing assessment on 06/30/22. No known COVID-19 positive contacts or current COVID-19 related symptoms. Travel screen negative. Patient vaccinated for Covid. At surgeon discretion if preop Covid testing being done. Pt admitted to [facility] 05/31/22 to 06/07/22= Admitted for UTI with mental status changes that resolved prior to discharge. Parkinsonismevaluated by neurologystarted on Sinemet. History of PEnot on AC. Hypothyroidismelevated TSHrecheck in couple weeksmedication no change. Metabolic encephalopathyresolved. Patient discharged to halfway facility. Pt seen by vascular surgery 05/01/22= Pt seen for follow up on AAA- s/p PEVAR Mar 2021. Had embolization of left internal iliac artery January 2022 secondary to endoleak. "At this point the sac is stable although the type II endoleak still exists. We will see her again in 6 months for follow-up. No need to intervene on this at this point being that there has been no progression in the size of aneurysm sac." History Surgery Operation Date: 07/12/22 07:00 Proposed Procedures p Open Resection Colovesical Fistula - Max Garcia MD, FACS Height/Weight Height: 5 ft 4 in Weight: 78.471 kg Allergies Allergy/AdvReac Type Severity Reaction Status Date / Time lisinopril AdvReac Intermediate Cough Verified 06/30/22 13:43 mesalamine [From Asacol] AdvReac Unknown CAN'T Verified 06/30/22 13:43 REMEMBER sulfasalazine AdvReac Unknown CAN'T Verified 06/30/22 13:43 REMEMBER Medications Home Medications Medication Instructions Recorded Confirmed Last Taken multivitamin (Multiple Vitamins 1 tab PO QAM 03/24/19 06/30/22 05/31/22 tablet) acetaminophen 500 mg tablet 1,000 mg PO TID PRN fever or pain 06/15/19 06/30/22 03/24/22 #90 tabs ascorbic acid (vitamin C) 1,000 mg 1 gm PO QAM 06/15/19 06/30/22 05/31/22 tablet cholecalciferol (vitamin D3) 25 2,000 units PO QAM 06/15/19 06/30/22 05/31/22 mcg (1,000 unit) capsule calcium carbonate 600 mg calcium 600 mg PO QAM 06/11/20 06/30/22 05/31/22 (1,500 mg) tablet (Calcium) Bedside Commode #1 ea 04/26/21 05/31/22 Unknown albuterol sulfate 90 mcg/actuation 2 puff inhalation Q6H PRN 03/16/22 06/30/22 03/30/22 aerosol inhaler Shortness Of Breath Or Wheezing #18 grams atorvastatin 10 mg tablet 10 mg PO QAM #90 tabs 05/23/22 06/30/22 05/31/22 mupirocin 2 % topical ointment 1 applic topical TID PRN Skin 05/31/22 06/30/22 Unknown Irritation amlodipine 5 mg tablet (Norvasc) 5 mg PO QAM #30 tabs 06/07/22 06/30/22 Unknown carbidopa 25 mg-levodopa 100 mg 1 tab PO TID #60 tabs 06/07/22 06/30/22 Unknown tablet (Sinemet) ciprofloxacin HCl 500 mg tablet 500 mg PO .COMPLEX #3 tabs 06/27/22 06/30/22 Unknown (Cipro) ciprofloxacin HCl 500 mg tablet 500 mg PO .COMPLEX #3 tabs 06/27/22 06/30/22 Unknown (Cipro) ferrous sulfate 325 mg (65 mg 325 mg PO QAM 06/30/22 06/30/22 Unknown iron) tablet levothyroxine 112 mcg tablet 112 mcg PO QAM 06/30/22 06/30/22 Unknown metronidazole 500 mg tablet 500 mg PO UD 06/30/22 06/30/22 Unknown polyethylene glycol 3350 17 gram 17 g PO DAILY PRN Constipation 06/30/22 06/30/22 Unknown oral powder packet (Miralax) sertraline 50 mg tablet (Zoloft) 50 mg PO QAM 06/30/22 06/30/22 Unknown Past Medical History Medical History Anxiety and depression Colovesical fistula Reason for upcoming procedure Dyslipidemia History of abdominal aortic aneurysm (AAA) S/p PEVAR 03/2021; s/p embolization of braches of her left internal iliac artery for increase in endoleak with increased size of her sac per vascular records 04/2022 History of breast cancer Age 61 s/p Left Mastectomy, Radiation & Chemo Age 78 s/p Right Mastectomy - s/p chemo/XRT No known arm restriction History of Graves' disease S/p MCCALLUM History of pulmonary embolism No longer on AC per 06/06/22 hospitalist note History of shingles Per daughter, pt had shingles while at [facility]. She was dx about 2 weeks ago. she finished her meds and lesions are healed over. NO OPEN LESIONS. HLD (hyperlipidemia) Hx of cancer of lung 2019. S/p XRT Hx of Crohn's disease Hypertension Hypothyroidism, postablative TSH 14.2 when admitted to [facility] 05/31/22- recommended patient continue levothyroxine and follow up with PCP Lymphedema left arm Osteopenia Parkinsonism Tremor at rest, pin rolling. Seen by neuro when admitted 06/02/22- started on Sinemet Poor historian Small vessel disease, cerebrovascular Past Family History Family History Father , Passed unknown age of [place] Myocardial infarction acute Heart disease Hypertension Mother , Passed in 80's of heart failure Aorta aneurysm Breast cancer Cancer Diabetes Hypertension Brother , Passed in 70's of Lung Cancer (Smoker) No problems noted. Brother , Passed in 60's of Lung Cancer (Smoker) No problems noted. Brother , Passed in late 70's of Lung Cancer (Smoker) No problems noted. Sister , Passed in 80's of natural causes/unknown No problems noted. Daughter Breast cancer Son No problems noted. Other No family history of adverse response to anesthesia Past Surgical History Surgical History H/O colonoscopy (03/31/22) History of breast biopsy History of bronchoscopy Navigational bronch, EBUS (06/15/20) History of cataract extraction R/L History of colonoscopy History of cystoscopy History of mastectomy x2 (Age 61 and Age 78) History of tooth extraction History of wisdom tooth extraction S/P percutaneous abdominal aortic aneurysm repair (03/2021) 04/18/21- Dr. Felipe Alva at [facility] S/P skin biopsy (04/21/22) Left hand lesion shave biopsy Juliann Rubin/Dr. Crowley Social History Smoking Status: Former smoker tobacco type: cigarettes Smoking cigarettes per day: 1 pack cigs every 4-5days Do You Dip or Chew Tobacco: No Smoking End Date: 20-25 years ago Hx Alcohol Use: No Hx Substance Use: No substance use type: does not use Lab Results Anesthesia Preop Results Results Anesthesia Widget: WBC 8.27 K/ul (4.8-10.8) 06/05/22 Hgb 12.4 g/dl (12.0-16.0) 06/05/22 Hct 38.9 % (34.1-44.9) 06/05/22 Plt 286 K/uL (130-400) 06/05/22 Na 140 mmol/L (136-145) 06/05/22 K 3.9 mmol/L (3.5-5.1) 06/05/22 Cl 104 mmol/L (98-107) 06/05/22 CO2 30 mmol/L (21-32) 06/05/22 BUN 9 mg/dl (6-23) 06/05/22 Creat 0.49 mg/dl (0.6-1.2) L 06/07/22 Glucose Level 95 mg/dl (70-99(Fasting)) 06/05/22 TSH 14.206 uIu/ml (0.300-4.500) H 05/31/22 Free T4 0.68 ng/dl (0.61-1.60) 05/31/22 Urine Color Yellow 05/31/22 Urine Appearance Cloudy (Clear) A 05/31/22 Urine pH 7.5 (4.5-7.5) 05/31/22 Urine Specific [place] > 1.045 (1.000-1.030) H 05/31/22 Urine Protein Trace (Negative) H 05/31/22 Urine Glucose (UA) Negative (Negative) 05/31/22 Urine Ketones Negative (Negative) 05/31/22 Urine Blood Negative (Negative) 05/31/22 Urine Nitrite Negative (Negative) 05/31/22 Urine Bilirubin Negative (Negative) 05/31/22 Urine Urobilinogen Negative (Negative) 05/31/22 Urine Leukocyte Esterase 2+ (Negative) H 05/31/22 Urine WBC (Auto) >30 /hpf (0-5) H 05/31/22 Urine RBC (Auto) 5-10 /hpf (0-4) H 05/31/22 Urine Hyaline Casts (Auto) Not Reportable 05/31/22 Urine Epithelial Cells (Auto) >30 /lpf (0-5) H 05/31/22 Urine Bacteria (Auto) 4+ (Negative) H 05/31/22 SARS-CoV-2, RNA, NAAT NEGATIVE (NEGATIVE) 06/07/22 Testing Laboratory Results PCP informed re: TSH 05/31/22= URINE CULTURE: >100,000 CFU/ml E coli and Klebsiella (noted while admitted to [facility]- treated with Ceftriaxone) Electrocardiogram Date: 05/31/22 SR with occ PVCs at 72bpm. RBBB When compared to EKG from Mar- PVCs are no present, T wave inversion now evident in anterior leads. Chest X-Ray Date: 05/31/22 FINDINGS: Cardiomediastinal and hilar silhouettes are unchanged. Large area of linear consolidation within the right upper lobe redemonstrated measuring approximately 9 cm in transverse dimension, previously measuring up to 12 cm in AP dimension. No pneumothorax, pleural effusion, new airspace consolidation or overt pulmonary edema. Degenerative changes of the shoulders and spine. Dextroscoliosis of the lumbar spine with aortobiiliac stent graft. Surgical clips of the left axilla. IMPRESSION: 1. No acute processes of the chest. 2. Right perihilar/right upper lobe large area of linear consolidation appears stable from the 03/17/[address] Echocardiogram Date: 01/25/18 EF: 55% LV Function: normal RWMA: + none Other Findings: + LVH and + diastolic dysfunction (grade 1) Valvular Disease: + MR (mild) Other Testing Chest and abdomen/pelvis CT 05/31/22= Subsegmental pulmonary embolus of the right lower lobe. Large area of linear consolidation within the right midlung redemonstrated, likely posttreatment related. Subsolid right lung predominant nodules are again noted, likely along the adenocarcinoma spectrum. Some of the nodules have slightly increased in size from 03/17/2022. Findings suggestive of cystitis. Enhancement of the collecting systems suggests associated ascending infection. Correlate with urinalysis. Patent aortobiiliac stent graft with stable size of the large infrarenal abdominal aortic aneurysm with associated endoleak. (Pt admitted for UTI at time of CT scan; feel that PE is remnants of old PE; follows with vascular for endoleak- stable per 04/2022 vascular note) Head CT 05/31/22= No acute intracranial abnormality or calvarial fracture Abdomen/Pelvis CTA 04/24/22= Extensive atherosclerotic vascular disease with increased size of the infrarenal abdominal aortic aneurysm now measuring up to approximately 6.6 x 6.7 cm, previously 6.3 x 6.3 cm when measured in a similar fashion. Patent aortobiiliac stent graft with large type II endoleak redemonstrated, likely secondary to a lumbar artery. 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 (Pt follows with vascular- seen 04/2022- no intervention felt needed at this time)
[2022-07-12] MEDS ORDERED: LR 15ML/HR IV SCH (06:00)
--- NOTE | 2022-07-12 06:21 | History & Physical Bridge Note ---
Date of Service July 12, 2022 History & Physical Bridge Note I have examined the patient, reviewed the History & Physical and in the interval since the performance of the History & Physical I have noted the following changes of clinical significance: no changes noted all question answered daughter to be in waiting room
[2022-07-12] MEDS ORDERED: PROPOFOL IV EMULSION 10 MG/ML 20 ML VIAL IV ONE (06:31)
[2022-07-12] MEDS ORDERED: DEXAMETHASONE SOD INJ 4 MG/ML VIAL ONE (06:31)
[2022-07-12] MEDS ORDERED: fentaNYL citrate 100 MCG/2 ML VIAL ONE (06:31)
[2022-07-12] MEDS ORDERED: ONDANSETRON INJ 2 MG/ML 2 ML VIAL ONE (06:31)
[2022-07-12] MEDS ORDERED: LIDOCAINE 2% MPF LOCAL 5 ML VIAL INFIL ONE (06:33)
[2022-07-12] MEDS ORDERED: ACETAMINOPHEN 1000 MG/100 ML IV IV ONE (06:41)
[2022-07-12] MEDS ORDERED: SUGAMMADEX SODIUM 200 MG/2 ML VIAL IV ONE (06:41)
[2022-07-12] MEDS ORDERED: fentaNYL citrate 100 MCG/2 ML VIAL IV PRN (06:42)
[2022-07-12] MEDS ORDERED: ONDANSETRON INJ 2 MG/ML 2 ML VIAL IV PRN (06:42)
[2022-07-12] MEDS ORDERED: ePHEDrine sulfate 50 MG/ML AMP IV PRN (06:42)
[2022-07-12] MEDS ORDERED: ATROPINE SULFATE 0.1 MG/ML 10ML SYR IV PRN (06:42)
[2022-07-12] MEDS ORDERED: HYDROmorphone INJ 2 MG/ML SYR/VIAL ONE (07:22)
[2022-07-12] MEDS ORDERED: ROCURONIUM BROMIDE 10 MG/ML 5 ML VIAL IV ONE (07:40)
[2022-07-12] MEDS ORDERED: cefOXitin 2,000 MG in DEXTROSE 5% 50 ML IV ONE (07:47)
[2022-07-12] MEDS ORDERED: SURGICEL ABSORB HEMOSTAT 2IN X 14IN TOP ONE (07:49)
--- NOTE | 2022-07-12 08:39 | Post Operative Brief Note ---
PG Immediate Post Op with CF Date of Surgery July 12, 2022 Pre & Post Diagnosis Operation Date: 07/12/22 07:00 Pre-Op Diagnosis: Colovesical Fistula Post-Op Diagnosis: Colovesical Fistula I identified the patient and participated in the time-out.: Yes Procedure Operation Date: 07/12/22 07:00 Actual Procedures p Open Sigmoid Colon Resection(Not Applicable) - Max Garcia MD, FACS Surgeon Max Garcia MD, FACS Java Developer b grzegorz diaz Estimated Blood Loss 50 Findings Consistent with Post-Op Diagnosis Specimens Specimen Description: Micro 1. Urine for culture Permanent A. Portion of sigmoid colon Drains Velásquez Catheter, Paco-Umaña Drain and Moseley Drain
--- NOTE | 2022-07-12 09:03 | Operative Report ---
PG Post Operative Report Pre & Post Diagnosis Operation Date: 07/12/22 07:00 Pre-Op Diagnosis: Colovesical Fistula Post-Op Diagnosis: Colovesical Fistula I identified the patient and participated in the time-out.: Yes Procedure Operation Date: 07/12/22 07:00 Actual Procedures p Open Sigmoid Colon Resection(Not Applicable) - Max Garcia MD, FA CS The patient was brought into the operating theater supine position general endotracheal anesthesia Velásquez catheter inserted abdomen prepped with Betadine solution systemic biotics on board timeout was had patient identified this point we made an incision midline infraumbilically deepened subcutaneous tissue onto the symphysis pubis we entered the abdomen easily using just electrocautery for subcutaneous tissue and the peritoneum was easily entered the patient had a very lax abdominal wall at this point we palpated the sigmoid colon which was thickened distally there was no evidence of any adhesion between the sigmoid colon and the bladder the bladder was quite lax even though we had a Velásquez catheter in place with palpated old undersurface of the bladder there was no adhesions the sigmoid colon that thickened was diverticular problem was well away from the rectum at this point we inserted a Bookwalter retractor and mobilized the descending colon divide the white line of [place] to the point that we had enough mobilization and using the ligature we opened a window in the descending portion of the sigmoid colon making sure that we had enough laxity to do a primary anastomosis once we entered proximal to the thickened area using a AILYN stapler we divided the colon using the ligature as stated divided the mesentery close to the sigmoid colon patient had very lax and friable tissue a few bleeders in the mesentery was controlled with interrupted 3-0 silk sutures distally we placed 2 right angle clamps and divided between them removing the sigmoid colon this point area was checked hemostasis of some venous bleeders were controlled electrocautery and suturing we had enough mobility from the sigmoid colon the vasculature was excellent have a known that inferior mesenteric artery most likely was thrombosed due to previous aortic stenting suture line in the ascending colon was oversewn with 3-0 interrupted silk suture we then and the antimesenteric surface proximal to the staple line we opened the sigmoid colon control proximal with a strata intestinal clamp there was no seepage the opening was approximately 2 cm the opening distal line of resection was about the same size then we used 3-0 silk outer layer 3-0 chromic inner layer to do a side to end anastomosis we checked the anastomosis felt palpable vasculature was good we then reinforced making sure this the corners were oversewn to avoid any tension patient had a lot of epiploicae around the area therefore we pretty much covered the whole anastomosis Mylanta fat on it and hold it in place with 3-0 silk sutures the area was then checked hemostasis appear satisfactory elected to drain with a Aime drain to left lower quadrant directing it close to the anastomosis attached to the skin just with 2-0 silk suture instrument sponge count correct at this point we closed the peritoneum with a running 905 chromic and continuous 0 PDS was used for the fascia subcutaneous tissue was drained with a Lagrange drain touches skin edges with 2-0 silk suture lalo for skin edges dressing was applied procedure was tolerated well by the patient estimate blood loss approximately 50 cc AddendumB grzegorz JUAREZ was present at the procedure and helped the retraction exposure wound closure Talk to the daughter Phylicia at [phone] Surgeon Max Garcia MD, FACS Roll Repairer lyndsey juarez Estimated Blood Loss 50 Findings Consistent with Post-Op Diagnosis Thickened sigmoid colon down towards the bladder no true communication appreciated between the sigmoid colon and the bladder Specimens Sigmoid colon resection Drains 19 Aime in the pelvis to stab wound left lower quadrant Complications None Indications Suspicious for colovesical fistula recurrent UTIs Description of Procedure merda I attest to the content of the Intraoperative Record and any orders documented therein. Any exceptions are noted below.
--- NOTE | 2022-07-12 10:05 | Anesthesiology Progress Note ---
Date of Service July 12, 2022 Anesthesia Post Procedure Vital Signs Vital Signs: Temp Pulse Pulse Resp BP Pulse Ox O2 Del Method 07/12/22 09:50 92 H 15 113/69 94 Oxymask 07/12/22 09:40 98.1 F 98 H 15 121/68 97 Oxymask 07/12/22 09:30 98 H 16 131/71 96 Oxymask 07/12/22 09:20 106 H 17 137/76 93 Oxymask 07/12/22 09:10 103 H 15 144/81 H 94 Oxymask 07/12/22 09:00 98 H 16 147/82 H 94 Oxymask 07/12/22 08:52 97.5 F L 103 H 15 175/87 H 92 Oxymask 07/12/22 06:23 97.7 F 81 18 117/65 94 Room Air O2 Flow Rate 07/12/22 09:50 3 07/12/22 09:40 3 07/12/22 09:30 7 07/12/22 09:20 7 07/12/22 09:10 7 07/12/22 09:00 6 07/12/22 08:52 5 07/12/22 06:23 Transfer of Care Handoff Completed per policy Notes Mental Status: alert / awake / arousable and participated in evaluation Patient Amnestic to Procedure: Yes Nausea / Vomiting: adequately controlled Pain: adequately controlled Airway Patency, RR, SpO2: stable & adequate BP & HR: stable & adequate Hydration State: stable & adequate Anesthetic Complications: no major complications apparent and Pt Satisfied with anesthetic care
[2022-07-12] MEDS ORDERED: HYDROmorphone INJ 0.5 MG/0.5 ML SYR IV PRN (10:15)
[2022-07-12] MEDS ORDERED: ALBUTEROL HFA 8 GM INHALER INH PRN (10:15)
[2022-07-12] MEDS: ACETAMINOPHEN 1,000 MG/100 ML VIAL IV SCH ×2 (12:10→18:39)
[2022-07-12] MEDS: SERTRALINE HCL 50 MG TABLET PO SCH (12:10)
[2022-07-12] MEDS: LEVOTHYROXINE SODIUM 112 MCG TABLET PO SCH (12:10)
[2022-07-12] MEDS: CARBIDOPA/LEVODOPA 25/100MG TAB PO SCH ×3 (14:16→20:08)
[2022-07-12] MEDS: cefOXitin 2,000 MG in DEXTROSE 5% 50 ML IV SCH ×2 (16:08→20:09)
[2022-07-13] MEDS: ACETAMINOPHEN 1,000 MG/100 ML VIAL IV SCH ×3 (02:30→17:59)
[2022-07-13] MEDS: cefOXitin 2,000 MG in DEXTROSE 5% 50 ML IV SCH ×2 (02:49→08:15)
[2022-07-13] MEDS: LEVOTHYROXINE SODIUM 112 MCG TABLET PO SCH (05:50)
[2022-07-13 06:15] LABS: Basophils # (auto) 0.02 K/uL (0-0.2); Basophils % (auto) 0.2 %; Hematocrit (blood only) 32.1 % (34.1-44.9); Hemoglobin 10.5 g/dl (12.0-16.0); Immature Granulocytes # (auto) 0.06 K/uL (0.00-0.02); Immature Granulocytes % (auto) 0.5 %; Lymphocytes # (auto) 1.19 K/uL (1.2-3.4); Lymphocytes % (auto) 10.3 %; Mean Corpuscular Hemoglobin 28.2 pg (25.0-34.0); Mean Corpuscular Hgb Conc 32.7 g/dL (32.0-36.0); Mean Corpuscular Volume 86.3 fL (80.0-100.0); Mean Platelet Volume 10.3 fL (9.4-12.3); Monocytes # (auto) 1.12 K/uL (0.24-0.82); Monocytes % (auto) 9.7 %; Neutrophils # (auto) 9.13 K/uL (1.4-6.5); Neutrophils % (auto) 79.3 %; Platelet Count 226 K/uL (130-400); RDW Coefficient of Variation 15.1 % (11.5-14.5); RDW Standard Deviation 47.8 fL (36.4-46.3); Red Blood Count 3.72 M/uL (3.93-5.22); White Blood Count 11.52 K/ul (4.8-10.8)
[2022-07-13 06:40] LABS: BUN Creatinine Ratio 20.3 (10-20); Calcium 8.8 mg/dl (8.5-10.1); Creatinine Clr Calc Pharmacy 48.5 ml/min; Est GFR (African American) 76.9 ml/min; Est GFR (Non-African American) 66.4 ml/min
[2022-07-13] MEDS: LACTATED RINGER'S 1,000 ML IV SCH ×2 (07:37→16:14)
[2022-07-13] MEDS: SERTRALINE HCL 50 MG TABLET PO SCH (08:19)
[2022-07-13] MEDS: CARBIDOPA/LEVODOPA 25/100MG TAB PO SCH ×3 (08:19→20:34)
--- NOTE | 2022-07-13 11:12 | Surgery Progress Note ---
Date of Service July 13, 2022 Assessment & Plan (1) [place]-vesical fistula: Plan: POD 1 sigmoid colectomy UOP marginal, resume IVF @125 cc/hr for next shift Hgb 10.5 from 12.4, HR BP stable, will hold subQ heparin for now OOB Admission and Anticipated Discharge Date Admission Date: July 12, 2022 Supervising Physician Co-Signing Physician Notes As per Irvin diaz The patient overall appears very comfortable expected abdominal discomfort from the incision and excellent urine output operative procedure explained to the patient this point we will start on clear liquids advance diet slowly Subjective no nausea, pain control adequate, pain when moving Physical Exam Gastrointestinal (Abdomen): Inspection/Auscultation: + abdomen distended (slight), + abdominal surgical incision (dressing dry) and + abdominal surgical drain present (20 cc overnight) Percussion/Palpation: abdomen soft Results & Data ([facility]) Vital Signs (Past 12 Hours) Vital Signs Temp Pulse Pulse Resp BP Pulse Ox O2 Del Method 07/13/22 08:09 36.6 C 60 16 118/63 94 Nasal Cannula 07/13/22 03:43 36.6 C 62 18 95/57 L 96 Nasal Cannula 07/12/22 23:28 36.6 C 86 20 114/69 96 Nasal Cannula 07/12/22 23:22 73 O2 Flow Rate 07/13/22 08:09 1 07/13/22 03:43 2 07/12/22 23:28 2 07/12/22 23:22 PG Care Time/CCT Total # of Minutes Spent Total Time Spent with Patient: Total time spent is greater than 50% in coordination of care (as documented) at patient's floor/unit and/or counseling patient: Coding Level of Care Code None Diagnoses [place]-vesical fistula N32.1
[2022-07-14] MEDS: ACETAMINOPHEN 1,000 MG/100 ML VIAL IV SCH (01:23)
[2022-07-14 05:00] LABS: Basophils # (auto) 0.04 K/uL (0-0.2); Basophils % (auto) 0.6 %; Eosinophils # (auto) 0.23 K/uL (0-0.50); Eosinophils % (auto) 3.4 %; Hematocrit (blood only) 34.6 % (34.1-44.9); Hemoglobin 10.9 g/dl (12.0-16.0); Immature Granulocytes # (auto) 0.02 K/uL (0.00-0.02); Immature Granulocytes % (auto) 0.3 %; Lymphocytes # (auto) 1.26 K/uL (1.2-3.4); Lymphocytes % (auto) 18.5 %; Mean Corpuscular Hgb Conc 31.5 g/dL (32.0-36.0); Mean Corpuscular Volume 88.9 fL (80.0-100.0); Mean Platelet Volume 10.1 fL (9.4-12.3); Monocytes # (auto) 0.85 K/uL (0.24-0.82); Monocytes % (auto) 12.5 %; Neutrophils # (auto) 4.41 K/uL (1.4-6.5); Neutrophils % (auto) 64.7 %; Platelet Count 219 K/uL (130-400); RDW Coefficient of Variation 15.4 % (11.5-14.5); RDW Standard Deviation 49.4 fL (36.4-46.3); Red Blood Count 3.89 M/uL (3.93-5.22); White Blood Count 6.81 K/ul (4.8-10.8)
[2022-07-14] MEDS: LACTATED RINGER'S 1,000 ML IV SCH ×2 (05:18→17:28)
[2022-07-14 05:19] LABS: BUN Creatinine Ratio 21.2 (10-20); Calcium 9.1 mg/dl (8.5-10.1); Creatinine Clr Calc Pharmacy 73.6 ml/min; Est GFR (African American) 98.2 ml/min; Est GFR (Non-African American) 84.7 ml/min; Potassium 3.5 mmol/L (3.5-5.1)
[2022-07-14] MEDS: LEVOTHYROXINE SODIUM 112 MCG TABLET PO SCH (05:39)
--- NOTE | 2022-07-14 07:09 | Surgery Progress Note ---
Date of Service July 14, 2022 Assessment & Plan (1) [place]-vesical fistula: Plan: 07/14/22 POD #2 At this point we will DC the Velásquez catheter encourage activity maintain normal present oral intake restart subcu heparin keep the IV at 75 cc/h POD 1 sigmoid colectomy UOP marginal, resume IVF @125 cc/hr for next shift Hgb 10.5 from 12.4, HR BP stable, will hold subQ heparin for now OOB Plan Increase activity as tolerated DC Velásquez Admission and Anticipated Discharge Date Admission Date: July 12, 2022 Subjective No major complaints she has some discomfort in lower belly at the operative site she states she had a little bowel movement was not passing any flatus denies any nausea Physical Exam Physical Exam: The abdomen is soft with the expected discomfort 2 days postop Incisions without any drainage lalo intact no redness Aime drainage left lower quadrant serosanguineous amount acceptable Results & Data ([facility]) Vital Signs (Past 12 Hours) Vital Signs Temp Pulse Pulse Resp BP Pulse Ox O2 Del Method 07/14/22 03:54 36.8 C 61 18 119/69 92 Room Air 07/14/22 00:00 62 07/13/22 22:35 36.8 C 75 18 120/88 99 Room Air O2 Flow Rate 07/14/22 03:54 2 07/14/22 00:00 07/13/22 22:35 PG Care Time/CCT Total # of Minutes Spent Total Time Spent with Patient: Total time spent is greater than 50% in coordination of care (as documented) at patient's floor/unit and/or counseling patient: Coding Level of Care Code None Diagnoses [place]-vesical fistula N32.1
[2022-07-14] MEDS: CARBIDOPA/LEVODOPA 25/100MG TAB PO SCH ×3 (08:20→21:18)
[2022-07-14] MEDS: SERTRALINE HCL 50 MG TABLET PO SCH (08:20)
[2022-07-14] MEDS: ONDANSETRON INJ 2 MG/ML 2 ML VIAL IV PRN ×2 (10:02→15:58)
[2022-07-14] MEDS: HEPARIN SOD 5,000 UNIT/0.5 ML VIAL SQ SCH ×2 (10:04→21:18)
[2022-07-14] MEDS: ACETAMINOPHEN 325 MG TAB PO PRN ×2 (12:30→21:22)
[2022-07-15] MEDS: LEVOTHYROXINE SODIUM 112 MCG TABLET PO SCH (06:01)
[2022-07-15 06:27] LABS: BUN Creatinine Ratio 16.3 (10-20); Calcium 8.8 mg/dl (8.5-10.1); Creatinine Clr Calc Pharmacy 88.9 ml/min; Est GFR (African American) 104.5 ml/min; Est GFR (Non-African American) 90.2 ml/min; Potassium 3.6 mmol/L (3.5-5.1)
[2022-07-15 06:52] LABS: Basophils # (auto) 0.06 K/uL (0-0.2); Basophils % (auto) 0.9 %; Eosinophils # (auto) 0.43 K/uL (0-0.50); Eosinophils % (auto) 6.7 %; Hematocrit (blood only) 39.3 % (34.1-44.9); Hemoglobin 12.3 g/dl (12.0-16.0); Immature Granulocytes # (auto) 0.03 K/uL (0.00-0.02); Immature Granulocytes % (auto) 0.5 %; Lymphocytes # (auto) 1.24 K/uL (1.2-3.4); Lymphocytes % (auto) 19.4 %; Mean Corpuscular Hemoglobin 28.2 pg (25.0-34.0); Mean Corpuscular Hgb Conc 31.3 g/dL (32.0-36.0); Mean Corpuscular Volume 90.1 fL (80.0-100.0); Mean Platelet Volume 10.2 fL (9.4-12.3); Monocytes # (auto) 0.86 K/uL (0.24-0.82); Monocytes % (auto) 13.5 %; Neutrophils # (auto) 3.77 K/uL (1.4-6.5); Platelet Count 249 K/uL (130-400); RDW Coefficient of Variation 14.9 % (11.5-14.5); RDW Standard Deviation 49.5 fL (36.4-46.3); Red Blood Count 4.36 M/uL (3.93-5.22); White Blood Count 6.39 K/ul (4.8-10.8)
[2022-07-15] MEDS: LACTATED RINGER'S 1,000 ML IV SCH (07:59)
[2022-07-15] MEDS: SERTRALINE HCL 50 MG TABLET PO SCH (08:00)
[2022-07-15] MEDS: HEPARIN SOD 5,000 UNIT/0.5 ML VIAL SQ SCH ×2 (08:00→20:10)
[2022-07-15] MEDS: CARBIDOPA/LEVODOPA 25/100MG TAB PO SCH ×3 (08:00→20:10)
--- NOTE | 2022-07-15 10:07 | Surgery Progress Note ---
Date of Service July 15, 2022 Assessment & Plan (1) [place]-vesical fistula: Plan: POD 3 sigmoid colectomy H&H stable UOP and po intake marginal, continue IVF at 75 cc/hr had PT continue I.S. keep on clears for now Plan Increase activity as tolerated DC Velásquez Admission and Anticipated Discharge Date Admission Date: July 12, 2022 Supervising Physician Co-Signing Physician Notes I personally saw and evaluated the patient with Jose Couch PA-C and agree with the assessment and plan. 87-year-old female postoperative day 3 open sigmoidectomy She is tolerating clear liquids without nausea and vomiting Little to no return of bowel function at this point, will keep on clears We will continue her IV fluids, she did void on her own so we will hold off on any straight cath or Velásquez Continue abdominal drain to bulb suction Will switch her from LR to D5 half with potassium Await more meaningful return of bowel function, Encourage ambulation and I-S Subjective small liquid BMs, no flatus, not taking much clears but nausea from yesterday improved, straight cath last night Physical Exam Constitutional: WD/WN, vitals as above Gastrointestinal (Abdomen): Inspection/Auscultation: + abdominal surgical incision (mannie intact); abdomen not distended Percussion/Palpation: abdomen soft Results & Data ([facility]) Vital Signs (Past 12 Hours) Vital Signs Temp Pulse Pulse Pulse Resp BP Pulse Ox 07/15/22 06:55 36.7 C 61 18 140/70 90 07/15/22 03:50 36.6 C 62 20 148/68 H 94 07/14/22 22:10 68 07/14/22 23:00 36.6 C 72 18 160/73 H 94 O2 Del Method 07/15/22 06:55 Room Air 07/15/22 03:50 Nasal Cannula 07/14/22 22:10 07/14/22 23:00 Nasal Cannula PG Care Time/CCT Total # of Minutes Spent Total Time Spent with Patient: Total time spent is greater than 50% in coordination of care (as documented) at patient's floor/unit and/or counseling patient: Coding Level of Care Code None Diagnoses [place]-vesical fistula N32.1
[2022-07-15] MEDS: D5W AND 1/2NSS + 20MEQ KCL 20 MEQ/1,000 ML BAG IV SCH (10:45)
[2022-07-15] MEDS: ACETAMINOPHEN 325 MG TAB PO PRN (20:11)
[2022-07-15] MEDS ORDERED: MELATONIN 3 MG TAB PO PRN (23:29)
--- NOTE | 2022-07-16 00:18 | Hospitalist Consultation ---
Date of Consultation July 16, 2022 Assessment & Plan (1) Anxiety: Natali Zazueta is an 87-year-old female with past medical history of parkinsonism, hypertension, hyperlipidemia, hypothyroidism, small vessel cerebrovascular disease, PE (no longer on AC), AAA repair with chronic endoleakwho is currently postop day 4 following a sigmoid colectomy for colovesical fistula, which was diagnosed in February 2022. Acute delirium: -Likely in the setting of underlying dementia in a patient with history of small vessel cerebrovascular disease, as suspected by Neurology during consultation in May 2022 -Also possible that she may have mild to moderate idiopathic Parkinson's per Neuro -At the time of my evaluation she continues to be confused and seems to be hallucinating, but is not overtly agitated -Patient reportedly confused earlier 07/15 as well, per CM note -Delirium precautions: frequent reorientation, open blinds, avoid excessive changes room changes, keep room quiet overnight with as minimal awakenings as possible -At this time recommend avoidance of medication unless she becomes physically aggressive or self-harming -Avoid benzodiazepines, anticholinergic meds -- would avoid opioids if possible as well -Continue to monitor closely Colovesical fistula: -POD #4 following sigmoid colectomy -Continue care per General Surgery Mixed action and resting tremor/?Parkinson's -As above Parkinson's could predispose to delirium in hospital setting -Continue carbidopa/levodopa as recommended by Neuro in May Hypothyroidism: -TSH 14.2 in May -Will repeat with AM labs -Continue home dose of levothyroxine Hypertension: - On amlodipine at home - On hold at this time, BP is uner reasonable control - Consider restarting if BP trends up Endoleak after endovascular aneurysm repair: -Follows with vascular surgery -Stable at this time. Anxiety and depression: -Continue home sertraline Exertional shortness of breath: -Chronic, at baseline -Continue albuterol prn Hyperlipidemia: -On atorvastatin at home -Currently on hold -Would continue to hold as some evidence shows atorvastatin can lead to reversible cognitive dysfunction Plan FENGI: D5 1/2NS + KCl, clear liquid diet Code status: full code DVT ppx: Heparin SQ per primary team Dispo: Telemetry, DC planning pending PT/OT evals -- CM assisting Thank you for allowing us to participate in the care of this patient Pedro Holliday MD (2) [place]-vesical fistula: (3) Mixed action and resting tremor: (4) Small vessel disease, cerebrovascular: (5) Hypothyroidism, postablative: (6) History of abdominal aortic aneurysm (AAA): (7) S/P percutaneous abdominal aortic aneurysm repair: (8) Parkinsons disease: (9) Acute delirium: History of Present Illness Attending Physician: Max Garcia MD, FACS History of Present Illness Natali Zazueta is an 87-year-old female with past medical history of parkinsonism, hypertension, hyperlipidemia, hypothyroidism, small vessel cerebrovascular disease, PE (no longer on AC), AAA repair with chronic endoleakwho is currently postop day 4 following a sigmoid colectomy for colovesical fistula, which was diagnosed in February 2022. Due to her condition, she had been developing recurrent complicated UTIs leading to multiple hospital admissions. She tolerated the procedure well, has remained hemodynamically stable, and pain has been well-controlled. Her bowel function has yet to return, so she has been maintained on clear liquid diet but has had poor PO intake overall. As such, she continues on IV fluids. Night of 07/15-07/16 the patient has had progressive confusion, agitation, and hallucinations. Upon my evaluation, she is calm in bed but says that there are three girls in her room that are bothering her. She also says that there is water coming through the pipes in the roof and when told she is in the hospital she states that everything in the room belongs to her and that she paid for it, so she can't be in the hospital. Otherwise denies pain, but remains focused on the three girls that she continues to see, so ROS is fairly limited. Allergies Allergy/AdvReac Type Severity Reaction Status Date / Time lisinopril AdvReac Intermediate Cough Verified 07/12/22 06:17 mesalamine [From Asacol] AdvReac Unknown CAN'T Verified 07/12/22 06:17 REMEMBER sulfasalazine AdvReac Unknown CAN'T Verified 07/12/22 06:17 REMEMBER Home Medications Medication Instructions Recorded Confirmed Type multivitamin (Multiple Vitamins 1 tab PO QAM 03/24/19 07/12/22 History tablet) acetaminophen 500 mg tablet 1,000 mg PO TID PRN fever or pain 06/15/19 07/12/22 History #90 tabs ascorbic acid (vitamin C) 1,000 mg 1 gm PO QAM 06/15/19 07/12/22 History tablet cholecalciferol (vitamin D3) 25 2,000 units PO QAM 06/15/19 07/12/22 History mcg (1,000 unit) capsule calcium carbonate 600 mg calcium 600 mg PO QAM 06/11/20 07/12/22 History (1,500 mg) tablet (Calcium) Bedside Commode #1 ea 04/26/21 05/31/22 Rx albuterol sulfate 90 mcg/actuation 2 puff inhalation Q6H PRN 03/16/22 07/12/22 Rx aerosol inhaler Shortness Of Breath Or Wheezing #18 grams mupirocin 2 % topical ointment 1 applic topical TID PRN Skin 05/31/22 07/12/22 History Irritation amlodipine 5 mg tablet (Norvasc) 5 mg PO QAM #30 tabs 06/07/22 07/12/22 Rx carbidopa 25 mg-levodopa 100 mg 1 tab PO TID #60 tabs 06/07/22 07/12/22 Rx tablet (Sinemet) ciprofloxacin HCl 500 mg tablet 500 mg PO .COMPLEX #3 tabs 06/27/22 07/12/22 Rx (Cipro) ferrous sulfate 325 mg (65 mg 325 mg PO QAM 06/30/22 07/12/22 History iron) tablet levothyroxine 112 mcg tablet 112 mcg PO QAM 06/30/22 07/12/22 History metronidazole 500 mg tablet 500 mg PO UD 06/30/22 07/12/22 History polyethylene glycol 3350 17 gram 17 g PO DAILY PRN Constipation 06/30/22 History oral powder packet (Miralax) sertraline 50 mg tablet (Zoloft) 50 mg PO QAM 06/30/22 07/12/22 History atorvastatin 10 mg tablet (Lipitor) 10 mg PO QAM 07/12/22 07/12/22 History Patient History Medical History (Updated 07/16/22 @ 02:03 by Pedro Holliday MD) Anxiety and depression Colovesical fistula Reason for upcoming procedure Dyslipidemia History of abdominal aortic aneurysm (AAA) S/p PEVAR 03/2021; s/p embolization of braches of her left internal iliac artery for increase in endoleak with increased size of her sac per vascular records 04/2022 History of breast cancer Age 61 s/p Left Mastectomy, Radiation & Chemo Age 78 s/p Right Mastectomy - s/p chemo/XRT No known arm restriction History of Graves' disease S/p MCCALLUM History of pulmonary embolism No longer on AC per 06/06/22 hospitalist note History of shingles Per daughter, pt had shingles while at [facility]. She was dx about 2 weeks ago. she finished her meds and lesions are healed over. NO OPEN LESIONS. HLD (hyperlipidemia) Hx of cancer of lung 2020. S/p XRT Hx of Crohn's disease Hypertension Hypothyroidism, postablative TSH 14.2 when admitted to [facility] 05/31/22- recommended patient continue levothyroxine and follow up with PCP Lymphedema left arm Osteopenia Parkinsonism Tremor at rest, pin rolling. Seen by neuro when admitted 06/02/22- started on Sinemet Poor historian Small vessel disease, cerebrovascular Surgical History (Updated 07/14/22 @ 11:04 by Chelsea Sofia, MARILEE) H/O colonoscopy (03/31/22) History of breast biopsy History of bronchoscopy Navigational bronch, EBUS (06/15/20) History of cataract extraction R/L History of colon resection (07/12/22) Open Sigmoid Colon Resection(Not Applicable) - Max Garcia MD, FACS History of colonoscopy History of cystoscopy History of mastectomy x2 (Age 61 and Age 78) History of tooth extraction History of wisdom tooth extraction S/P percutaneous abdominal aortic aneurysm repair (03/2021) 04/18/21- Dr. Felipe Alva at [facility] S/P skin biopsy (04/21/22) Left hand lesion shave biopsy Juliann Rubin/Dr. Crowley Family History Father , Passed unknown age of CT Myocardial infarction acute Heart disease Hypertension Mother , Passed in 80's of heart failure Aorta aneurysm Breast cancer Cancer Diabetes Hypertension Brother , Passed in 70's of Lung Cancer (Smoker) No problems noted. Brother , Passed in 60's of Lung Cancer (Smoker) No problems noted. Brother , Passed in late 70's of Lung Cancer (Smoker) No problems noted. Sister , Passed in 80's of natural causes/unknown No problems noted. Daughter Breast cancer Son No problems noted. Other No family history of adverse response to anesthesia Social History Smoking Status: Former smoker Tobacco Type: Cigarettes Age Started Using Tobacco: 13; Age Quit Using Tobacco: 38; packs per day: 0.5; Cigarettes Per Day: 1 pack cigs every 4-5days; Smoking End Date: 20-25 years ago; Second Hand Exposure: No; Do You Dip or Chew Tobacco: No; Tobacco Cessation Education Requested by Patient: No Hx Alcohol Use: No Hx Substance Use: No Preferred Language: Slovak Communication Ability: Effective Visual Impairment: No Limitations Hearing Ability: Normal [employer] Liaison [employer] Required: No Beliefs That Will Affect Care: None marital status: / Current Living Situation: Alone Current Living Situation Comment: Daughter checks in via phone daily, lives 10 min away current occupational status: retired current occupation: Retired from [employer] How many Children do You have: 2 How many Children do You have Comment: 1 Other Information That Helps Us Care for You: No Feels Safe at Home: Yes Safety Concerns: Feels Safe At This Time Childhood Exposure to Second-Hand Smoke: Yes Diet Comment: regular caffeine: Yes ("once in a while") during the past year weight has: decreased > 10 lbs Dental Care, Regularly: No Physical Activity Frequency: Daily Physical Activity Frequency Comment: chores Seatbelt Use: always Sunscreen Use: No Assistive Devices: Cane and Wheelchair Assistive Devices Comment: cane/walker-prn Review of Systems Review of Systems: per HPI, limited by cognitive status Physical Exam Physical Exam: GENERAL: Alert to person only. NAD. HEENT: PERRL, EOMI. Moist mucous membranes. CHEST/LUNGS: CTAB A/P. No crackles, wheezes, rales, rhonchi. HEART: RRR. No m/g/r. No carotid bruits. ABDOMEN: NT/ND, soft. BS+ x4. Surgical scar with drain in place EXTREMITIES: No cyanosis, no clubbing, no edema PSYCHIATRIC: Confused, hallucinating NEUROLOGIC: No FND. Results & Data Results & Data ([facility]) Vital Signs (Past 12 Hours) Vital Signs Temp Pulse Resp BP Pulse Ox O2 Del Method 07/15/22 18:57 36.9 C 72 19 144/72 H 91 Room Air 07/15/22 16:46 36.7 C 80 19 154/73 H 91 Room Air Resident Activity Tracking Resident Involvement: Resident Care Provided Care Provided: Adult Hospital Medicine
[2022-07-16] MEDS: D5W AND 1/2NSS + 20MEQ KCL 20 MEQ/1,000 ML BAG IV SCH (01:03)
[2022-07-16] MEDS: LEVOTHYROXINE SODIUM 112 MCG TABLET PO SCH (06:20)
[2022-07-16 06:44] LABS: Basophils # (auto) 0.05 K/uL (0-0.2); Basophils % (auto) 0.8 %; Eosinophils # (auto) 0.54 K/uL (0-0.50); Eosinophils % (auto) 8.6 %; Hematocrit (blood only) 38.4 % (34.1-44.9); Hemoglobin 12.3 g/dl (12.0-16.0); Immature Granulocytes # (auto) 0.03 K/uL (0.00-0.02); Immature Granulocytes % (auto) 0.5 %; Lymphocytes # (auto) 1.24 K/uL (1.2-3.4); Lymphocytes % (auto) 19.7 %; Mean Corpuscular Volume 87.5 fL (80.0-100.0); Mean Platelet Volume 10.1 fL (9.4-12.3); Monocytes # (auto) 0.71 K/uL (0.24-0.82); Monocytes % (auto) 11.3 %; Neutrophils # (auto) 3.74 K/uL (1.4-6.5); Neutrophils % (auto) 59.1 %; Platelet Count 272 K/uL (130-400); RDW Coefficient of Variation 14.7 % (11.5-14.5); RDW Standard Deviation 47.1 fL (36.4-46.3); Red Blood Count 4.39 M/uL (3.93-5.22); White Blood Count 6.31 K/ul (4.8-10.8)
[2022-07-16 07:19] LABS: BUN Creatinine Ratio 7.7 (10-20); Calcium 8.7 mg/dl (8.5-10.1); Est GFR (African American) 107.9 ml/min; Est GFR (Non-African American) 93.1 ml/min; Potassium 3.3 mmol/L (3.5-5.1)
[2022-07-16] MEDS ORDERED: POTASSIUM CHLORIDE CRTAB 20 MEQ TABCR PO STA (08:21)
--- NOTE | 2022-07-16 08:21 | Hospitalist Progress Note ---
Date of Service July 16, 2022 Assessment & Plan (1) Acute delirium: Plan: -Likely in the setting of underlying dementia in a patient with history of small vessel cerebrovascular disease, as suspected by Neurology during consultation in May 2022 -Also possible that she may have mild to moderate idiopathic Parkinson's per Neuro -At the time of my evaluation, patient was A&O x 3. -Patient reportedly confused earlier 07/15 as well, per CM note -Continue Delirium precautions: frequent reorientation, open blinds, avoid excessive changes room changes, keep room quiet overnight with as minimal awakenings as possible -At this time recommend avoidance of medication unless she becomes physically aggressive or self-harming -Avoid benzodiazepines, anticholinergic meds -- would avoid opioids if possible as well -Continue to monitor closely (2) Parkinsons disease: Plan: -As above Parkinson's could predispose to delirium in hospital setting -Continue carbidopa/levodopa as recommended by Neuro in Novembe (3) [place]-vesical fistula: Plan: -POD #4 following sigmoid colectomy -Continue care per General Surgery (4) Hypertension: Plan: - On amlodipine at home - On hold at this time, BP is under reasonable control - Consider restarting if BP trends up (5) Anxiety and depression: Plan: - Continue home Sertraline (6) HLD (hyperlipidemia): Plan: -On atorvastatin at home -Currently on hold -Would continue to hold as some evidence shows atorvastatin can lead to reversible cognitive dysfunction (7) Hypothyroidism, postablative: Plan: -TSH 14.2 in May -TSH now 3.558 -Continue home dose of levothyroxine Admission and Anticipated Discharge Date Admission Date: July 12, 2022 Subjective Patient was sleeping and awoke to her name. She is alert and oriented x 3 She was able to tell me the month and year and that she was at [facility]. She also gave me her full name and . She only complained today of some mild abdominal discomfort and that she felt tired. per nusing she finally fell asleep early this AM. Which was her first sleep in 1.5 days. She admits to passing flatus and per nursing some small liquid BMs. She has no nausea or vomiting and denies any chest pain, SOB or dyspnea. Review of Systems Constitutional: + fatigue; no fever, no chills and no weight loss Respiratory: no cough, no dyspnea and no hemoptysis Cardiovascular: no chest pain, no dyspnea, no syncope and no edema Gastrointestinal: + abdominal pain; no heartburn, no nausea, no vomiting, no pain with swallowing and no dysphagia Genitourinary: no dysuria, no difficulty urinating, no urinary frequency and no urinary hesitancy Physical Exam Constitutional: WD/WN, vitals as above ENMT: external ear and nose normal, oropharynx normal Neck: trachea midline, no thyromegaly Respiratory: normal respiratory effort, lungs clear to auscultation Cardiovascular: RRR, no murmur, no edema Gastrointestinal (Abdomen): Inspection/Auscultation: abdomen normal to inspection, normal bowel sounds and + abdominal surgical drain present; abdomen not distended surgical dressing clean and intact, serosanguineous drainage in DAMARIS drain bulb Skin: no rashes, warm and dry Neurologic: PERRL, EOMI, accommodation nl, no face palsy, no dysarthria Patient was alert and oriented x 3 today Psychiatric: A+Ox3, euthymic affect Results & Data Results & Data ([facility]) Vital Signs (Past 12 Hours) Vital Signs Temp Pulse Pulse Pulse Resp BP Pulse Ox 07/16/22 06:49 67 194/73 H 07/16/22 06:34 36.6 C 65 18 204/79 H 90 07/15/22 22:15 76 O2 Del Method 07/16/22 06:49 07/16/22 06:34 Room Air 07/15/22 22:15 Laboratory Results Abnormal lab results 07/16/22 07/16/22 Range/Units 05:55 05:55 RDW Std Deviation 47.1 H (36.4-46.3) fL RDW Coeff of Janel 14.7 H (11.5-14.5) % Eos # (Auto) 0.54 H (0-0.50) K/uL Immature Gran # (Auto) 0.03 H (0.00-0.02) K/uL Potassium 3.3 L (3.5-5.1) mmol/L Carbon Dioxide 33 H (21-32) mmol/L BUN 3 L (6-23) mg/dl Creatinine 0.39 L (0.6-1.2) mg/dl BUN/Creatinine Ratio 7.7 L (10-20) PG Care Time/CCT Total # of Minutes Spent Total Time Spent with Patient: Total time spent is greater than 50% in coordination of care (as documented) at patient's floor/unit and/or counseling patient: Coding Level of Care Code None Diagnoses Acute delirium R41.0 Parkinsons disease G20 [place]-vesical fistula N32.1 Hypertension I10 Anxiety and depression F41.9; F32.A HLD (hyperlipidemia) E78.5 Hypothyroidism, postablative E89.0 Time Spent (min) 15
--- NOTE | 2022-07-16 10:11 | Surgery Progress Note ---
Date of Service July 16, 2022 Assessment & Plan (1) [place]-vesical fistula: Plan: POD#4 sigmoid colon resection WBC 6.3, Hbg 12.3, Cr: 0.3, K: 3.3 (will replete) Events noted from overnight, pt had some delirium, appreciate hospitalists assistance and following along + gas and some small liquid BMs, will advance to full liquids today Incisions c/d/i, abdomen soft. DAMARIS serosang Continue to encourage ambulation and pulm toilet Admission and Anticipated Discharge Date Admission Date: July 12, 2022 Supervising Physician Co-Signing Physician Notes I personally saw and evaluated the patient with Jerrica Bell PA-C and agree with the assessment and plan. 87-year-old female postoperative day 4 open sigmoidectomy Advance to full liquids She has had some bowel movements DC IV fluids Hospitalist consult appreciated Continue abdominal drain to bulb suction Encourage ambulation and I-S Subjective Patient says she is feeling okay this AM. Denies abdominal pain. Passing some gas and BMs. Physical Exam Physical Exam: sleeping, but was easily arousable and communicative Gastrointestinal (Abdomen): Inspection/Auscultation: + abdominal surgical incision (c/d/i with midline lalo/mannie) and + abdominal surgical drain present (serosang); abdomen not distended Percussion/Palpation: abdomen soft; abdomen nontender Results & Data ([facility]) Vital Signs (Past 12 Hours) Vital Signs Temp Pulse Pulse Pulse Resp BP Pulse Ox 07/16/22 06:49 67 194/73 H 07/16/22 06:34 36.6 C 65 18 204/79 H 90 07/15/22 22:15 76 O2 Del Method 07/16/22 06:49 07/16/22 06:34 Room Air 07/15/22 22:15 PG Care Time/CCT Total # of Minutes Spent Total Time Spent with Patient: Total time spent is greater than 50% in coordination of care (as documented) at patient's floor/unit and/or counseling patient: Coding Level of Care Code None Diagnoses [place]-vesical fistula N32.1
[2022-07-16] MEDS: HEPARIN SOD 5,000 UNIT/0.5 ML VIAL SQ SCH ×2 (11:55→20:42)
[2022-07-16] MEDS: CARBIDOPA/LEVODOPA 25/100MG TAB PO SCH ×3 (11:56→20:38)
[2022-07-16] MEDS: SERTRALINE HCL 50 MG TABLET PO SCH (11:56)
[2022-07-16] MEDS: ACETAMINOPHEN 325 MG TAB PO PRN ×2 (11:58→20:38)
[2022-07-17] MEDS: LEVOTHYROXINE SODIUM 112 MCG TABLET PO SCH (06:09)
[2022-07-17] MEDS: HEPARIN SOD 5,000 UNIT/0.5 ML VIAL SQ SCH ×2 (07:55→19:28)
[2022-07-17] MEDS: CARBIDOPA/LEVODOPA 25/100MG TAB PO SCH ×3 (07:55→19:28)
[2022-07-17] MEDS: SERTRALINE HCL 50 MG TABLET PO SCH (07:56)
--- NOTE | 2022-07-17 10:52 | Surgery Progress Note ---
Date of Service July 17, 2022 Assessment & Plan (1) [place]-vesical fistula: Plan: POD#5 sigmoid colon resection Labs are ordered; will check BMP/CBC Patient is passing gas and BM's. Tolerating fulls with no n/v. Will advance to low fiber Working with PT/OT, may need rehab vs SNF upon dispo pending recs No void in last 12 hours, bladder scan for only 124cc...will monitor for now, may need catheter if unable to void Incisions c/d/i, abdomen soft. DAMARIS serosang,. mannie in place Continue to encourage ambulation and pulm toilet Appreciate hospitalists assistance with pt Admission and Anticipated Discharge Date Admission Date: July 12, 2022 Supervising Physician Co-Signing Physician Notes I personally saw and evaluated the patient with Jerrica Bell PA-C and agree with the assessment and plan. 87-year-old female postoperative day 5 open sigmoidectomy Advance to low fiber She has had return of bowel function without nausea Hospitalist consult appreciated Continue abdominal drain to bulb suction Encourage ambulation and I-S She has had some trouble urinating spontaneously, she may need catheter replaced Tentative plan is to discharge to rehab tomorrow, we will remove bulb suction drain and [place] from incision prior to discharge Subjective Patient standing with RNs getting cleaned up after having a BM. She is not appetized by the full liquids, but is tolerating them. Denies nausea/vomiting. Having some mild abdominal pain, but managed with Tylenol. Physical Exam Physical Exam: sleeping, but was easily arousable and communicative Gastrointestinal (Abdomen): Inspection/Auscultation: + abdominal surgical incision (c/d/i with midline lalo/mannie) and + abdominal surgical drain pre sent (serosang); abdomen not distended Percussion/Palpation: + abdomen tender (mild discomfort to palpation to left side of incision) and abdomen soft Results & Data ([facility]) Vital Signs (Past 12 Hours) Vital Signs Temp Pulse Pulse Resp BP Pulse Ox O2 Del Method 07/17/22 08:18 36.3 C L 64 18 167/78 H 94 Room Air 07/17/22 08:00 66 07/17/22 03:44 36.5 C 74 18 102/66 91 Room Air 07/16/22 23:10 36.5 C 68 18 109/70 90 Room Air PG Care Time/CCT Total # of Minutes Spent Total Time Spent with Patient: Total time spent is greater than 50% in coordination of care (as documented) at patient's floor/unit and/or counseling patient: Coding Level of Care Code None Diagnoses [place]-vesical fistula N32.1
[2022-07-17 11:23] LABS: Basophils # (auto) 0.06 K/uL (0-0.2); Basophils % (auto) 0.8 %; Eosinophils # (auto) 0.45 K/uL (0-0.50); Eosinophils % (auto) 5.8 %; Hematocrit (blood only) 39.7 % (34.1-44.9); Hemoglobin 12.5 g/dl (12.0-16.0); Immature Granulocytes # (auto) 0.08 K/uL (0.00-0.02); Lymphocytes # (auto) 1.82 K/uL (1.2-3.4); Lymphocytes % (auto) 23.3 %; Mean Corpuscular Hgb Conc 31.5 g/dL (32.0-36.0); Mean Platelet Volume 10.2 fL (9.4-12.3); Monocytes # (auto) 0.69 K/uL (0.24-0.82); Monocytes % (auto) 8.8 %; Neutrophils # (auto) 4.72 K/uL (1.4-6.5); Neutrophils % (auto) 60.3 %; Platelet Count 299 K/uL (130-400); RDW Coefficient of Variation 15.3 % (11.5-14.5); RDW Standard Deviation 49.3 fL (36.4-46.3); Red Blood Count 4.46 M/uL (3.93-5.22); White Blood Count 7.82 K/ul (4.8-10.8)
[2022-07-17 11:36] LABS: BUN Creatinine Ratio 13.6 (10-20); Creatinine Clr Calc Pharmacy 47.2 ml/min; Est GFR (African American) 74.6 ml/min; Est GFR (Non-African American) 64.4 ml/min; Potassium 3.5 mmol/L (3.5-5.1)
[2022-07-17] MEDS ORDERED: POTASSIUM CHLORIDE CRTAB 20 MEQ TABCR PO STA (12:14)
--- NOTE | 2022-07-17 16:12 | Hospitalist Progress Note ---
Date of Service July 17, 2022 Assessment & Plan (1) Acute delirium: Plan: Likely in the setting of underlying dementia in a patient with history of small vessel cerebrovascular disease, as suspected by Neurology during consultation in May 2022 Also possible that she may have mild to moderate idiopathic Parkinson's per Neuro -Patient continues to be A&O x 3 -Continue Delirium precautions: frequent reorientation, open blinds, avoid excessive changes room changes, keep room quiet overnight with as minimal awakenings as possible -At this time recommend avoidance of medication unless she becomes physically aggressive or self-harming -Avoid benzodiazepines, anticholinergic meds -- would avoid opioids if possible as well (2) Parkinsons disease: Plan: -As above Parkinson's could predispose to delirium in hospital setting -Continue carbidopa/levodopa as recommended by Neurology in May (3) [place]-vesical fistula: Plan: -POD #5 following sigmoid colectomy -Continue care per General Surgery (4) Hypertension: Plan: - On amlodipine at home - On hold at this time, BP is under reasonable control 107/72 currently - Consider restarting if BP trends up (5) Anxiety and depression: Plan: - Continue home Sertraline (6) HLD (hyperlipidemia): Plan: -On atorvastatin at home -Currently on hold -Would continue to hold as some evidence shows atorvastatin can lead to reversible cognitive dysfunction (7) Hypothyroidism, postablative: Plan: -TSH 14.2 in May -TSH now 3.558 -Continue home dose of levothyroxine Admission and Anticipated Discharge Date Admission Date: July 12, 2022 Subjective Patient is awake sitting up in recliner and has no complaints today. Per nursing she had no urination overnight and had a bladder scan revealed 142cc. She states she does not drink enough fluids. Her diet was advanced today. She is passing flatus and having BMs. She has no N/V and minimal abdominal discomfort. Patient voided this afternoon, quite a large amount, but missed the hat and was unable to measure. Nursing to continue to monitor and if no urination in 6 hours will repeat a bladder scan. Review of Systems Constitutional: + fatigue; no fever, no chills and no weight loss Respiratory: no cough, no dyspnea and no hemoptysis Cardiovascular: no chest pain, no dyspnea, no syncope and no edema Gastrointestinal: + abdominal pain; no heartburn, no nausea, no vomiting, no pain with swallowing and no dysphagia Genitourinary: no dysuria, no difficulty urinating, no urinary frequency and no urinary hesitancy Physical Exam Constitutional: WD/WN, vitals as above ENMT: external ear and nose normal, oropharynx normal Neck: trachea midline, no thyromegaly Respiratory: normal respiratory effort, lungs clear to auscultation Cardiovascular: RRR, no murmur, no edema Gastrointestinal (Abdomen): Inspection/Auscultation: abdomen normal to inspection, normal bowel sounds and + abdominal surgical drain present; abdomen not distended Skin: no rashes, warm and dry Neurologic: PERRL, EOMI, accommodation nl, no face palsy, no dysarthria Psychiatric: A+Ox3, euthymic affect Results & Data Results & Data ([facility]) Vital Signs (Past 12 Hours) Vital Signs Temp Pulse Pulse Resp BP Pulse Ox O2 Del Method 07/17/22 15:34 36.6 C 91 H 18 107/72 93 Room Air 07/17/22 12:30 36.6 C 92 H 20 103/70 95 Room Air 07/17/22 08:00 Room Air 07/17/22 08:18 36.3 C L 64 18 167/78 H 94 Room Air 07/17/22 08:00 66 Laboratory Results Abnormal lab results 07/17/22 07/17/22 Range/Units 10:50 10:50 MCHC 31.5 L (32.0-36.0) g/dL RDW Std Deviation 49.3 H (36.4-46.3) fL RDW Coeff of Janel 15.3 H (11.5-14.5) % Immature Gran # (Auto) 0.08 H (0.00-0.02) K/uL Carbon Dioxide 33 H (21-32) mmol/L Glucose 126 H (70-99(Fasting)) mg/dl PG Care Time/CCT Total # of Minutes Spent Total Time Spent with Patient: Total time spent is greater than 50% in coordination of care (as documented) at patient's floor/unit and/or counseling patient: Coding Level of Care Code 29778 Subseq Hosp Care Lvl 2 Diagnoses Acute delirium R41.0 Parkinsons disease G20 [place]-vesical fistula N32.1 Hypertension I10 Anxiety and depression F41.9; F32.A HLD (hyperlipidemia) E78.5 Hypothyroidism, postablative E89.0 Time Spent (min) 15
[2022-07-17] MEDS: ACETAMINOPHEN 325 MG TAB PO PRN (19:27)
[2022-07-18] MEDS: LEVOTHYROXINE SODIUM 112 MCG TABLET PO SCH (06:07)
[2022-07-18 06:38] LABS: Basophils # (auto) 0.07 K/uL (0-0.2); Basophils % (auto) 0.9 %; Eosinophils # (auto) 0.47 K/uL (0-0.50); Eosinophils % (auto) 6.4 %; Hematocrit (blood only) 34.9 % (34.1-44.9); Hemoglobin 11.4 g/dl (12.0-16.0); Immature Granulocytes # (auto) 0.15 K/uL (0.00-0.02); Lymphocytes # (auto) 1.86 K/uL (1.2-3.4); Lymphocytes % (auto) 25.2 %; Mean Corpuscular Hemoglobin 28.6 pg (25.0-34.0); Mean Corpuscular Hgb Conc 32.7 g/dL (32.0-36.0); Mean Corpuscular Volume 87.7 fL (80.0-100.0); Mean Platelet Volume 10.1 fL (9.4-12.3); Monocytes # (auto) 0.86 K/uL (0.24-0.82); Monocytes % (auto) 11.7 %; Neutrophils # (auto) 3.96 K/uL (1.4-6.5); Neutrophils % (auto) 53.8 %; Platelet Count 254 K/uL (130-400); RDW Coefficient of Variation 15.5 % (11.5-14.5); RDW Standard Deviation 49.5 fL (36.4-46.3); Red Blood Count 3.98 M/uL (3.93-5.22); White Blood Count 7.37 K/ul (4.8-10.8)
[2022-07-18 06:57] LABS: BUN Creatinine Ratio 23.4 (10-20); Calcium 8.9 mg/dl (8.5-10.1); Creatinine Clr Calc Pharmacy 59.3 ml/min; Est GFR (African American) 91.7 ml/min; Est GFR (Non-African American) 79.1 ml/min; Potassium 3.7 mmol/L (3.5-5.1)
--- NOTE | 2022-07-18 08:05 | Hospitalist Progress Note ---
Date of Service July 18, 2022 Assessment & Plan (1) Acute delirium: Plan: Likely in the setting of underlying dementia in a patient with history of small vessel cerebrovascular disease, as suspected by Neurology during consultation in May 2022 Also possible that she may have mild to moderate idiopathic Parkinson's per Neuro -Patient continues to be A&O x 3 -Continue Delirium precautions: frequent reorientation, open blinds, avoid excessive changes room changes, keep room quiet overnight with as minimal awakenings as possible -At this time recommend avoidance of medication unless she becomes physically aggressive or self-harming -Avoid benzodiazepines, anticholinergic meds -- would avoid opioids if possible as well (2) Parkinsons disease: Plan: -As above Parkinson's could predispose to delirium in hospital setting -Continue carbidopa/levodopa as recommended by Neurology in May (3) [place]-vesical fistula: Plan: -POD #6 following sigmoid colectomy -Continue care per General Surgery (4) Hypertension: Plan: - On amlodipine at home - On hold at this time, BP is under reasonable control 107/72 currently - Consider restarting if BP trends up (5) Anxiety and depression: Plan: - Continue home Sertraline (6) HLD (hyperlipidemia): Plan: -On atorvastatin at home -Currently on hold -Would continue to hold as some evidence shows atorvastatin can lead to reversible cognitive dysfunction (7) Hypothyroidism, postablative: Plan: -TSH 14.2 in May -TSH now 3.558 -Continue home dose of levothyroxine Plan Surgery is planning on discharge to rehab when bed is available. Admission and Anticipated Discharge Date Admission Date: July 12, 2022 Supervising Physician Co-Signing Physician Notes chart reviewed, nikos Hou PAC, as above Subjective Patint is awake laying in bed. Per nursing she is drinking and urinating well. She had a bladder scan last night that only revealed 50cc post void. Patient tells me that she has some mild abdominal discomfort. Patient is having BMs and tolerating a low fiber diet. She is to have her DAMARIS drain removed later today. Surgery is planning on discharge to SNF rehab when a bed is available. Hgb 11.4 (12.5) - Stable and no evidence of any bleeding. BMP is normal Review of Systems Constitutional: + fatigue; no fever, no chills and no weight loss Respiratory: no cough, no dyspnea and no hemoptysis Cardiovascular: no chest pain, no dyspnea, no syncope and no edema Gastrointestinal: + abdominal pain; no heartburn, no nausea, no vomiting, no pain with swallowing and no dysphagia Genitourinary: no dysuria, no difficulty urinating, no urinary frequency and no urinary hesitancy Physical Exam Constitutional: WD/WN, vitals as above ENMT: external ear and nose normal, oropharynx normal Neck: trachea midline, no thyromegaly Respiratory: normal respiratory effort, lungs clear to auscultation Cardiovascular: RRR, no murmur, no edema Gastrointestinal (Abdomen): Inspection/Auscultation: abdomen normal to inspection, normal bowel sounds and + abdominal surgical drain present; abdomen not distended Skin: no rashes, warm and dry Neurologic: PERRL, EOMI, accommodation nl, no face palsy, no dysarthria Psychiatric: A+Ox3, euthymic affect Results & Data Results & Data ([facility]) Vital Signs (Past 12 Hours) Vital Signs Temp Pulse Pulse Resp BP Pulse Ox O2 Del Method 07/18/22 03:28 36.9 C 84 18 128/72 97 Room Air 07/18/22 00:00 74 07/17/22 22:00 36.8 C 83 17 109/63 92 Room Air PG Care Time/CCT Total # of Minutes Spent Total Time Spent with Patient: Total time spent is greater than 50% in coordination of care (as documented) at patient's floor/unit and/or counseling patient: Coding Level of Care Code 63888 Subseq Hosp Care Lvl 1 Diagnoses Acute delirium R41.0 Parkinsons disease G20 [place]-vesical fistula N32.1 Hypertension I10 Anxiety and depression F41.9; F32.A HLD (hyperlipidemia) E78.5 Hypothyroidism, postablative E89.0 Time Spent (min) 10
[2022-07-18] MEDS: SERTRALINE HCL 50 MG TABLET PO SCH (09:00)
[2022-07-18] MEDS: CARBIDOPA/LEVODOPA 25/100MG TAB PO SCH ×3 (09:01→21:03)
[2022-07-18] MEDS: HEPARIN SOD 5,000 UNIT/0.5 ML VIAL SQ SCH ×2 (09:01→21:04)
--- NOTE | 2022-07-18 10:43 | Surgery Progress Note ---
Date of Service July 18, 2022 Assessment & Plan (1) [place]-vesical fistula: Plan: POD#6 sigmoid colon resection Hbg 11.4, WBC 7, K:3.7, Cr: 0.6 She is tolerating low fiber diet. Last BM yesterday. No n/v Mannie removed yesterday, DAMARIS will be removed today Working with PT/OT, who is recommending SNF. Case mngmnt on board Continue to encourage ambulation and pulm toilet Appreciate hospitalists assistance with pt Stable from our standpoint for dispo once bed available at facility F/u in clinic with Dr. Garcia in 1 week Admission and Anticipated Discharge Date Admission Date: July 12, 2022 Subjective Patient doing okay. Tolerating diet, no n/v. Last BM yesterday. She is voiding as of this AM. Mild abdominal pain, managed with tylenol. Physical Exam Physical Exam: awake/alert, no distress Respiratory: normal respiratory effort Gastrointestinal (Abdomen): Inspection/Auscultation: + abdominal surgical incision (midline incision w lalo, slight serosang drainage after mannie removed) and + abdominal surgical drain present (serosang); abdomen not distended Percussion/Palpation: + abdomen tender (mild discomfort to palpation to left side of incision) and abdomen soft Results & Data ([facility]) Vital Signs (Past 12 Hours) Vital Signs Temp Pulse Pulse Pulse Resp BP Pulse Ox 07/18/22 08:00 72 07/18/22 08:00 36.6 C 78 18 119/71 96 07/18/22 03:28 36.9 C 84 18 128/72 97 07/18/22 00:00 74 O2 Del Method 07/18/22 08:00 07/18/22 08:00 Room Air 07/18/22 03:28 Room Air 07/18/22 00:00 PG Care Time/CCT Total # of Minutes Spent Total Time Spent with Patient: Total time spent is greater than 50% in coordination of care (as documented) at patient's floor/unit and/or counseling patient: Coding Level of Care Code None Diagnoses [place]-vesical fistula N32.1
[2022-07-18] MEDS ORDERED: POTASSIUM CHLORIDE CRTAB 20 MEQ TABCR PO STA (11:53)
[2022-07-19] MEDS: LEVOTHYROXINE SODIUM 112 MCG TABLET PO SCH (06:09)
[2022-07-19] MEDS: HEPARIN SOD 5,000 UNIT/0.5 ML VIAL SQ SCH (07:47)
[2022-07-19] MEDS: CARBIDOPA/LEVODOPA 25/100MG TAB PO SCH ×2 (07:47→13:49)
[2022-07-19] MEDS: SERTRALINE HCL 50 MG TABLET PO SCH (07:47)
--- NOTE | 2022-07-19 08:09 | Hospitalist Progress Note ---
Date of Service July 19, 2022 Assessment & Plan (1) Acute delirium: Plan: Likely in the setting of underlying dementia in a patient with history of small vessel cerebrovascular disease, as suspected by Neurology during consultation in May 2022 Also possible that she may have mild to moderate idiopathic Parkinson's per Neuro -Patient continues to be A&O x 3 -Continue Delirium precautions: frequent reorientation, open blinds, avoid excessive changes room changes, keep room quiet overnight with as minimal awakenings as possible -Avoid benzodiazepines, anticholinergic meds -- would avoid opioids if possible as well (2) Parkinsons disease: Plan: -As above Parkinson's could predispose to delirium in hospital setting -Continue carbidopa/levodopa as recommended by Neurology in May (3) [place]-vesical fistula: Plan: -POD #7 following sigmoid colectomy -Continue care per General Surgery (4) Hypertension: Plan: - Restarted Norvasc 5mg this morning - Tentatively to be discharge to rehab when placement available (5) Anxiety and depression: Plan: - Continue home Sertraline (6) HLD (hyperlipidemia): Plan: -On atorvastatin at home -Currently on hold -Would continue to hold as some evidence shows atorvastatin can lead to reversible cognitive dysfunction -Can restart upon discharge (7) Hypothyroidism, postablative: Plan: -TSH 14.2 in May -TSH now 3.558 -Continue home dose of levothyroxine (8) Hypomagnesemia: Plan: - Will replace today with 1gm Magnesium Plan Surgery is planning on discharge to rehab when bed is available, tentatively later today. Admission and Anticipated Discharge Date Admission Date: July 12, 2022 Supervising Physician Co-Signing Physician Notes chart reviewed, agree lisa Hou PAC, as above Subjective Patient is awake sitting up in bed. she has no complaints today. She states she has not had a BM today and denies any nausea or vomiting. She is tolerating her diet but states she doesn't always like the food. She has no CP, SOB, Cough or congestion. She had all her surgical drains pulled and only has minimal abdominal discomfort. Review of Systems Constitutional: + fatigue; no fever, no chills and no weight loss Respiratory: no cough, no dyspnea and no hemoptysis Cardiovascular: no chest pain, no dyspnea, no syncope and no edema Gastrointestinal: + abdominal pain; no heartburn, no nausea, no vomiting, no pain with swallowing and no dysphagia Genitourinary: no dysuria, no difficulty urinating, no urinary frequency and no urinary hesitancy Physical Exam Constitutional: WD/WN, vitals as above ENMT: external ear and nose normal, oropharynx normal Neck: trachea midline, no thyromegaly Respiratory: normal respiratory effort, lungs clear to auscultation Cardiovascular: RRR, no murmur, no edema Gastrointestinal (Abdomen): Inspection/Auscultation: abdomen normal to inspection, normal bowel sounds and + abdominal surgical drain present; abdomen not distended Skin: no rashes, warm and dry Neurologic: PERRL, EOMI, accommodation nl, no face palsy, no dysarthria Psychiatric: A+Ox3, euthymic affect Results & Data Results & Data ([facility]) Vital Signs (Past 12 Hours) Vital Signs Temp Pulse Pulse Pulse Resp BP BP 07/19/22 07:31 36.7 C 84 18 170/75 H 07/19/22 04:10 36.7 C 72 18 125/67 07/19/22 00:00 90 07/18/22 22:51 36.8 C 90 18 142/69 H Pulse Ox O2 Del Method 07/19/22 07:31 93 Room Air 07/19/22 04:10 92 Room Air 07/19/22 00:00 07/18/22 22:51 95 Room Air Laboratory Results Abnormal lab results 07/19/22 Range/Units 05:32 Magnesium 1.4 L (1.7-2.4) mg/dl PG Care Time/CCT Total # of Minutes Spent Total Time Spent with Patient: Total time spent is greater than 50% in coordination of care (as documented) at patient's floor/unit and/or counseling patient: Coding Level of Care Code 51266 Subseq Hosp Care Lvl 2 Diagnoses Acute delirium R41.0 Parkinsons disease G20 [place]-vesical fistula N32.1 Hypertension I10 Anxiety and depression F41.9; F32.A HLD (hyperlipidemia) E78.5 Hypothyroidism, postablative E89.0 Hypomagnesemia E83.42 Time Spent (min) 15
[2022-07-19] MEDS ORDERED: amLODIPine BESYLATE 5 MG TAB PO SCH (09:00)
--- NOTE | 2022-07-19 09:28 | Surgery Progress Note ---
Date of Service July 19, 2022 Assessment & Plan (1) [place]-vesical fistula: Plan: POD 6 sigmoid resection stable awaiting placement Admission and Anticipated Discharge Date Admission Date: July 12, 2022 Subjective no BM today, appetite improving, not needing analgesics Physical Exam 2 Constitutional: WD/WN, vitals as above Gastrointestinal (Abdomen): Inspection/Auscultation: + abdominal surgical inci [place] (dry, no erythema); abdomen not distended Percussion/Palpation: abdomen soft Results & Data ([facility]) Vital Signs (Past 12 Hours) Vital Signs Temp Pulse Pulse Pulse Resp BP BP 07/19/22 08:00 68 07/19/22 07:31 36.7 C 84 18 170/75 H 07/19/22 04:10 36.7 C 72 18 125/67 07/19/22 00:00 90 07/18/22 22:51 36.8 C 90 18 142/69 H Pulse Ox O2 Del Method 07/19/22 08:00 07/19/22 07:31 93 Room Air 07/19/22 04:10 92 Room Air 07/19/22 00:00 07/18/22 22:51 95 Room Air PG Care Time/CCT Total # of Minutes Spent Total Time Spent with Patient: Total time spent is greater than 50% in coordination of care (as documented) at patient's floor/unit and/or counseling patient: Coding Level of Care Code None Diagnoses [place]-vesical fistula N32.1
[2022-07-19] MEDS ORDERED: MAGNESIUM SULFATE / D5W 1 GM/100 ML BAG IV ONE (14:00)
[2022-07-19 15:53] VITALS: TEMP 97.5; O2SAT 94
[2022-07-19 15:55] VITALS: BP 118/76; PULSE 72
--- NOTE | 2022-07-19 20:09 | Discharge Summary ---
Date of Service July 19, 2022 Principal Diagnosis colovesical fistula acute delirium Discharge Exam awake/alert, no distress Respiratory normal respiratory effort Gastrointestinal (Abdomen) Inspection/Auscultation: + abdominal surgical incision (c/d/i with midline lalo); abdomen not distended Percussion/Palpation: + abdomen tender (mild blake incisional discomfort) and abdomen soft Discharge Data Allergies Allergy/AdvReac Type Severity Reaction Status Date / Time lisinopril AdvReac Intermediate Cough Verified 07/12/ 06:17 mesalamine [From Asacol] AdvReac Unknown CAN'T Verified 07/12/22 06:17 REMEMBER sulfasalazine AdvReac Unknown CAN'T Verified 07/12/22 06:17 REMEMBER Consultations 07/15/ 23:12 Consult Hospitalist Routine Procedures Performed Operation Date: 07/12/22 07:00 Actual Procedures p Open Sigmoid Colon Resection(Not Applicable) - Max Garcia MD, [facility] Hospital Course (1) Colovesical fistula: This is an 87yF who presented to the [facility] on 12 where she underwent an open sigmoid colon resection with Dr. Garcia. The patient tolerated the procedure well, see op note for full details. The patient recovered in the PACU and was transferred to the nursing unit in stable condition. She was kept NPO, with post op abx and salgado catheter. On POD#1 she was started on clear liquids. She was on maintenance IVF. Salgado catheter remained in place. Activity and pulmonary toilet encouraged. Pain managed on prn IV medications. POD#2-#3 salgado catheter was removed. She was started on DVT prophylaxis. PT/OT was ordered to work with the patient. Overnight of 12/18 she did develop some acute delirium. The hospitalist service was consulted for their assistance who followed along with us throughout the remained of her hospitalization. Her delirium did resolve without further events. On POD#4 her diet was advanced to full liquids as her bowel function began to return. [place] drain was removed from her incision. Eventually she was able to just take Tylenol for pain control. On POD#5 diet advanced to low fiber. She was passing flatus and BMs. Patient voiding spontaneously. [place] drain removed. Incisions c/d/i. On POD#6 her DAMARIS drain, which remained serosang in character throughout her hospitalization, was removed. PT/OT continued to work with the patient and recommended a SNF upon discharge. Case management working with patient to find placement. Doing well with low fiber diet. On POD#7 the patient continue to do well. Diet tolerated and pain well controlled. She [facility] ultimately [facility] facility without event. She was instructed to follow up with Dr. Garcia in clinic within 1 week. Total Time Total Time Spent Total Time Spent (In Minutes): 15 Discharge Plan Discharge Items Patient Disposition: Transfer [facility] Fac Reason For Visit: Colovesical Fistula Discharge Diagnosis: sigmoid colon resection Activity: Per Instructions section Lifting: No more than 10 pounds Bathing Comment: may shower; no soaking in tubs/pools Exercise/Sports: Wait until after follow-up appointment Driving/Machine Use: wait until cleared by surgeon; wait at least 1 week Non-emergency contact: Surgeon Call non-emergency contact if: you have any medication questions, your symptoms worsen, your pain is not controlled, your pain is concerning for you, you have a fever, your temperature is above 101.5, your wound has increased redness, your wound has increased drainage and your wound pain has increased Follow-up/Referrals: Max Garcia MD, FACS [Surgeon] - 08/01/22 3:45 pm (Please call to schedule follow up in clinic within 1 week) Мария Gomes DO [Primary Care Provider] - 08/08/22 10:20 am (PCP followup) Diet: Low Fiber Addtl Attending Provider Instructions: Please continue on a low fiber diet until cleared by the surgeon You have lalo in place that will be removed at one of your follow up appointments You may take Tylenol if needed for pain. Take per manufacturers instructions Pending Studies at Discharge: Yes Studies:: surgical pathology Stand-Alone Forms: My [facility] Skilled Items Patient informed of condition?: Yes DNR: No Discharge Level of Care: Skilled Communicable Disease: No Discharge Prognosis: Stable Lines: None Urinary Catheter: No Medications and DC Order Prescriptions: Continued multivitamin [Multiple Vitamins] tablet 1 tab PO QAM cholecalciferol (vitamin D3) 1,000 unit capsule 2,000 units PO QAM ascorbic acid (vitamin C) 1,000 mg tablet 1 gm PO QAM acetaminophen 500 mg tablet 1,000 mg PO TID PRN (Reason: fever or pain) Qty: 90 (DME) Bedside Commode Misc See Rx Instructions .Route Qty: 1 0RF Rx Instructions: As directed albuterol sulfate 90 mcg/actuation HFA aerosol inhaler 2 puff inhalation Q6H PRN (Reason: Shortness Of Breath Or Wheezing) Qty: 18 3RF calcium carbonate [Calcium 600] 600 mg calcium (1,500 mg) Tablet 600 mg PO QAM mupirocin 2 % ointment 1 applic topical TID PRN (Reason: Skin Irritation) amlodipine [Norvasc] 5 mg Tablet 5 mg PO QAM Qty: 30 0RF carbidopa-levodopa [Sinemet] 25-100 mg tablet 1 tab PO TID Qty: 60 1RF ferrous sulfate 325 mg (65 mg iron) tablet 325 mg PO QAM sertraline [Zoloft] 50 mg tablet 50 mg PO QAM levothyroxine 112 mcg tablet 112 mcg PO QAM Label Comments: qam atorvastatin [Lipitor] 10 mg tablet 10 mg PO QAM Discontinued ciprofloxacin HCl [Cipro] 500 mg tablet 500 mg PO .COMPLEX Qty: 3 0RF Rx Instructions: 500 mg orally; at 2pm, 4pm and 10 pm day before surgery polyethylene glycol 3350 [Miralax] 17 gram powder in packet 17 g PO DAILY PRN (Reason: Constipation) Label Comments: not using currently metronidazole 500 mg tablet 500 mg PO UD Rx Instructions: 500 mg PO The day before surgery take at 2:00 pm, 4:00 pm, and 10:00 pm.; Discharge Orders: Discharge Order (Routine); Ordered 07/19/22 Ordered By: Jose Couch Admission Data Admit Date/Time: 07/12/22 09:00 Attending Provider: Carlitos Wu Admit Provider: Max Garcia Primary Care Provider: Мария Gomes Other Providers: Loree Nagel ; [place] ; [facility] ; Max Garcia Other Interventions: Discharge Summary Assessment (RN) Last Done: 07/19/22 15:49 Coding Level of Care Code D/C DAY MANAGEMENT <30 MINS Diagnoses Colovesical fistula N32.1
== END 2022-07-19 17:25 | DRG 982 ==
LOC: ASU 05:40 → 4W 09:00 → SUATTDRO 09:00